=== PATIENT | female | born 1965 | race Caucasian/White ===

== ENCOUNTER 2019-05-16 17:45 | Emergency (ER) | payer SELFPAY ==
[2019-05-16] MEDS ORDERED: NA CHLORIDE 0.9% 1,000 ML ONE (18:25)
[2019-05-16] MEDS ORDERED: ONDANSETRON 4 MG/2 ML VIAL ONE ×2 (18:25→19:29)
[2019-05-16 18:31] LABS: Urine Blood NEGATIVE (NEG); Urine Glucose NEGATIVE (NEG); Urine Protein NEGATIVE (NEG); Urine pH 5.5 (5.0-7.0)
[2019-05-16 18:31] LABS: Absolute Lymphocytes (CBC) 2.5 K/uL (0.7-4.9); Basophils % 1.1 % (0-1.3); Hematocrit 40.3 % (36.0-45.0); Lymphocytes % 40.8 % (15.3-44.8); MPV 8.5 fL (7.6-11.3); RBC Red Blood Cell Count 4.54 M/uL (3.86-4.86)
[2019-05-16 18:33] LABS: Protime INR 0.93
--- NOTE | 2019-05-16 18:34 | RAD REPORT ---
EXAM DESCRIPTION: Arthur Single View05/16/2019 6:12 pm CLINICAL HISTORY: Chest pain COMPARISON: 2017 FINDINGS: The lungs appear clear of acute infiltrate. The heart is normal size IMPRESSION: No acute abnormalities displayed
[2019-05-16 18:50] LABS: ALT/SGPT 17 U/L (12-78); AST/SGOT 11 U/L (15-37); Albumin 3.7 g/dL (3.4-5.0); Alkaline Phosphatase 110 U/L (45-117); BUN Blood Urea Nitrogen 9 mg/dL (7-18); Bicarbonate 28 mmol/L (21-32); Bilirubin Direct 0.1 mg/dL (0-0.2); Bilirubin Total 0.3 mg/dL (0.2-1.0); Glucose Level 73 mg/dL (74-106); Magnesium 2.2 mg/dL (1.8-2.4); NT PRO-BNP 206 pg/mL (<125); Potassium 3.7 mmol/L (3.5-5.1); Protein, Total 7.5 g/dL (6.4-8.2); Sodium Level 143 mmol/L (136-145); Troponin (Emerg Dept Use Only) < 0.02 ng/mL (0.0-0.045)
--- NOTE | 2019-05-16 18:55 | RAD REPORT ---
EXAM DESCRIPTION: CT - Head Brain Wo Cont - 05/16/2019 6:32 pm CLINICAL HISTORY: Headache COMPARISON: 2014 TECHNIQUE: Computed axial tomography of the head was obtained. IV contrast was not requested. All CT scans are performed using dose optimization technique as appropriate and may include automated exposure control or mA/KV adjustment according to patient size. FINDINGS: An intracranial bleed is not seen . Mild cerebellar tonsillar ectopia The ventricles are normal in caliber. No extra-axial fluid collection is noted. Fluid within the sinuses/ mastoids is not seen. IMPRESSION: Mild cerebellar tonsillar ectopia No acute intracranial abnormality is seen. If patient's symptoms persist MRI of the brain would be r ecommended.
--- NOTE | 2019-05-16 19:16 | EDPHYS ---
Physician Documentation [facility] Name: Olga Lidia Delgadillo Age: 53 yrs Sex: Female : 1965 Arrival Date: 05/16/2019 Time: 17:48 Bed 5 Private MD: ED Physician Albert Barrett HPI: 05/16 18:03 This 53 yrs old Female presents to ER via Ambulatory with complaints of pm1 Headache, Chest Pain, Dizziness. 18:03 The patient complains of pain to the forehead. The patient describes the headache as pm1 aching. 18:03 Onset: The symptoms/episode began/occurred 2 day(s) ago. Associated signs and symptoms: pm1 Pertinent positives: dizziness, Chest pain, Pertinent negatives: fever, nausea, neck stiffness, paresthesias, vomiting, weakness. The symptoms are alleviated by nothing. the symptoms are aggravated by nothing. The patient has not recently seen a physician. Chest pain onset 2 days ago at the same time with her headache. 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 - Social history:: Smoking status: Patient/guardian denies using tobacco. - Ebola Screening: : No symptoms or risks identified at this time. ROS: 18:03 Constitutional: Negative for fever, chills, and weight loss, Eyes: Negative for injury, pm1 pain, redness, and discharge, ENT: Negative for injury, pain, and discharge, Neck: Negative for injury, pain, and swelling. 18:03 Respiratory: Negative for shortness of breath, cough, wheezing, and pleuritic chest pain, Abdomen/GI: Negative for abdominal pain, nausea, vomiting, diarrhea, and constipation, Back: Negative for injury and pain, : Negative for injury, bleeding, discharge, and swelling, MS/Extremity: Negative for injury and deformity, Skin: Negative for injury, rash, and discoloration. 18:03 Cardiovascular: Positive for chest pain, Negative for edema, palpitations. 18:03 Neuro: Positive for dizziness, headache, Negative for numbness, tingling, weakness. Exam: 18:03 Constitutional: This is a well developed, well nourished patient who is awake, alert, pm1 and in no acute distress. Head/Face: Normocephalic, atraumatic. Eyes: Pupils equal round and reactive to light, extra-ocular motions intact. Lids and lashes normal. Conjunctiva and sclera are non-icteric and not injected. Cornea within normal limits. Periorbital areas with no swelling, redness, or edema. ENT: Nares patent. No nasal discharge, no septal abnormalities noted. Tympanic membranes are normal and external auditory canals are clear. Oropharynx with no redness, swelling, or masses, exudates, or evidence of obstruction, uvula midline. Mucous membranes moist. Neck: Trachea midline, no thyromegaly or masses palpated, and no cervical lymphadenopathy. Supple, full range of motion without nuchal rigidity, or vertebral point tenderness. No Meningismus. Chest/axilla: Normal chest wall appearance and motion. Nontender with no deformity. No lesions are appreciated. Cardiovascular: Regular rate and rhythm with a normal S1 and S2. No gallops, murmurs, or rubs. Normal PMI, no JVD. No pulse deficits. Respiratory: Lungs have equal breath sounds bilaterally, clear to auscultation and percussion. No rales, rhonchi or wheezes noted. No increased work of breathing, no retractions or nasal flaring. Abdomen/GI: Soft, non-tender, with normal bowel sounds. No distension or tympany. No guarding or rebound. No evidence of tenderness throughout. Back: No spinal tenderness. No costovertebral tenderness. Full range of motion. Skin: Warm, dry with normal turgor. Normal color with no rashes, no lesions, and no evidence of cellulitis. MS/ Extremity: Pulses equal, no cyanosis. Neurovascular intact. Full, normal range of motion. 18:03 Neuro: Orientation: is normal, Motor: moves all fours. Vital Signs: 17:50 BP 94 / 63; Pulse 62; Resp 18; Temp 98.5(TE); Pulse Ox 98% on R/A; Weight 68.04 kg; hj Height 5 ft. 2 in. (157.48 cm); Pain 7/10; 18:12 BP 103 / 64 LA Supine (auto/reg); Pulse 61; sv 18:14 BP 105 / 76 LA Sitting (auto/reg); Pulse 65; sv 18:16 BP 113 / 71 LA Standing (auto/reg); Pulse 66; sv 19:00 BP 111 / 75; Pulse 57 MON; Resp 16; Pulse Ox 98% on R/A; sv 19:42 BP 114 / 75; Pulse 61; Resp 16 S; Pulse Ox 97% on R/A; jd3 17:50 Body Mass Index 27.44 (68.04 kg, 157.48 cm) hj 19:00 Sinus bradycardia sv MDM: 17:54 Patient medically screened. pm1 19:14 Data reviewed: vital signs. Data interpreted: Pulse oximetry: on room air is 98 %. pm1 Interpretation: normal. 19:15 Counseling: I had a detailed discussion with the patient and/or guardian regarding: the pm1 historical points, exam findings, and any diagnostic results supporting the discharge/admit diagnosis, lab results, radiology results, the need for outpatient follow up, to return to the emergency department if symptoms worsen or persist or if there are any questions or concerns that arise at home. 05/16 18:01 Order name: Basic Metabolic Panel; Complete Time: 19: pm05/16 18:01 Order name: CBC with Diff; Complete Time: 19: pm05/16 18:01 Order name: LFT's; Complete Time: 19: pm05/16 18:01 Order name: Magnesium; Complete Time: 19: pm05/16 18:01 Order name: NT PRO-BNP; Complete Time: 19: pm05/16 18:01 Order name: PT-INR; Complete Time: 19: pm05/16 18:01 Order name: CT Head Brain wo Cont; Complete Time: 19: pm05/16 18:01 Order name: Troponin (emerg Dept Use Only); Complete Time: 19: pm05/16 18:01 Order name: XRAY Chest (1 view); Complete Time: 19: pm05/16 18:01 Order name: EKG; Complete Time: 18:05 pm05/16 18:19 Order name: Urine Dipstick--Ancillary (enter results); Complete Time: 19:09 eb 05/16 18:01 Order name: Cardiac monitoring; Complete Time: 18:03 pm1 05/16 18:01 Order name: EKG - Nurse/Tech; Complete Time: 18:03 pm1 05/16 18:01 Order name: IV Saline Lock; Complete Time: 18:21 pm1 05/16 18:01 Order name: Labs collected and sent; Complete Time: 18:21 pm05/16 18:01 Order name: O2 Per Protocol; Complete Time: 18:03 pm05/16 18:01 Order name: O2 Sat Monitoring; Complete Time: 18:03 pm05/16 18:01 Order name: Orthostatic Blood Pressure; Complete Time: 18:21 pm1 EC:02 Rate is 59 beats/min. Rhythm is regular. No Q waves. T waves are Normal. No ST changes pm1 noted. Clinical impression: Sinus bradycardia. Administered Medications: 18:21 Drug: NS 0.9% 1000 ml Route: IV; Rate: 1000 ml; Site: right antecubital; sv 19:45 Follow up: Response: No adverse reaction; IV Status: Completed infusion; IV Intake: jd3 1000ml 19:17 Drug: morphine 4 mg Route: IVP; Site: right antecubital; jd3 19:46 Follow up: Response: No adverse reaction jd3 19:17 Drug: Zofran 4 mg Route: IVP; Site: right antecubital; jd3 19:46 Follow up: Response: No adverse reaction jd3 Disposition: 05/17 07:02 Co-signature as Attending Physician, Albert Barrett MD I agree with the assessment and kdr plan of care. Disposition: 05/16/19 19:15 Discharged to Home. Impression: Headache, Chest pain, unspecified. - Condition is Stable. - Discharge Instructions: Nonspecific Chest Pain, General Headache Without Cause. - Medication Reconciliation Form, Thank You Letter, Antibiotic Education, Prescription Opioid Use form. - Follow up: Emergency Department; When: As needed; Reason: Worsening of condition. Follow up: Private Physician; When: 2 - 3 days; Reason: Recheck today's complaints, Continuance of care, Re-evaluation by your physician. - Problem is new. - Symptoms have improved. Signatures: Dispatcher [facility] Janell Jordan, RN RN Albert Barrett MD MD [facility] Bran Ramos RN RN hj Michele Velasco NP REFERRAL AGENT pm1 Jacques Guallpa RN RN jd3 Corrections: (The following items were deleted from the chart) 05/16 19:48 19:15 05/16/2019 19:15 Discharged to Home. Impression: Headache; Chest pain, jd3 unspecified. Condition is Stable. Forms are Medication Reconciliation Form, Thank You Letter, Antibiotic Education, Prescription Opioid Use. Follow up: Emergency Department; When: As needed; Reason: Worsening of condition. Follow up: Private Physician; When: 2 - 3 days; Reason: Recheck today's complaints, Continuance of care, Re-evaluation by your physician. Problem is new. Symptoms have improved. pm1
--- NOTE | 2019-05-16 19:16 | ER ---
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 Transition of care: patient was not received from another setting of care. Onset of symptoms was May 16, 2019. Risk Assessment: Do you want to hurt yourself or someone else? Patient reports no desire to harm self or others. Initial Sepsis Screen: Does the patient meet any 2 criteria? No. Patient's initial sepsis screen is negative. Does the patient have a suspected source of infection? No. Patient's initial sepsis screen is negative. Care prior to arrival: None. 17:48 Method Of Arrival: Ambulatory 17:48 Acuity: ROXIE 3 hj Triage Assessment: 19:46 Pain: Pain began 2-3 days ago. Also complains of no other associated symptoms. jd3 19:46 Headache History: Denies prior headaches. 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 - Social history:: Smoking status: Patient/guardian denies using tobacco. - Ebola Screening: : No symptoms or risks identified at this time. Screenin:57 Abuse screen: Denies threats or abuse. Nutritional screening: No deficits noted. tw2 Tuberculosis screening: No symptoms or risk factors identified. Fall Risk None identified. Assessment: 18:10 General: Appears in no apparent distress. uncomfortable, well developed, Behavior is sv calm, cooperative, appropriate for age. Pain: Complains of pain in face and chest Pain currently is 7 out of 10 on a pain scale. Is intermittent, Aggravated by touch. Neuro: Level of Consciousness is awake, alert, obeys commands, Oriented to person, place, time, situation, Moves all extremities. Full function Gait is steady, Speech is normal, Reports dizziness, headache frontal area. Cardiovascular: Patient's skin is warm and dry. Rhythm is sinus rhythm. Respiratory: Airway is patent Respiratory effort is even, unlabored, Respiratory pattern is regular, symmetrical. Derm: Skin is pink, warm \T\ dry. 18:10 Musculoskeletal: Range of motion: intact in all extremities. sv 18:15 Reassessment: Hold morphine at this time d/t BP per Michele DIALYSIS TECHNICIAN. Will reevaluate once sv fluids have infused. Pt and family informed of POC. 19:01 Reassessment: Patient appears in no apparent distress at this time. No changes from sv previously documented assessment. Patient and/or family updated on plan of care and expected duration. Pain level reassessed. Patient is alert, oriented x 3, equal unlabored respirations, skin warm/dry/pink. 19:18 General: Appears in no apparent distress. uncomfortable, Behavior is calm, cooperative, jd3 appropriate for age. Pain: Complains of pain in head and chest Quality of pain is described as aching, pressure. Neuro: Level of Consciousness is awake, alert, obeys commands, Oriented to person, place, time, situation. Cardiovascular: Capillary refill < 3 seconds Patient's skin is warm and dry. Rhythm is sinus rhythm. Respiratory: Airway is patent Respiratory effort is even, unlabored, Respiratory pattern is regular, symmetrical. GI: No signs and/or symptoms were reported involving the gastrointestinal system. : No signs and/or symptoms were reported regarding the genitourinary system. EENT: No signs and/or symptoms were reported regarding the EENT system. Derm: Skin is intact, Skin is dry, Skin is normal, Skin temperature is warm. Musculoskeletal: Circulation, motion, and sensation intact. Range of motion: intact in all extremities. 19:43 Reassessment: Patient appears in no apparent distress at this time. Patient and/or jd3 family updated on plan of care and expected duration. Pain level reassessed. Patient is alert, oriented x 3, equal unlabored respirations, skin warm/dry/pink. reported understanding of discharge instructions, assisted pt to front of ER with wheelchair. Vital Signs: 17:50 BP 94 / 63; Pulse 62; Resp 18; Temp 98.5(TE); Pulse Ox 98% on R/A; Weight 68.04 kg; hj Height 5 ft. 2 in. (157.48 cm); Pain 7/10; 18:12 BP 103 / 64 LA Supine (auto/reg); Pulse 61; sv 18:14 BP 105 / 76 LA Sitting (auto/reg); Pulse 65; sv 18:16 BP 113 / 71 LA Standing (auto/reg); Pulse 66; sv 19:00 BP 111 / 75; Pulse 57 MON; Resp 16; Pulse Ox 98% on R/A; sv 19:42 BP 114 / 75; Pulse 61; Resp 16 S; Pulse Ox 97% on R/A; jd3 17:50 Body Mass Index 27.44 (68.04 kg, 157.48 cm) hj 19:00 Sinus bradycardia sv ED Course: 17:48 Patient arrived in ED. hj 17:49 Triage completed. hj 17:50 Arm band placed on right wrist. hj 17:54 Michele Velasco NP is PHCP. pm1 17:54 Albert Barrett MD is Attending Physician. pm1 17:54 Bed in low position. Call light in reach. engraver automatic on. Pulse ox on. NIBP on. tw2 18:01 EKG done, by ED staff, reviewed by Michele Velasco NP. sv 18:08 Janell Jordan, RN is Primary Nurse. sv 18:14 XRAY Chest (1 view) In Process Unspecified. EDMS 18:20 Initial lab(s) drawn, by mt, sent to lab. Inserted saline lock: 20 gauge in right sv antecubital area, using aseptic technique. Blood collected. Flushed right antecubital with 5 ml normal saline. 18:[address] via stretcher. sv 18:32 Awaiting lab results, Awaiting radiology results. sv 18:34 CT Head Brain wo Cont In Process Unspecified. EDMS 18:34 Patient moved back from CT. sv 19:00 Awaiting lab results. sv 19:06 Primary Nurse role handed off by Janell Jordan, ADDIE sv 19:06 Report given to Jacques REAL and Sonja REAL. sv 19:08 Guallpa, Jacques, RN is Primary Nurse. jd3 19:47 No provider procedures requiring assistance completed. IV discontinued, intact, jd3 bleeding controlled, No redness/swelling at site. Pressure dressing applied. Administered Medications: 18:21 Drug: NS 0.9% 1000 ml Route: IV; Rate: 1000 ml; Site: right antecubital; sv 19:45 Follow up: Response: No adverse reaction; IV Status: Completed infusion; IV Intake: jd3 1000ml 19:17 Drug: morphine 4 mg Route: IVP; Site: right antecubital; jd3 19:46 Follow up: Response: No adverse reaction jd3 19:17 Drug: Zofran 4 mg Route: IVP; Site: right antecubital; jd3 19:46 Follow up: Response: No adverse reaction jd3 Intake: 19:45 IV: 1000ml; Total: 1000ml. jd3 Outcome: 19:15 Discharge ordered by MD. pm1 19:47 Discharged to home via wheelchair, with family. jd3 19:47 Condition: stable 19:47 Discharge instructions given to patient, family, Instructed on discharge instructions, follow up and referral plans. Demonstrated understanding of instructions, follow-up care. 19:48 Patient left the ED. jd3 Signatures: Dispatcher [employer] EDMS Janell Jordan RN ADDIE Bran Ramos, RN ADDIE Michele Velasco, ELLEN DIALYSIS TECHNICIAN pm1 Carrol Quintana RN RN tw2 Jacques Guallpa, RN RN jd3 Corrections: (The following items were deleted from the chart) 17:52 17:50 Pulse 62bpm; Resp 18bpm; Pulse Ox 98% RA; Temp 98.5F Temporal; 68.04 kg; Height 5 hj ft. 2 in.; BMI: 27.4; Pain 7/10; hj 17:52 17:50 Pulse 62bpm; Resp 18bpm; Pulse Ox 98% RA; Temp 98.5F Temporal; 68.04 kg; Height 5 hj ft. 2 in.; BMI: 27.4; Pain 7/10; hj
[2019-05-16] MEDS ORDERED: MORPHINE 4 MG/ML SYR ONE (19:28)
[2019-05-16 20:08] VITALS: TEMP 98.5
[2019-05-16 20:12] VITALS: BP 114/75; O2SAT 97
--- NOTE | 2019-05-17 06:42 | EKG ---
Test Date: 2019-05-16 Test Time: 18:01:30 [employer] Instruments: RAVI MEASUREMENT RESULTS: Intervals: Rate: 59 LA: 140 QRSD: 76 QT: 424 QTc: 419 [place]: P: 28 LA: 140 QRS: 22 T: 42 INTERPRETIVE STATEMENTS: Sinus bradycardia Otherwise normal ECG Compared to ECG 10/28/2009 07:44:02 Sinus rhythm no longer present Electronically Signed On 05-17-19 06:41:34 CDT by Jose C Arboleda
== END 2019-05-16 19:48 | disposition home or self-care (01) ==
LOC: ER 17:45
DX: R51 Headache (principal); R07.9 Chest pain, unspecified; F31.9 Bipolar disorder, unspecified; F32.9 Major depressive disorder, single episode, unspecified; Z88.8 Allergy status to other drugs, medicaments and biological substances; Z88.6 Allergy status to analgesic agent; Z91.040 Latex allergy status
CPT/HCPCS: 36415; 70450; 71045; 80048; 80076; 81003; 83735; 83880; 84484; 85025; 85610; 93005; 96361; 96374; 96375; 99285; J2405; J7030

== ENCOUNTER 2020-03-31 21:57 | Emergency (ER) | payer SELFPAY ==
--- OUTSIDE RECORDS SUMMARY | 2020-03-31 21:59 | XMS REPORT | Continuity of Care Document ---
:1965 Author Organization [facility] t Address [address] [place] [address] Dr. Mathur [address] [place] [id number] Care Team Providers Name Role Phone Unavailable Unavailable Unavailable Problems This patient has no known problems. Allergies, Adverse Reactions, Alerts This patient has no known allergies or adverse reactions. Medications This patient has no known medications. Procedures This patient has no known procedures. Results This patient has no known results.
[2020-03-31] MEDS ORDERED: HYDROCODONE/APAP 5/325 MG TAB ONE (22:46)
--- NOTE | 2020-04-01 00:17 | ER ---
Nurse's Notes [facility] Name: Olga Lidia Delgadillo Age: 54 yrs Sex: Female : 1965 Arrival Date: 03/31/2020 Time: 21:59 Bed 19 Private MD: Diagnosis: Pain in left knee;Pain in left ankle and joints of left foot;Other slipping, tripping and stumbling and falls Presentation: 03/31 22:00 Chief complaint: Spouse and/or significant other states: states that the sg patient was walking down the stairs and onto a pathway when she lost her balance and fell from standing, hurting her left knee and left ankle, pt reports numbness at this time. Coronavirus screen: Proceed with normal triage. Ebola Screen: Patient negative for fever greater than or equal to 101.5 degrees Fahrenheit, and additional compatible Ebola Virus Disease symptoms Patient denies exposure to infectious person. Patient denies travel to an Ebola-affected area in the 21 days before illness onset. No symptoms or risks identified at this time. Initial Sepsis Screen: Does the patient meet any 2 criteria? No. Patient's initial sepsis screen is negative. Does the patient have a suspected source of infection? No. Patient's initial sepsis screen is negative. Onset of symptoms was March 31, 2020. Care prior to arrival: None. 22:00 Method Of Arrival: Wheelchair sg 22:00 Acuity: ROXIE 4 sg 22:24 Risk Assessment: Do you want to hurt yourself or someone else? Patient reports no ls4 desire to harm self or others. Triage Assessment: 22:22 General: Appears in no apparent distress. uncomfortable, Behavior is calm, cooperative. ls4 Injury Description: Abrasion sustained to left knee. 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 - Social history:: Smoking status: Patient denies any tobacco usage or history of. Screenin:20 Abuse screen: Denies threats or abuse. Denies injuries from another. Nutritional ls4 screening: No deficits noted. Tuberculosis screening: No symptoms or risk factors identified. Fall Risk None identified. Assessment: 22:21 Pain: Complains of pain in left knee and anterior aspect of left ankle Pain currently ls4 is 9 out of 10 on a pain scale. Derm: abrasion, quarter size on both knees. right knee does not hurt. Musculoskeletal: Circulation, motion, and sensation intact. Capillary refill < 3 seconds, Range of motion: intact in all extremities, Swelling absent. 04/01 00:38 Reassessment: Patient appears in no apparent distress at this time. Patient and/or ls4 family updated on plan of care and expected duration. Pain level reassessed. Patient is alert, oriented x 3, equal unlabored respirations, skin warm/dry/pink. crutches given. crutch training reviewed, pt has used in past. Patient states symptoms have improved. Vital Signs: 03/31 22:17 BP 111 / 74; Pulse 62; Resp 18; Temp 98.7(O); Pulse Ox 99% on R/A; Pain 9/10; ls4 23:27 BP 108 / 74; Pulse 64; Resp 16; Pulse Ox 99% on R/A; Pain 5/10; ls4 ED Course: 21:59 Patient arrived in ED. bp1 22:00 Arm band placed on. sg 22:04 Michele Velasco NP is PHCP. pm1 22:05 Kalpesh Meza MD is Attending Physician. pm1 22:10 Triage completed. sg 22:16 Kerrie Frankel, ADDIE is Primary Nurse. ls4 22:20 No apparent distress. ls4 22:20 Patient has correct armband on for positive identification. Bed in low position. Call ls4 light in reach. Side rails up X 1. Pulse ox on. NIBP on. Verbal reassurance given. 22:20 No provider procedures requiring assistance completed. ls4 22:24 Patient did not have IV access during this emergency room visit. ls4 22:48 Knee Left 3 View XRAY In Process Unspecified. EDMS 22:49 Ankle Left 3 View XRAY In Process Unspecified. EDMS 23:26 Knee Left Wo Con Sent. ls4 23:53 Knee Left Wo Con In Process Unspecified. EDMS 04/01 00:16 Froilan Wang MD is Referral Physician. pm1 00:48 Knee immobilizer applied on left knee. ls4 Administered Medications: 03/31 22:20 Drug: Iota 5 mg-325 mg 1 tabs Route: PO; ls4 22:40 Follow up: Response: No adverse reaction; Marked relief of symptoms ls4 Outcome: 04/01 00:16 Discharge ordered by . pm1 00:48 Discharged to home ambulatory, with crutches, with family. ls4 00:48 Condition: good 00:48 Discharge instructions given to patient, family, Instructed on discharge instructions, follow up and referral plans. medication usage, safety practices, Demonstrated understanding of instructions, follow-up care, medications, wound care, crutch walking, splint care, Prescriptions given X 1. 00:49 Patient left the ED. ls4 Signatures: Dispatcher [employer] EDCA Froilan Enamorado, RN Michele Bullock NP WILDLIFE REHABILITATOR pm1 Kerrie Frankel RN RN ls4 Gabbi Richards
--- NOTE | 2020-04-01 00:17 | EDPHYS ---
Physician Documentation [facility] Name: Olga Lidia Delgadillo Age: 54 yrs Sex: Female : 1965 Arrival Date: 03/31/2020 Time: 21:59 Bed 19 Private MD: ED Physician Kalpesh Meza HPI: 03/31 22:10 This 54 yrs old Female presents to ER via Wheelchair with complaints of Leg pm1 Injury. 22:10 The patient presents with pain, that is acute. The complaints affect the left knee and pm1 left ankle. Context: The problem was sustained at home, resulted from tripped on elevated porch board and landed on her knees. Onset: The symptoms/episode began/occurred today, at 18:00. Modifying factors: the symptoms are aggravated by weight bearing, bending knee. Associated signs and symptoms: Pertinent positives: swelling, of the left knee, Pertinent negatives calf tenderness, fever, numbness, tingling. Treatment prior to arrival includes: over the counter medications, Tylenol. Severity of symptoms: in the emergency department the symptoms are unchanged, despite home interventions. The patient has not experienced similar symptoms in the past. The patient has not recently seen a physician. [employer]: 22:17 LMP N/A - Hysterectomy ls4 Historical: - Allergies: 22:10 Aspirin (Hives); sg 22:10 Iodine; sg 22:10 Latex, Natural Rubber; sg 22:10 Prozac; sg 22:10 Seroquel (rash); sg - PMHx: 22:10 Bipolar disorder; Depression; sg - PSHx: 22:10 ; Hysterectomy; sg - Immunization history:: Adult Immunizations not up to date. - Social history:: Smoking status: Patient denies any tobacco usage or history of. ROS: 22:10 Constitutional: Negative for fever, chills, and weight loss, Neck: Negative for injury, pm1 pain, and swelling, Cardiovascular: Negative for chest pain, palpitations, and edema, Respiratory: Negative for shortness of breath, cough, wheezing, and pleuritic chest pain. 22:10 Abdomen/GI: Negative for abdominal pain, nausea, vomiting, diarrhea, and constipation, Back: Negative for injury and pain. 22:10 Neuro: Negative for headache, weakness, numbness, tingling, and seizure. 22:10 MS/extremity: Positive for Pain to left ankle and knee. Swelling to knee, Negative for deformity. 22:10 Skin: Positive for abrasion(s), of the right knee. Exam: 22:10 Constitutional: This is a well developed, well nourished patient who is awake, alert, pm1 and in no acute distress. Head/Face: Normocephalic, atraumatic. Chest/axilla: Normal chest wall appearance and motion. Nontender with no deformity. No lesions are appreciated. 22:10 Abdomen/GI: Soft, non-tender, with normal bowel sounds. No distension or tympany. No guarding or rebound. No evidence of tenderness throughout. Back: No spinal tenderness. No costovertebral tenderness. Full range of motion. 22:10 Cardiovascular: Exam negative for acute changes, Rate: normal, Rhythm: regular, Pulses: no pulse deficits are appreciated. 22:10 Respiratory: Exam negative for acute changes, respiratory distress, shortness of breath. 22:10 Musculoskeletal/extremity: Extremities: grossly normal except: noted in the left knee: swelling, tenderness, There is no evidence of deformity, noted in the left lateral ankle: tenderness, Circulation is intact in all extremities. 22:10 Skin: Appearance: normal except for affected area, injury, abrasion(s), very small abrasion noted, of the right knee. Vital Signs: 22:17 BP 111 / 74; Pulse 62; Resp 18; Temp 98.7(O); Pulse Ox 99% on R/A; Pain 9/10; ls4 23:27 BP 108 / 74; Pulse 64; Resp 16; Pulse Ox 99% on R/A; Pain 5/10; ls4 MDM: 22:05 Patient medically screened. pm1 23:11 ED course: Patient's left ankle pain resolved but left knee pain present and patient pm1 reports inability to bear weight on left knee. Will get CT to rule out tibial plateau fracture. 04/01 00:15 Data reviewed: vital signs. Data interpreted: Pulse oximetry: on room air is 99 %. pm1 Interpretation: normal. Counseling: I had a detailed discussion with the patient and/or guardian regarding: the historical points, exam findings, and any diagnostic results supporting the discharge/admit diagnosis, radiology results, the need for outpatient follow up, for definitive care, a orthopedic surgeon, to return to the emergency department if symptoms worsen or persist or if there are any questions or concerns that arise at home. 00:18 ED course: [place] reviewed. pm1 03/31 22:09 Order name: Knee Left 3 View XRAY pm1 03/31 22:09 Order name: Ankle Left 3 View XRAY pm1 03/31 23:04 Order name: Knee Immobilizer; Complete Time: 00:37 pm1 03/31 23:11 Order name: Knee Left Wo Con EDMN 03/31 23:04 Order name: Crutches; Complete Time: 00:37 pm1 Administered Medications: 03/31 22:20 Drug: Logan 5 mg-325 mg 1 tabs Route: PO; ls4 22:40 Follow up: Response: No adverse reaction; Marked relief of symptoms ls4 Disposition: 04/01 05:32 Co-signature as Attending Physician, Kalpesh Meza MD. 7 Disposition: 04/01/20 00:16 Discharged to Home. Impression: Pain in left knee, Pain in left ankle and joints of left foot, Other slipping, tripping and stumbling and falls. - Condition is Stable. - Discharge Instructions: Crutch Use, Knee Immobilizer, Knee Pain, Ankle Pain. - Prescriptions for Tylenol- Codeine #3 300-30 mg Oral Tablet - take 2 tablets by ORAL route every 6 hours As needed; 20 tablet. - Medication Reconciliation Form, Thank You Letter, Antibiotic Education, Prescription Opioid Use form. - Follow up: Emergency Department; When: As needed; Reason: Worsening of condition. Follow up: Froilan Wang MD; When: 2 - 3 days; Reason: Recheck today's complaints, Continuance of care, Re-evaluation by your physician. - Problem is new. - Symptoms have improved. Signatures: Dispatcher [employer] [facility] Froilan Enamorado RN RN sg Michele Velasco, ELLEN TECHNOLOGY DIRECTOR pm1 Kerrie Frankel RN RN ls4 Kalpesh Meza MD MD 7 Corrections: (The following items were deleted from the chart) 03/31 23:11 23:07 CT LEFT KNEE WO CONTRAST ordered. [facility] 04/01 00:49 00:16 04/01/2020 00:16 Discharged to Home. Impression: Pain in left knee; Pain in left ls4 ankle and joints of left foot; Other slipping, tripping and stumbling and falls. Condition is Stable. Forms are Medication Reconciliation Form, Thank You Letter, Antibiotic Education, Prescription Opioid Use. Follow up: Emergency Department; When: As needed; Reason: Worsening of condition. Follow up: Froilan Wang; When: 2 - 3 days; Reason: Recheck today's complaints, Continuance of care, Re-evaluation by your physician. Problem is new. Symptoms have improved. pm1
[2020-04-01 01:11] VITALS: TEMP 98.7; O2SAT 99
[2020-04-01 01:13] VITALS: BP 108/74
--- NOTE | 2020-04-01 08:11 | RAD REPORT ---
EXAM DESCRIPTION: RAD - Ankle Left 3 View - 03/31/2020 10:48 pm CLINICAL HISTORY: PAINslip and fall, ankle trauma COMPARISON: No comparisons FINDINGS: No fracture, dislocation or periosteal reaction. No joint effusion seen. No joint space na rrowing. Mild lateral soft tissue swelling present. IMPRESSION: Mild soft tissue swelling. No fracture or acute bone finding.
--- NOTE | 2020-04-01 10:21 | RAD REPORT ---
EXAM DESCRIPTION: RAD - Knee Left 3 View - 03/31/2020 10:47 pm CLINICAL HISTORY: Pain after trauma. COMPARISON: None. TECHNIQUE: Axial [address] imaging of the left knee performed. Reformatted coronal and sagittal images obtained. No contrast utilized. Automated exposure control, adjustment of the mA and/or kV according to patient size, or use of itera tive reconstruction was performed. FINDINGS: There is a small left knee joint effusion present. There is no fracture within the patella , distal left femur and proximal tibia, or fibula. There is no malalignment. There are mild hypertrop hic changes along the posterior superior patella, medial and lateral femoral condyle, tibial plateau with subchondral proximal tibia changes suggest arthritis. Sclerotic changes with minimal subchondral cystic change along the posterior patellar compatible with osteoarthritic change. There is a peripherally sclerotic and centrally lucent 1.0 x 1.0 x 0.7 cm lesion within the subchondr al subarticular lateral femoral condyle compatible with a small osteochondral defect. There is no loo se body. Bone mineralization is mildly decreased. There is prepatellar soft tissue edema. No foreign body or subcutaneous emphysema. IMPRESSION: 1. Small left knee joint effusion. Prepatellar soft tissue edema. No fracture. 2. Lateral left femoral condyle osteochondral defect without loose body. Electronically signed by: Litzy Thrasher DO 04/01/2020 12:08 AM CDT Due to temporary technical issues with the PACS/Fluency reporting system, reports are being signed by the in house radiologist without review as a courtesy to ensure prompt reporting. The interpreting r adiologist is fully responsible for the content of the report.
--- NOTE | 2020-04-01 10:36 | RAD REPORT ---
EXAM DESCRIPTION: CT - Knee Left Wo Con - 04/01/2020 7:03 am CLINICAL HISTORY: Pain after trauma. COMPARISON: None. TECHNIQUE: Axial [address] imaging of the left knee performed. Reformatted coronal and sagittal images obtained. No contrast utilized. Automated exposure control, adjustment of the mA and/or kV according to patient size, or use of itera tive reconstruction was performed. FINDINGS: There is a small left knee joint effusion present. There is no fracture within the patella , distal left femur and proximal tibia, or fibula. There is no malalignment. There are mild hypertrop hic changes along the posterior superior patella, medial and lateral femoral condyle, tibial plateau with subchondral proximal tibia changes suggest arthritis. Sclerotic changes with minimal subchondral cystic change along the posterior patellar compatible with osteoarthritic change. There is a peripherally sclerotic and centrally lucent 1.0 x 1.0 x 0.7 cm lesion within the subchondr al subarticular lateral femoral condyle compatible with a small osteochondral defect. There is no loo se body. Bone mineralization is mildly decreased. There is prepatellar soft tissue edema. No foreign body or subcutaneous emphysema. IMPRESSION: 1. Small left knee joint effusion. Prepatellar soft tissue edema. No fracture. 2. Lateral left femoral condyle osteochondral defect without loose body. Electronically signed by: Litzy Thrasher DO 04/01/2020 12:08 AM CDT Due to temporary technical issues with the PACS/Fluency reporting system, reports are being signed by the in house radiologist without review as a courtesy to ensure prompt reporting. The interpreting r adiologist is fully responsible for the content of the report.
== END 2020-04-01 00:49 | disposition home or self-care (01) ==
LOC: ER 21:57
DX: M25.562 Pain in left knee (principal); M25.572 Pain in left ankle and joints of left foot; W10.9XXA Fall (on) (from) unspecified stairs and steps, initial encounter; Y93.89 Activity, other specified; Y92.9 Unspecified place or not applicable; Z91.040 Latex allergy status; Z91.09 Other allergy status, other than to drugs and biological substances; Z88.8 Allergy status to other drugs, medicaments and biological substances
CPT/HCPCS: 73700; 99284

== ENCOUNTER 2020-04-17 21:32 | Emergency (ER) | payer SELFPAY ==
--- OUTSIDE RECORDS SUMMARY | 2020-04-17 21:35 | XMS REPORT | Continuity of Care Document ---
:1965 Author Organization [facility] t Address [address] [place] [address] Dr. Mathur [address] [place] [id number] Care Team Providers Name Role Phone Unavailable Unavailable Unavailable Problems This patient has no known problems. Allergies, Adverse Reactions, Alerts This patient has no known allergies or adverse reactions. Medications This patient has no known medications. Procedures This patient has no known procedures. Results This patient has no known results.
[2020-04-17 23:07] LABS: Absolute Lymphocytes (CBC) 2.6 K/uL (0.7-4.9); Basophils % 1.2 % (0-1.3); Hematocrit 38.4 % (36.0-45.0); Lymphocytes % 39.2 % (15.3-44.8); MPV 8.5 fL (7.6-11.3); RBC Red Blood Cell Count 4.38 M/uL (3.86-4.86)
[2020-04-17 23:08] LABS: Protime INR 0.92
[2020-04-17] MEDS ORDERED: ONDANSETRON 4 MG/2 ML VIAL ONE (23:17)
[2020-04-17] MEDS ORDERED: NA CHLORIDE 0.9% 1,000 ML ONE (23:17)
[2020-04-17 23:27] LABS: ALT/SGPT 15 U/L (12-78); AST/SGOT 11 U/L (15-37); Albumin 3.4 g/dL (3.4-5.0); Alkaline Phosphatase 108 U/L (45-117); BUN Blood Urea Nitrogen 16 mg/dL (7-18); Bicarbonate 24 mmol/L (21-32); Bilirubin Direct < 0.1 mg/dL (0-0.2); Bilirubin Total 0.2 mg/dL (0.2-1.0); Glucose Level 91 mg/dL (74-106); Magnesium 2.2 mg/dL (1.8-2.4); NT PRO-BNP 122 pg/mL (<125); Potassium 3.3 mmol/L (3.5-5.1); Sodium Level 143 mmol/L (136-145); Troponin (Emerg Dept Use Only) < 0.02 ng/mL (0.0-0.045)
[2020-04-17 23:47] LABS: Urine Blood NEGATIVE (NEG); Urine Glucose NEGATIVE (NEG); Urine Protein NEGATIVE (NEG); Urine Specific Gravity 1.025 (1.005-1.030); Urine pH 5.5 (5.0-7.0)
--- NOTE | 2020-04-18 03:06 | EDPHYS ---
Physician Documentation [facility] Name: Olga Lidia Delgadillo Age: 54 yrs Sex: Female : 1965 Arrival Date: 04/17/2020 Time: 21:36 Bed 20 Private MD: ED Physician Kalpesh Meza HPI: 04/17 23:00 This 54 yrs old Female presents to ER via Wheelchair with complaints of mh7 Nausea, Dizziness. 23:01 The patient presents with dizziness, lightheadedness. Onset: The symptoms/episode mh7 began/occurred today. Context: occurred at home, occurred while the patient was sitting, just prior to the episode the patient experienced nausea, coughing. Modifying factors: The symptoms are alleviated by the symptoms are aggravated by nothing. Associated signs and symptoms: Pertinent positives: headache, nausea, shortness of breath, cough, Pertinent negatives: abdominal pain, agitation, ataxia, blurred vision, chest pain, combativeness, confusion, diaphoresis, focal weakness, head injury, near-syncope, numbness, palpitations, , seizure, syncope, tingling, vomiting. Severity of symptoms: At their worst the symptoms were moderate today, in the emergency department the symptoms have improved moderately. [employer]: 21:50 LMP N/A - Hysterectomy ca1 Historical: - Allergies: 21:50 Aspirin (Hives); ca1 21:50 Iodine; ca1 21:50 Latex, Natural Rubber; ca1 21:50 Prozac; ca1 21:50 Seroquel (rash); ca1 21:50 PENICILLINS; ca1 - Home Meds: 21:50 Topamax Oral [Active]; Claritin Oral [Active]; ca1 - PMHx: 21:50 Bipolar disorder; Depression; ca1 - PSHx: 21:50 ; Hysterectomy; ca1 - Immunization history:: Adult Immunizations up to date. - Social history:: Smoking status: Patient reports the use of cigarette tobacco products, smokes one-half pack cigarettes per day. ROS: 23:01 Constitutional: Negative for fever, chills, and weight loss, Eyes: Negative for injury, mh7 pain, redness, and discharge, ENT: Negative for injury, pain, and discharge, Neck: Negative for injury, pain, and swelling, Cardiovascular: Negative for chest pain, palpitations, and edema, Back: Negative for injury and pain, : Negative for injury, bleeding, discharge, and swelling, MS/Extremity: Negative for injury and deformity, Skin: Negative for injury, rash, and discoloration, Psych: Negative for depression, anxiety, suicide ideation, homicidal ideation, and hallucinations, Allergy/Immunology: Negative for hives, rash, and allergies, Endocrine: Negative for neck swelling, polydipsia, polyuria, polyphagia, and marked weight changes, Hematologic/Lymphatic: Negative for swollen nodes, abnormal bleeding, and unusual bruising. Exam: 23:01 Constitutional: This is a well developed, well nourished patient who is awake, alert, mh7 and in no acute distress. Head/Face: Normocephalic, atraumatic. Eyes: Pupils equal round and reactive to light, extra-ocular motions intact. Lids and lashes normal. Conjunctiva and sclera are non-icteric and not injected. Cornea within normal limits. Periorbital areas with no swelling, redness, or edema. Neck: Trachea midline, no thyromegaly or masses palpated, and no cervical lymphadenopathy. Supple, full range of motion without nuchal rigidity, or vertebral point tenderness. No Meningismus. Chest/axilla: Normal chest wall appearance and motion. Nontender with no deformity. No lesions are appreciated. Cardiovascular: Regular rate and rhythm with a normal S1 and S2. No gallops, murmurs, or rubs. Normal PMI, no JVD. No pulse deficits. Respiratory: Lungs have equal breath sounds bilaterally, clear to auscultation and percussion. No rales, rhonchi or wheezes noted. No increased work of breathing, no retractions or nasal flaring. Abdomen/GI: Soft, non-tender, with normal bowel sounds. No distension or tympany. No guarding or rebound. No evidence of tenderness throughout. Back: No spinal tenderness. No costovertebral tenderness. Full range of motion. Skin: Warm, dry with normal turgor. Normal color with no rashes, no lesions, and no evidence of cellulitis. MS/ Extremity: Pulses equal, no cyanosis. Neurovascular intact. Full, normal range of motion. Neuro: Awake and alert, GCS 15, oriented to person, place, time, and situation. Cranial nerves II-XII grossly intact. Motor strength 5/5 in all extremities. Sensory grossly intact. Cerebellar exam normal. Normal gait. Psych: Awake, alert, with orientation to person, place and time. Behavior, mood, and affect are within normal limits. 04/18 00:34 ECG was reviewed by the Attending Physician. [facility] Vital Signs: 04/17 21:45 BP 90 / 71; Pulse 65; Resp 18 S; Temp 97.1(TE); Pulse Ox 97% on R/A; Weight 72.57 kg ca1 (R); Height 5 ft. 6 in. (167.64 cm) (R); 22:31 BP 101 / 66; Pulse 58; Resp 19; Temp 98.6(T); Pulse Ox 98% on R/A; fu 23:45 BP 99 / 75; Pulse 56; Resp 18; Temp 98.6; Pulse Ox 100% on R/A; fu 04/18 00:52 BP 84 / 59; Pulse 58; Resp 12; Pulse Ox 98% on R/A; fu 02:49 BP 113 / 73; Pulse 61; Resp 15; Temp 97.8; Pulse Ox 100% on R/A; Pain 0/10; fu 04/17 21:45 Body Mass Index 25.82 (72.57 kg, 167.64 cm) ca1 MDM: 04/17 22:40 Patient medically screened. [facility] 04/18 03:04 Differential diagnosis: cardiac arrhythmia, generalized weakness, hypovolemia, [facility] idiopathic dizziness, near-syncope, syncope, vertigo. Data reviewed: vital signs, nurses notes, old medical records, lab test result(s), cardiac enzymes, CBC, electrolytes, urinalysis, EKG, radiologic studies, CT scan, plain films. Data interpreted: Pulse oximetry: on room air is 100 %. Interpretation: normal. Counseling: I had a detailed discussion with the patient and/or guardian regarding: the historical points, exam findings, and any diagnostic results supporting the discharge/admit diagnosis, lab results, radiology results, the need for outpatient follow up, to return to the emergency department if symptoms worsen or persist or if there are any questions or concerns that arise at home. 04/17 22:41 Order name: Basic Metabolic Panel; Complete Time: 23:59 [facility] 04/17 22:41 Order name: CBC with Diff; Complete Time: 23:59 [facility] 04/17 22:41 Order name: LFT's; Complete Time: 23:59 7 04/17 22:41 Order name: Magnesium; Complete Time: 23:59 04/17 22:41 Order name: NT PRO-BNP; Complete Time: 23:59 [facility] 04/17 22:41 Order name: PT-INR; Complete Time: 23:59 [facility] 04/17 22:41 Order name: Troponin (emerg Dept Use Only); Complete Time: 23:59 7 04/17 22:41 Order name: XRAY Chest (1 view) [facility] 04/17 22:41 Order name: EKG; Complete Time: 22:43 04/17 22:41 Order name: CT Head Brain wo Cont [facility] 04/17 23:25 Order name: Urine Dipstick--Ancillary (enter results); Complete Time: 23:59 [facility] 04/17 22:41 Order name: Cardiac monitoring; Complete Time: 23:20 04/17 22:41 Order name: EKG - Nurse/Tech [facility] 04/17 22:41 Order name: IV Saline Lock; Complete Time: 22:54 04/17 22:41 Order name: Labs collected and sent; Complete Time: 22:54 04/17 22:41 Order name: O2 Per Protocol; Complete Time: 22:54 04/17 22:41 Order name: O2 Sat Monitoring; Complete Time: 22:54 04/17 22:41 Order name: Urine Dipstick-Ancillary (obtain specimen); Complete Time: 23:42 mh7 EC:34 Rate is 52 beats/min. Rhythm is regular, Sinus bradycardia. QRS [place] is Normal. [place] mh7 interval is normal. QRS interval is normal. QT interval is normal. No Q waves. T waves are Normal. No ST changes noted. Clinical impression: Sinus bradycardia. Administered Medications: 04/17 23:12 Drug: NS 0.9% 1000 ml Route: IV; Rate: 1000 ml; Site: right antecubital; fu 23:12 Drug: Zofran (Ondansetron) 4 mg Route: IVP; Site: right antecubital; fu 04/18 00:12 Follow up: Response: No adverse reaction fu 03:42 Drug: Cipro 500 mg Route: PO; fu Disposition: 04/18/20 03:06 Discharged to Home. Impression: Dizziness and giddiness, Urinary tract infection, site not specified. - Condition is Stable. - Discharge Instructions: Dizziness, Urinary Tract Infection, Adult. - Prescriptions for Cipro 500 mg Oral Tablet - take 1 tablet by ORAL route every 12 hours for 7 days; 14 tablet. - Medication Reconciliation Form, Thank You Letter, Antibiotic Education, Prescription Opioid Use form. - Follow up: Private Physician; When: 2 - 3 days; Reason: Worsening of condition, Recheck today's complaints, Re-evaluation by your physician. - Problem is new. - Symptoms have improved. Signatures: Dispatcher [employer] EDMS Denys Jurado RN RN fu Acob, Cheryl, RN RN ca1 Holmes, Maurice, MD MD mh7 Corrections: (The following items were deleted from the chart) 04:00 03:06 04/18/2020 03:06 Discharged to Home. Impression: Dizziness and giddiness; Urinary fu tract infection, site not specified. Condition is Stable. Forms are Medication Reconciliation Form, Thank You Letter, Antibiotic Education, Prescription Opioid Use. Follow up: Private Physician; When: 2 - 3 days; Reason: Worsening of condition, Recheck today's complaints, Re-evaluation by your physician. Problem is new. Symptoms have improved. mh7
--- NOTE | 2020-04-18 03:06 | ER ---
Nurse's Notes [facility] Name: Olga Lidia Delgadillo Age: 54 yrs Sex: Female : 1965 Arrival Date: 04/17/2020 Time: 21:36 Bed 20 Private MD: Diagnosis: Dizziness and giddiness;Urinary tract infection, site not specified Presentation: 04/17 21:45 Chief complaint: Niece states, "She's mentally retarded and I take care of her. We were ca1 playing monopoly, she started coughing real bad and said she couldn't breathe. I checked her BP, it was 90/71 and I called here and spoke to CN. Froilan and instructed to come here. When we were getting into the car, she said her legs felt like jelly, she feels dizzy, nauseous and she c/o of headache. She says she has SOB too". Coronavirus screen: Proceed with normal triage. Patient reports shortness of breath or difficulty breathing. Patient denies measured and/or subjective temperature greater than 100.4F prior to today's visit. Patient denies travel on a cruise ship or to a country [facility] currently lists as an affected area. Patient denies contact with known and/or suspected case of COVID-19. Ebola Screen: Patient negative for fever greater than or equal to 101.5 degrees Fahrenheit, and additional compatible Ebola Virus Disease symptoms Patient denies exposure to infectious person. Patient denies travel to an Ebola-affected area in the 21 days before illness onset. No symptoms or risks identified at this time. Initial Sepsis Screen: Does the patient meet any 2 criteria? No. Patient's initial sepsis screen is negative. Does the patient have a suspected source of infection? No. Patient's initial sepsis screen is negative. Risk Assessment: Do you want to hurt yourself or someone else? Patient reports no desire to harm self or others. Onset of symptoms was April 17, 2020. 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 - Social history:: Smoking status: Patient reports the use of cigarette tobacco products, smokes one-half pack cigarettes per day. Screenin:32 Abuse screen: Denies threats or abuse. Nutritional screening: No deficits noted. fu Tuberculosis screening: No symptoms or risk factors identified. Fall Risk None identified. Assessment: 22:25 General: Appears in no apparent distress. Behavior is calm, cooperative, Niece stated fu patient is mentally challenge.. Pain: Complains of pain in bilateral leg pain, headache Unable to use pain scale. Neuro: Level of Consciousness is awake, alert, obeys commands, Oriented to person, Street Sprinkler are equal bilaterally Moves all extremities. Weakness leg(s). Cardiovascular: Parent/caregiver reports patient has had no cardiovascular symptoms. Respiratory:. GI: Abdomen is round. Derm: swelling to both lower extremities noted. 04/18 00:00 Reassessment: Patient appears in no apparent distress at this time. No changes from fu previously documented assessment. Patient and/or family updated on plan of care and expected duration. Pain level reassessed. Patient is alert, oriented x 3, equal unlabored respirations, skin warm/dry/pink. patient resting quitely in bed, family at bedside. 01:51 Reassessment: Patient appears in no apparent distress at this time. No changes from fu previously documented assessment. Patient and/or family updated on plan of care and expected duration. Pain level reassessed. Patient is alert, oriented x 3, equal unlabored respirations, skin warm/dry/pink. 03:00 Reassessment: Patient appears in no apparent distress at this time. No changes from fu previously documented assessment. Patient and/or family updated on plan of care and expected duration. Pain level reassessed. Patient is alert, oriented x 3, equal unlabored respirations, skin warm/dry/pink. Patient denies pain at this time. Patient states feeling better. Patient states symptoms have improved. Vital Signs: 04/17 21:45 BP 90 / 71; Pulse 65; Resp 18 S; Temp 97.1(TE); Pulse Ox 97% on R/A; Weight 72.57 kg ca1 (R); Height 5 ft. 6 in. (167.64 cm) (R); 22:31 BP 101 / 66; Pulse 58; Resp 19; Temp 98.6(T); Pulse Ox 98% on R/A; fu 23:45 BP 99 / 75; Pulse 56; Resp 18; Temp 98.6; Pulse Ox 100% on R/A; fu 04/18 00:52 BP 84 / 59; Pulse 58; Resp 12; Pulse Ox 98% on R/A; fu 02:49 BP 113 / 73; Pulse 61; Resp 15; Temp 97.8; Pulse Ox 100% on R/A; Pain 0/10; fu 04/17 21:45 Body Mass Index 25.82 (72.57 kg, 167.64 cm) ca1 ED Course: 04/17 21:36 Patient arrived in ED. ds1 21:49 Triage completed. ca1 21:50 Arm band placed on right wrist. ca1 22:18 Kalpesh Meza MD is Attending Physician. [facility] 22:19 Denys Jurado, RN is Primary Nurse. fu 22:32 Patient has correct armband on for positive identification. Bed in low position. Side fu rails up X 1. Pulse ox on. NIBP on. 22:41 Inserted saline lock: 20 gauge in right antecubital area, using aseptic technique. fu Blood collected. 23:54 XRAY Chest (1 view) In Process Unspecified. EDMS 04/18 00:02 No provider procedures requiring assistance completed. fu 00:12 CT Head Brain wo Cont In Process Unspecified. EDMS 03:50 IV discontinued, bleeding controlled, Pressure dressing applied. fu Administered Medications: 04/17 23:12 Drug: NS 0.9% 1000 ml Route: IV; Rate: 1000 ml; Site: right antecubital; fu 23:12 Drug: Zofran (Ondansetron) 4 mg Route: IVP; Site: right antecubital; fu 04/18 00:12 Follow up: Response: No adverse reaction fu 03:42 Drug: Cipro 500 mg Route: PO; fu Outcome: 03:06 Discharge ordered by . [facility] 03:57 Discharged to home ambulatory, with family. fu 03:57 Condition: good 03:57 Discharge instructions given to family, Instructed on discharge instructions, Demonstrated understanding of instructions, Prescriptions given X 1. 04:00 Patient left the ED. fu Signatures: Dispatcher [employer] ASHTYN Lisa Quiñones ds1 Denys Jurado RN RN fu Acob, Cheryl, RN RN ca1 Holmes, Maurice, MD MD [id number]
[2020-04-18] MEDS ORDERED: CIPROFLOXACIN HCL 500 MG TAB ONE (03:46)
[2020-04-18 06:19] VITALS: BP 99/75; TEMP 98.6; O2SAT 100
--- NOTE | 2020-04-18 11:01 | RAD REPORT ---
EXAM DESCRIPTION: RAD - Chest Single View - 04/17/2020 11:54 pm CLINICAL HISTORY: COUGH Chest pain. COMPARISON: Chest Single View dated 05/16/2019; Chest Pa And Lat (2 Views) dated 06/27/2017 FINDINGS: Portable technique limits examination quality. The lungs are grossly clear. The heart is normal in size. No displaced fractures. IMPRESSION: No acute intrathoracic process suspected.
--- NOTE | 2020-04-18 11:24 | EKG ---
Test Date: 2020-04-17 Test Time: 23:34:07 Body Specialist: DEBRA MEASUREMENT RESULTS: Intervals: Rate: 52 TN: 164 QRSD: 84 QT: 458 QTc: 425 [place]: P: 37 TN: 164 QRS: 35 T: 54 INTERPRETIVE STATEMENTS: Sinus bradycardia Otherwise normal ECG Compared to ECG 05/16/2019 18:01:30 No significant changes Electronically Signed On 04-18-20 11:23:12 CDT by Jose C Arboleda
--- NOTE | 2020-04-18 20:35 | RAD REPORT ---
EXAM DESCRIPTION: Head Brain Wo Cont CLINICAL HISTORY: DIZZINESS COMPARISON: 04/16/2019. TECHNIQUE: CT HEAD WITHOUT IV CONTRAST on 04/17/2020 10:41 PM CDT This exam was performed according to our departmental dose-optimization program, which includes autom ated exposure control, adjustment of the mA and/or kV according to patient size and/or use of iterati ve reconstruction technique. FINDINGS: There is no acute hemorrhage, mass effect or midline shift. Rosas-white differentiation is preserved. There is no hydrocephalus. There is no significant volume loss for age. The calvarium is intact. Orbits and globes are unremarkable. The paranasal sinuses are clear. Mastoid air cells are clear. IMPRESSION: No acute intracranial findings. Electronically signed by: Vincent Fry MD 04/18/2020 2:32 AM CDT Due to temporary technical issues with the PACS/Fluency reporting system, reports are being signed by the in house radiologist without review as a courtesy to ensure prompt reporting. The interpreting r adiologist is fully responsible for the content of the report.
== END 2020-04-18 04:00 | disposition home or self-care (01) ==
LOC: ER 21:32
DX: N39.0 Urinary tract infection, site not specified (principal); F31.9 Bipolar disorder, unspecified; F17.210 Nicotine dependence, cigarettes, uncomplicated; Z88.0 Allergy status to penicillin; Z88.5 Allergy status to narcotic agent; Z88.6 Allergy status to analgesic agent; Z88.8 Allergy status to other drugs, medicaments and biological substances; Z91.040 Latex allergy status; Z91.048 Other nonmedicinal substance allergy status
CPT/HCPCS: 36415; 70450; 71045; 80048; 80076; 81003; 83735; 83880; 84484; 85025; 85610; 93005; 96374; 99284; J2405; J7030

== ENCOUNTER 2020-06-14 20:44 | Emergency (ER) | payer SELFPAY ==
--- OUTSIDE RECORDS SUMMARY | 2020-06-14 20:46 | XMS REPORT | Continuity of Care Document ---
:1965 Author Organization [facility] t Address [address] [place] [address] Dr. Mathur [address] [place] [id number] Care Team Providers Name Role Phone Unavailable Unavailable Unavailable Problems This patient has no known problems. Allergies, Adverse Reactions, Alerts This patient has no known allergies or adverse reactions. Medications This patient has no known medications. Procedures This patient has no known procedures. Results This patient has no known results.
[2020-06-14] MEDS ORDERED: dexAMETHasone 10 MG/ML VIAL ONE (21:30)
--- NOTE | 2020-06-14 22:33 | EDPHYS ---
Physician Documentation [facility] Name: Olga Lidia Delgadillo Age: 54 yrs Sex: Female : 1965 Arrival Date: 06/14/2020 Time: 20:47 Bed 6 Private MD: ED Physician Agustin Kidd HPI: 06/14 21:15 This 54 yrs old Female presents to ER via Ambulatory with complaints of jmm Headache, Shortness Of Breath. 21:15 The patient or guardian reports cough. Onset: The symptoms/episode began/occurred jmm gradually. 21:15 Modifying factors: The symptoms are alleviated by nothing, the symptoms are aggravated jmm by nothing. This is a 54 year old female with a history of bipolar that presents to the ED with complaints of cough, headache, fever, shortness of breath, chest pain beginning approx 2 days ago. . 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 - Social history:: Smoking status: Patient reports the use of cigarette tobacco products, smokes one-half pack cigarettes per day, Patient/guardian denies using alcohol, street drugs. ROS: 21:15 Constitutional: Positive for fever. jmm 21:15 ENT: Positive for loss of smell. 21:15 Cardiovascular: Positive for chest pain, with cough. 21:15 Respiratory: Positive for cough. 21:15 Neuro: Positive for headache. 21:15 All other systems are negative. Exam: 21:15 Constitutional: This is a well developed, well nourished patient who is awake, alert, jmm and in no acute distress. Head/Face: atraumatic. Eyes: EOMI, no conjunctival erythema appreciated ENT: Moist Mucus Membranes Neck: Trachea midline, Supple Chest/axilla: Normal chest wall appearance and motion. Cardiovascular: Regular rate and rhythm. No edema appreciated Respiratory: Normal respirations, no respiratory distress appreciated Abdomen/GI: Non distended, soft Back: Normal ROM Skin: General appearance color normal MS/ Extremity: Moves all extremities, no obvious deformities appreciated, no edema noted to the lower extremities Neuro: Awake and alert, normal gait Psych: Behavior is normal, Mood is normal, Patient is cooperative and pleasant Vital Signs: 21:07 BP 102 / 70; Pulse 64; Resp 16 S; Temp 99.1(O); Pulse Ox 99% on R/A; Weight 68.04 kg bb (R); Height 5 ft. 2 in. (157.48 cm) (R); Pain 9/10; 22:28 BP 100 / 68; Pulse 60; Resp 18; Pulse Ox 98% ; ea 21:07 Body Mass Index 27.44 (68.04 kg, 157.48 cm) bb MDM: 21:10 Patient medically screened[address] [facility] 22:30 Data reviewed: vital signs, nurses notes. Counseling: I had a detailed discussion with gopi the patient and/or guardian regarding: the historical points, exam findings, and any diagnostic results supporting the discharge/admit diagnosis, radiology results, the need for outpatient follow up, to return to the emergency department if symptoms worsen or persist or if there are any questions or concerns that arise at home. ED course: Patient is alert and non toxic in appearance. CXR appears to have a viral pattern. SaO2 100%. Family given strict return precautions. Patient understood and agrees with the plan of care. . 06/14 21:14 Order name: COVID-[address] [facility] 06/14 21:14 Order name: Chest Single View XRAY [facility] Administered Medications: 21:28 Drug: Decadron 10 mg Route: IM; Site: right deltoid; ea 22:30 Follow up: Response: No adverse reaction mariza Disposition: 06/15 00:39 Co-signature as Attending Physician, Agustin Kidd MD. rn Disposition: 06/14/20 22:33 Discharged to Home. Impression: Viral Respiratory Illness. - Condition is Stable. - Discharge Instructions: ANNAID-19. - Medication Reconciliation Form, Thank You Letter, Antibiotic Education, Prescription Opioid Use form. - Follow up: Private Physician; When: 2 - 3 days; Reason: Recheck today's complaints, Continuance of care, Re-evaluation by your physician. - Notes: Please take 4000 IU of vitamin d daily, 500 mg of quercetin twice a day, 50 mg of zinc daily, 600 mg of NAC twice a day Signatures: Dispatcher [employer] EDMS Tommy Snow PA PA jmm Ballard, Brenda, RN RN bb Nieto, Roman, MD MD rn Antunez, Elena, RN RN ea Corrections: (The following items were deleted from the chart) 06/14 22:45 22:33 06/14/2020 22:33 Discharged to Home. Impression: Viral Respiratory Illness. ea Condition is Stable. Forms are Medication Reconciliation Form, Thank You Letter, Antibiotic Education, Prescription Opioid Use. Follow up: Private Physician; When: 2 - 3 days; Reason: Recheck today's complaints, Continuance of care, Re-evaluation by your physician. gopi
--- NOTE | 2020-06-14 22:33 | ER ---
Nurse's Notes [facility] Name: Olga Lidia Delgadillo Age: 54 yrs Sex: Female : 1965 Arrival Date: 06/14/2020 Time: 20:47 Bed 6 Private MD: Diagnosis: Viral Respiratory Illness Presentation: 06/14 21:07 Chief complaint: Patient states: she has a headache, chest pain, SOB, loss of taste, bb headache, diarrhea, nausea, chills x 2 days her headache is currently 9/10. Coronavirus screen: chills, diarrhea, fever, headache, shortness of breath, loss of taste or smell. Ebola Screen: No symptoms or risks identified at this time. Initial Sepsis Screen: Does the patient meet any 2 criteria? No. Patient's initial sepsis screen is negative. Does the patient have a suspected source of infection? No. Patient's initial sepsis screen is negative. Risk Assessment: Do you want to hurt yourself or someone else? Patient reports no desire to harm self or others. Onset of symptoms was June 12, 2020. 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 - Social history:: Smoking status: Patient reports the use of cigarette tobacco products, smokes one-half pack cigarettes per day, Patient/guardian denies using alcohol, street drugs. Screenin:50 Abuse screen: Denies threats or abuse. Nutritional screening: No deficits noted. ea Tuberculosis screening: No symptoms or risk factors identified. Fall Risk None identified. Assessment: 21:10 General: Appears in no apparent distress. Behavior is calm, cooperative, appropriate ea for age. Pain: Denies pain. Neuro: Level of Consciousness is awake, alert, obeys commands, Oriented to person, place, time, situation. Cardiovascular: Patient's skin is warm and dry. Respiratory: Airway is patent Respiratory effort is even, unlabored, Respiratory pattern is regular, symmetrical. Derm: Skin is pink, warm \T\ dry. 22:44 Reassessment: Patient and/or family updated on plan of care and expected duration. Pain ea level reassessed. Patient is alert, oriented x 3, equal unlabored respirations, skin warm/dry/pink. Discharge instruction given to patient, verbalized the understanding of instruction. Pt left ED ambulatory tolerating well. Vital Signs: 21:07 BP 102 / 70; Pulse 64; Resp 16 S; Temp 99.1(O); Pulse Ox 99% on R/A; Weight 68.04 kg bb (R); Height 5 ft. 2 in. (157.48 cm) (R); Pain 9/10; 22:28 BP 100 / 68; Pulse 60; Resp 18; Pulse Ox 98% ; ea 21:07 Body Mass Index 27.44 (68.04 kg, 157.48 cm) bb ED Course: 20:47 Patient arrived in ED. am2 20:57 Tommy Snow PA is PHCP. [facility] 20:58 Agustin Kidd MD is Attending Physician. jmm 21:12 Triage completed. bb 21:13 Arm band placed on Patient placed in an exam room, on a stretcher, on pulse oximetry. bb Family accompanied patient. 21:15 Valentina Cristobal, ADDIE is Primary Nurse. ea 21:20 Patient has correct armband on for positive identification. Bed in low position. Call ea light in reach. Side rails up X2. 21:28 Chest Single View XRAY In Process Unspecified. EDMS 22:45 No provider procedures requiring assistance completed. Patient did not have IV access ea during this emergency room visit. Administered Medications: 21:28 Drug: Decadron 10 mg Route: IM; Site: right deltoid; ea 22:30 Follow up: Response: No adverse reaction ea Outcome: 22:33 Discharge ordered by . jmm 22:45 Discharged to home ambulatory, with family. ea 22:45 Condition: stable 22:45 Discharge instructions given to patient. 22:45 Patient left the ED. ea Addendum: 06/17/2020 14:52 Addendum: COVID-19 Result: Negative result given to RN to notify pt. Left voice mail. a a5 15:23 Addendum: COVID-19 Result: Negative result given to RN to notify pt. Notified pt of a a5 negative COVID 19 swab results. Pt advised that even with a negative test result they should remain in isolation until symptom free for 3 days without medication. Pt also advised to return to the ED for worsening symptoms. Signatures: Dispatcher [employer] EDMS Tommy Snow PA PA jmm Ballard, Brenda RN Liz Cruz RN RN aa5 Moreno, Amanda am2 Antunez, Elena RN ADDIE dawkins
--- NOTE | 2020-06-15 08:22 | RAD REPORT ---
EXAM DESCRIPTION: RAD - Chest Single View - 06/14/2020 9:28 pm CLINICAL HISTORY: cough, chest pain Chest pain. COMPARISON: Chest Single View dated 04/17/2020; Chest Single View dated 05/16/2019; Chest Pa And Lat ( 2 Views) dated 06/27/2017 FINDINGS: Portable technique limits examination quality. Mild to moderate bilateral pulmonary opacities are present likely representing interstitial pneumonia or viral bronchitis. The heart is upper limit of normal in size. No displaced fractures.
[2020-06-19 19:37] VITALS: TEMP 99.1
[2020-06-19 19:38] VITALS: BP 100/68; O2SAT 98
== END 2020-06-14 22:45 | disposition home or self-care (01) ==
LOC: ER 20:44
DX: J98.8 Other specified respiratory disorders (principal); Z20.828 Contact with and (suspected) exposure to other viral communicable diseases; F31.9 Bipolar disorder, unspecified; F17.210 Nicotine dependence, cigarettes, uncomplicated; Z88.0 Allergy status to penicillin; Z88.6 Allergy status to analgesic agent; Z88.8 Allergy status to other drugs, medicaments and biological substances; Z91.040 Latex allergy status
CPT/HCPCS: 71045; 96372; 99283; J1100; U0002

== ENCOUNTER 2020-06-26 22:09 | Emergency (ER) | payer SELFPAY ==
--- OUTSIDE RECORDS SUMMARY | 2020-06-26 22:11 | XMS REPORT | Continuity of Care Document ---
:1965 [address] [facility] t Address [address] [place] [address] Dr. Mathur [address] [place] [id number] Care Team Providers Name Role Phone Unavailable Unavailable Unavailable Problems This patient has no known problems. Allergies, Adverse Reactions, Alerts This patient has no known allergies or adverse reactions. Medications This patient has no known medications. Procedures This patient has no known procedures. Results This patient has no known results.
--- NOTE | 2020-06-26 22:37 | ER ---
Nurse's Notes [facility] Name: Olga Lidia Delgadillo Age: 54 yrs Sex: Female : 1965 Arrival Date: 06/26/2020 Time: 22:13 Bed 8 Private MD: Diagnosis: Allergic reaction;Dermatitis, unspecified Presentation: 06/26 22:23 Chief complaint: Patient states: she has had a rash for 2 days which is itchy and bb painful all over she has tried OTC remedies including Benadryl but it is not going away she last took Benadryl 50 mg at 1900 tonight. Pt has not changed any cleaning supplies, or eaten anything different than normal that she is aware of. Coronavirus screen: At this time, the client does not indicate any symptoms associated with coronavirus-19. Ebola Screen: No symptoms or risks identified at this time. Onset: The symptoms/episode began/occurred 2 day(s) ago. Anaphylaxis evaluation, no signs or symptoms of anaphylaxis were noted. Initial Sepsis Screen: Does the patient meet any 2 criteria? No. Patient's initial sepsis screen is negative. Does the patient have a suspected source of infection? No. Patient's initial sepsis screen is negative. Risk Assessment: Do you want to hurt yourself or someone else? Patient reports no desire to harm self or others. Onset of symptoms was June 24, 2020. 22:23 Method Of Arrival: Ambulatory bb 22:23 Acuity: ROXIE 4 bb Triage Assessment: 22:50 General: Appears in no apparent distress. comfortable, Behavior is calm, cooperative. 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 - Social history:: Smoking status: Patient reports the use of cigarette tobacco products, smokes one-half pack cigarettes per day, Patient/guardian denies using alcohol, street drugs. Screenin:52 Abuse screen: Denies threats or abuse. Denies injuries from another. Nutritional mg2 screening: No deficits noted. Tuberculosis screening: No symptoms or risk factors identified. Fall Risk None identified. Assessment: 22:50 Respiratory: Airway is patent Respiratory effort is even, unlabored, Respiratory mg2 pattern is regular, symmetrical, Breath sounds are clear. 22:50 Pain: Denies pain. mg2 22:51 Derm: Rash noted that is itchy, red, raised, urticaria, on right leg. mg2 Vital Signs: 22:23 BP 111 / 77; Pulse 78; Resp 16 S; Pulse Ox 98% on R/A; Weight 68.04 kg (R); Height 5 bb ft. 2 in. (157.48 cm) (R); Pain 8/10; 22:24 Temp 98.8(O); rv 22:23 Body Mass Index 27.44 (68.04 kg, 157.48 cm) bb ED Course: 22:13 Patient arrived in ED. am2 22:17 Jonny Scanlon MD is Attending Physician. tw4 22:24 Chad Bloom RN is Primary Nurse. rv 22:26 Triage completed. bb 22:26 Arm band placed on Patient placed in an exam room, on a stretcher, on pulse oximetry. bb Family accompanied patient. 22:51 No provider procedures requiring assistance completed. Patient did not have IV access mg2 during this emergency room visit. 22:55 Patient has correct armband on for positive identification. mg2 Administered Medications: 22:50 Drug: Benadryl 25 mg Route: IM; Site: left gluteus; mg2 22:51 Follow up: Response: No adverse reaction; Medication administered at discharge. mg2 22:50 Drug: Pepcid 20 mg Route: PO; mg2 22:51 Follow up: Response: No adverse reaction; Medication administered at discharge. mg2 22:51 Drug: SOLU-Medrol 125 mg Route: IM; Site: right gluteus; mg2 22:51 Follow up: Response: No adverse reaction; Medication administered at discharge. mg2 Outcome: 22:37 Discharge ordered by . tw4 22:55 Discharged to home ambulatory, with family. mg2 22:55 Condition: stable 22:55 Discharge instructions given to patient, family, Instructed on discharge instructions, follow up and referral plans. medication usage, Demonstrated understanding of instructions, follow-up care, medications, Prescriptions given X 1. 22:56 Patient left the ED. mg2 Signatures: Sonja Moya, RN RN bb Nidia Ramsey Terrence, MD MD tw4 Ezequiel Hobbs RN RN mg2 Chad Bloom, RN RN rv
[2020-06-26] MEDS ORDERED: METHYLPREDNISOLONE 125 MG INJ ONE (22:57)
[2020-06-26] MEDS ORDERED: DIPHENHYDRAMINE 50 MG/ML VIAL ONE (22:57)
[2020-06-26] MEDS ORDERED: FAMOTIDINE 20 MG TAB ONE (22:57)
--- NOTE | 2020-06-28 03:08 | EDPHYS ---
Physician Documentation [facility] Name: Olga Lidia Delgadillo Age: 54 yrs Sex: Female : 1965 Arrival Date: 06/26/2020 Time: 22:13 Bed 8 Private MD: ED Physician Jonny Scanlon HPI: 06/27 05:04 This 54 yrs old Female presents to ER via Ambulatory with complaints of Rash, tw4 Allergic Reaction. 05:04 The patient's rash thought to be caused by Dermatitis an unknown cause. The rash is tw4 located on the right leg and left leg. 05:05 The rash can be described as papular. Onset: The symptoms/episode began/occurred 2 tw4 day(s) ago. Associated signs and symptoms: Pertinent positives: None. The patient has not experienced similar symptoms in the past. 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 - Social history:: Smoking status: Patient reports the use of cigarette tobacco products, smokes one-half pack cigarettes per day, Patient/guardian denies using alcohol, street drugs. ROS: 06/27 05:05 Constitutional: Negative for fever, chills, and weight loss, Eyes: Negative for injury, tw4 pain, redness, and discharge, Cardiovascular: Negative for chest pain, palpitations, and edema, Respiratory: Negative for shortness of breath, cough, wheezing, and pleuritic chest pain, Abdomen/GI: Negative for abdominal pain, nausea, vomiting, diarrhea, and constipation. Skin: Positive for rash, Negative for Exam: 05:05 Constitutional: This is a well developed, well nourished patient who is awake, alert, tw4 and in no acute distress. Head/Face: Normocephalic, atraumatic. Cardiovascular: Regular rate and rhythm with a normal S1 and S2. No gallops, murmurs, or rubs. Normal PMI, no JVD. No pulse deficits. Respiratory: Lungs have equal breath sounds bilaterally, clear to auscultation and percussion. No rales, rhonchi or wheezes noted. No increased work of breathing, no retractions or nasal flaring. Abdomen/GI: Soft, non-tender, with normal bowel sounds. No distension or tympany. No guarding or rebound. No evidence of tenderness throughout. Back: No spinal tenderness. No costovertebral tenderness. Full range of motion. MS/ Extremity: Pulses equal, no cyanosis. Neurovascular intact. Full, normal range of motion. 05:05 Skin: rash can be described as papular. Vital Signs: 06/26 22:23 BP 111 / 77; Pulse 78; Resp 16 S; Pulse Ox 98% on R/A; Weight 68.04 kg (R); Height 5 bb ft. 2 in. (157.48 cm) (R); Pain 8/10; 22:24 Temp 98.8(O); rv 22:23 Body Mass Index 27.44 (68.04 kg, 157.48 cm) bb MDM: 22:17 Patient medically screened. tw4 06/27 05:06 Data reviewed: vital signs, nurses notes. Counseling: I had a detailed discussion with 4 the patient and/or guardian regarding: the historical points, exam findings, and any diagnostic results supporting the discharge/admit diagnosis. Response to treatment: and as a result, I will discharge patient. Special discussion: I discussed with the patient/guardian in detail that at this point there is no indication for admission to the hospital. It is understood, however, that if the symptoms persist or worsen the patient needs to return immediately for re-evaluation. Administered Medications: 06/26 22:50 Drug: Benadryl 25 mg Route: IM; Site: left gluteus; mg2 22:51 Follow up: Response: No adverse reaction; Medication administered at discharge. mg2 22:50 Drug: Pepcid 20 mg Route: PO; mg2 22:51 Follow up: Response: No adverse reaction; Medication administered at discharge. mg2 22:51 Drug: SOLU-Medrol 125 mg Route: IM; Site: right gluteus; mg2 22:51 Follow up: Response: No adverse reaction; Medication administered at discharge. mg2 Disposition: 06/26/20 22:37 Discharged to Home. Impression: Allergic reaction, Dermatitis, unspecified. - Condition is Stable. - Discharge Instructions: Rash, Allergies, Gvrx-ly-Byve. - Prescriptions for Medrol (Emre) 4 mg Oral Tablets, Dose Pack - take 1 tablet by ORAL route as directed - follow package instructions; 1 packet. - Medication Reconciliation Form, Thank You Letter, Antibiotic Education, Prescription Opioid Use form. - Follow up: Private Physician; When: Upon discharge from the Emergency Department; Reason: Recheck today's complaints, Continuance of care, Re-evaluation by your physician. - Problem is an ongoing problem. - Symptoms are unchanged. Signatures: Sonja Moya RN RN Jonny Scanlon MD MD tw4 Ezequiel Hobbs RN RN mg2 Corrections: (The following items were deleted from the chart) 22:56 22:37 06/26/2020 22:37 Discharged to Home. Impression: Allergic reaction; Dermatitis, mg2 unspecified. Condition is Stable. Forms are Medication Reconciliation Form, Thank You Letter, Antibiotic Education, Prescription Opioid Use. Follow up: Private Physician; When: Upon discharge from the Emergency Department; Reason: Recheck today's complaints, Continuance of care, Re-evaluation by your physician. Problem is an ongoing problem. Symptoms are unchanged. tw4
[2020-06-28 04:54] VITALS: BP 111/77; O2SAT 98
[2020-06-28 04:55] VITALS: TEMP 98.8
== END 2020-06-26 22:56 | disposition home or self-care (01) ==
LOC: ER 22:09
DX: L30.9 Dermatitis, unspecified (principal); F31.9 Bipolar disorder, unspecified; Z88.0 Allergy status to penicillin; Z88.5 Allergy status to narcotic agent; Z88.6 Allergy status to analgesic agent; Z88.8 Allergy status to other drugs, medicaments and biological substances; Z91.040 Latex allergy status; Z91.048 Other nonmedicinal substance allergy status
CPT/HCPCS: 96372; 99283; J1200; J2930

== ENCOUNTER 2020-07-16 07:23 | Emergency (ER) | payer OTHER, SELFPAY ==
--- OUTSIDE RECORDS SUMMARY | 2020-07-16 07:47 | XMS REPORT | Continuity of Care Document ---
:1965 Author Organization [facility] t Address [address] [place] [address] Dr. Mathur [address] [place] [id number] Care Team Providers Name Role Phone Unavailable Unavailable Unavailable Problems This patient has no known problems. Allergies, Adverse Reactions, Alerts This patient has no known allergies or adverse reactions. Medications This patient has no known medications. Procedures This patient has no known procedures. Results This patient has no known results.
[2020-07-16] MEDS ORDERED: METHYLPREDNISOLONE 125 MG INJ ONE (08:20)
[2020-07-16] MEDS ORDERED: ALBUTEROL 2.5 MG/3 ML NEB SOL ONE (08:21)
[2020-07-16] MEDS ORDERED: IPRATROPIUM BROM 0.5MG/2.5ML ONE (08:21)
[2020-07-16 08:40] LABS: Protime INR 0.96
[2020-07-16 08:41] LABS: Absolute Lymphocytes (CBC) 1.6 K/uL (0.7-4.9); Basophils % 1.3 % (0-1.3); Hematocrit 39.7 % (36.0-45.0); Lymphocytes % 32.7 % (15.3-44.8); MPV 8.7 fL (7.6-11.3); RBC Red Blood Cell Count 4.39 M/uL (3.86-4.86)
--- NOTE | 2020-07-16 08:51 | RAD REPORT ---
EXAM DESCRIPTION: RAD - Chest Single View - 07/16/2020 8:18 am CLINICAL HISTORY: SOB COMPARISON: June 14 TECHNIQUE: AP portable chest image was obtained 07/16/2020 8:18 am . FINDINGS: No new mass or consolidation. Interstitial markings are prominent but improved. Central [place] sculature has decreased. Heart and vasculature are normal. No measurable pleural effusion and no pneu mothorax. No acute bony abnormality seen. No acute aortic findings suspected. IMPRESSION: No new mass or consolidation. The interstitial opacification and vascular engorgement of June 14 have improved.
[2020-07-16 08:56] LABS: BUN Blood Urea Nitrogen 13 mg/dL (7-18); Bicarbonate 30 mmol/L (21-32); Glucose Level 79 mg/dL (74-106); NT PRO-BNP 101 pg/mL (<125); Potassium 3.8 mmol/L (3.5-5.1); Sodium Level 143 mmol/L (136-145); Troponin (Emerg Dept Use Only) < 0.02 ng/mL (0.0-0.045)
--- NOTE | 2020-07-16 09:18 | EDPHYS ---
Physician Documentation [facility] Name: Olga Lidia Delgadillo Age: 54 yrs Sex: Female : 1965 Arrival Date: 07/16/2020 Time: 07:25 Bed 8 Private MD: ED Physician Agustin Kidd HPI: 07/16 08:25 This 54 yrs old Female presents to ER via Ambulatory with complaints of Chest jr8 Pain, Shortness Of Breath, Cough, Nausea. 08:25 The pt presents for SOB, CP, cough, nausea, fever, fatigue, headache, congestion and jr8 body aches x 3 days. The pt states she was has + exposure to COVID x 4 days ago and had a temperature of 100.4 yesterday. She denies taking any OTC medication for symptoms, and states she smokes 1/2 pack of cigarettes daily. The pt has a hx of bipolar and schizophrenia, and denies hx of COPD, CHF, or any other cardiopulmonary diseases. 09:02 The patient has not experienced similar symptoms in the past. The patient has not jr8 recently seen a physician. 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 - tw2 Historical: - Allergies: 07:33 Aspirin (Hives); ss 07:33 Iodine; ss 07:33 Latex, Natural Rubber; ss 07:33 PENICILLINS; ss 07:33 Prozac; ss 07:33 Seroquel (rash); ss - Home Meds: 07:33 aripiprazole 10 mg oral tab 1 tab once daily [Active]; buspirone 5 mg Oral tab 1 tab 3 ss times per day [Active]; divalproex 500 mg oral Tb24 1 tab once daily [Active]; 08:00 Abilify 10 mg Oral tab 1 tab once daily [Active]; BuSpar Oral 5 mg three times a day tw2 [Active]; Topamax 50 mg Oral tab 1 tab 2 times per day [Active]; - PMHx: 07:33 Bipolar disorder; Depression; ss - PSHx: 07:33 ; Hysterectomy; ss - Immunization history:: Adult Immunizations up to date. - Social history:: Smoking status: Patient reports the use of cigarette tobacco products, smokes one-half pack cigarettes per day. ROS: 09:02 Eyes: Negative for injury, pain, redness, and discharge, ENT: Negative for injury, jr8 pain, and discharge, Neck: Negative for injury, pain, and swelling, Cardiovascular: Negative for chest pain, palpitations, and edema, Back: Negative for injury and pain, MS/Extremity: Negative for injury and deformity, Skin: Negative for injury, rash, and discoloration, Neuro: Negative for headache, weakness, numbness, tingling, and seizure. 09:02 Constitutional: Positive for body aches, chills, fever. 09:02 Respiratory: Positive for cough, shortness of breath, wheezing, Negative for dyspnea on exertion, sputum production. 09:02 Abdomen/GI: Positive for nausea, Negative for abdominal pain, vomiting, diarrhea, constipation, abdominal cramps, abdominal distension. Exam: 09:02 Eyes: Pupils equal round and reactive to light, extra-ocular motions intact. Lids and jr8 lashes normal. Conjunctiva and sclera are non-icteric and not injected. Cornea within normal limits. Periorbital areas with no swelling, redness, or edema. ENT: Nares patent. No nasal discharge, no septal abnormalities noted. Tympanic membranes are normal and external auditory canals are clear. Oropharynx with no redness, swelling, or masses, exudates, or evidence of obstruction, uvula midline. Mucous membranes moist. Neck: Trachea midline, no thyromegaly or masses palpated, and no cervical lymphadenopathy. Supple, full range of motion without nuchal rigidity, or vertebral point tenderness. No Meningismus. Cardiovascular: Regular rate and rhythm with a normal S1 and S2. No gallops, murmurs, or rubs. Normal PMI, no JVD. No pulse deficits. Respiratory: Lungs have equal breath sounds bilaterally. Wheezing noted bilaterally upon exhalation. No increased work of breathing, no retractions or nasal flaring. Abdomen/GI: Soft, non-tender, with normal bowel sounds. No distension or tympany. No guarding or rebound. No evidence of tenderness throughout. Back: No spinal tenderness. No costovertebral tenderness. Full range of motion. Skin: Warm, dry with normal turgor. Normal color with no rashes, no lesions, and no evidence of cellulitis. MS/ Extremity: Pulses equal, no cyanosis. Neurovascular intact. Full, normal range of motion. Neuro: Awake and alert, GCS 15, oriented to person, place, time, and situation. Cranial nerves II-XII grossly intact. Motor strength 5/5 in all extremities. Sensory grossly intact. Cerebellar exam normal. Normal gait. Vital Signs: 07:29 BP 128 / 75; Pulse 64; Resp 17; Pulse Ox 100% on R/A; Weight 68.04 kg; Height 5 ft. 2 ss in. (157.48 cm); Pain 8/10; 07:38 Temp 98.6(TE); tw2 08:37 BP 102 / 80; Pulse 63; Resp 20; Pulse Ox 100% on Nebulizer Mask; tw2 09:21 BP 113 / 83; Pulse 83; Resp 19; Pulse Ox 97% on R/A; tw2 07:29 Body Mass Index 27.44 (68.04 kg, 157.48 cm) ss MDM: 07:39 Patient medically screened. 09:15 Data reviewed: vital signs, nurses notes, lab test result(s), EKG, radiologic studies, jr8 plain films, and as a result, I will discharge patient. Data interpreted: Pulse oximetry: on room air is 100 %. Interpretation: normal. Counseling: I had a detailed discussion with the patient and/or guardian regarding: the historical points, exam findings, and any diagnostic results supporting the discharge/admit diagnosis, lab results, radiology results, the need for outpatient follow up, a family practitioner, to return to the emergency department if symptoms worsen or persist or if there are any questions or concerns that arise at home. 07/16 07:58 Order name: Basic Metabolic Panel; Complete Time: :07/16 07:58 Order name: CBC with Diff; Complete Time: :07/16 07:58 Order name: NT PRO-BNP; Complete Time: :07/16 07:58 Order name: PT-INR; Complete Time: :07/16 07:58 Order name: Troponin (emerg Dept Use Only); Complete Time: :07/16 07:58 Order name: COVID-19 07/16 07:58 Order name: XRAY Chest (1 view); Complete Time: :07/16 07:58 Order name: EKG; Complete Time: 07:58 07/16 07:58 Order name: Cardiac monitoring; Complete Time: 08:13 07/16 07:58 Order name: EKG - Nurse/Tech; Complete Time: 08:13 07/16 07:58 Order name: IV Saline Lock; Complete Time: 08:28 07/16 07:58 Order name: Flu; Complete Time: 09:15 07/16 07:58 Order name: Labs collected and sent; Complete Time: 08:07/16 07:58 Order name: O2 Per Protocol; Complete Time: 08:07/16 07:58 Order name: O2 Sat Monitoring; Complete Time: 08: Administered Medications: 08:25 Drug: SOLU-Medrol 125 mg Route: IVP; Site: right antecubital; 09:22 Follow up: Response: No adverse reaction 08:27 Drug: DuoNeb (3:1) (2.5 mg - 0.5 mg) 3 ml Route: Nebulizer; 09:22 Follow up: Response: No adverse reaction Disposition: 11:28 Co-signature as Attending Physician, Agustin Kidd MD. rn Disposition: 07/16/20 09:17 Discharged to Home. Impression: Encounter for screening for other viral diseases, Viral infection, unspecified. - Condition is Stable. - Discharge Instructions: Viral Respiratory Infection, COVID-19. - Prescriptions for Prednisone 20 mg Oral Tablet - take 2 tablet by ORAL route once daily for 7 days; 14 tablet. Zofran 4 mg Oral Tablet - take 1 tablet by ORAL route every 12 hours As needed; 20 tablet. Albuterol Sulfate 90 mcg/actuation - inhale 1-2 puff by INHALATION route every 4-6 hours; 1 Inhaler. - Medication Reconciliation Form, Thank You Letter, Antibiotic Education, Prescription Opioid Use form. - Follow up: Private Physician; When: 1 week; Reason: If symptoms return, Recheck today's complaints, Continuance of care, Re-evaluation by your physician. - Problem is new. - Symptoms have improved. Signatures: Dispatcher [employer] EDAgustin Noyola MD MD rn Smirch, Shelby, RN RN ss Roszak, Josh, PA PA jr8 Carrol Quintana RN RN tw2 Corrections: (The following items were deleted from the chart) 09:25 09:17 07/16/2020 09:17 Discharged to Home. Impression: Encounter for screening for tw2 other viral diseases; Viral infection, unspecified. Condition is Stable. Forms are Medication Reconciliation Form, Thank You Letter, Antibiotic Education, Prescription Opioid Use. Follow up: Private Physician; When: 1 week; Reason: If symptoms return, Recheck today's complaints, Continuance of care, Re-evaluation by your physician. Problem is new. Symptoms have improved. jr8
--- NOTE | 2020-07-16 09:18 | ER ---
Nurse's Notes [facility] Name: Olga Lidia Delgadillo Age: 54 yrs Sex: Female : 1965 Arrival Date: 07/16/2020 Time: 07:25 Bed 8 Private MD: Diagnosis: Encounter for screening for other viral diseases;Viral infection, unspecified Presentation: 07/16 07:29 Chief complaint: Patient states: cough, nausea, congestion and pain with deep breathing ss that began 3 days ago. Niece reports that temperature was 100.3 yesterday. Coronavirus screen: cough unrelated to allergies, fever, nausea, Client presents with at least one sign or symptom that may indicate coronavirus-19. Standard/surgical mask placed on the client. Provider contacted for isolation considerations. + exposure. Ebola Screen: Patient denies exposure to infectious person. Patient denies travel to an Ebola-affected area in the 21 days before illness onset. Initial Sepsis Screen: Does the patient meet any 2 criteria? No. Patient's initial sepsis screen is negative. Does the patient have a suspected source of infection? No. Patient's initial sepsis screen is negative. Risk Assessment: Do you want to hurt yourself or someone else? Patient reports no desire to harm self or others. Onset of symptoms was July 13, 2020. 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 - tw2 Historical: - Allergies: 07:33 Aspirin (Hives); ss 07:33 Iodine; ss 07:33 Latex, Natural Rubber; ss 07:33 PENICILLINS; ss 07:33 Prozac; ss 07:33 Seroquel (rash); ss - Home Meds: 07:33 aripiprazole 10 mg oral tab 1 tab once daily [Active]; buspirone 5 mg Oral tab 1 tab 3 ss times per day [Active]; divalproex 500 mg oral Tb24 1 tab once daily [Active]; 08:00 Abilify 10 mg Oral tab 1 tab once daily [Active]; BuSpar Oral 5 mg three times a day tw2 [Active]; Topamax 50 mg Oral tab 1 tab 2 times per day [Active]; - PMHx: 07:33 Bipolar disorder; Depression; ss - PSHx: 07:33 ; Hysterectomy; ss - Immunization history:: Adult Immunizations up to date. - Social history:: Smoking status: Patient reports the use of cigarette tobacco products, smokes one-half pack cigarettes per day. Screenin:58 Abuse screen: Denies threats or abuse. Nutritional screening: No deficits noted. tw2 Tuberculosis screening: No symptoms or risk factors identified. Fall Risk None identified. Assessment: 07:45 General: Appears in no apparent distress. well groomed, Behavior is calm, cooperative, tw2 appropriate for age. Neuro: Level of Consciousness is awake, alert, obeys commands, Oriented to person, place, time, situation. Cardiovascular: Heart tones S1 S2 Patient's skin is warm and dry. Respiratory: Reports shortness of breath cough that is Airway is patent Respiratory effort is even, unlabored, Respiratory pattern is regular, symmetrical, Breath sounds are clear bilaterally. GI: No signs and/or symptoms were reported involving the gastrointestinal system. Abdomen is flat, Bowel sounds present X 4 quads. : No signs and/or symptoms were reported regarding the genitourinary system. EENT: No signs and/or symptoms were reported regarding the EENT system. Derm: No signs and/or symptoms reported regarding the dermatologic system. Musculoskeletal: Range of motion: intact in all extremities. 07:58 Pain: Pain began 2-3 days ago. Cardiovascular: Reports shortness of breath. tw2 08:37 Reassessment: Patient appears in no apparent distress at this time. No changes from tw2 previously documented assessment. Patient and/or family updated on plan of care and expected duration. Pain level reassessed. Patient is alert, oriented x 3, equal unlabored respirations, skin warm/dry/pink. 09:21 Reassessment: Patient appears in no apparent distress at this time. No changes from tw2 previously documented assessment. Patient and/or family updated on plan of care and expected duration. Pain level reassessed. Patient is alert, oriented x 3, equal unlabored respirations, skin warm/dry/pink. Vital Signs: 07:29 BP 128 / 75; Pulse 64; Resp 17; Pulse Ox 100% on R/A; Weight 68.04 kg; Height 5 ft. 2 ss in. (157.48 cm); Pain 8/10; 07:38 Temp 98.6(TE); tw2 08:37 BP 102 / 80; Pulse 63; Resp 20; Pulse Ox 100% on Nebulizer Mask; tw2 09:21 BP 113 / 83; Pulse 83; Resp 19; Pulse Ox 97% on R/A; tw2 07:29 Body Mass Index 27.44 (68.04 kg, 157.48 cm) ED Course: 07:25 Patient arrived in ED. ag5 07:31 Triage completed. ss 07:33 Arm band placed on right wrist. ss 07:39 Anthony Foster PA is PHCP. jr8 07:39 Agustin Kidd MD is Attending Physician. jr8 07:40 Bed in low position. Call light in reach. classroom monitor on. Pulse ox on. NIBP on. tw2 07:57 Carrol Quintana RN is Primary Nurse. tw2 07:58 Patient maintains SpO2 saturation greater than 95% on room air. tw2 08:15 XRAY Chest (1 view) In Process Unspecified. EDMS 08:25 Inserted saline lock: 20 gauge in right antecubital area, using aseptic technique. tw2 Blood collected. 09:24 No provider procedures requiring assistance completed. tw2 09:25 IV discontinued, intact, bleeding controlled, No redness/swelling at site. Pressure tw2 dressing applied. Administered Medications: 08:25 Drug: SOLU-Medrol 125 mg Route: IVP; Site: right antecubital; tw2 09:22 Follow up: Response: No adverse reaction tw2 08:27 Drug: DuoNeb (3:1) (2.5 mg - 0.5 mg) 3 ml Route: Nebulizer; tw2 09:22 Follow up: Response: No adverse reaction tw2 Outcome: 09:17 Discharge ordered by . jr8 09:25 Discharged to home ambulatory, with family. tw2 09:25 Condition: stable 09:25 Discharge instructions given to patient, family, Instructed on discharge instructions, follow up and referral plans. medication usage, Demonstrated understanding of instructions, follow-up care, medications, Prescriptions given X 3. 09:25 Patient left the ED. tw2 Addendum: 07/17/2020 14:44 Addendum: COVID-19 Result: Negative result given to RN to notify pt. Contacted by: kit Yarbrough RN . Notified pt of negative COVID 19 swab results. Pt advised that even with a negative test result they should remain in isolation until symptom free for 3 days without medication. Pt also advised to return to the ED for worsening symptoms. Signatures: Dispatcher [employer] Janell Nunez RN RN Raquel Hunt RN RN ss Anthony Foster PA PA jr8 Carrol Quintana RN RN tw2 Ashley, Margo ag5 Corrections: (The following items were deleted from the chart) 07/16 07:34 07:29 Coronavirus screen: cough unrelated to allergies, fever, nausea, ss ss
[2020-07-16 10:01] VITALS: TEMP 98.6
[2020-07-16 10:03] VITALS: BP 113/83; O2SAT 97
== END 2020-07-16 09:25 | disposition home or self-care (01) ==
LOC: ER 07:23
DX: B34.9 Viral infection, unspecified (principal); Z20.828 Contact with and (suspected) exposure to other viral communicable diseases; F17.210 Nicotine dependence, cigarettes, uncomplicated; F31.9 Bipolar disorder, unspecified; Z88.0 Allergy status to penicillin; Z88.5 Allergy status to narcotic agent; Z88.6 Allergy status to analgesic agent; Z91.040 Latex allergy status; Z91.048 Other nonmedicinal substance allergy status
CPT/HCPCS: 93005; 85025; 80048; 36415; 85610; 84484; 83880; 87804 ×2; 71045; 96374; 99285; U0002; J2930

== ENCOUNTER 2021-04-26 18:34 | Emergency (ER) | payer MEDICAID, OTHER ==
--- OUTSIDE RECORDS SUMMARY | 2021-04-26 19:03 | XMS REPORT | Continuity of Care Document ---
:[address] [facility] t Address [address] [place] [address] Dr. Mathur [address] [place] [address] Care Team Providers Name Role Phone Doctor Unassigned, Name Attending Clinician Unavailable Domo Thakkar DO Attending Clinician Problems This patient has no known problems. Allergies, Adverse Reactions, Alerts This patient has no known allergies or adverse reactions. Medications This patient has no known medications. Procedures This patient has no known procedures. Encounters Start End Encounter Admission Attending Care Care Encounter Source Date/Time Date/Time Type Type Clinicians Facility Department ID 2021-04-22 2021-04-22 Orders Doctor MCCARTHY [id number] 00:00:00 00:00:00 Only Unassigned, LUCIE [id number] [place] [id number] 2021-04-09 2021-04-09 Orders Doctor MCCARTHY [id number] 00:00:00 00:00:00 Only Unassigned, LUCIE [id number] [place] [facility] [id number] 2021-04-01 2021-04-01 Asael [id number] 00:00:00 00:00:00 Only Unassigned, LUCIE [id number] [place] [facility] [id number] 2021-03-29 2021-03-29 Asael MCCARTHY [id number] 00:00:00 00:00:00 Only UnassignedLUCIE [id number] [place] [id number] 2021-03-22 2021-03-22 [facility] [id number] 12:21:00 15:40:00 Sarah Ames [id number] [place] [id number] [place] [id number] 2021-03-22 2021-03-22 Orders Doctor MCCARTHY [id number] 00:00:00 00:00:00 Only UnassignedLUCIE [id number] [place] [id number] [id number] Results This patient has no known results.
[2021-04-27 00:03] LABS: Absolute Lymphocytes (CBC) 3.1 K/uL (0.7-4.9); Basophils % 1.3 % (0-1.3); Hematocrit 40.5 % (36.0-45.0); Lymphocytes % 35.8 % (15.3-44.8); MPV 8.8 fL (7.6-11.3); RBC Red Blood Cell Count 4.62 M/uL (3.86-4.86)
[2021-04-27] MEDS ORDERED: MORPHINE 4 MG/ML SYR ONE (00:10)
[2021-04-27] MEDS ORDERED: ONDANSETRON 4 MG/2 ML VIAL ONE (00:10)
[2021-04-27] MEDS ORDERED: NA CHLORIDE 0.9% 1,000 ML ONE (00:11)
[2021-04-27 00:22] LABS: Albumin 3.5 g/dL (3.4-5.0); Bilirubin Direct 0.1 mg/dL (0-0.2); Bilirubin Total 0.4 mg/dL (0.2-1.0); Potassium 3.7 mmol/L (3.5-5.1); Protein, Total 7.6 g/dL (6.4-8.2)
[2021-04-27] MEDS ORDERED: FAMOTIDINE 20 MG/2 ML VIAL IV ONE (00:55)
--- NOTE | 2021-04-27 02:25 | EDPHYS ---
Physician Documentation [facility] Name: Olga Lidia Delgadillo Age: 55 yrs Sex: Female : 1965 Arrival Date: 04/26/2021 Time: 18:36 Bed 13 Private MD: ED Physician Kevin Lawrence HPI: 04/26 23:50 This 55 yrs old Female presents to ER via Ambulatory with complaints of pm1 Abdominal Pain, Nausea/Vomiting. 23:50 The patient presents with abdominal pain in the epigastric area. Onset: The pm1 symptoms/episode began/occurred 1 week(s) ago. The symptoms do not radiate. Associated signs and symptoms: Pertinent positives: nausea and vomiting, Pertinent negatives: chest pain, diarrhea, dysuria, fever, shortness of breath. The symptoms are described as burning. Modifying factors: The symptoms are alleviated by nothing, the symptoms are aggravated by food. Severity of pain: in the emergency department the pain is unchanged. The patient has not experienced similar symptoms in the past. The patient has not recently seen a physician, has an appointment scheduled, Dr Price on the . Historical: - Allergies: 19:59 Aspirin (Hives); iw 19:59 Iodine; iw 19:59 Latex, Natural Rubber; iw 19:59 PENICILLINS; iw 19:59 Prozac; iw - Home Meds: 20:02 aripiprazole 10 mg Oral tab 1 tab once daily [Active]; buspirone 15 mg oral tab 2 times iw per day [Active]; omeprazole 20 mg Oral cpDR 1 cap once daily [Active]; divalproex 500 mg Oral Tb24 1 tab once daily [Active]; - PMHx: 19:59 Bipolar disorder; Depression; iw - PSHx: 19:59 hysterectomy; iw - Immunization history:: Client reports receiving the 2nd dose of the Covid vaccine. - Social history:: Smoking status: Patient/guardian denies using tobacco, the patient reports quitting approximately 1 years ago. ROS: 23:50 Constitutional: Negative for fever, chills, and weight loss, Cardiovascular: Negative pm1 for chest pain, palpitations, and edema, Respiratory: Negative for shortness of breath, cough, wheezing, and pleuritic chest pain. 23:50 Back: Negative for injury and pain, : Negative for injury, bleeding, discharge, and swelling, Neuro: Negative for headache, weakness, numbness, tingling, and seizure. 23:50 Abdomen/GI: Positive for abdominal pain, nausea and vomiting, Negative for diarrhea, constipation. 23:50 All other systems are negative. Exam: 23:50 Constitutional: This is a well developed, well nourished patient who is awake, alert, pm1 and in no acute distress. Head/Face: Normocephalic, atraumatic. 23:50 Chest/axilla: Normal chest wall appearance and motion. Nontender with no deformity. No lesions are appreciated. 23:50 Back: No spinal tenderness. No costovertebral tenderness. Full range of motion. Skin: Warm, dry with normal turgor. Normal color with no rashes, no lesions, and no evidence of cellulitis. MS/ Extremity: Pulses equal, no cyanosis. Neurovascular intact. Full, normal range of motion. 23:50 Eyes: Exam is negative for acute changes, Extraocular movements: no acute changes, Conjunctiva: normal, no injection. 23:50 ENT: Exam is negative for acute changes, Mouth: Lips: normal, Oral mucosa: normal, pink and intact, moist. 23:50 Cardiovascular: Exam negative for acute changes, Rate: normal, Rhythm: regular, Pulses: no pulse deficits are appreciated, Edema: is not appreciated. 23:50 Respiratory: Exam negative for acute changes, respiratory distress, shortness of breath. 23:50 Abdomen/GI: Inspection: abdomen appears normal, Palpation: soft, in all quadrants, mild abdominal tenderness, in the epigastric area. 23:50 Neuro: Exam negative for acute changes, Orientation: is normal, Mentation: is normal, Motor: is normal, moves all fours. Vital Signs: 19:58 BP 114 / 82; Pulse 73; Resp 16; Temp 98.5; Pulse Ox 100% on R/A; Weight 79.83 kg; iw Height 5 ft. 2 in. (157.48 cm); 04/27 00:42 BP 97 / 59; Pulse 57; Resp 16; Pulse Ox 100% on R/A; tt3 01:45 BP 91 / 77; Pulse 76; Resp 18 S; Pulse Ox 100% on R/A; bb 02:15 BP 91 / 63; Pulse 70; Resp 16 S; Pulse Ox 97% on R/A; bb 03:17 BP 100 / 72; Pulse 65; Resp 16 S; Pulse Ox 98% on R/A; bb 04/26 19:58 Body Mass Index 32.19 (79.83 kg, 157.48 cm) iw MDM: 04/26 23:36 Patient medically screened. pm1 23:54 Data reviewed: vital signs. Data interpreted: Pulse oximetry: on room air is 100 %. pm1 Interpretation: normal. 04/27 02:24 Differential diagnosis: gastritis, cholecystitis, pancreatitis, appendicitis. ma2 Counseling: I had a detailed discussion with the patient and/or guardian regarding: the historical points, exam findings, and any diagnostic results supporting the discharge/admit diagnosis, the presence of at least one elevated blood pressure reading (>120/80) during this emergency department visit, the need for outpatient follow up. Response to treatment: the patient's symptoms have resolved after treatment. 04/26 23:33 Order name: Basic Metabolic Panel; Complete Time: 00:31 bb 04/26 23:33 Order name: CBC with Diff; Complete Time: 00:06 bb 04/26 23:33 Order name: Hepatic Function; Complete Time: 00:31 bb 04/26 23:33 Order name: Lipase; Complete Time: 00:31 bb 04/26 23:36 Order name: CT Abd/Pelvis - IV Contrast Only pm1 04/26 23:33 Order name: IV Saline Lock; Complete Time: 23:57 bb 04/26 23:33 Order name: Labs collected and sent; Complete Time: 23:57 bb Administered Medications: 00:00 Drug: NS 0.9% 1000 ml Route: IV; Rate: 1000 ml; Site: right antecubital; vg1 00:44 Follow up: IV Status: Completed infusion; IV Intake: 950ml bb 00:01 Drug: Zofran (Ondansetron) 4 mg Route: IVP; Site: right antecubital; vg1 01:55 Follow up: Response: No adverse reaction bb 00:05 Drug: morphine 4 mg Route: IVP; Site: right antecubital; vg1 00:30 Follow up: Response: No adverse reaction; RASS: Alert and Calm (0) bb 00:44 Drug: Pepcid (famotidine) 20 mg Route: IVP; Site: right antecubital; bb 01:55 Follow up: Response: No adverse reaction bb Disposition: 02:25 Co-signature as Attending Physician, Kevin Lawrence MD. ma2 Disposition Summary: 04/27/21 02:25 Discharge Ordered Location: Home ma2 Condition: Stable ma2 Diagnosis - Upper abdominal pain, unspecified ma2 Followup: ma2 - With: Private Physician - When: Tomorrow - Reason: Continuance of care Discharge Instructions: - Discharge Summary Sheet ma2 - Abdominal Pain, Adult, [id number] ma2 Forms: - Medication Reconciliation Form ma2 - Thank You Letter ma2 - Antibiotic Education ma2 - Prescription Opioid Use ma2 Signatures: Dispatcher [employer] Sonja Mcqueen RN RN bb Naima Thakkar RN RN iw Michele Velasco, SMALL MACHINE BINDERY OPERATOR SMALL MACHINE BINDERY OPERATOR pm1 Kevin Lawrence MD MD ma2 Ragini Huggins RN RN vg1 Corrections: (The following items were deleted from the chart) 04/26 20:00 19:59 Allergies: Seroquel (rash); iw
--- NOTE | 2021-04-27 02:25 | ER ---
Nurse's Notes [facility] Name: Olga Lidia Delgadillo Age: 55 yrs Sex: Female : 1965 Arrival Date: 04/26/2021 Time: 18:36 Bed 13 Private MD: Diagnosis: Upper abdominal pain, unspecified Presentation: 04/26 19:58 Chief complaint: Patient's son or daughter states: pt c/o abd pain , n/v/d X 3 days, iw PCP told her to come to ER because GI can't see her til 7-19, pain is worse after eating. Coronavirus screen: At this time, the client does not indicate any symptoms associated with coronavirus-19. Ebola Screen: Patient negative for fever greater than or equal to 101.5 degrees Fahrenheit, and additional compatible Ebola Virus Disease symptoms Patient denies exposure to infectious person. Patient denies travel to an Ebola-affected area in the 21 days before illness onset. No symptoms or risks identified at this time. Initial Sepsis Screen: Does the patient meet any 2 criteria? No. Patient's initial sepsis screen is negative. Does the patient have a suspected source of infection? No. Patient's initial sepsis screen is negative. Risk Assessment: Do you want to hurt yourself or someone else? Patient reports no desire to harm self or others. Onset of symptoms was April 22, 2021. 19:58 Method Of Arrival: Ambulatory iw 19:58 Acuity: ROXIE 3 iw Historical: - Allergies: 19:59 Aspirin (Hives); iw 19:59 Iodine; iw 19:59 Latex, Natural Rubber; iw 19:59 PENICILLINS; iw 19:59 Prozac; iw - Home Meds: 20:02 aripiprazole 10 mg Oral tab 1 tab once daily [Active]; buspirone 15 mg oral tab 2 times iw per day [Active]; omeprazole 20 mg Oral cpDR 1 cap once daily [Active]; divalproex 500 mg Oral Tb24 1 tab once daily [Active]; - PMHx: 19:59 Bipolar disorder; Depression; iw - PSHx: 19:59 hysterectomy; iw - Immunization history:: Client reports receiving the 2nd dose of the Covid vaccine. - Social history:: Smoking status: Patient/guardian denies using tobacco, the patient reports quitting approximately 1 years ago. Screenin/06 00:45 Abuse screen: Denies threats or abuse. Nutritional screening: No deficits noted. bb Tuberculosis screening: No symptoms or risk factors identified. Fall Risk None identified. Assessment: 00:45 General: Appears in no apparent distress. Behavior is calm, cooperative. Pain: bb Complains of pain in epigastric area. Neuro: Level of Consciousness is awake, alert, obeys commands, Oriented to person, place, time, situation. Cardiovascular: Capillary refill < 3 seconds Patient's skin is warm and dry. Respiratory: Respiratory effort is even, unlabored, Respiratory pattern is regular. GI: Bowel sounds present X 4 quads. Abd is soft X 4 quads. Derm: Skin is pink, warm \T\ dry. Musculoskeletal: Circulation, motion, and sensation intact. 03:16 Reassessment: Patient is alert, oriented x 3, equal unlabored respirations, skin bb warm/dry/pink. pt verbalized understanding of and agrees to plan of care discharge instructions given pt ambulated with steady gait to exit accompanied by family. Vital Signs: 04/26 19:58 BP 114 / 82; Pulse 73; Resp 16; Temp 98.5; Pulse Ox 100% on R/A; Weight 79.83 kg; iw Height 5 ft. 2 in. (157.48 cm); 04/27 00:42 BP 97 / 59; Pulse 57; Resp 16; Pulse Ox 100% on R/A; tt3 01:45 BP 91 / 77; Pulse 76; Resp 18 S; Pulse Ox 100% on R/A; bb 02:15 BP 91 / 63; Pulse 70; Resp 16 S; Pulse Ox 97% on R/A; bb 03:17 BP 100 / 72; Pulse 65; Resp 16 S; Pulse Ox 98% on R/A; bb 04/26 19:58 Body Mass Index 32.19 (79.83 kg, 157.48 cm) iw ED Course: 04/26 18:36 Patient arrived in ED. rg4 19:59 Triage completed. iw 20:00 Arm band placed on. iw 23:13 Michele Velasco NP is PHCP. pm1 23:13 Kevin Lawrence MD is Attending Physician. pm1 23:57 Initial lab(s) drawn, by me, sent to lab. Inserted saline lock: 20 gauge in right vg1 antecubital area, using aseptic technique. Blood collected. 07 00:45 Patient has correct armband on for positive identification. Placed in gown. Call light bb in reach. Side rails up X2. Adult w/ patient. Pulse ox on. NIBP on. 01:03 CT Abd/Pelvis - IV Contrast Only In Process Unspecified. EDMS 01:51 Sonja Moya, RN is Primary Nurse. bb 03:16 No provider procedures requiring assistance completed. IV discontinued, intact, bb bleeding controlled, No redness/swelling at site. Pressure dressing applied. Administered Medications: 00:00 Drug: NS 0.9% 1000 ml Route: IV; Rate: 1000 ml; Site: right antecubital; vg1 00:44 Follow up: IV Status: Completed infusion; IV Intake: 950ml bb 00:01 Drug: Zofran (Ondansetron) 4 mg Route: IVP; Site: right antecubital; vg1 01:55 Follow up: Response: No adverse reaction bb 00:05 Drug: morphine 4 mg Route: IVP; Site: right antecubital; vg1 00:30 Follow up: Response: No adverse reaction; RASS: Alert and Calm (0) bb 00:44 Drug: Pepcid (famotidine) 20 mg Route: IVP; Site: right antecubital; bb 01:55 Follow up: Response: No adverse reaction bb Intake: 00:44 IV: 950ml; Total: 950ml. bb Outcome: 02:25 Discharge ordered by . lee 03:17 Discharged to home ambulatory, with family. bb 03:17 Condition: stable 03:17 Discharge instructions given to patient, Instructed on discharge instructions, follow up and referral plans. Demonstrated understanding of instructions, follow-up care. 03:17 Patient left the ED. bb Signatures: Dispatcher [employer] EDUT Sonja Moya RN RN bb Naima Thakkar RN RN iw Michele Velasco, GINNER HELPER GINNER HELPER pm1 Oumou Huggins rg4 Kevin Lawrence MD MD ma2 Garcia, Victoria, RN RN vg1 Nitish Shell tt3 Corrections: (The following items were deleted from the chart) 04/26 20:00 19:58 Pulse 73bpm; Resp 16bpm; Pulse Ox 100% RA; Temp 98.5F; iw iw 20:00 19:59 Allergies: Seroquel (rash); iw iw
[2021-04-27 03:36] VITALS: TEMP 98.5
[2021-04-27 03:43] VITALS: BP 100/72; O2SAT 98
--- NOTE | 2021-04-27 10:53 | RAD REPORT ---
EXAM DESCRIPTION: CT - Abdomen Pelvis W Contrast - 04/27/2021 6:43 am CLINICAL HISTORY: Abdominal pain, vomiting and diarrhea. COMPARISON: None. TECHNIQUE: Biphasic, helical CT imaging of the abdomen and pelvis was performed following oral and 1 00 ml non-ionic IV contrast. All CT scans are performed using dose optimization technique as appropriate and may include automated exposure control or mA/KV adjustment according to patient size. FINDINGS: No suspicious findings in the lung bases. Small hiatal hernia. The liver, spleen, and pancreas show no suspicious findings. Gallbladder and biliary tree are also wi thout suspicious finding. Symmetric renal function is seen with no hydronephrosis or suspicious renal mass. No dilated bowel loops or bowel wall thickening. No free air, free fluid or inflammatory stranding. N o hernia, mass or bulky lymphadenopathy. The urinary bladder is without significant finding. Hysterec chyna. Normal appendix. No suspicious bony findings. IMPRESSION: No acute findings within the abdomen or pelvis.
== END 2021-04-27 03:17 | disposition home or self-care (01) ==
LOC: ER 18:34
DX: R10.13 Epigastric pain (principal); F31.9 Bipolar disorder, unspecified; Z88.0 Allergy status to penicillin; Z88.5 Allergy status to narcotic agent; Z88.6 Allergy status to analgesic agent; Z88.8 Allergy status to other drugs, medicaments and biological substances; Z91.040 Latex allergy status; Z91.048 Other nonmedicinal substance allergy status
CPT/HCPCS: 96361; 85025; 80048; 36415; 80076; 83690; 74177; 96375; 96374; 99284; Q9967

== ENCOUNTER 2021-06-20 20:54 | Emergency (ER) | payer OTHER ==
--- OUTSIDE RECORDS SUMMARY | 2021-06-20 20:57 | XMS REPORT | Continuity of Care Document ---
:1965 Author Organization [facility] t Address [address] [place] [address] [address]. [address]ur [address] [place] [address] Care Team Providers Name Role Phone Waylon OLSON, Justin Primary Care Physician Hernán OLSON, K.H. Attending Clinician Doctor Unassigned, Name Attending Clinician Unavailable Domo Thakkar DO Attending Clinician Payers Payer Name Policy Type Policy Effective Date Expiration Date Sour ce Number [facility] - [id number] 2021 Unive rsity of MANAGED 00:00:00 [place] [facility] [place]ICA[place] [facility] HEALTHCARE [id number]/ 10/2020-PresentP [address] [place] [address], CAM[place]icaid Problems Condition Condition Condition Status Onset Resolution Last Treating Co mments Source Name Details Category Date Date Treatment Clinician Date Elevated Elevated Disease Active Unive rs brain brain 7-12 ity of nat[place] peptide c peptide 00 Med[place] rach (BNP) (BNP) Branch level level Chest pain Chest pain Disease Active U nivers 7-11 ity of 00:00: [address] Obesity Obesity Disease Active Univers (BMI (BMI 7-11 ity of 30-39.9) 30-39.9) 00:00: [address] Branch Allergies, Adverse Reactions, Alerts Allergy Allergy Status Severity Reaction(s) Onset Inactive Treating Comm ents Source Name Type Date Date Clinician Iodine Propensi Active Hives Univers ty to 7 ity of adverse 00:00: [place] [facility] Morphine Propensi Active Unknown - Hives Uni vers ty to See comments 04-22 ity of adverse 00:00: [place] [facility] Fluoxeti Propensi Active Hives Univer s ne ty to 7 ity of adverse 00:00: [place] reaction [facility] s [facility] Quetiapi Propensi Active Hives Univer s ne ty to 03-22 ity of adverse 00:00: [place] [facility] Adhesive Propensi Active Rash Univer s ty to 05-26 ity of adverse 00:00: [place] [facility] Aspirin Propensi Active Rash 2017- Univers ty to 05-26 ity of adverse 00:00: [place] reaction [facility] s [facility] Latex Propensi Active Rash 2017- Univers ty to 05-26 ity of adverse 00:00: [place] reaction [facility] s [facility] Penicill Propensi Active Rash 0 Univer s in ty to 05-26 ity of adverse 00:00: [place] reaction [facility] s [facility] Social History Social Habit Start Date Stop Date Quantity Comments Source History of Smoker University of tobacco use [facility] Exposure to Not sure [place] of SARS-CoV-2 [facility] (event) [place] Tobacco use and 2021-06-10 2021-06-10 Never used Universit y of exposure 00:00:00 00:00:00 [facility] Alcohol intake 2021-06-10 2021-06-10 Ex-drinker University of 00:00:00 00:00:00 (finding) [facility] Tobacco Comment 2021-05-02 2021-05-02 Quit a year ago. Uni versity of 00:00:00 00:00:00 [facility] Sex Assigned At [birth year] Universit y of 00:00:00 00:00:00 [facility] Smoking Status Start Date Stop Date Source Former smoker 2021-06-10 00:00:00 2021-06-10 00:00:00 Universi ty of [facility] Medications Ordered Filled Start Stop Current Ordering Indication Dosage Frequency Signature Comments Components Source Medication Medication Date Date Medication? Clinician (SIG) Name Name fluticasone Yes 1{puff} Inhale 1 Univers propion-nida 8-21 Puff every it y of meteroL 00:00: [place] (WIXELA 00 (twelve) Medical INHUB) hours. Branch 250-50 mcg/dose inhalation disk fluticasone Yes [id number] 1{puff} Inhale 1 Univers propion-nida 8-19 Puff every it y of meteroL 00:00: 12 [place] (ADVAIR 00 (twelve) Medical DISKUS) hours. Branch 250-50 mcg/dose inhalation disk albuterol Yes [id number] 2{puff} Inhale 2 Univers 90 8-19 Puffs ity of mcg/actuati 00:00: every 6 [place] as on inhaler 00 (six) Medical hours as Branch needed for Wheezing or Shortness of Breath. BUSPIRONE Yes 15mg Take 15 mg Un conchita HCL (BUSPAR 7-12 by mouth 2 it y of ORAL) 22:52: (two) [place] [address] times Medical daily. Branch omeprazole Yes 20mg Take 20 mg U nivers 20 mg 7-12 by mouth ity of capsule 22:52: daily. [address] Branch divalproex Yes 500mg Take 500 Un conchita 500 mg EC 7-12 mg by ity of tablet 22:52: mouth at [place] [address] bedtime. Medical Branch ARIPiprazol Yes 10mg Take 10 mg Univers e 10 mg 7-12 by mouth ity of tablet 22:52: daily. [address] Immunizations Ordered Filled Immunization Date Status Comments Sour e Immunization Name Name SARS-COV-2 COVID-19 2021-03-08 Completed Unive rsity of MODERNA VACCINE 00:00:00 [facility] Branch SARS-COV-2 COVID-19 2021-02-08 Completed Unive rsity of MODERNA VACCINE 00:00:00 [facility] Procedures This patient has no known procedures. Encounters Start End Encounter Admission Attending Care Care Encounter Source Date/Time Date/Time Type Type Clinicians Facility Department ID 2021-06-17 2021-06-17 Telephone Hernán [facility] [id number] Univers 00:00:00 00:00:00 Magalie Ames [id number] ity of [place] [id number] [id number] [address] 2021-04-22 2021-04-22 Orders Doctor MCCARTHY [id number] 00:00:00 00:00:00 Only Unassigned, LUCIE [id number] [facility] [id number] [id number] 2021-04-09 2021-04-09 Orders Doctor MCCARTHY [id number] 00:00:00 00:00:00 Only Unassigned, LUCIE [id number] [place] [facility] [id number] 2021-04-01 2021-04-01 Orders Doctor MCCARTHY [id number] 00:00:00 00:00:00 Only Unassigned, LUCIE [id number] [place] [facility] [id number] [id number] 2021-03-29 2021-03-29 Orders Doctor MCCARTHY [id number] 00:00:00 00:00:00 Only Unassigned, LUCIE [id number] [place] [facility] [id number] 2021-03-22 2021-03-22 Emergency Bijan [facility] [id number] 12:21:00 15:40:00 Sarah Ames [id number] [place] [id number] [place] [id number] 2021-03-22 2021-03-22 Orders Doctor SHARI [id number] 00:00:00 00:00:00 Only Unassigned, LUCIE [id number] [place] [facility] [id number] [id number] Results This patient has no known results.
--- NOTE | 2021-06-21 01:31 | ER ---
Nurse's Notes [facility] Name: Olga Lidia Delgadillo Age: 55 yrs Sex: Female : 1965 Arrival Date: 06/20/2021 Time: 20:58 Bed Waiting Private MD: Diagnosis: Presentation: 06/20 21:54 Chief complaint: Patient states: Notice AURELIANO anklet swelling about two days ago. Stated vg1 pain is getting worse when walking. Denies any injuries or fall. Coronavirus screen: Vaccine status: Patient reports receiving the 2nd dose of the covid vaccine. Client denies travel out of the [place] in the last 14 days. Ebola Screen: Patient negative for fever greater than or equal to 101.5 degrees Fahrenheit, and additional compatible Ebola Virus Disease symptoms. Initial Sepsis Screen: Does the patient meet any 2 criteria? No. Patient's initial sepsis screen is negative. Does the patient have a suspected source of infection? No. Patient's initial sepsis screen is negative. Risk Assessment: Do you want to hurt yourself or someone else? Patient reports no desire to harm self or others. Onset of symptoms was June 18, 2021. 21:54 Method Of Arrival: Ambulatory vg1 21:54 Acuity: ROXIE 4 vg1 Triage Assessment: 21:56 General: Appears in no apparent distress. uncomfortable, Behavior is calm, cooperative. vg1 Pain: Complains of pain in AURELIANO ankle. 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 - Hysterectomy vg1 Historical: - Allergies: 21:56 Aspirin (Hives); vg1 21:56 Iodine; vg1 21:56 Latex, Natural Rubber; vg1 21:56 PENICILLINS; vg1 21:56 Prozac; vg1 - Home Meds: 21:56 Abilify 10 mg Oral tab 1 tab once daily [Active]; aripiprazole 10 mg Oral tab 1 tab vg1 once daily [Active]; BuSpar Oral 5 mg three times a day [Active]; buspirone 15 mg Oral tab 2 times per day [Active]; divalproex 500 mg Oral Tb24 1 tab once daily [Active]; omeprazole 20 mg Oral cpDR 1 cap once daily [Active]; Topamax 50 mg Oral tab 1 tab 2 times per day [Active]; - PMHx: 21:56 Bipolar disorder; Depression; vg1 - PSHx: 21:56 hysterectomy; vg1 - Immunization history:: Adult Immunizations up to date, Client reports receiving the 2nd dose of the Covid vaccine. - Social history:: Smoking status: Patient denies any tobacco usage or history of. Vital Signs: 21:54 BP 105 / 76; Pulse 66; Resp 16; Temp 98.4; Pulse Ox 98% ; Weight 78.47 kg; Height 5 ft. vg1 2 in. (157.48 cm); Pain 7/10; 21:54 Body Mass Index 31.64 (78.47 kg, 157.48 cm) vg1 ED Course: 20:58 Patient arrived in ED. cf2 21:56 Triage completed. vg1 21:56 Arm band placed on Patient placed in waiting room, Patient notified of wait time. vg1 06/21 01:30 Patient's name was called from ER lobby. No response. Unable to locate patient. Will bb disposition as left without being seen by a provider. Administered Medications: No medications were administered Outcome: 01:30 Patient left the ED. bb Signatures: Sonja Moya, RN RN bb Lea Dias cf2 Ragini Huggins RN RN vg1
[2021-06-21 01:39] VITALS: BP 105/76; TEMP 98.4; O2SAT 98
== END 2021-06-21 01:30 | disposition left against medical advice (07) ==
LOC: ER 20:54
DX: Z53.21 Procedure and treatment not carried out due to patient leaving prior to being seen by health care provider (principal)
CPT/HCPCS: 99281

== ENCOUNTER 2023-05-08 21:16 | Emergency (ER) | payer OTHER ==
--- OUTSIDE RECORDS SUMMARY | 2023-05-08 21:19 | XMS REPORT | Clinical Summary ---
:1965 Author Organization [facility] Address [address] [place] [address] Care Team Providers Name Role Phone Daisy Connors MD Unavailable Allergies Not on File Medications Not on file Active Problems Not on file Encounters Date Type Specialty Care Team Description 11/11/2022 Travel after 05/08/2022 Social History Tobacco Use Types Packs/Day Years Used Date Smoking Tobacco: Never Assessed Sex Assigned at Date Recorded Not on file Job Start Date Occupation Industry Not on file Not on file Not on file Last Filed Vital Signs Not on file Plan of Treatment Not on file Results Not on fileafter 05/08/2022 Insurance Payer Benefit Plan / Subscriber ID Effective Dates Phone Addre ss Type Group FARA CHAUDHARI [id number] 2021-[facility] [address] Medicaid MEDICAID MEDICAID [facility], [place] [id number] Care Teams Website Designer Relationship Specialty Start Date End Date Daisy Connors MD PCP - External Primary Care Nephrology 11/11/[address] [place] [address] CT Provider [address] [place] [address]
--- OUTSIDE RECORDS SUMMARY | 2023-05-08 21:28 | XMS REPORT | Continuity of Care Document ---
:1965 Author Organization [facility] t Address [address] [place] [id number] Care Team Providers Name Role Phone DAISY CONNORS JUSTIN Primary Care Physician Unavailable JOANN AGUILAR Attending Clinician Unavailable JASMEET STEWART Attending Clinician Unavailable JASMEET STEWART Attending Clinician Unavailable MAGALIE GTZHKevin Attending Clinician Unavailable LUCIA HARMON Attending Clinician Unavailable LUCIA HARMON Attending Clinician Unavailable SARAH OSORIO Attending Clinician Unavailable Sarah Osorio DO Attending Clinician Magalie Gtz MDHKevin Attending Clinician BEVERLEY CASEY Attending Clinician Unavailable Beverley Lopez Attending Clinician Doctor Unassigned, [place] Attending Clinician Unavailable RAJAN GOSS Attending Clinician Unavailable Rajan Goss MD Attending Clinician Lucia Harmon DO Attending Clinician RAUL URIBE Attending Clinician Unavailable Raul Uribe MD Attending Clinician Jenise Choi Attending Clinician Unavailable BURKE HOLLINS Attending Clinician Unavailable ESTELLE ORTIZ Attending Clinician Unavailable Estelle Matias Attending Clinician Marlena Villanueva Attending Clinician Unavailable Testing, [facility] Pulmonary Function Attending Clinician UnavailBarber Burnham MD Attending Clinician BARBER YAO Attending Clinician Unavailable BIBIANA HANEY Attending Clinician Unavailable KWAME ROCA Attending Clinician Unavailable Kwame Roca DO Attending Clinician Therapist, [facility] Respiratory Attending Clinician Unavailable Only, [facility] Test Attending Clinician Unavailable Corky Jackson MD Attending Clinician MAREN SHIRLEY Attending Clinician Unavailable MAREN SHIRLEY Attending Clinician Unavailable [facility], [facility] Sleep Lab Attending Clinician Unavailable Maren Shirley MD Attending Clinician Daisy Connors MD Attending Clinician DAISY CONNORS Attending Clinician Unavailable Andrew Kathleen DO Attending Clinician JOANN AGUILAR Admitting Clinician Unavailable SARAH OSORIO Admitting Clinician Unavailable JASMEET STEWART Admitting Clinician Unavailable BEVERLEY CASEY Admitting Clinician Unavailable RAUL URIBE Admitting Clinician Unavailable MAGALIE GTZ Admitting Clinician Unavailable Jenise Choi Admitting Clinician Unavailable LUCIA HARMON Admitting Clinician Unavailable Andrew Kathleen DO Admitting Clinician Payers Payer Name Policy Type Policy Number Effective Date Expiration Date [facility] [id number] 2022 STAR PLUS 00:00:00 Problems Condition Condition Condition Status Onset Resolution Last Treating Co mments Source Name Details Category Date Date Treatment Clinician Date Recurrent Recurrent Disease Active Overview: Univers syncope syncope 5-05 Formattin ity o f 00:00: g of this [place] 00 note Medical might be Branch different from the original. Added automatic ally from request for surgery [id number] OAB OAB Disease Active 2021-10 Overview: Univer s (overactiv (overactiv 2-12 Formattin ity of e bladder) e bladder) 00:00: g of this note Medical might be Branch different from the original. Added automatic ally from request for surgery [id number] Urge Urge Disease Active 2021-10 Overview: Univer s incontinen incontinen 2 Formattin ity of ce ce 00:00: g of this note Medical might be Branch different from the original. Added automatic ally from request for surgery [id number] Asthma Asthma Disease Active 2021-10 Univers 2 ity of 00:00: Medical Branch Elevated Elevated Disease Active Unive rs brain brain 05-03 ity of natriure[place] nat[place]ure[place] c peptide c peptide 00 Medi rach (BNP) (BNP) Branch level level Chest pain Chest pain Disease Active U nivers 05-02 ity of 00:00: Medical Branch Obesity Obesity Disease Active Univers (BMI (BMI 05-02 ity of 30-39.9) 30-39.9) 00:00: Medical Branch Allergies, Adverse Reactions, Alerts Allergy Allergy Status Severity Reaction(s) Onset Inactive Treating Comm ents Source Name Type Date Date Clinician OXCARBAZ DRUG Active Other-Cmnt Univ ers EPINE INGREDI 07-19 ity of 00:00: Medical Branch Oxcarbaz Propensi Active Other - See Tachycar d Univers epine ty to comments 07-19 ia, ity of adverse 00:00: sleepines [place] reaction 00 s, and Medical s patient Branch is unable to use the restroom. Iodine Propensi Active Hives Univers ty to 7 ity of adverse 00:00: [place] reaction 00 Medical s Branch IODINE DRUG Active Hives Univers INGREDI 05-02 ity of 00:00: Medical Branch Morphine Propensi Active Rash Hives Univer s ty to 04-22 ity of adverse 00:00: [place] reaction 00 Medical s Branch Fluoxeti Propensi Active Hives Univer s ne ty to 04-22 ity of adverse 00:00: [place] reaction 00 Medical s Branch MORPHINE DRUG Active Rash Univers INGREDI 04-22 ity of 00:00: [place] 00 Medical Branch FLUOXETI DRUG Active Hives 2020-0 Univers NE INGREDI 7-01 ity of 00:00: [place] 00 Medical Branch Quetiapi Propensi Active Hives 2020-0 Univer s ne ty to 5-31 ity of adverse 00:00: [place] reaction 00 Medical s Branch QUETIAPI DRUG Active Hives 2020-0 Univers NE INGREDI 5-31 ity of 00:00: [place] 00 Medical Branch Aspirin Propensi Active Rash 2018-0 Univers ty to 8-04 ity of adverse 00:00: [place] reaction 00 Medical s Branch Latex Propensi Active Rash 2018-0 Univers ty to 8-04 ity of adverse 00:00: [place] reaction 00 Medical s Branch Penicill Propensi Active Rash 2018-0 Univer s in ty to 8-04 ity of adverse 00:00: [place] reaction 00 Medical s Branch ADHESIVE Drug Active Rash 2018-0 Univers Class 8-04 ity of 00:00: [place] 00 Medical Branch ASPIRIN DRUG Active Rash 2018-0 Univers INGREDI 8-04 ity of 00:00: [place] 00 Medical Branch LATEX DRUG Active Rash 2018-0 Univers INGREDI 8-04 ity of 00:00: [place] 00 Medical Branch PENICILL DRUG Active Rash 2018-0 Univers IN INGREDI 8-04 ity of 00:00: [place] 00 Medical Branch Adhesive Propensi Active Rash 2018-0 Univer s ty to 8-04 ity of adverse 00:00: [place] reaction 00 Medical s Branch Adhesive Propensi Active Rash 2018-0 Univer s ty to 8-04 ity of adverse 00:00: [place] reaction 00 [facility] Social History Social Habit Start Date Stop Date Quantity Comments Source History of Cigarette Smoker Universi ty of tobacco use [facility] Alcohol intake 2023-04-21 2023-04-21 Ex-drinker University of 00:00:00 00:00:00 (finding) [facility] Exposure to 2023-02-13 2023-02-23 Not sure University of SARS-CoV-2 00:00:00 09:43:00 [facility] (event) [place] Tobacco use and 2022-09-09 2022-09-09 Smokeless tobacco Un iversity of exposure 00:00:00 00:00:00 non-user [facility] Tobacco Comment 2022-09-09 2022-09-09 Quit a year ago. Uni versity of 00:00:00 00:00:00 [facility] Sex [birth year] At [birth year] Universit y of 00:00:00 00:00:00 [facility] Smoking Status Start Date Stop Date Source Ex-smoker 2022-09-09 00:00:00 2022-09-09 00:00:00 Universi of [facility] Medications Ordered Filled Start Stop Current Ordering Indication Dosage Frequency Signature Comments Components Source Medication Medication Date Date Medication? Clinician (SIG) Name Name maalox:diph 2022- No 15mL 15 mL, Uni vers enhydrAMINE 04-21 Oral, ity of :lidocaine 21:00: 21:07 ONCE, 1 [place] 2 % viscous 00 :00 dose, On Medi rach 1:1:1 Fri Branch ([facility]OUT 04/21/23 at [facility]) 1600, oral Routine suspension 15 mL ketorolac No 30mg 30 mg, Unive rs (TORADOL) 04-21 Slow IV ity of injection 20:15: 19:35 Push, [place] 30 mg 00 :00 ONCE, 1 Medical dose, On Branch 04/21/23 at 1515, Routine famotidine No 20mg 20 mg, Univ ers (PEPCID 04-21 Slow IV ity of (PF)) 19:30: 19:35 Push, [place] injection 00 :00 ONCE, 1 Medical 20 mg dose, On Branch 04/21/23 at 1430, RUBY vancomycin 2022- No CONTINUOUS Univers 1000 mg in 03-28 PRN, ity of NS 200 mL 12:49: 12:49 Starting [place] RTU IV 05 :05 on [facility] Medical Piggyback 03/28/23 at [facility] h 0749, Until Discontinu ed, Administer over 60 Minutes, CV Intraproce dure lidocaine 2022- No ONCE INTRA U nivers 2% 03-28 PROCEDURE, ity of (XYLOCAINE) 12:46: 13:01 [place] 20 mg/mL (2 00 :06 on Tue Medica l %) 6/6/23 at Branch injection 0746, Until 6/6/23 at 0801, Routine, CV Intraproce dure cariprazine 2022-0 Yes [id number] 4.5mg Take 4.5 Univers (VRAYLAR) 6-06 mg by ity of 4.5 mg Cap 09:15: mouth [place] 50 every Medical evening. [place] cetirizine 2022-0 Yes [id number] 10mg Take 1 Univers 10 mg 6-06 tablet by ity of tablet 09:15: mouth [place] 50 every Medical morning. [place] cariprazine 2022-0 Yes [id number] 4.5mg Take 4.5 Univers (VRAYLAR) 6-06 mg by ity of 4.5 mg Cap 09:15: mouth [place] 50 every Medical evening. [place] cetirizine 2022-0 Yes [id number] 10mg Take 1 Univers 10 mg 6-06 tablet by ity of tablet 09:15: mouth [place] 50 every Medical morning. [place] cariprazine 2022-0 Yes [id number] 4.5mg Take 4.5 Univers (VRAYLAR) 6-06 mg by ity of 4.5 mg Cap 09:15: mouth [place] 50 every Medical evening. [place] cetirizine 2022-0 Yes [id number] 10mg Take 1 Univers 10 mg 6-06 tablet by ity of tablet 09:15: mouth [place] 50 every Medical morning. [place] cariprazine 2022-0 Yes [id number] 4.5mg Take 4.5 Univers (VRAYLAR) 6-06 mg by ity of 4.5 mg Cap 09:15: mouth [place] 50 every Medical evening. [place] cetirizine 2022-0 Yes [id number] 10mg Take 1 Univers 10 mg 6-06 tablet by ity of tablet 09:15: mouth [place] 50 every Medical morning. [place] cariprazine 2022-0 Yes [id number] 4.5mg Take 4.5 Univers (VRAYLAR) 6-06 mg by ity of 4.5 mg Cap 09:15: mouth [place] 50 every Medical evening. [place] cetirizine 2022-0 Yes [id number] 10mg Take 1 Univers 10 mg 6-06 tablet by ity of tablet 09:15: mouth [place] 50 every Medical morning. [place] cariprazine 2022-0 Yes [id number] 4.5mg Take 4.5 Univers (VRAYLAR) 6-06 mg by ity of 4.5 mg Cap 09:15: mouth [place] 50 every Medical evening. Branch cetirizine 2022-0 Yes [id number] 10mg Take 1 Univers 10 mg 6-06 tablet by ity of tablet 09:15: mouth [place] 50 every Medical morning. Branch cariprazine 2022-0 Yes [id number] 4.5mg Take 4.5 Univers (VRAYLAR) 6-06 mg by ity of 4.5 mg Cap 09:15: mouth [place] 50 every Medical evening. Branch cetirizine 2022-0 Yes [id number] 10mg Take 1 Univers 10 mg 6-06 tablet by ity of tablet 09:15: mouth [place] 50 every Medical morning. Branch cariprazine 0 Yes [id number] 4.5mg Take 4.5 Univers (VRAYLAR) 6-06 mg by ity of 4.5 mg Cap 09:15: mouth [place] 50 every Medical evening. Branch cetirizine 0 Yes [id number] 10mg Take 1 Univers 10 mg 6-06 tablet by ity of tablet 09:15: mouth [place] 50 every Medical morning. Branch cariprazine 0 Yes [id number] 4.5mg Take 4.5 Univers (VRAYLAR) 6-06 mg by ity of 4.5 mg Cap 09:15: mouth [place] 50 every Medical evening. Branch cetirizine Yes [id number] 10mg Take 1 Univers 10 mg 6-06 tablet by ity of tablet 09:15: mouth [place] 50 every Medical morning. [place] OPTICHAMBER Yes [id number] USE Univers THONY LG 4-10 DIRECTED ity o f MASK Spcr 00:00: NEEDED [place] 00 WITH Medical INHALER Branch OPTICHAMBER Yes [id number] USE Univers THONY LG 4-10 DIRECTED ity o f MASK Spcr 00:00: NEEDED [place] 00 WITH Medical INHALER Branch OPTICHAMBER Yes [id number] USE Univers THONY LG 4-10 DIRECTED ity o f MASK Spcr 00:00: NEEDED [place] 00 WITH Medical INHALER Branch OPTICHAMBER Yes [id number] USE Univers THONY LG 4-10 DIRECTED ity o f MASK Spcr 00:00: NEEDED [place] 00 WITH Medical INHALER Branch OPTICHAMBER Yes [id number] USE Univers THONY LG 4-10 DIRECTED ity o f MASK Spcr 00:00: NEEDED [place] 00 WITH Medical INHALER Branch OPTICHAMBER Yes [id number] USE Univers THONY LG 4-10 DIRECTED ity o f MASK Spcr 00:00: NEEDED [place] 00 WITH Medical INHALER Branch OPTICHAMBER Yes [id number] USE Univers THONY LG 4-10 DIRECTED ity o f MASK Spcr 00:00: NEEDED [place] 00 WITH Medical INHALER Branch OPTICHAMBER Yes [id number] USE Univers THONY LG 4-10 DIRECTED ity o f MASK Spcr 00:00: NEEDED [place] 00 WITH Medical INHALER Branch OPTICHAMBER Yes [id number] USE Univers THONY LG 4-10 DIRECTED ity o f MASK Spcr 00:00: NEEDED [place] 00 WITH Medical INHALER Branch OPTICHAMBER Yes [id number] USE Univers THONY LG 4-10 DIRECTED ity o f MASK Spcr 00:00: NEEDED [place] 00 WITH Medical INHALER Branch OPTICHAMBER Yes [id number] USE Univers THONY LG 4-10 DIRECTED ity o f MASK Spcr 00:00: NEEDED [place] 00 WITH Medical INHALER Branch ondansetron 2022- No 4mg 4 mg, Slow Univers (ZOFRAN 01-24 IV [place], ity of (PF)) 02:15: 02:06 ONCE, 1 [place] injection 4 00 :00 dose, On Medi rach mg Mon01/23/23 Branch at 2115, RUBY morpHINE (4 2022- No 4mg 4 mg, Slow Univers mg/mL) 01-24 IV [place], ity of injection 4 02:15: 02:05 ONCE, 1 [place] mg 00 :00 dose, On Medical Mon01/23/23 Branch at 2115, STAT dicyclomine 2022-0 Yes [id number] 20mg Take 1 Univers 20 mg 4-03 tablet by ity of tablet 00:00: mouth 4 00 (four) Medical times Branch daily. ondansetron 2023-0 Yes [id number] 4mg Take 1 Univers 4 mg 4-03 tablet by ity of disintegrat 00:00: mouth [place] ing tablet 00 every 4 Medica l (four) Branch hours as needed for Nausea and Vomiting (N/V). Nitrofurant 2023-0 Yes [id number] 100mg Take 1 Univers oin&Nit. 4-03 capsule by ity o f Macrocryst 00:00: mouth in [place] (MACROBID) 00 the Medical 100 mg morning Branch capsule and 1 capsule in the evening. dicyclomine 2023-0 Yes [id number] 20mg Take 1 Univers 20 mg 4-03 tablet by ity of tablet 00:00: mouth 4 [place] 00 (four) Medical times Branch daily. ondansetron 2023-0 Yes [id number] 4mg Take 1 Univers 4 mg 4-03 tablet by ity of disintegrat 00:00: mouth [place] ing tablet 00 every 4 Medica l (four) Branch hours as needed for Nausea and Vomiting (N/V). Nitrofurant 2023-0 Yes [id number] 100mg Take 1 Univers oin&Nit. 4-03 capsule by ity o f Macrocryst 00:00: mouth in [place] (MACROBID) 00 the Medical 100 mg morning Branch capsule and 1 capsule in the evening. dicyclomine 2023-0 Yes [id number] 20mg Take 1 Univers 20 mg 4-03 tablet by ity of tablet 00:00: mouth 4 [place] 00 (four) Medical times Branch daily. ondansetron 2023-0 Yes [id number] 4mg Take 1 Univers 4 mg 4-03 tablet by ity of disintegrat 00:00: mouth [place] ing tablet 00 every 4 Medica l (four) Branch hours as needed for Nausea and Vomiting (N/V). Nitrofurant 2023-0 Yes [id number] 100mg Take 1 Univers oin&Nit. 4-03 capsule by ity o f Macrocryst 00:00: mouth in [place] (MACROBID) 00 the Medical 100 mg morning Branch capsule and 1 capsule in the evening. dicyclomine 2023-0 Yes [id number] 20mg Take 1 Univers 20 mg 4-03 tablet by ity of tablet 00:00: mouth 4 [place] 00 (four) Medical times Branch daily. ondansetron 2023-0 Yes [id number] 4mg Take 1 Univers 4 mg 4-03 tablet by ity of disintegrat 00:00: mouth [place] ing tablet 00 every 4 Medica l (four) Branch hours as needed for Nausea and Vomiting (N/V). Nitrofurant 2023-0 Yes [id number] 100mg Take 1 Univers oin&Nit. 4-03 capsule by ity o f Macrocryst 00:00: mouth in [place] (MACROBID) 00 the Medical 100 mg morning Branch capsule and 1 capsule in the evening. dicyclomine 2023-0 Yes [id number] 20mg Take 1 Univers 20 mg 4-03 tablet by ity of tablet 00:00: mouth 4 [place] 00 (four) Medical times Branch daily. ondansetron 2023-0 Yes [id number] 4mg Take 1 Univers 4 mg 4-03 tablet by ity of disintegrat 00:00: mouth [place] ing tablet 00 every 4 Medica l (four) Branch hours as needed for Nausea and Vomiting (N/V). Nitrofurant 2023-0 Yes [id number] 100mg Take 1 Univers oin&Nit. 4-03 capsule by ity o f Macrocryst 00:00: mouth in [place] (MACROBID) 00 the Medical 100 mg morning Branch capsule and 1 capsule in the evening. dicyclomine 2023-0 Yes [id number] 20mg Take 1 Univers 20 mg 4-03 tablet by ity of tablet 00:00: mouth 4 [place] 00 (four) Medical times Branch daily. ondansetron 2023-0 Yes [id number] 4mg Take 1 Univers 4 mg 4-03 tablet by ity of disintegrat 00:00: mouth [place] ing tablet 00 every 4 Medica l (four) Branch hours as needed for Nausea and Vomiting (N/V). Nitrofurant 2023-0 Yes [id number] 100mg Take 1 Univers oin&Nit. 4-03 capsule by ity o f Macrocryst 00:00: mouth in [place] (MACROBID) 00 the Medical 100 mg morning Branch capsule and 1 capsule in the evening. dicyclomine 2023-0 Yes [id number] 20mg Take 1 Univers 20 mg 4-03 tablet by ity of tablet 00:00: mouth 4 [place] 00 (four) Medical times Branch daily. ondansetron 2023-0 Yes [id number] 4mg Take 1 Univers 4 mg 4-03 tablet by ity of disintegrat 00:00: mouth [place] ing tablet 00 every 4 Medica l (four) Branch hours as needed for Nausea and Vomiting (N/V). Nitrofurant 2023-0 Yes [id number] 100mg Take 1 Univers oin&Nit. 4-03 capsule by ity o f Macrocryst 00:00: mouth in [place] (MACROBID) 00 the Medical 100 mg morning Branch capsule and 1 capsule in the evening. dicyclomine 2023-0 Yes [id number] 20mg Take 1 Univers 20 mg 4-03 tablet by ity of tablet 00:00: mouth 4 [place] 00 (four) Medical times Branch daily. ondansetron 2023-0 Yes [id number] 4mg Take 1 Univers 4 mg 4-03 tablet by ity of disintegrat 00:00: mouth [place] ing tablet 00 every 4 Medica l (four) Branch hours as needed for Nausea and Vomiting (N/V). Nitrofurant 2023-0 Yes [id number] 100mg Take 1 Univers oin&Nit. 4-03 capsule by ity o f Macrocryst 00:00: mouth in [place] (MACROBID) 00 the Medical 100 mg morning Branch capsule and 1 capsule in the evening. dicyclomine 2023-0 Yes [id number] 20mg Take 1 Univers 20 mg 4-03 tablet by ity of tablet 00:00: mouth 4 [place] 00 (four) Medical times Branch daily. ondansetron 2023-0 Yes [id number] 4mg Take 1 Univers 4 mg 4-03 tablet by ity of disintegrat 00:00: mouth [place] ing tablet 00 every 4 Medica l (four) Branch hours as needed for Nausea and Vomiting (N/V). Nitrofurant 2023-0 Yes [id number] 100mg Take 1 Univers oin&Nit. 4-03 capsule by ity o f Macrocryst 00:00: mouth in [place] (MACROBID) 00 the Medical 100 mg morning Branch capsule and 1 capsule in the evening. dicyclomine 2023-0 Yes [id number] 20mg Take 1 Univers 20 mg 4-03 tablet by ity of tablet 00:00: mouth 4 [place] 00 (four) Medical times Branch daily. ondansetron 2023-0 Yes [id number] 4mg Take 1 Univers 4 mg 4-03 tablet by ity of disintegrat 00:00: mouth [place] ing tablet 00 every 4 Medica l (four) Branch hours as needed for Nausea and Vomiting (N/V). Nitrofurant 2023-0 Yes [id number] 100mg Take 1 Univers oin&Nit. 4-03 capsule by ity o f Macrocryst 00:00: mouth in [place] (MACROBID) 00 the Medical 100 mg morning Branch capsule and 1 capsule in the evening. dicyclomine 2023-0 Yes [id number] 20mg Take 1 Univers 20 mg 4-03 tablet by ity of tablet 00:00: mouth 4 [place] 00 (four) Medical times Branch daily. ondansetron 2023-0 Yes [id number] 4mg Take 1 Univers 4 mg 4-03 tablet by ity of disintegrat 00:00: mouth [place] ing tablet 00 every 4 Medica l (four) Branch hours as needed for Nausea and Vomiting (N/V). Nitrofurant 2023-0 Yes [id number] 100mg Take 1 Univers oin&Nit. 4-03 capsule by ity o f Macrocryst 00:00: mouth in [place] (MACROBID) 00 the Medical 100 mg morning Branch capsule and 1 capsule in the evening. dicyclomine 2023-0 Yes [id number] 20mg Take 1 Univers 20 mg 4-03 tablet by ity of tablet 00:00: mouth 4 [place] 00 (four) Medical times Branch daily. ondansetron 2023-0 Yes [id number] 4mg Take 1 Univers 4 mg 4-03 tablet by ity of disintegrat 00:00: mouth [place] ing tablet 00 every 4 Medica l (four) Branch hours as needed for Nausea and Vomiting (N/V). Nitrofurant 2023-0 Yes [id number] 100mg Take 1 Univers oin&Nit. 4-03 capsule by ity o f Macrocryst 00:00: mouth in [place] (MACROBID) 00 the Medical 100 mg morning Branch capsule and 1 capsule in the evening. dicyclomine 2023-0 Yes [id number] 20mg Take 1 Univers 20 mg 4-03 tablet by ity of tablet 00:00: mouth 4 [place] 00 (four) Medical times Branch daily. ondansetron 2023-0 Yes [id number] 4mg Take 1 Univers 4 mg 4-03 tablet by ity of disintegrat 00:00: mouth [place] ing tablet 00 every 4 Medica l (four) Branch hours as needed for Nausea and Vomiting (N/V). Nitrofurant 2022-0 Yes [id number] 100mg Take 1 Univers oin&Nit. 4-03 capsule by ity o f Macrocryst 00:00: mouth in [place] (MACROBID) 00 the Medical 100 mg morning Branch capsule and 1 capsule in the evening. cariprazine 2022-0 Yes [id number] 4.5mg Take 4.5 Univers (VRAYLAR) 3-20 mg by ity of 4.5 mg Cap 09:37: mouth [place] 23 every Medical evening. Branch cetirizine 2022-0 Yes [id number] 10mg Take 1 Univers 10 mg 3-20 tablet by ity of tablet 09:37: mouth [place] 23 every Medical morning. Branch cariprazine 2022-0 Yes [id number] 4.5mg Take 4.5 Univers (VRAYLAR) 3-20 mg by ity of 4.5 mg Cap 09:37: mouth [place] 23 every Medical evening. Branch cetirizine 2022-0 Yes [id number] 10mg Take 1 Univers 10 mg 3-20 tablet by ity of tablet 09:37: mouth [place] 23 every Medical morning. Branch cariprazine 2022-0 Yes [id number] 4.5mg Take 4.5 Univers (VRAYLAR) 3-20 mg by ity of 4.5 mg Cap 09:37: mouth [place] 23 every Medical evening. Branch cetirizine 2022-0 Yes [id number] 10mg Take 1 Univers 10 mg 3-20 tablet by ity of tablet 09:37: mouth [place] 23 every Medical morning. Branch cariprazine 2022-0 Yes [id number] 4.5mg Take 4.5 Univers (VRAYLAR) 3-20 mg by ity of 4.5 mg Cap 09:37: mouth [place] 23 every Medical evening. Branch cetirizine 2022-0 Yes [id number] 10mg Take 1 Univers 10 mg 3-20 tablet by ity of tablet 09:37: mouth [place] 23 every Medical morning. Branch cariprazine 2022-0 Yes [id number] 4.5mg Take 4.5 Univers (VRAYLAR) 3-20 mg by ity of 4.5 mg Cap 09:37: mouth [place] 23 every Medical evening. [place] cetirizine 2022-0 Yes [id number] 10mg Take 1 Univers 10 mg 3-20 tablet by ity of tablet 09:37: mouth [place] 23 every Medical morning. Branch cariprazine 2022-0 Yes [id number] 4.5mg Take 4.5 Univers (VRAYLAR) 3-20 mg by ity of 4.5 mg Cap 09:37: mouth [place] 23 every Medical evening. Branch cetirizine 2022-0 Yes [id number] 10mg Take 1 Univers 10 mg 3-20 tablet by ity of tablet 09:37: mouth [place] 23 every Medical morning. Branch cariprazine 2022-0 Yes [id number] 4.5mg Take 4.5 Univers (VRAYLAR) 3-20 mg by ity of 4.5 mg Cap 09:37: mouth [place] 23 every Medical evening. [place] cetirizine 0 Yes [id number] 10mg Take 1 Univers 10 mg 3-20 tablet by ity of tablet 09:37: mouth [place] 23 every Medical morning. [place] cariprazine 0 Yes [id number] 4.5mg Take 4.5 Univers (VRAYLAR) 3-20 mg by ity of 4.5 mg Cap 09:37: mouth [place] 23 every Medical evening. [place] cetirizine 0 Yes [id number] 10mg Take 1 Univers 10 mg 3-20 tablet by ity of tablet 09:37: mouth [place] 23 every Medical morning. Branch cariprazine 2022-0 Yes [id number] 4.5mg Take 4.5 Univers (VRAYLAR) 3-20 mg by ity of 4.5 mg Cap 09:37: mouth [place] 23 every Medical evening. Branch cetirizine 2022-0 Yes [id number] 10mg Take 1 Univers 10 mg 3-20 tablet by ity of tablet 09:37: mouth [place] 23 every Medical morning. Branch cariprazine 2022-0 Yes [id number] 4.5mg Take 4.5 Univers (VRAYLAR) 3-20 mg by ity of 4.5 mg Cap 09:37: mouth [place] 23 every Medical evening. Branch cetirizine 2022-0 Yes [id number] 10mg Take 1 Univers 10 mg 3-20 tablet by ity of tablet 09:37: mouth [place] 23 every Medical morning. Branch cariprazine Yes [id number] 4.5mg Take 4.5 Univers (VRAYLAR) 3-20 mg by ity of 4.5 mg Cap 09:37: mouth [place] 23 every Medical evening. Branch cetirizine Yes [id number] 10mg Take 1 Univers 10 mg 3-20 tablet by ity of tablet 09:37: mouth [place] 23 every Medical morning. Branch tiotropium Yes [id number] 2{puff} Inhale 2 Univers bromide 3-20 Puffs in ity of (SPIRIVA 00:00: the [place] RESPIMAT) 00 morning. Medica l 2.5 Branch mcg/actuati on Mist tiotropium Yes [id number] 2{puff} Inhale 2 Univers bromide 3-20 Puffs in ity of (SPIRIVA 00:00: the [place] RESPIMAT) 00 morning. Medica l 2.5 Branch mcg/actuati on Mist tiotropium Yes [id number] 2{puff} Inhale 2 Univers bromide 3-20 Puffs in ity of (SPIRIVA 00:00: the [place] RESPIMAT) 00 morning. Medica l 2.5 Branch mcg/actuati on Mist tiotropium Yes [id number] 2{puff} Inhale 2 Univers bromide 3-20 Puffs in ity of (SPIRIVA 00:00: the [place] RESPIMAT) 00 morning. Medica l 2.5 Branch mcg/actuati on Mist tiotropium Yes [id number] 2{puff} Inhale 2 Univers bromide 3-20 Puffs in ity of (SPIRIVA 00:00: the [place] RESPIMAT) 00 morning. Medica l 2.5 Branch mcg/actuati on Mist tiotropium Yes [id number] 2{puff} Inhale 2 Univers bromide 3-20 Puffs in ity of (SPIRIVA 00:00: the [place] RESPIMAT) 00 morning. Medica l 2.5 Branch mcg/actuati on Mist tiotropium Yes [id number] 2{puff} Inhale 2 [facility] bromide 3-20 Puffs in ity of (SPIRIVA 00:00: the [place] RESPIMAT) 00 morning. Medica l 2.5 Branch mcg/actuati on Mist tiotropium 2023-0 Yes [id number] 2{puff} Inhale 2 [facility] bromide 3-20 Puffs in ity of (SPIRIVA 00:00: the [place] RESPIMAT) 00 morning. Medica l 2.5 Branch mcg/actuati on Mist tiotropium 2023-0 Yes [id number] 2{puff} Inhale 2 [facility] bromide 3-20 Puffs in ity of (SPIRIVA 00:00: the [place] RESPIMAT) 00 morning. Medica l 2.5 Branch mcg/actuati on Mist tiotropium 2023-0 Yes [id number] 2{puff} Inhale 2 [facility] bromide 3-20 Puffs in ity of (SPIRIVA 00:00: the [place] RESPIMAT) 00 morning. Medica l 2.5 Branch mcg/actuati on Mist tiotropium 2023-0 Yes [id number] 2{puff} Inhale 2 [facility] bromide 3-20 Puffs in ity of (SPIRIVA 00:00: the [place] RESPIMAT) 00 morning. Medica l 2.5 Branch mcg/actuati on Mist tiotropium 2023-0 Yes [id number] 2{puff} Inhale 2 [facility] bromide 3-20 Puffs in ity of (SPIRIVA 00:00: the [place] RESPIMAT) 00 morning. Medica l 2.5 Branch mcg/actuati on Mist tiotropium 2023-0 Yes [id number] 2{puff} Inhale 2 [facility] bromide 3-20 Puffs in ity of (SPIRIVA 00:00: the [place] RESPIMAT) 00 morning. Medica l 2.5 Branch mcg/actuati on Mist tiotropium 2023-0 Yes [id number] 2{puff} Inhale 2 [facility] bromide 3-20 Puffs in ity of (SPIRIVA 00:00: the [place] RESPIMAT) 00 morning. Medica l 2.5 Branch mcg/actuati on Mist tiotropium 2023-0 Yes [id number] 2{puff} Inhale 2 [facility] bromide 3-20 Puffs in ity of (SPIRIVA 00:00: the [place] RESPIMAT) 00 morning. Medica l 2.5 Branch mcg/actuati on Mist tiotropium Yes [id number] 2{puff} Inhale 2 [facility] bromide 3-20 Puffs in ity of (SPIRIVA 00:00: the [place] RESPIMAT) 00 morning. Medica l 2.5 Branch mcg/actuati on Mist iopamidol 2022- No [id number] 75mL 75 mL, U nivers (ISOVUE 01-04 Intravenou ity o f 370-500 mL) 16:00: 15:53 s, ONCE, 1 [place] injection 00 :00 dose, On Medica l 75 mL Wed Branch 01/04/23 at 1100, Routine nitroglycer 2022- No [id number] .8mg 0.8 mg, [facility] in 01-0415 Sublingual ity of (NITROSTAT) 15:30: 15:39 , ONCE, 1 [place] sublingual 00 :00 dose, On Medic al tablet 0.8 Wed Branch mg 01/04/23 at 1030, Routine diphenhydrA Yes [id number] Take 1 [facility] MINE 3-07 oral tab ity of (BENADRYL) 00:00: every 12 [place] 25 mg 00 hrs. Start Medical capsule one day Branch before procedure and last dose on morning of procedure famotidine Yes [id number] Take 1 [facility] (PEPCID) 20 3-07 oral tab ity of mg tablet 00:00: every 12 [place] 00 hrs. Start Medical one day Branch before procedure and last dose on morning of procedure predniSONE Yes [id number] Take two [facility] 20 mg 3-07 20mg tabs ity of tablet 00:00: every 6 [place] 00 hrs. Start Medical one day Branch before procedure and last dose on morning of procedure diphenhydrA 0 Yes [id number] Take 1 [facility] MINE 3-07 oral tab ity of (BENADRYL) 00:00: every 12 [place] 25 mg 00 hrs. Start Medical capsule one day Branch before procedure and last dose on morning of procedure famotidine 0 Yes [id number] Take 1 [facility] (PEPCID) 20 3-07 oral tab ity of mg tablet 00:00: every 12 [place] 00 hrs. Start Medical one day Branch before procedure and last dose on morning of procedure predniSONE 2023-0 Yes [id number] Take two [facility] 20 mg 3-07 20mg tabs ity of tablet 00:00: every 6 [place] 00 hrs. Start Medical one day Branch before procedure and last dose on morning of procedure diphenhydrA 2023-0 Yes [id number] Take 1 [facility] MINE 3-07 oral tab ity of (BENADRYL) 00:00: every 12 [place] 25 mg 00 hrs. Start Medical capsule one day Branch before procedure and last dose on morning of procedure famotidine 2023-0 Yes [id number] Take 1 [facility] (PEPCID) 20 3-07 oral tab ity of mg tablet 00:00: every 12 [place] 00 hrs. Start Medical one day Branch before procedure and last dose on morning of procedure predniSONE 2023-0 Yes [id number] Take two [facility] 20 mg 3-07 20mg tabs ity of tablet 00:00: every 6 [place] 00 hrs. Start Medical one day Branch before procedure and last dose on morning of procedure diphenhydrA 2023-0 Yes [id number] Take 1 [facility] MINE 3-07 oral tab ity of (BENADRYL) 00:00: every 12 [place] 25 mg 00 hrs. Start Medical capsule one day Branch before procedure and last dose on morning of procedure famotidine 2023-0 Yes [id number] Take 1 [facility] (PEPCID) 20 3-07 oral tab ity of mg tablet 00:00: every 12 [place] 00 hrs. Start Medical one day Branch before procedure and last dose on morning of procedure predniSONE 2023-0 Yes [id number] Take two [facility] 20 mg 3-07 20mg tabs ity of tablet 00:00: every 6 [place] 00 hrs. Start Medical one day Branch before procedure and last dose on morning of procedure diphenhydrA 2023-0 Yes [id number] Take 1 [facility] MINE 3-07 oral tab ity of (BENADRYL) 00:00: every 12 [place] 25 mg 00 hrs. Start Medical capsule one day Branch before procedure and last dose on morning of procedure famotidine 2023-0 Yes [id number] Take 1 [facility] (PEPCID) 20 3-07 oral tab ity of mg tablet 00:00: every 12 [place] 00 hrs. Start Medical one day Branch before procedure and last dose on morning of procedure predniSONE 2023-0 Yes [id number] Take two [facility] 20 mg 3-07 20mg tabs ity of tablet 00:00: every 6 [place] 00 hrs. Start Medical one day Branch before procedure and last dose on morning of procedure diphenhydrA 2023-0 Yes [id number] Take 1 [facility] MINE 3-07 oral tab ity of (BENADRYL) 00:00: every 12 [place] 25 mg 00 hrs. Start Medical capsule one day Branch before procedure and last dose on morning of procedure famotidine 2023-0 Yes [id number] Take 1 [facility] (PEPCID) 20 3-07 oral tab ity of mg tablet 00:00: every 12 [place] 00 hrs. Start Medical one day Branch before procedure and last dose on morning of procedure predniSONE 2023-0 Yes [id number] Take two [facility] 20 mg 3-07 20mg tabs ity of tablet 00:00: every 6 [place] 00 hrs. Start Medical one day Branch before procedure and last dose on morning of procedure diphenhydrA 2023-0 Yes [id number] Take 1 [facility] MINE 3-07 oral tab ity of (BENADRYL) 00:00: every 12 [place] 25 mg 00 hrs. Start Medical capsule one day Branch before procedure and last dose on morning of procedure famotidine 3-0 Yes [id number] Take 1 [facility] (PEPCID) 20 3-07 oral tab ity of mg tablet 00:00: every 12 [place] 00 hrs. Start Medical one day Branch before procedure and last dose on morning of procedure predniSONE 2023-0 Yes [id number] Take two [facility] 20 mg 3-07 20mg tabs ity of tablet 00:00: every 6 [place] 00 hrs. Start Medical one day Branch before procedure and last dose on morning of procedure diphenhydrA 2023-0 Yes [id number] Take 1 [facility] MINE 3-07 oral tab ity of (BENADRYL) 00:00: every 12 [place] 25 mg 00 hrs. Start Medical capsule one day Branch before procedure and last dose on morning of procedure famotidine 2023-0 Yes [id number] Take 1 [facility] (PEPCID) 20 3-07 oral tab ity of mg tablet 00:00: every 12 [place] 00 hrs. Start Medical one day Branch before procedure and last dose on morning of procedure predniSONE 2023-0 Yes [id number] Take two [facility] 20 mg 3-07 20mg tabs ity of tablet 00:00: every 6 [place] 00 hrs. Start Medical one day Branch before procedure and last dose on morning of procedure diphenhydrA 2023-0 Yes [id number] Take 1 [facility] MINE 3-07 oral tab ity of (BENADRYL) 00:00: every 12 [place] 25 mg 00 hrs. Start Medical capsule one day Branch before procedure and last dose on morning of procedure famotidine 2023-0 Yes [id number] Take 1 [facility] (PEPCID) 20 3-07 oral tab ity of mg tablet 00:00: every 12 [place] 00 hrs. Start Medical one day Branch before procedure and last dose on morning of procedure predniSONE 2023-0 Yes [id number] Take two [facility] 20 mg 3-07 20mg tabs ity of tablet 00:00: every 6 [place] 00 hrs. Start Medical one day Branch before procedure and last dose on morning of procedure diphenhydrA 2023-0 Yes [id number] Take 1 [facility] MINE 3-07 oral tab ity of (BENADRYL) 00:00: every 12 [place] 25 mg 00 hrs. Start Medical capsule one day Branch before procedure and last dose on morning of procedure famotidine 2023-0 Yes [id number] Take 1 [facility] (PEPCID) 20 3-07 oral tab ity of mg tablet 00:00: every 12 [place] 00 hrs. Start Medical one day Branch before procedure and last dose on morning of procedure predniSONE 2023-0 Yes [id number] Take two [facility] 20 mg 3-07 20mg tabs ity of tablet 00:00: every 6 [place] 00 hrs. Start Medical one day Branch before procedure and last dose on morning of procedure diphenhydrA 2023-0 Yes [id number] Take 1 [facility] MINE 3-07 oral tab ity of (BENADRYL) 00:00: every 12 [place] 25 mg 00 hrs. Start Medical capsule one day Branch before procedure and last dose on morning of procedure famotidine 2023-0 Yes [id number] Take 1 [facility] (PEPCID) 20 3-07 oral tab ity of mg tablet 00:00: every 12 [place] 00 hrs. Start Medical one day Branch before procedure and last dose on morning of procedure predniSONE 2023-0 Yes [id number] Take two [facility] 20 mg 3-07 20mg tabs ity of tablet 00:00: every 6 [place] 00 hrs. Start Medical one day Branch before procedure and last dose on morning of procedure diphenhydrA 2023-0 Yes [id number] Take 1 [facility] MINE 3-07 oral tab ity of (BENADRYL) 00:00: every 12 [place] 25 mg 00 hrs. Start Medical capsule one day Branch before procedure and last dose on morning of procedure famotidine 2023-0 Yes [id number] Take 1 [facility] (PEPCID) 20 3-07 oral tab ity of mg tablet 00:00: every 12 [place] 00 hrs. Start Medical one day Branch before procedure and last dose on morning of procedure predniSONE 2023-0 Yes [id number] Take two [facility] 20 mg 3-07 20mg tabs ity of tablet 00:00: every 6 [place] 00 hrs. Start Medical one day Branch before procedure and last dose on morning of procedure diphenhydrA 2023-0 Yes [id number] Take 1 [facility] MINE 3-07 oral tab ity of (BENADRYL) 00:00: every 12 [place] 25 mg 00 hrs. Start Medical capsule one day Branch before procedure and last dose on morning of procedure famotidine 2023-0 Yes [id number] Take 1 [facility] (PEPCID) 20 3-07 oral tab ity of mg tablet 00:00: every 12 [place] 00 hrs. Start Medical one day Branch before procedure and last dose on morning of procedure predniSONE 2023-0 Yes [id number] Take two [facility] 20 mg 3-07 20mg tabs ity of tablet 00:00: every 6 [place] 00 hrs. Start Medical one day Branch before procedure and last dose on morning of procedure diphenhydrA 2023-0 Yes [id number] Take 1 [facility] MINE 3-07 oral tab ity of (BENADRYL) 00:00: every 12 [place] 25 mg 00 hrs. Start Medical capsule one day Branch before procedure and last dose on morning of procedure famotidine 2023-0 Yes [id number] Take 1 [facility] (PEPCID) 20 3-07 oral tab ity of mg tablet 00:00: every 12 [place] 00 hrs. Start Medical one day Branch before procedure and last dose on morning of procedure predniSONE 2023-0 Yes [id number] Take two [facility] 20 mg 3-07 20mg tabs ity of tablet 00:00: every 6 [place] 00 hrs. Start Medical one day Branch before procedure and last dose on morning of procedure diphenhydrA 2023-0 Yes [id number] Take 1 [facility] MINE 3-07 oral tab ity of (BENADRYL) 00:00: every 12 [place] 25 mg 00 hrs. Start Medical capsule one day Branch before procedure and last dose on morning of procedure famotidine 2023-0 Yes [id number] Take 1 [facility] (PEPCID) 20 3-07 oral tab ity of mg tablet 00:00: every 12 [place] 00 hrs. Start Medical one day Branch before procedure and last dose on morning of procedure predniSONE 2023-0 Yes [id number] Take two [facility] 20 mg 3-07 20mg tabs ity of tablet 00:00: every 6 [place] 00 hrs. Start Medical one day Branch before procedure and last dose on morning of procedure diphenhydrA 2023-0 Yes [id number] Take 1 [facility] MINE 3-07 oral tab ity of (BENADRYL) 00:00: every 12 [place] 25 mg 00 hrs. Start Medical capsule one day Branch before procedure and last dose on morning of procedure famotidine 2023-0 Yes [id number] Take 1 [facility] (PEPCID) 20 3-07 oral tab ity of mg tablet 00:00: every 12 [place] 00 hrs. Start Medical one day Branch before procedure and last dose on morning of procedure predniSONE 2023-0 Yes [id number] Take two [facility] 20 mg 3-07 20mg tabs ity of tablet 00:00: every 6 [place] 00 hrs. Start Medical one day Branch before procedure and last dose on morning of procedure diphenhydrA 2023-0 Yes [id number] Take 1 [facility] MINE 3-07 oral tab ity of (BENADRYL) 00:00: every 12 [place] 25 mg 00 hrs. Start Medical capsule one day Branch before procedure and last dose on morning of procedure famotidine 2023-0 Yes [id number] Take 1 [facility] (PEPCID) 20 3-07 oral tab ity of mg tablet 00:00: every 12 [place] 00 hrs. Start Medical one day Branch before procedure and last dose on morning of procedure predniSONE 2023-0 Yes [id number] Take two [facility] 20 mg 3-07 20mg tabs ity of tablet 00:00: every 6 [place] 00 hrs. Start Medical one day Branch before procedure and last dose on morning of procedure diphenhydrA 2023-0 Yes [id number] Take 1 [facility] MINE 3-07 oral tab ity of (BENADRYL) 00:00: every 12 [place] 25 mg 00 hrs. Start Medical capsule one day Branch before procedure and last dose on morning of procedure famotidine 2023-0 Yes [id number] Take 1 [facility] (PEPCID) 20 3-07 oral tab ity of mg tablet 00:00: every 12 [place] 00 hrs. Start Medical one day Branch before procedure and last dose on morning of procedure predniSONE 2023-0 Yes [id number] Take two [facility] 20 mg 3-07 20mg tabs ity of tablet 00:00: every 6 [place] 00 hrs. Start Medical one day Branch before procedure and last dose on morning of procedure diphenhydrA 2023-0 Yes [id number] Take 1 [facility] MINE 3-07 oral tab ity of (BENADRYL) 00:00: every 12 [place] 25 mg 00 hrs. Start Medical capsule one day Branch before procedure and last dose on morning of procedure famotidine 2023-0 Yes [id number] Take 1 [facility] (PEPCID) 20 3-07 oral tab ity of mg tablet 00:00: every 12 [place] 00 hrs. Start Medical one day Branch before procedure and last dose on morning of procedure predniSONE 2023-0 Yes [id number] Take two [facility] 20 mg 3-07 20mg tabs ity of tablet 00:00: every 6 [place] 00 hrs. Start Medical one day Branch before procedure and last dose on morning of procedure diphenhydrA 2023-0 Yes [id number] Take 1 [facility] MINE 3-07 oral tab ity of (BENADRYL) 00:00: every 12 [place] 25 mg 00 hrs. Start Medical capsule one day Branch before procedure and last dose on morning of procedure famotidine 2023-0 Yes [id number] Take 1 [facility] (PEPCID) 20 3-07 oral tab ity of mg tablet 00:00: every 12 [place] 00 hrs. Start Medical one day Branch before procedure and last dose on morning of procedure predniSONE 3-0 Yes [id number] Take two [facility] 20 mg 3-07 20mg tabs ity of tablet 00:00: every 6 [place] 00 hrs. Start Medical one day Branch before procedure and last dose on morning of procedure diphenhydrA 3-0 Yes [id number] Take 1 [facility] MINE 3-07 oral tab ity of (BENADRYL) 00:00: every 12 [place] 25 mg 00 hrs. Start Medical capsule one day Branch before procedure and last dose on morning of procedure famotidine 3-0 Yes [id number] Take 1 [facility] (PEPCID) 20 3-07 oral tab ity of mg tablet 00:00: every 12 [place] 00 hrs. Start Medical one day Branch before procedure and last dose on morning of procedure predniSONE 3-0 Yes [id number] Take two [facility] 20 mg 3-07 20mg tabs ity of tablet 00:00: every 6 [place] 00 hrs. Start Medical one day Branch before procedure and last dose on morning of procedure diphenhydrA 3-0 Yes [id number] Take 1 [facility] MINE 3-07 oral tab ity of (BENADRYL) 00:00: every 12 [place] 25 mg 00 hrs. Start Medical capsule one day Branch before procedure and last dose on morning of procedure famotidine 2022-0 Yes [id number] Take 1 [facility] (PEPCID) 20 3-07 oral tab ity of mg tablet 00:00: every 12 [place] 00 hrs. Start Medical one day Branch before procedure and last dose on morning of procedure predniSONE 3-0 Yes [id number] Take two [facility] 20 mg 3-07 20mg tabs ity of tablet 00:00: every 6 [place] 00 hrs. Start Medical one day Branch before procedure and last dose on morning of procedure rosuvastati 3-0 Yes 10mg 1 tablet Un conchita n 10 mg 3-06 at ity of tablet 00:00: bedtime. [place] [facility] rosuvastati 2023-0 Yes 10mg 1 tablet Un conchita n 10 mg 3-06 at ity of tablet 00:00: bedtime. [place] [facility] rosuvastati 2023-0 Yes 10mg 1 tablet Un con[place] n 10 mg 3-06 at ity of tablet 00:00: bedtime. [place] [facility] rosuvastati 2023-0 Yes 10mg 1 tablet Un [place] n 10 mg 3-06 at ity of tablet 00:00: bedtime. [place] [facility] rosuvastati 2023-0 Yes 10mg 1 tablet Un con[place] n 10 mg 3-06 at ity of tablet 00:00: bedtime. [place] [facility] rosuvastati 2023-0 Yes 10mg 1 tablet Un conchita n 10 mg 3-06 at ity of tablet 00:00: bedtime. [place] [facility] rosuvastati 2023-0 Yes 10mg 1 tablet Un con[place]ita n 10 mg 3-06 at ity of tablet 00:00: bedtime. [place] [facility] rosuvastati 2023-0 Yes 10mg 1 tablet Un [place] n 10 mg 3-06 at ity of tablet 00:00: bedtime. [place] [facility] rosuvastati 2023-0 Yes 10mg 1 tablet Un [place] n 10 mg 3-06 at ity of tablet 00:00: bedtime. [place] [facility] rosuvastati 2023-0 Yes 10mg 1 tablet Un [place] n 10 mg 3-06 at ity of tablet 00:00: bedtime. [place] [facility] rosuvastati 2023-0 Yes 10mg 1 tablet Un con[place] n 10 mg 3-06 at ity of tablet 00:00: bedtime. [place] [facility] rosuvastati 2023-0 Yes 10mg 1 tablet Un [place] n 10 mg 3-06 at ity of tablet 00:00: bedtime. [place] [facility] rosuvastati 2023-0 Yes 10mg 1 tablet Un [place] n 10 mg 3-06 at ity of tablet 00:00: bedtime. [place] [facility] rosuvastati 2023-0 Yes 10mg 1 tablet Un [place] n 10 mg 3-06 at ity of tablet 00:00: bedtime. [place] [facility] rosuvastati 2023-0 Yes 10mg 1 tablet Un [place] n 10 mg 3-06 at ity of tablet 00:00: bedtime. [place] [facility] rosuvastati 2023-0 Yes 10mg 1 tablet Un [place] n 10 mg 3-06 at ity of tablet 00:00: bedtime. [place] [facility] rosuvastati 2023-0 Yes 10mg 1 tablet Un con[place] n 10 mg 3-06 at ity of tablet 00:00: bedtime. [place] [facility] rosuvastati 2022-0 Yes 10mg 1 tablet Un con[place] n 10 mg 3-06 at ity of tablet 00:00: bedtime. [place] [facility] rosuvastati 2022-0 Yes 10mg 1 tablet Un con[place]ita n 10 mg 3-06 at ity of tablet 00:00: bedtime. [place] [facility] rosuvastati 2022-0 Yes 10mg 1 tablet Un conchita n 10 mg 3-06 at ity of tablet 00:00: bedtime. [place] [facility] INGREZZA 60 2022-0 Yes Univer s mg Cap 2-27 ity of 00:00: [place] [facility] INGREZZA 60 3-0 Yes Univer s mg Cap 2-27 ity of 00:00: [place] [id number] Medical Branch INGREZZA 60 3-0 Yes Univer s mg Cap 2-27 ity of 00:00: [place] 00 Medical Branch INGREZZA 60 3-0 Yes Univer s mg Cap 2-27 ity of 00:00: [place] [address] Medical Branch INGREZZA 60 3-0 Yes Univer s mg Cap 2-27 ity of 00:00: [place] 00 Medical Branch INGREZZA 60 3-0 Yes Univer s mg Cap 2-27 ity of 00:00: [place] 00 Medical Branch INGREZZA 60 3-0 Yes Univer s mg Cap 2-27 ity of 00:00: [place] 00 Medical Branch INGREZZA 60 3-0 Yes Univer s mg Cap 2-27 ity of 00:00: [place] 00 Medical Branch INGREZZA 60 3-0 Yes Univer s mg Cap 2-27 ity of 00:00: [place] 00 Medical Branch INGREZZA 60 3-0 Yes Univer s mg Cap 2-27 ity of 00:00: [place] 00 Medical Branch INGREZZA 60 3-0 Yes Univer s mg Cap 2-27 ity of 00:00: [place] 00 Medical Branch INGREZZA 60 3-0 Yes Univer s mg Cap 2-27 ity of 00:00: [place] 00 Medical Branch INGREZZA 60 3-0 Yes Univer s mg Cap 2-27 ity of 00:00: [place] 00 Medical Branch INGREZZA 60 2022-0 Yes Univer s mg Cap 2-27 ity of 00:00: [place] [facility] INGREZZA 60 2022-0 Yes Univer s mg Cap 2-27 ity of 00:00: [place] [facility] INGREZZA 60 2022-0 Yes Univer s mg Cap 2-27 ity of 00:00: [place] [address] Medical Branch omeprazole 2022-0 3- No 20mg Take 20 mg [facility] 20 mg 11-22 by mouth ity of capsule 13:51: 00:00 daily. [place] 11 :00 Medical Branch omeprazole 2022-0 2022- No 20mg Take 20 mg [facility] 20 mg 11-22 by mouth ity of capsule 13:51: 00:00 daily. [place] 11 : Medical Branch omeprazole 2022-0 2022- No 20mg Take 20 mg [facility] 20 mg 11-22 by mouth ity of capsule 13:51: 00:00 daily. [place] 11 :00 Medical Branch ARIPiprazol 2022-0 2022- No 10mg Take 10 mg [facility] e 10 mg 11-22 by mouth ity of tablet 13:36: 00:00 daily. [place] 03 :00 Medical Branch ARIPiprazol 2022-0 2022- No 10mg Take 10 mg [facility] e 10 mg 11-22 by mouth ity of tablet 13:36: 00:00 daily. [place] 03 :00 Medical Branch ARIPiprazol 2022-0 2022- No 10mg Take 10 mg [facility] e 10 mg 11-22 by mouth ity of tablet 13:36: 00:00 daily. [place] 03 :00 Medical Branch BUSPIRONE 2022-0 2022- No 15mg Take 15 mg U nivers HCL (BUSPAR 11-22 by mouth 2 i ty of ORAL) 13:35: 00:00 (two) [place] 53 :00 times Medical daily. Branch BUSPIRONE 2022-0 2022- No 15mg Take 15 mg U nivers HCL (BUSPAR 11-22 by mouth 2 i ty of ORAL) 13:35: 00:00 (two) [place] 53 :00 times Medical daily. Branch BUSPIRONE 2022- No 15mg Take 15 mg U nivers HCL (BUSPAR -11-22 by mouth 2 i ty of ORAL) 13:35: 00:00 (two) [place] 53 :00 times Medical daily. Branch cariprazine 0 Yes [id number] 4.5mg Take 4.5 [facility] (VRAYLAR) 1-31 mg by ity of 4.5 mg Cap 13:35: mouth [place] 51 every Medical evening. Branch cetirizine 0 Yes [id number] 10mg Take 10 mg [facility] 10 mg 1-31 by mouth ity of tablet 13:35: every [place] 51 morning. Medical Branch cariprazine 2022-0 Yes [id number] 4.5mg Take 4.5 [facility] (VRAYLAR) 1-31 mg by ity of 4.5 mg Cap 13:35: mouth [place] 51 every Medical evening. Branch cetirizine 0 Yes [id number] 10mg Take 10 mg [facility] 10 mg 1-31 by mouth ity of tablet 13:35: every [place] 51 morning. Medical Branch cariprazine 0 Yes [id number] 4.5mg Take 4.5 [facility] (VRAYLAR) 1-31 mg by ity of 4.5 mg Cap 13:35: mouth [place] 51 every Medical evening. Branch cetirizine 0 Yes [id number] 10mg Take 10 mg [facility] 10 mg 1-31 by mouth ity of tablet 13:35: every [place] 51 morning. Medical Branch cariprazine 0 Yes [id number] 4.5mg Take 4.5 [facility] (VRAYLAR) 1-31 mg by ity of 4.5 mg Cap 13:35: mouth [place] 51 every Medical evening. Branch cetirizine 0 Yes [id number] 10mg Take 10 mg [facility] 10 mg 1-31 by mouth ity of tablet 13:35: every [place] 51 morning. Medical Branch cariprazine 2022-0 Yes [id number] 4.5mg Take 4.5 [facility] (VRAYLAR) 1-31 mg by ity of 4.5 mg Cap 13:35: mouth [place] 51 every Medical evening. Branch cetirizine 2022-0 Yes [id number] 10mg Take 10 mg [facility] 10 mg 1-31 by mouth ity of tablet 13:35: every [place] morning. Medical Branch cariprazine 2022-0 Yes [id number] 4.5mg Take 4.5 [facility] (VRAYLAR) 1-31 mg by ity of 4.5 mg Cap 13:35: mouth [place] 51 every Medical evening. Branch cetirizine 2022-0 Yes [id number] 10mg Take 10 mg [facility] 10 mg 1-31 by mouth ity of tablet 13:35: every [place] morning. Medical Branch cariprazine 2022-0 Yes [id number] 4.5mg Take 4.5 [facility] (VRAYLAR) 1-31 mg by ity of 4.5 mg Cap 13:35: mouth [place] 51 every Medical evening. Branch cetirizine 2022-0 Yes [id number] 10mg Take 10 mg [facility] 10 mg 1-31 by mouth ity of tablet 13:35: every [place] morning. Medical Branch cariprazine 2022-0 Yes [id number] 4.5mg Take 4.5 [facility] (VRAYLAR) 1-31 mg by ity of 4.5 mg Cap 13:35: mouth [place] every Medical evening. Branch cetirizine 2022-0 Yes [id number] 10mg Take 10 mg [facility] 10 mg 1-31 by mouth ity of tablet 13:35: every [place] [id number] morning. Medical Branch busPIRone 2022-0 Yes [id number] 30mg Take 30 mg [facility] 30 mg 1-30 by mouth ity of tablet 00:00: in the [place] 00 morning Medical and 30 mg Branch in the evening. busPIRone 2022-0 Yes [id number] 30mg Take 30 mg [facility] 30 mg 1-30 by mouth ity of tablet 00:00: in the [place] 00 morning Medical and 30 mg Branch in the evening. busPIRone 2022-0 Yes [id number] 30mg Take 30 mg [facility] 30 mg 1-30 by mouth ity of tablet 00:00: in the [place] 00 morning Medical and 30 mg Branch in the evening. busPIRone 2022-0 Yes [id number] 30mg Take 30 mg [facility] 30 mg 1-30 by mouth ity of tablet 00:00: in the [place] 00 morning Medical and 30 mg Branch in the evening. busPIRone 2022-0 Yes [id number] 30mg Take 30 mg [facility] 30 mg 1-30 by mouth ity of tablet 00:00: in the [place] 00 morning Medical and 30 mg Branch in the evening. busPIRone 2023-0 Yes [id number] 30mg Take 30 mg [facility] 30 mg 1-30 by mouth ity of tablet 00:00: in the [place] 00 morning Medical and 30 mg Branch in the evening. busPIRone 2023-0 Yes [id number] 30mg Take 30 mg [facility] 30 mg 1-30 by mouth ity of tablet 00:00: in the [place] 00 morning Medical and 30 mg Branch in the evening. busPIRone 2023-0 Yes [id number] 30mg Take 30 mg [facility] 30 mg 1-30 by mouth ity of tablet 00:00: in the [place] 00 morning Medical and 30 mg Branch in the evening. busPIRone 2023-0 Yes [id number] 30mg Take 1 U nivers 30 mg 1-30 tablet by ity of tablet 00:00: mouth in [place] 00 the Medical morning Branch and 1 tablet in the evening. busPIRone 2023-0 Yes [id number] 30mg Take 1 U nivers 30 mg 1-30 tablet by ity of tablet 00:00: mouth in [place] [address] the Medical morning Branch and 1 tablet in the evening. busPIRone 2023-0 Yes [id number] 30mg Take 1 U nivers 30 mg 1-30 tablet by ity of tablet 00:00: mouth in [place] [address] the Medical morning Branch and 1 tablet in the evening. busPIRone 2023-0 Yes [id number] 30mg Take 1 U nivers 30 mg 1-30 tablet by ity of tablet 00:00: mouth in [place] [address] the Medical morning Branch and 1 tablet in the evening. busPIRone 2023-0 Yes [id number] 30mg Take 1 U nivers 30 mg 1-30 tablet by ity of tablet 00:00: mouth in [place] [address] the Medical morning Branch and 1 tablet in the evening. busPIRone 2023-0 Yes [id number] 30mg Take 1 U nivers 30 mg 1-30 tablet by ity of tablet 00:00: mouth in [place] [address] the Medical morning Branch and 1 tablet in the evening. busPIRone 2023-0 Yes [id number] 30mg Take 1 U nivers 30 mg 1-30 tablet by ity of tablet 00:00: mouth in [place] 00 the Medical morning Branch and 1 tablet in the evening. busPIRone 2023-0 Yes [id number] 30mg Take 1 U nivers 30 mg 1-30 tablet by ity of tablet 00:00: mouth in [place] 00 the Medical morning Branch and 1 tablet in the evening. busPIRone 2023-0 Yes [id number] 30mg Take 1 U nivers 30 mg 1-30 tablet by ity of tablet 00:00: mouth in [place] 00 the Medical morning Branch and 1 tablet in the evening. busPIRone 2023-0 Yes [id number] 30mg Take 1 U nivers 30 mg 1-30 tablet by ity of tablet 00:00: mouth in [place] 00 the Medical morning Branch and 1 tablet in the evening. busPIRone 2023-0 Yes [id number] 30mg Take 1 U nivers 30 mg 1-30 tablet by ity of tablet 00:00: mouth in [place] [address] the Medical morning Branch and 1 tablet in the evening. busPIRone 2023-0 Yes [id number] 30mg Take 1 U nivers 30 mg 1-30 tablet by ity of tablet 00:00: mouth in [place] 00 the Medical morning Branch and 1 tablet in the evening. busPIRone 2023-0 Yes [id number] 30mg Take 1 U nivers 30 mg 1-30 tablet by ity of tablet 00:00: mouth in [place] 00 the Medical morning Branch and 1 tablet in the evening. busPIRone 2023-0 Yes [id number] 30mg Take 1 U nivers 30 mg 1-30 tablet by ity of tablet 00:00: mouth in [place] 00 the Medical morning Branch and 1 tablet in the evening. busPIRone 2023-0 Yes [id number] 30mg Take 1 U nivers 30 mg 1-30 tablet by ity of tablet 00:00: mouth in [place] 00 the Medical morning Branch and 1 tablet in the evening. busPIRone 2023-0 Yes [id number] 30mg Take 1 U nivers 30 mg 1-30 tablet by ity of tablet 00:00: mouth in [place] [address] the Medical morning Branch and 1 tablet in the evening. busPIRone 2023-0 Yes [id number] 30mg Take 1 U nivers 30 mg 1-30 tablet by ity of tablet 00:00: mouth in [place] 00 the Medical morning Branch and 1 tablet in the evening. busPIRone 3-0 Yes [id number] 30mg Take 1 U nivers 30 mg 1-30 tablet by ity of tablet 00:00: mouth in [place] 00 the Medical morning Branch and 1 tablet in the evening. busPIRone 3-0 Yes [id number] 30mg Take 1 U nivers 30 mg 1-30 tablet by ity of tablet 00:00: mouth in [place] 00 the Medical morning Branch and 1 tablet in the evening. busPIRone 3-0 Yes [id number] 30mg Take 1 U nivers 30 mg 1-30 tablet by ity of tablet 00:00: mouth in [place] 00 the Medical morning Branch and 1 tablet in the evening. sulfamethox 2021-10- No [id number] 1{tbl} Take 1 [facility] azole-trime 2-13 12-17 tablet by it y of thoprim 00:00: 05:59 mouth in [place] 800-160 mg 00 :00 the Medical per tablet morning Branch and 1 tablet in the evening. Do all this for 3 days. sulfamethox 2021-10- No [id number] 1{tbl} Take 1 [facility] azole-trime 2-13 12-17 tablet by it y of thoprim 00:00: 05:59 mouth in [place] 800-160 mg 00 :00 the Medical per tablet morning Branch and 1 tablet in the evening. Do all this for 3 days. tiotropium 2021-10 Yes [id number] 18ug Inhale 1 [facility] 18 mcg 1-28 capsule in ity of inhalation 00:00: the [place] morning. Medical Branch tiotropium 2021-10 Yes [id number] 18ug Inhale 1 [facility] 18 mcg 1-28 capsule in ity of inhalation 00:00: the [place] morning. Medical Branch tiotropium 2021-10 Yes [id number] 18ug Inhale 1 [facility] 18 mcg 1-28 capsule in ity of inhalation 00:00: the [place] morning. Medical Branch tiotropium 2021-10 Yes [id number] 18ug Inhale 1 [facility] 18 mcg 1-28 capsule in ity of inhalation 00:00: the [place] morning. Medical Branch tiotropium 2021-10 Yes [id number] 18ug Inhale 1 [facility] 18 mcg 1-28 capsule in ity of inhalation 00:00: the [place] 00 morning. Medical Branch tiotropium 2021-10 Yes [id number] 18ug Inhale 1 [facility] 18 mcg 1-28 capsule in ity of inhalation 00:00: the [place] 00 morning. Medical Branch tiotropium 2021-10 Yes [id number] 18ug Inhale 1 [facility] 18 mcg 1-28 capsule in ity of inhalation 00:00: the [place] 00 morning. Medical Branch tiotropium 2021-10 Yes [id number] 18ug Inhale 1 [facility] 18 mcg 1-28 capsule in ity of inhalation 00:00: the [place] 00 morning. Medical Branch tiotropium 2021-10 Yes [id number] 18ug Inhale 1 [facility] 18 mcg 1-28 capsule in ity of inhalation 00:00: the [place] 00 morning. Medical Branch tiotropium 2021-10 Yes [id number] 18ug Inhale 1 [facility] 18 mcg 1-28 capsule in ity of inhalation 00:00: the [place] 00 morning. Medical Branch tiotropium 2021-10 Yes [id number] 18ug Inhale 1 [facility] 18 mcg 1-28 capsule in ity of inhalation 00:00: the [place] 00 morning. Medical Branch tiotropium 2021-10 Yes [id number] 18ug Inhale 1 [facility] 18 mcg 1-28 capsule in ity of inhalation 00:00: the [place] 00 morning. Medical Branch tiotropium 2021-10 Yes [id number] 18ug Inhale 1 [facility] 18 mcg 1-28 capsule in ity of inhalation 00:00: the [place] 00 morning. Medical Branch tiotropium 2021-10 Yes [id number] 18ug Inhale 1 [facility] 18 mcg 1-28 capsule in ity of inhalation 00:00: the [place] 00 morning. Medical Branch tiotropium 2021-10 Yes [id number] 18ug Inhale 1 [facility] 18 mcg 1-28 capsule in ity of inhalation 00:00: the [place] 00 morning. Medical Branch tiotropium 2021-10 Yes [id number] 18ug Inhale 1 [facility] 18 mcg 1-28 capsule in ity of inhalation 00:00: the [place] 00 morning. Medical Branch tiotropium 2021-10 Yes [id number] 18ug Inhale 1 [facility] 18 mcg 1-28 capsule in ity of inhalation 00:00: the [place] 00 morning. Medical Branch tiotropium 2021-10 Yes [id number] 18ug Inhale 1 [facility] 18 mcg 1-28 capsule in ity of inhalation 00:00: the [place] 00 morning. Medical Branch tiotropium 2021-10 Yes [id number] 18ug Inhale 1 [facility] 18 mcg 1-28 capsule in ity of inhalation 00:00: the [place] 00 morning. Medical Branch tiotropium 2021-10 Yes [id number] 18ug Inhale 1 [facility] 18 mcg 1-28 capsule in ity of inhalation 00:00: the [place] 00 morning. Medical Branch tiotropium 2021-10- No [id number] 18ug Inhale 1 [facility] 18 mcg 1-28 03-20 capsule in ity of inhalation 00:00: 00:00 the [place] 00 :00 morning. Medical Branch tiotropium 2021-2022- No [id number] 18ug Inhale 1 [facility] 18 mcg 1-28 03-20 capsule in ity of inhalation 00:00: 00:00 the [place] 00 :00 morning. Medical Branch tiotropium 2021-10- No [id number] 18ug Inhale 1 [facility] 18 mcg 1-28 03-20 capsule in ity of inhalation 00:00: 00:00 the [place] 00 :00 morning. Medical Branch tiotropium 2021-10- No [id number] 18ug Inhale 1 [facility] 18 mcg 1-28 03-20 capsule in ity of inhalation 00:00: 00:00 the [place] 00 :00 morning. Medical Branch umeclidiniu 2021-10 Yes [id number] 1{puff} Inhale 1 Univers m (INCRUSE 1-18 Puff ity of ELLIPTA) 00:00: daily. [place] [address].5 [address] Medical mcg/actuati Branch on DsDv umeclidiniu 2021-10 Yes [id number] 1{puff} Inhale 1 Univers m (INCRUSE 1-18 Puff ity of ELLIPTA) 00:00: daily. [place] [address] Medical mcg/actuati Branch on DsDv umeclidiniu 2021-10 Yes [id number] 1{puff} Inhale 1 Univers m (INCRUSE 1-18 Puff ity of ELLIPTA) 00:00: daily. [place] [id number] 00 Medical mcg/actuati Branch on DsDv umalmazu 2021-2021- No [id number] 1{puff} Inhale 1 Univers m (INCRUSE 1-18 11-28 Puff ity of ELLIPTA) 00:00: 00:00 daily. [place] [id number] 00 :00 Medical mcg/actuati Branch on DsDv predniSONE 2021- No [id number] Take 2 Univers 10 mg 8-20 09- tablets by ity of tablet 00:00: 04:59 mouth 2 [place] 00 :00 (two) [facility] daily for 3 days, THEN 2 tablets daily for 3 days, THEN 1 tablet daily for 5 days. BUSPIRONE 0 Yes 15mg Take 15 mg Un [facility] HCL (BUSPAR 5-13 by mouth 2 it y of ORAL) 10:29: (two) [address] Medical daily. Branch omeprazole 0 Yes 20mg Take 20 mg U nivers 20 mg 5-13 by mouth ity of capsule 10:29: daily. [address] ARIPiprazol 0 Yes 10mg Take 10 mg Univers e 10 mg 5-13 by mouth ity of tablet 10:29: daily. [address] BUSPIRONE 0 Yes 15mg Take 15 mg [facility] HCL (BUSPAR 5-13 by mouth 2 it y of ORAL) 10:29: (two) [address] daily. Branch omeprazole 0 Yes 20mg Take 20 mg U nivers 20 mg 5-13 by mouth ity of capsule 10:29: daily. [address] ARIPiprazol 0 Yes 10mg Take 10 mg Univers e 10 mg 5-13 by mouth ity of tablet 10:29: daily. [address] BUSPIRONE 2021-0 Yes 15mg Take 15 mg [facility] HCL (BUSPAR 5-13 by mouth 2 it y of ORAL) 10:29: (two) [address] Medical daily. Branch omeprazole 2021-0 Yes 20mg Take 20 mg U nivers 20 mg 5-13 by mouth ity of capsule 10:29: daily. [address] ARIPiprazol 2021-0 Yes 10mg Take 10 mg Univers e 10 mg 5-13 by mouth ity of tablet 10:29: daily. [address] Branch BUSPIRONE 2021-0 Yes 15mg Take 15 mg Un [facility] HCL (BUSPAR 5-13 by mouth 2 it y of ORAL) 10:29: (two) [address] Medical daily. Branch omeprazole 2021-0 Yes 20mg Take 20 mg U nivers 20 mg 5-13 by mouth ity of capsule 10:29: daily. [address] Branch ARIPiprazol 2021-0 Yes 10mg Take 10 mg Univers e 10 mg 5-13 by mouth ity of tablet 10:29: daily. [address] Branch BUSPIRONE 2021-0 Yes 15mg Take 15 mg [facility] [place] HCL (BUSPAR 5-13 by mouth 2 it y of ORAL) 10:29: (two) [address] daily. Branch omeprazole 2021-0 Yes 20mg Take 20 mg U nivers 20 mg 5-13 by mouth ity of capsule 10:29: daily. [address] ARIPiprazol 2021-0 Yes 10mg Take 10 mg Univers e 10 mg 5-13 by mouth ity of tablet 10:29: daily. [address] Branch BUSPIRONE 2021-0 Yes 15mg Take 15 mg [facility] HCL (BUSPAR 5-13 by mouth 2 it y of ORAL) 10:29: (two) [address] daily. Branch omeprazole 2021-0 Yes 20mg Take 20 mg U nivers 20 mg 5-13 by mouth ity of capsule 10:29: daily. [address] ARIPiprazol 2021-0 Yes 10mg Take 10 mg Univers e 10 mg 5-13 by mouth ity of tablet 10:29: daily. [address] BUSPIRONE 2021-0 Yes 15mg Take 15 mg [facility] HCL (BUSPAR 5-13 by mouth 2 it y of ORAL) 10:29: (two) [address] daily. Branch omeprazole 2021-0 Yes 20mg Take 20 mg U nivers 20 mg 5-13 by mouth ity of capsule 10:29: daily. [address] ARIPiprazol 2021-0 Yes 10mg Take 10 mg Univers e 10 mg 5-13 by mouth ity of tablet 10:29: daily. [address] BUSPIRONE 2022-0 Yes 15mg Take 15 mg [facility] HCL (BUSPAR 5-13 by mouth 2 it y of ORAL) 10:29: (two) [address] Medical daily. Branch omeprazole 2-0 Yes 20mg Take 20 mg U nivers 20 mg 5-13 by mouth ity of capsule 10:29: daily. [address] Branch ARIPiprazol 2021-0 Yes 10mg Take 10 mg Univers e 10 mg 5-13 by mouth ity of tablet 10:29: daily. [address] Branch BUSPIRONE 2021-0 Yes 15mg Take 15 mg [facility] HCL (BUSPAR 5-13 by mouth 2 it y of ORAL) 10:29: (two) [address] Medical daily. Branch omeprazole 2-0 Yes 20mg Take 20 mg U nivers 20 mg 5-13 by mouth ity of capsule 10:29: daily. [address] ARIPiprazol 2021-0 Yes 10mg Take 10 mg Univers e 10 mg 5-13 by mouth ity of tablet 10:29: daily. [address] Branch BUSPIRONE 2021-0 Yes 15mg Take 15 mg [facility] HCL (BUSPAR 5-13 by mouth 2 it y of ORAL) 10:29: (two) [address] daily. Branch omeprazole 2-0 Yes 20mg Take 20 mg U nivers 20 mg 5-13 by mouth ity of capsule 10:29: daily. [address] ARIPiprazol 2021-0 Yes 10mg Take 10 mg Univers e 10 mg 5-13 by mouth ity of tablet 10:29: daily. [address] Branch BUSPIRONE 2-0 Yes 15mg Take 15 mg [facility] HCL (BUSPAR 5-13 by mouth 2 it y of ORAL) 10:29: (two) [address] Medical daily. Branch omeprazole 2-0 Yes 20mg Take 20 mg U nivers 20 mg 5-13 by mouth ity of capsule 10:29: daily. [address] ARIPiprazol 2-0 Yes 10mg Take 10 mg Univers e 10 mg 5-13 by mouth ity of tablet 10:29: daily. [address] BUSPIRONE 2-0 Yes 15mg Take 15 mg Un [facility] HCL (BUSPAR 5-13 by mouth 2 it y of ORAL) 10:29: (two) [place] [address] times Medical daily. Branch omeprazole 2021-0 Yes 20mg Take 20 mg U nivers 20 mg 5-13 by mouth ity of capsule 10:29: daily. [address] Branch ARIPiprazol 2021-0 Yes 10mg Take 10 mg Univers e 10 mg 5-13 by mouth ity of tablet 10:29: daily. [address] Branch BUSPIRONE 2021-0 Yes 15mg Take 15 mg [facility] HCL (BUSPAR 5-13 by mouth 2 it y of ORAL) 10:29: (two) [place] [address] times Medical daily. Branch omeprazole 2021-0 Yes 20mg Take 20 mg U nivers 20 mg 5-13 by mouth ity of capsule 10:29: daily. [address] Branch ARIPiprazol 2021-0 Yes 10mg Take 10 mg Univers e 10 mg 5-13 by mouth ity of tablet 10:29: daily. [address] Branch BUSPIRONE 2021-0 Yes 15mg Take 15 mg [facility] HCL (BUSPAR 5-13 by mouth 2 it y of ORAL) 10:29: (two) [place] [address] times Medical daily. Branch omeprazole 2021-0 Yes 20mg Take 20 mg U nivers 20 mg 5-13 by mouth ity of capsule 10:29: daily. [address] Branch ARIPiprazol 2021-0 Yes 10mg Take 10 mg Univers e 10 mg 5-13 by mouth ity of tablet 10:29: daily. [address] BUSPIRONE 2021-0 Yes 15mg Take 15 mg [facility] HCL (BUSPAR 5-13 by mouth 2 it y of ORAL) 10:29: (two) [place] [address] times Medical daily. Branch omeprazole 2021-0 Yes 20mg Take 20 mg U nivers 20 mg 5-13 by mouth ity of capsule 10:29: daily. [address] Branch ARIPiprazol 2021-0 Yes 10mg Take 10 mg Univers e 10 mg 5-13 by mouth ity of tablet 10:29: daily. [address] inhalat.spa 2021-0 Yes [id number] 1U 1 Units as Univers cing 5-13 needed ity of dev,large 00:00: (use with [place] as mask 00 inhaler). Medical (BREATHERIT Branch E SPACER-MASK ,ADULT) Spcr albuterol Yes [id number] 2{puff} Inhale 2 Univers 90 5-13 Puffs ity of mcg/actuati 00:00: every 6 [place] as on inhaler 00 (six) Medical hours as Branch needed for Wheezing or Shortness of Breath. fluticasone Yes [id number] 1{puff} Inhale 1 Univers propion-nida 5-13 Puff every it y of meteroL 00:00: 12 [place] (ADVAIR 00 (twelve) Medical DISKUS) hours. Branch 250-50 mcg/dose inhalation disk inhalat.spa Yes [id number] 1U 1 Units as Univers cing 5-13 needed ity of dev,large 00:00: (use with [place] as mask 00 inhaler). Medical (BREATHERIT Branch E SPACER-MASK ,ADULT) Spcr albuterol Yes [id number] 2{puff} Inhale 2 Univers 90 5-13 Puffs ity of mcg/actuati 00:00: every 6 [place] on inhaler 00 (six) Medical hours as Branch needed for Wheezing or Shortness of Breath. fluticasone Yes [id number] 1{puff} Inhale 1 Univers propion-nida 5-13 Puff every it y of meteroL 00:00: 12 [place] (ADVAIR 00 (twelve) Medical DISKUS) hours. Branch 250-50 mcg/dose inhalation disk inhalat.spa Yes [id number] 1U 1 Units as Univers cing 5-13 needed ity of dev,large 00:00: (use with [place] as mask 00 inhaler). Medical (BREATHERIT Branch E SPACER-MASK ,ADULT) Spcr albuterol Yes [id number] 2{puff} Inhale 2 Univers 90 5-13 Puffs ity of mcg/actuati 00:00: every 6 [place] as on inhaler 00 (six) Medical hours as Branch needed for Wheezing or Shortness of Breath. fluticasone Yes [id number] 1{puff} Inhale 1 Univers propion-nida 5-13 Puff every it y of meteroL 00:00: 12 [place] (ADVAIR 00 (twelve) Medical DISKUS) hours. Branch 250-50 mcg/dose inhalation disk inhalat.spa Yes [id number] 1U 1 Units as Univers cing 5-13 needed ity of dev,large 00:00: (use with [place] as mask 00 inhaler). Medical (BREATHERIT Branch E SPACER-MASK ,ADULT) Spcr albuterol Yes [id number] 2{puff} Inhale 2 Univers 90 5-13 Puffs ity of mcg/actuati 00:00: every 6 [place] on inhaler 00 (six) Medical hours as Branch needed for Wheezing or Shortness of Breath. fluticasone Yes [id number] 1{puff} Inhale 1 Univers propion-nida 5-13 Puff every it y of meteroL 00:00: 12 [place] (ADVAIR (twelve) Medical DISKUS) hours. Branch 250-50 mcg/dose inhalation disk inhalat.spa Yes [id number] 1U 1 Units as Univers cing 5-13 needed ity of dev,large 00:00: (use with [place] as mask 00 inhaler). Medical (BREATHERIT Branch E SPACER-MASK ,ADULT) Spcr albuterol Yes [id number] 2{puff} Inhale 2 Univers 90 5-13 Puffs ity of mcg/actuati 00:00: every 6 [place] as on inhaler 00 (six) Medical hours as Branch needed for Wheezing or Shortness of Breath. fluticasone Yes [id number] 1{puff} Inhale 1 Univers propion-nida 5-13 Puff every it y of meteroL 00:00: 12 [place] (ADVAIR 00 (twelve) Medical DISKUS) hours. Branch 250-50 mcg/dose inhalation disk inhalat.spa Yes [id number] 1U 1 Units as Univers cing 5-13 needed ity of dev,large 00:00: (use with [place] as mask 00 inhaler). Medical (BREATHERIT Branch E SPACER-MASK ,ADULT) Spcr albuterol Yes [id number] 2{puff} Inhale 2 Univers 90 5-13 Puffs ity of mcg/actuati 00:00: every 6 [place] as on inhaler 00 (six) Medical hours as Branch needed for Wheezing or Shortness of Breath. fluticasone Yes [id number] 1{puff} Inhale 1 Univers propion-nida 5-13 Puff every it y of meteroL 00:00: 12 [place] (ADVAIR 00 (twelve) Medical DISKUS) hours. Branch 250-50 mcg/dose inhalation disk inhalat.spa Yes [id number] 1U 1 Units as Univers cing 5-13 needed ity of dev,large 00:00: (use with [place] as mask 00 inhaler). Medical (BREATHERIT Branch E SPACER-MASK ,ADULT) Spcr albuterol Yes [id number] 2{puff} Inhale 2 Univers 90 5-13 Puffs ity of mcg/actuati 00:00: every 6 [place] as on inhaler 00 (six) Medical hours as Branch needed for Wheezing or Shortness of Breath. fluticasone Yes [id number] 1{puff} Inhale 1 Univers propion-nida 5-13 Puff every it y of meteroL 00:00: 12 [place] (ADVAIR 00 (twelve) Medical DISKUS) hours. Branch 250-50 mcg/dose inhalation disk inhalat.spa Yes [id number] 1U 1 Units as Univers cing 5-13 needed ity of dev,large 00:00: (use with [place] as mask 00 inhaler). Medical (BREATHERIT Branch E SPACER-MASK ,ADULT) Spcr albuterol Yes [id number] 2{puff} Inhale 2 Univers 90 5-13 Puffs ity of mcg/actuati 00:00: every 6 [place] as on inhaler 00 (six) Medical hours as Branch needed for Wheezing or Shortness of Breath. fluticasone Yes [id number] 1{puff} Inhale 1 Univers propion-nida 5-13 Puff every it y of meteroL 00:00: 12 [place] (ADVAIR 00 (twelve) Medical DISKUS) hours. Branch 250-50 mcg/dose inhalation disk inhalat.spa Yes [id number] 1U 1 Units as Univers cing 5-13 needed ity of dev,large 00:00: (use with [place] as mask 00 inhaler). Medical (BREATHERIT Branch E SPACER-MASK ,ADULT) Spcr albuterol Yes [id number] 2{puff} Inhale 2 Univers 90 5-13 Puffs ity of mcg/actuati 00:00: every 6 [place] as on inhaler 00 (six) Medical hours as Branch needed for Wheezing or Shortness of Breath. fluticasone Yes [id number] 1{puff} Inhale 1 Univers propion-nida 5-13 Puff every it y of meteroL 00:00: 12 [place] (ADVAIR (twelve) Medical DISKUS) hours. Branch 250-50 mcg/dose inhalation disk inhalat.spa Yes [id number] 1U 1 Units as Univers cing 5-13 needed ity of dev,large 00:00: (use with [place] as mask 00 inhaler). Medical (BREATHERIT Branch E SPACER-MASK ,ADULT) Spcr albuterol Yes [id number] 2{puff} Inhale 2 Univers 90 5-13 Puffs ity of mcg/actuati 00:00: every 6 [place] as on inhaler 00 (six) Medical hours as Branch needed for Wheezing or Shortness of Breath. fluticasone Yes [id number] 1{puff} Inhale 1 Univers propion-nida 5-13 Puff every it y of meteroL 00:00: 12 [place] (ADVAIR (twelve) Medical DISKUS) hours. Branch 250-50 mcg/dose inhalation disk inhalat.spa Yes [id number] 1U 1 Units as Univers cing 5-13 needed ity of dev,large 00:00: (use with [place] as mask 00 inhaler). Medical (BREATHERIT Branch E SPACER-MASK ,ADULT) Spcr albuterol Yes [id number] 2{puff} Inhale 2 Univers 90 5-13 Puffs ity of mcg/actuati 00:00: every 6 [place] as on inhaler 00 (six) Medical hours as Branch needed for Wheezing or Shortness of Breath. fluticasone Yes [id number] 1{puff} Inhale 1 Univers propion-nida 5-13 Puff every it y of meteroL 00:00: 12 [place] (ADVAIR (twelve) Medical DISKUS) hours. Branch 250-50 mcg/dose inhalation disk inhalat.spa Yes [id number] 1U 1 Units as Univers cing 5-13 needed ity of dev,large 00:00: (use with [place] as mask 00 inhaler). Medical (BREATHERIT Branch E SPACER-MASK ,ADULT) Spcr albuterol Yes [id number] 2{puff} Inhale 2 Univers 90 5-13 Puffs ity of mcg/actuati 00:00: every 6 [place] as on inhaler 00 (six) Medical hours as Branch needed for Wheezing or Shortness of Breath. fluticasone Yes [id number] 1{puff} Inhale 1 Univers propion-nida 5-13 Puff every it y of meteroL 00:00: 12 [place] (ADVAIR (twelve) Medical DISKUS) hours. Branch 250-50 mcg/dose inhalation disk inhalat.spa Yes [id number] 1U 1 Units as Univers cing 5-13 needed ity of dev,large 00:00: (use with [place] as mask 00 inhaler). Medical (BREATHERIT Branch E SPACER-MASK ,ADULT) Spcr albuterol Yes [id number] 2{puff} Inhale 2 Univers 90 5-13 Puffs ity of mcg/actuati 00:00: every 6 [place] as on inhaler 00 (six) Medical hours as Branch needed for Wheezing or Shortness of Breath. fluticasone Yes [id number] 1{puff} Inhale 1 Univers propion-nida 5-13 Puff every it y of meteroL 00:00: 12 [place] (ADVAIR 00 (twelve) Medical DISKUS) hours. Branch 250-50 mcg/dose inhalation disk inhalat.spa Yes [id number] 1U 1 Units as Univers cing 5-13 needed ity of dev,large 00:00: (use with [place] as mask 00 inhaler). Medical (BREATHERIT Branch E SPACER-MASK ,ADULT) Spcr albuterol Yes [id number] 2{puff} Inhale 2 Univers 90 5-13 Puffs ity of mcg/actuati 00:00: every 6 [place] as on inhaler 00 (six) Medical hours as Branch needed for Wheezing or Shortness of Breath. fluticasone Yes [id number] 1{puff} Inhale 1 Univers propion-nida 5-13 Puff every it y of meteroL 00:00: 12 [place] (ADVAIR (twelve) Medical DISKUS) hours. Branch 250-50 mcg/dose inhalation disk inhalat.spa Yes [id number] 1U 1 Units as Univers cing 5-13 needed ity of dev,large 00:00: (use with [place] as mask 00 inhaler). Medical (BREATHERIT Branch E SPACER-MASK ,ADULT) Spcr albuterol Yes [id number] 2{puff} Inhale 2 Univers 90 5-13 Puffs ity of mcg/actuati 00:00: every 6 [place] as on inhaler 00 (six) Medical hours as Branch needed for Wheezing or Shortness of Breath. fluticasone Yes [id number] 1{puff} Inhale 1 Univers propion-nida 5-13 Puff every it y of meteroL 00:00: 12 [place] (ADVAIR () Medical DISKUS) hours. Branch 250-50 mcg/dose inhalation disk inhalat.spa Yes [id number] 1U 1 Units as Univers cing 5-13 needed ity of dev,large 00:00: (use with [place] as mask 00 inhaler). Medical (BREATHERIT Branch E SPACER-MASK ,ADULT) Spcr albuterol Yes [id number] 2{puff} Inhale 2 Univers 90 5-13 Puffs ity of mcg/actuati 00:00: every 6 [place] as on inhaler 00 (six) Medical hours as Branch needed for Wheezing or Shortness of Breath. fluticasone Yes [id number] 1{puff} Inhale 1 [facility] propion-nida 5-13 Puff every it y of meteroL 00:00: 12 [place] (ADVAIR (twelve) Medical DISKUS) hours. Branch 250-50 mcg/dose inhalation disk inhalat.spa Yes [id number] 1U 1 Units as Univers cing 5-13 needed ity of dev,large 00:00: (use with [place] as mask 00 inhaler). Medical (BREATHERIT Branch E SPACER-MASK ,ADULT) Spcr albuterol Yes [id number] 2{puff} Inhale 2 Univers 90 5-13 Puffs ity of mcg/actuati 00:00: every 6 [place] as on inhaler 00 (six) Medical hours as Branch needed for Wheezing or Shortness of Breath. fluticasone Yes [id number] 1{puff} Inhale 1 Univers propion-nida 5-13 Puff every it y of meteroL 00:00: 12 [place] (ADVAIR (twelve) Medical DISKUS) hours. Branch 250-50 mcg/dose inhalation disk inhalat.spa Yes [id number] 1U 1 Units as Univers cing 5-13 needed ity of dev,large 00:00: (use with [place] as mask 00 inhaler). Medical (BREATHERIT Branch E SPACER-MASK ,ADULT) Spcr albuterol Yes [id number] 2{puff} Inhale 2 Univers 90 5-13 Puffs ity of mcg/actuati 00:00: every 6 [place] as on inhaler 00 (six) Medical hours as Branch needed for Wheezing or Shortness of Breath. fluticasone Yes [id number] 1{puff} Inhale 1 [facility] propion-nida 5-13 Puff every it y of meteroL 00:00: 12 [place] (ADVAIR () Medical DISKUS) hours. Branch 250-50 mcg/dose inhalation disk inhalat.spa Yes [id number] 1U 1 Units as [facility] cing 5-13 needed ity of dev,large 00:00: (use with [place] mask 00 inhaler). Medical (BREATHERIT Branch E SPACER-MASK ,ADULT) Spcr albuterol Yes [id number] 2{puff} Inhale 2 [facility] 90 5-13 Puffs ity of mcg/actuati 00:00: every 6 [place] as on inhaler 00 (six) Medical hours as Branch needed for Wheezing or Shortness of Breath. fluticasone Yes [id number] 1{puff} Inhale 1 [facility] propion-nida 5-13 Puff every it y of meteroL 00:00: 12 [place] (ADVAIR (twelve) Medical DISKUS) hours. Branch 250-50 mcg/dose inhalation disk inhalat.spa Yes [id number] 1U 1 Units as [facility] cing 5-13 needed ity of dev,large 00:00: (use with [place] mask 00 inhaler). Medical (BREATHERIT Branch E SPACER-MASK ,ADULT) Spcr albuterol Yes [id number] 2{puff} Inhale 2 [facility] 90 5-13 Puffs ity of mcg/actuati 00:00: every 6 [place] on inhaler 00 (six) Medical hours as Branch needed for Wheezing or Shortness of Breath. fluticasone Yes [id number] 1{puff} Inhale 1 [facility] propion-nida 5-13 Puff every it y of meteroL 00:00: 12 [place] (ADVAIR 00 (twelve) Medical DISKUS) hours. Branch 250-50 mcg/dose inhalation disk inhalat.spa Yes [id number] 1U 1 Units as [facility] cing 5-13 needed ity of dev,large 00:00: (use with [place] mask 00 inhaler). Medical (BREATHERIT Branch E SPACER-MASK ,ADULT) Spcr albuterol Yes [id number] 2{puff} Inhale 2 [facility] 90 5-13 Puffs ity of mcg/actuati 00:00: every 6 [place] on inhaler 00 (six) Medical hours as Branch needed for Wheezing or Shortness of Breath. fluticasone Yes [id number] 1{puff} Inhale 1 [facility] propion-nida 5-13 Puff every it y of meteroL 00:00: 12 [place] (ADVAIR 00 (twelve) Medical DISKUS) hours. Branch 250-50 mcg/dose inhalation disk inhalat.spa Yes [id number] 1U 1 Units as [facility] cing 5-13 needed ity of dev,large 00:00: (use with [place] mask 00 inhaler). Medical (BREATHERIT Branch E SPACER-MASK ,ADULT) Spcr albuterol Yes [id number] 2{puff} Inhale 2 [facility] 90 5-13 Puffs ity of mcg/actuati 00:00: every 6 [place] on inhaler 00 (six) Medical hours as Branch needed for Wheezing or Shortness of Breath. fluticasone Yes [id number] 1{puff} Inhale 1 [facility] propion-nida 5-13 Puff every it y of meteroL 00:00: 12 [place] (ADVAIR 00 (twelve) Medical DISKUS) hours. Branch 250-50 mcg/dose inhalation disk inhalat.spa Yes [id number] 1U 1 Units as [facility] cing 5-13 needed ity of dev,large 00:00: (use with [place] mask 00 inhaler). Medical (BREATHERIT Branch E SPACER-MASK ,ADULT) Spcr albuterol Yes [id number] 2{puff} Inhale 2 [facility] 90 5-13 Puffs ity of mcg/actuati 00:00: every 6 [place] on inhaler 00 (six) Medical hours as Branch needed for Wheezing or Shortness of Breath. fluticasone Yes [id number] 1{puff} Inhale 1 [facility] propion-nida 5-13 Puff every it y of meteroL 00:00: 12 [place] (ADVAIR (twelve) Medical DISKUS) hours. Branch 250-50 mcg/dose inhalation disk inhalat.spa Yes [id number] 1U 1 Units as [facility] cing 5-13 needed ity of dev,large 00:00: (use with [place] mask 00 inhaler). Medical (BREATHERIT Branch E SPACER-MASK ,ADULT) Spcr albuterol Yes [id number] 2{puff} Inhale 2 [facility] 90 5-13 Puffs ity of mcg/actuati 00:00: every 6 [place] on inhaler 00 (six) Medical hours as Branch needed for Wheezing or Shortness of Breath. fluticasone Yes [id number] 1{puff} Inhale 1 [facility] propion-nida 5-13 Puff every it y of meteroL 00:00: 12 [place] (ADVAIR 00 (twelve) Medical DISKUS) hours. Branch 250-50 mcg/dose inhalation disk inhalat.spa Yes [id number] 1U 1 Units as [facility] cing 5-13 needed ity of dev,large 00:00: (use with [place] mask 00 inhaler). Medical (BREATHERIT Branch E SPACER-MASK ,ADULT) Spcr albuterol Yes [id number] 2{puff} Inhale 2 [facility] 90 5-13 Puffs ity of mcg/actuati 00:00: every 6 [place] on inhaler 00 (six) Medical hours as Branch needed for Wheezing or Shortness of Breath. fluticasone Yes [id number] 1{puff} Inhale 1 [facility] propion-nida 5-13 Puff every it y of meteroL 00:00: 12 [place] (ADVAIR 00 (twelve) Medical DISKUS) hours. Branch 250-50 mcg/dose inhalation disk inhalat.spa Yes [id number] 1U 1 Units as [facility] cing 5-13 needed ity of dev,large 00:00: (use with [place] mask 00 inhaler). Medical (BREATHERIT Branch E SPACER-MASK ,ADULT) Spcr albuterol Yes [id number] 2{puff} Inhale 2 [facility] 90 5-13 Puffs ity of mcg/actuati 00:00: every 6 [place] on inhaler 00 (six) Medical hours as Branch needed for Wheezing or Shortness of Breath. fluticasone Yes [id number] 1{puff} Inhale 1 [facility] propion-nida 5-13 Puff every it y of meteroL 00:00: 12 [place] (ADVAIR (twelve) Medical DISKUS) hours. Branch 250-50 mcg/dose inhalation disk inhalat.spa Yes [id number] 1U 1 Units as [facility] cing 5-13 needed ity of dev,large 00:00: (use with [place] mask 00 inhaler). Medical (BREATHERIT Branch E SPACER-MASK ,ADULT) Spcr albuterol Yes [id number] 2{puff} Inhale 2 [facility] 90 5-13 Puffs ity of mcg/actuati 00:00: every 6 [place] on inhaler 00 (six) Medical hours as Branch needed for Wheezing or Shortness of Breath. fluticasone Yes [id number] 1{puff} Inhale 1 [facility] propion-nida 5-13 Puff every it y of meteroL 00:00: 12 [place] (ADVAIR 00 (twelve) Medical DISKUS) hours. Branch 250-50 mcg/dose inhalation disk inhalat.spa Yes [id number] 1U 1 Units as [facility] cing 5-13 needed ity of dev,large 00:00: (use with [place] mask 00 inhaler). Medical (BREATHERIT Branch E SPACER-MASK ,ADULT) Spcr albuterol Yes [id number] 2{puff} Inhale 2 [facility] 90 5-13 Puffs ity of mcg/actuati 00:00: every 6 [place] on inhaler 00 (six) Medical hours as Branch needed for Wheezing or Shortness of Breath. fluticasone Yes [id number] 1{puff} Inhale 1 [facility] propion-nida 5-13 Puff every it y of meteroL 00:00: 12 [place] (ADVAIR 00 (twelve) Medical DISKUS) hours. Branch 250-50 mcg/dose inhalation disk inhalat.spa Yes [id number] 1U 1 Units as [facility] cing 5-13 needed ity of dev,large 00:00: (use with [place] mask 00 inhaler). Medical (BREATHERIT Branch E SPACER-MASK ,ADULT) Spcr albuterol Yes [id number] 2{puff} Inhale 2 [facility] 90 5-13 Puffs ity of mcg/actuati 00:00: every 6 [place] on inhaler 00 (six) Medical hours as Branch needed for Wheezing or Shortness of Breath. fluticasone Yes [id number] 1{puff} Inhale 1 [facility] propion-nida 5-13 Puff every it y of meteroL 00:00: 12 [place] (ADVAIR 00 (twelve) Medical DISKUS) hours. Branch 250-50 mcg/dose inhalation disk inhalat.spa Yes [id number] 1U 1 Units as [facility] cing 5-13 needed ity of dev,large 00:00: (use with [place] mask 00 inhaler). Medical (BREATHERIT Branch E SPACER-MASK ,ADULT) Spcr albuterol Yes [id number] 2{puff} Inhale 2 [facility] 90 5-13 Puffs ity of mcg/actuati 00:00: every 6 [place] on inhaler 00 (six) Medical hours as Branch needed for Wheezing or Shortness of Breath. fluticasone Yes [id number] 1{puff} Inhale 1 [facility] propion-nida 5-13 Puff every it y of meteroL 00:00: 12 [place] (ADVAIR 00 (twelve) Medical DISKUS) hours. Branch 250-50 mcg/dose inhalation disk inhalat.spa Yes [id number] 1U 1 Units as [facility] cing 5-13 needed ity of dev,large 00:00: (use with [place] mask 00 inhaler). Medical (BREATHERIT Branch E SPACER-MASK ,ADULT) Spcr albuterol Yes [id number] 2{puff} Inhale 2 [facility] 90 5-13 Puffs ity of mcg/actuati 00:00: every 6 [place] on inhaler 00 (six) Medical hours as Branch needed for Wheezing or Shortness of Breath. fluticasone Yes [id number] 1{puff} Inhale 1 [facility] propion-nida 5-13 Puff every it y of meteroL 00:00: 12 [place] (ADVAIR (twelve) Medical DISKUS) hours. Branch 250-50 mcg/dose inhalation disk albuterol Yes [id number] 2{puff} Inhale 2 [facility] 90 5-13 Puffs ity of mcg/actuati 00:00: every 6 [place] on inhaler 00 (six) Medical hours as Branch needed for Wheezing or Shortness of Breath. fluticasone Yes [id number] 1{puff} Inhale 1 [facility] propion-nida 5-13 Puff every it y of meteroL 00:00: 12 [place] (ADVAIR 00 (twelve) Medical DISKUS) hours. Branch 250-50 mcg/dose inhalation disk albuterol Yes [id number] 2{puff} Inhale 2 [facility] 90 5-13 Puffs ity of mcg/actuati 00:00: every 6 [place] on inhaler 00 (six) Medical hours as Branch needed for Wheezing or Shortness of Breath. fluticasone 0 Yes [id number] 1{puff} Inhale 1 [facility] propion-nida 5-13 Puff every it y of meteroL 00:00: 12 [place] (ADVAIR 00 (twelve) Medical DISKUS) hours. Branch 250-50 mcg/dose inhalation disk albuterol 0 Yes [id number] 2{puff} Inhale 2 [facility] 90 5-13 Puffs ity of mcg/actuati 00:00: every 6 [place] on inhaler 00 (six) Medical hours as Branch needed for Wheezing or Shortness of Breath. fluticasone 2021-0 Yes [id number] 1{puff} Inhale 1 [facility] propion-nida 5-13 Puff every it y of meteroL 00:00: 12 [place] (ADVAIR (twelve) Medical DISKUS) hours. Branch 250-50 mcg/dose inhalation disk albuterol 2021-0 Yes [id number] 2{puff} Inhale 2 [facility] 90 5-13 Puffs ity of mcg/actuati 00:00: every 6 [place] on inhaler 00 (six) Medical hours as Branch needed for Wheezing or Shortness of Breath. fluticasone 2021-0 Yes [id number] 1{puff} Inhale 1 [facility] propion-nida 5-13 Puff every it y of meteroL 00:00: 12 [place] (AD[facility]IR ([facility]) Medical DISKUS) hours. Branch 250-50 mcg/dose inhalation disk albuterol 2021-0 Yes [id number] 2{puff} Inhale 2 [facility] 90 5-13 Puffs ity of mcg/actuati 00:00: every 6 [place] on inhaler 00 (six) Medical hours as Branch needed for Wheezing or Shortness of Breath. fluticasone 2021-0 Yes [id number] 1{puff} Inhale 1 [facility] propion-nida 5-13 Puff every it y of meteroL 00:00: 12 [place] (ADVAIR (twelve) Medical DISKUS) hours. Branch 250-50 mcg/dose inhalation disk albuterol 2021-0 Yes [id number] 2{puff} Inhale 2 [facility] 90 5-13 Puffs ity of mcg/actuati 00:00: every 6 [place] on inhaler 00 (six) Medical hours as Branch needed for Wheezing or Shortness of Breath. fluticasone 2021-0 Yes [id number] 1{puff} Inhale 1 [facility] propion-nida 5-13 Puff every it y of meteroL 00:00: 12 [place] (ADVAIR (twelve) Medical DISKUS) hours. Branch 250-50 mcg/dose inhalation disk albuterol 2021-0 Yes [id number] 2{puff} Inhale 2 [facility] 90 5-13 Puffs ity of mcg/actuati 00:00: every 6 [place] on inhaler 00 (six) Medical hours as Branch needed for Wheezing or Shortness of Breath. fluticasone Yes [id number] 1{puff} Inhale 1 [facility] propion-nida 5-13 Puff every it y of meteroL 00:00: 12 [place] (ADVAIR () Medical DISKUS) hours. Branch 250-50 mcg/dose inhalation disk albuterol Yes [id number] 2{puff} Inhale 2 [facility] 90 5-13 Puffs ity of mcg/actuati 00:00: every 6 [place] on inhaler 00 (six) Medical hours as Branch needed for Wheezing or Shortness of Breath. fluticasone 0 Yes [id number] 1{puff} Inhale 1 [facility] propion-nida 5-13 Puff every it y of meteroL 00:00: 12 [place] (ADVAIR ([facility]) Medical DISKUS) hours. Branch 250-50 mcg/dose inhalation disk albuterol 0 Yes [id number] 2{puff} Inhale 2 [facility] 90 5-13 Puffs ity of mcg/actuati 00:00: every 6 [place] on inhaler 00 (six) Medical hours as Branch needed for Wheezing or Shortness of Breath. fluticasone 0 Yes [id number] 1{puff} Inhale 1 [facility] propion-nida 5-13 Puff every it y of meteroL 00:00: 12 [place] (ADVAIR ([facility]) Medical DISKUS) hours. Branch 250-50 mcg/dose inhalation disk albuterol 0 Yes [id number] 2{puff} Inhale 2 [facility] 90 5-13 Puffs ity of mcg/actuati 00:00: every 6 [place] on inhaler 00 (six) Medical hours as Branch needed for Wheezing or Shortness of Breath. fluticasone 0 Yes [id number] 1{puff} Inhale 1 [facility] propion-nida 5-13 Puff every it y of meteroL 00:00: 12 [place] (ADVAIR () Medical DISKUS) hours. Branch 250-50 mcg/dose inhalation disk albuterol Yes [id number] 2{puff} Inhale 2 [facility] 90 5-13 Puffs ity of mcg/actuati 00:00: every 6 [place] on inhaler 00 (six) Medical hours as Branch needed for Wheezing or Shortness of Breath. fluticasone Yes [id number] 1{puff} Inhale 1 [facility] propion-nida 5-13 Puff every it y of meteroL 00:00: 12 [place] (ADVAIR (twelve) Medical DISKUS) hours. Branch 250-50 mcg/dose inhalation disk albuterol Yes [id number] 2{puff} Inhale 2 [facility] 90 5-13 Puffs ity of mcg/actuati 00:00: every 6 [place] on inhaler 00 (six) Medical hours as Branch needed for Wheezing or Shortness of Breath. fluticasone Yes [id number] 1{puff} Inhale 1 [facility] propion-nida 5-13 Puff every it y of meteroL 00:00: 12 [place] (ADVAIR (twelve) Medical DISKUS) hours. Branch 250-50 mcg/dose inhalation disk albuterol Yes [id number] 2{puff} Inhale 2 [facility] 90 5-13 Puffs ity of mcg/actuati 00:00: every 6 [place] on inhaler 00 (six) Medical hours as Branch needed for Wheezing or Shortness of Breath. fluticasone Yes [id number] 1{puff} Inhale 1 [facility] propion-nida 5-13 Puff every it y of meteroL 00:00: 12 [place] (ADVAIR (twelve) Medical DISKUS) hours. Branch 250-50 mcg/dose inhalation disk inhalat.spa 2022- No [id number] 1U 1 Units as [facility] cing 5-13 04-10 needed ity of dev,large 00:00: 00:00 (use with [place] mask 00 :00 inhaler). Medical (BREATHERIT Branch E SPACER-MASK ,ADULT) Spcr inhalat.spa 2022- No [id number] 1U 1 Units as [facility] cing 5-13 04-10 needed ity of dev,large 00:00: 00:00 (use with [place] mask 00 :00 inhaler). Medical (BREATHERIT Branch E SPACER-MASK ,ADULT) Spcr inhalat.spa 2022- No [id number] 1U 1 Units as [facility] cing 5-13 04-10 needed ity of dev,large 00:00: 00:00 (use with [place] mask 00 :00 inhaler). Medical (BREATHERIT Branch E SPACER-MASK ,ADULT) Spcr solifenacin Yes [id number] 10mg Take 1 [facility] (VESICARE) 5-09 tablet by ity of 10 mg 00:00: mouth [place] tablet 00 daily. Medical Branch estradioL Yes [id number] Apply 1g [facility] (ESTRACE) 5-09 vaginally ity o f 0.01 % (0.1 00:00: at bedtime [place] mg/gram) 00 every Medical vaginal night for Branch cream 2 weeks and then apply 1g vaginally at bedtime 2 times per week solifenacin Yes [id number] 10mg Take 1 [facility] (VESICARE) 5-09 tablet by ity of 10 mg 00:00: mouth [place] tablet 00 daily. Medical Branch estradioL Yes [id number] Apply 1g [facility] (ESTRACE) 5-09 vaginally ity o f 0.01 % (0.1 00:00: at bedtime [place] mg/gram) 00 every Medical vaginal night for Branch cream 2 weeks and then apply 1g vaginally at bedtime 2 times per week solifenacin Yes [id number] 10mg Take 1 Univers (VESICARE) 5-09 tablet by ity of 10 mg 00:00: mouth [place] tablet 00 daily. [facility] Branch estradioL Yes [id number] Apply 1g Univers (ESTRACE) 5-09 vaginally ity o f 0.01 % (0.1 00:00: at bedtime [place] mg/gram) 00 every Medical vaginal night for Branch cream 2 weeks and then apply 1g vaginally at bedtime 2 times per week solifenacin Yes [id number] 10mg Take 1 Univers (VESICARE) 5-09 tablet by ity of 10 mg 00:00: mouth [place] tablet 00 daily. [facility] Branch estradioL Yes [id number] Apply 1g Univers (ESTRACE) 5-09 vaginally ity o f 0.01 % (0.1 00:00: at bedtime [place] mg/gram) 00 every Medical vaginal night for Branch cream 2 weeks and then apply 1g vaginally at bedtime 2 times per week solifenacin 2021-0 Yes [id number] 10mg Take 1 Univers (VESICARE) 5-09 tablet by ity of 10 mg 00:00: mouth [place] tablet 00 daily. Medical Branch estradioL 2021-0 Yes [id number] Apply 1g [facility] (ESTRACE) 5-09 vaginally ity o f 0.01 % (0.1 00:00: at bedtime [place] mg/gram) 00 every Medical vaginal night for Branch cream 2 weeks and then apply 1g vaginally at bedtime 2 times per week solifenacin 2021-0 Yes [id number] 10mg Take 1 Univers (VESICARE) 5-09 tablet by ity of 10 mg 00:00: mouth [place] tablet 00 daily. Medical Branch estradioL 2021-0 Yes [id number] Apply 1g [facility] (ESTRACE) 5-09 vaginally ity o f 0.01 % (0.1 00:00: at bedtime [place] mg/gram) 00 every Medical vaginal night for Branch cream 2 weeks and then apply 1g vaginally at bedtime 2 times per week solifenacin 0 Yes [id number] 10mg Take 1 [facility] (VESICARE) 5-09 tablet by ity of 10 mg 00:00: mouth [place] tablet 00 daily. Medical Branch estradioL 0 Yes [id number] Apply 1g [facility] (ESTRACE) 5-09 vaginally ity o f 0.01 % (0.1 00:00: at bedtime [place] mg/gram) 00 every Medical vaginal night for Branch cream 2 weeks and then apply 1g vaginally at bedtime 2 times per week estradioL 2021-0 Yes [id number] Apply 1g [facility] (ESTRACE) 5-09 vaginally ity o f 0.01 % (0.1 00:00: at bedtime [place] mg/gram) 00 every Medical vaginal night for Branch cream 2 weeks and then apply 1g vaginally at bedtime 2 times per week estradioL 2021-0 Yes [id number] Apply 1g [facility] (ESTRACE) 5-09 vaginally ity o f 0.01 % (0.1 00:00: at bedtime [place] mg/gram) 00 every Medical vaginal night for Branch cream 2 weeks and then apply 1g vaginally at bedtime 2 times per week estradioL 2021-0 Yes [id number] Apply 1g [facility] (ESTRACE) - vaginally ity o f 0.01 % (0.1 00:00: at bedtime [place] mg/gram) 00 every Medical vaginal night for Branch cream 2 weeks and then apply 1g vaginally at bedtime 2 times per week estradioL 2021-0 Yes [id number] Apply 1g [facility] (ESTRACE) - vaginally ity o f 0.01 % (0.1 00:00: at bedtime [place] mg/gram) 00 every Medical vaginal night for Branch cream 2 weeks and then apply 1g vaginally at bedtime 2 times per week estradioL 2021-0 Yes [id number] Apply 1g [facility] (ESTRACE) - vaginally ity o f 0.01 % (0.1 00:00: at bedtime [place] mg/gram) 00 every Medical vaginal night for Branch cream 2 weeks and then apply 1g vaginally at bedtime 2 times per week estradioL 2021-0 Yes [id number] Apply 1g [facility] (ESTRACE) 02-28 vaginally ity o f 0.01 % (0.1 00:00: at bedtime [place] mg/gram) 00 every Medical vaginal night for Branch cream 2 weeks and then apply 1g vaginally at bedtime 2 times per week estradioL 2021-0 Yes [id number] Apply 1g [facility] (ESTRACE) - vaginally ity o f 0.01 % (0.1 00:00: at bedtime [place] mg/gram) 00 every Medical vaginal night for Branch cream 2 weeks and then apply 1g vaginally at bedtime 2 times per week estradioL 2021-0 Yes [id number] Apply 1g [facility] (ESTRACE) 02-28 vaginally ity o f 0.01 % (0.1 00:00: at bedtime [place] mg/gram) 00 every Medical vaginal night for Branch cream 2 weeks and then apply 1g vaginally at bedtime 2 times per week estradioL 2021-0 2022- No [id number] Apply 1g [facility] (ESTRACE) 02-28 vaginally ity of 0.01 % (0.1 00:00: 00:00 at bedtime [place] mg/gram) 00 :00 every Medical vaginal night for Branch cream 2 weeks and then apply 1g vaginally at bedtime 2 times per week estradioL 2022- No [id number] Apply 1g [facility] (ESTRACE) 02-28 vaginally ity of 0.01 % (0.1 00:00: 00:00 at bedtime [place] mg/gram) 00 :00 every Medical vaginal night for Branch cream 2 weeks and then apply 1g vaginally at bedtime 2 times per week estradioL 2022- No [id number] Apply 1g [facility] (ESTRACE) 02-28 vaginally ity of 0.01 % (0.1 00:00: 00:00 at bedtime [place] mg/gram) 00 :00 every Medical vaginal night for Branch cream 2 weeks and then apply 1g vaginally at bedtime 2 times per week solifenacin 2021- No [id number] 10mg Take 1 Univers (VESICARE) 02-28 tablet by ity of 10 mg 00:00: 00:00 mouth [place] tablet 00 :00 daily. Medical Branch solifenacin 2021- No [id number] 10mg Take 1 Univers (VESICARE) 02-28 tablet by ity of 10 mg 00:00: 00:00 mouth [place] tablet 00 :00 daily. Medical Branch calcium/mag Yes [id number] 1{each} Take 1 [facility] nesium/zinc 1-05 Each by ity o f (CALCIUM-MA 00:00: mouth [place] GNESUIUM-ZI 00 daily. Medica l [place]) Branch 333-133-5 mg Tab benzonatate Yes [id number] 100mg Take 1 [facility] 100 mg 1-05 capsule by ity of capsule 00:00: mouth 3 [place] 00 (three) Medical times Branch daily as needed for Cough. ondansetron Yes [id number] 4mg Take 1 [facility] 4 mg 1-05 tablet by ity of disintegrat 00:00: mouth [place] ing tablet 00 every 8 Medica l (eight) Branch hours as needed for Nausea and Vomiting (N/V). chlorphenir Yes [id number] 4mg Take 1 [facility] amine 4 mg 1-05 tablet by ity of tablet 00:00: mouth [place] 00 every 6 Medical (six) Branch hours as needed for Allergies or Runny nose. calcium/mag 2022-0 Yes [id number] 1{each} Take 1 [facility] nesium/zinc 1-05 Each by ity o f (CALCIUM-MA 00:00: mouth [place] GNESUIUM-ZI 00 daily. Medica l [place]) Branch 333-133-5 mg Tab benzonatate 2022-0 Yes [id number] 100mg Take 1 [facility] 100 mg 1-05 capsule by ity of capsule 00:00: mouth 3 [place] 00 (three) Medical times Branch daily as needed for Cough. ondansetron 2-0 Yes [id number] 4mg Take 1 [facility] 4 mg 1-05 tablet by ity of disintegrat 00:00: mouth [place] ing tablet 00 every 8 Medica l (eight) Branch hours as needed for Nausea and Vomiting (N/V). chlorphenir 2022-0 Yes [id number] 4mg Take 1 [facility] amine 4 mg 1-05 tablet by ity of tablet 00:00: mouth [place] 00 every 6 Medical (six) Branch hours as needed for Allergies or Runny nose. calcium/mag 2-0 Yes [id number] 1{each} Take 1 [facility] nesium/zinc 1-05 Each by ity o f (CALCIUM-MA 00:00: mouth [place] GNESUIUM-ZI 00 daily. Medica l ND) Branch 333-133-5 mg Tab benzonatate 2-0 Yes [id number] 100mg Take 1 [facility] 100 mg 1-05 capsule by ity of capsule 00:00: mouth 3 [place] 00 (three) Medical times Branch daily as needed for Cough. ondansetron 2-0 Yes [id number] 4mg Take 1 [facility] 4 mg 1-05 tablet by ity of disintegrat 00:00: mouth [place] ing tablet 00 every 8 Medica l (eight) Branch hours as needed for Nausea and Vomiting (N/V). chlorphenir 2022-0 Yes [id number] 4mg Take 1 [facility] amine 4 mg 1-05 tablet by ity of tablet 00:00: mouth [place] 00 every 6 Medical (six) Branch hours as needed for Allergies or Runny nose. calcium/mag 2022-0 Yes [id number] 1{each} Take 1 [facility] nesium/zinc 1-05 Each by ity o f (CALCIUM-MA 00:00: mouth [place] GNESUIUM-ZI 00 daily. Medica l [place]) Branch 333-133-5 mg Tab benzonatate 2022-0 Yes [id number] 100mg Take 1 [facility] 100 mg 1-05 capsule by ity of capsule 00:00: mouth 3 [place] 00 (three) Medical times Branch daily as needed for Cough. ondansetron 2022-0 Yes [id number] 4mg Take 1 [facility] 4 mg 1-05 tablet by ity of disintegrat 00:00: mouth [place] ing tablet 00 every 8 Medica l (eight) Branch hours as needed for Nausea and Vomiting (N/V). chlorphenir 2022-0 Yes [id number] 4mg Take 1 [facility] amine 4 mg 1-05 tablet by ity of tablet 00:00: mouth [place] 00 every 6 Medical (six) Branch hours as needed for Allergies or Runny nose. calcium/mag 2022-0 Yes [id number] 1{each} Take 1 [facility] nesium/zinc 1-05 Each by ity o f (CALCIUM-MA 00:00: mouth [place] GNESUIUM-ZI 00 daily. Medica l ND) Branch 333-133-5 mg Tab benzonatate 2022-0 Yes [id number] 100mg Take 1 [facility] 100 mg 1-05 capsule by ity of capsule 00:00: mouth 3 [place] 00 (three) Medical times Branch daily as needed for Cough. ondansetron 2022-0 Yes [id number] 4mg Take 1 [facility] 4 mg 1-05 tablet by ity of disintegrat 00:00: mouth [place] ing tablet 00 every 8 Medica l (eight) Branch hours as needed for Nausea and Vomiting (N/V). chlorphenir 2022-0 Yes [id number] 4mg Take 1 [facility] amine 4 mg 1-05 tablet by ity of tablet 00:00: mouth [place] 00 every 6 Medical (six) Branch hours as needed for Allergies or Runny nose. calcium/mag 2022-0 Yes [id number] 1{each} Take 1 [facility] nesium/zinc 1-05 Each by ity o f (CALCIUM-MA 00:00: mouth [place] GNESUIUM-ZI 00 daily. Medica l [place]) Branch 333-133-5 mg Tab benzonatate 2022-0 Yes [id number] 100mg Take 1 [facility] 100 mg 1-05 capsule by ity of capsule 00:00: mouth 3 [place] 00 (three) Medical times Branch daily as needed for Cough. ondansetron 2022-0 Yes [id number] 4mg Take 1 [facility] 4 mg 1-05 tablet by ity of disintegrat 00:00: mouth [place] ing tablet 00 every 8 Medica l (eight) Branch hours as needed for Nausea and Vomiting (N/V). chlorphenir 2022-0 Yes [id number] 4mg Take 1 [facility] amine 4 mg 1-05 tablet by ity of tablet 00:00: mouth [place] 00 every 6 Medical (six) Branch hours as needed for Allergies or Runny nose. calcium/mag 2022-0 Yes [id number] 1{each} Take 1 [facility] nesium/zinc 1-05 Each by ity o f (CALCIUM-MA 00:00: mouth [place] GNESUIUM-ZI 00 daily. Medica l [place]) Branch 333-133-5 mg Tab benzonatate 2022-0 Yes [id number] 100mg Take 1 [facility] 100 mg 1-05 capsule by ity of capsule 00:00: mouth 3 [place] 00 (three) Medical times Branch daily as needed for Cough. ondansetron 2-0 Yes [id number] 4mg Take 1 [facility] 4 mg 1-05 tablet by ity of disintegrat 00:00: mouth [place] ing tablet 00 every 8 Medica l (eight) Branch hours as needed for Nausea and Vomiting (N/V). chlorphenir 2022-0 Yes [id number] 4mg Take 1 [facility] amine 4 mg 1-05 tablet by ity of tablet 00:00: mouth [place] 00 every 6 Medical (six) Branch hours as needed for Allergies or Runny nose. calcium/mag 2022-0 Yes [id number] 1{each} Take 1 [facility] nesium/zinc 1-05 Each by ity o f (CALCIUM-MA 00:00: mouth [place] GNESUIUM-ZI 00 daily. Medica l [place]) Branch 333-133-5 mg Tab benzonatate 2022-0 Yes [id number] 100mg Take 1 [facility] 100 mg 1-05 capsule by ity of capsule 00:00: mouth 3 [place] 00 (three) Medical times Branch daily as needed for Cough. ondansetron 2022-0 Yes [id number] 4mg Take 1 [facility] 4 mg 1-05 tablet by ity of disintegrat 00:00: mouth [place] ing tablet 00 every 8 Medica l (eight) Branch hours as needed for Nausea and Vomiting (N/V). chlorphenir 2022-0 Yes [id number] 4mg Take 1 [facility] amine 4 mg 1-05 tablet by ity of tablet 00:00: mouth [place] 00 every 6 Medical (six) Branch hours as needed for Allergies or Runny nose. calcium/mag 2022-0 Yes [id number] 1{each} Take 1 [facility] nesium/zinc 1-05 Each by ity o f (CALCIUM-MA 00:00: mouth [place] GNESUIUM-ZI 00 daily. Medica l [place]) Branch 333-133-5 mg Tab benzonatate 2022-0 Yes [id number] 100mg Take 1 [facility] 100 mg 1-05 capsule by ity of capsule 00:00: mouth 3 [place] 00 (three) Medical times Branch daily as needed for Cough. ondansetron 2022-0 Yes [id number] 4mg Take 1 [facility] 4 mg 1-05 tablet by ity of disintegrat 00:00: mouth [place] ing tablet 00 every 8 Medica l (eight) Branch hours as needed for Nausea and Vomiting (N/V). chlorphenir 2022-0 Yes [id number] 4mg Take 1 [facility] amine 4 mg 1-05 tablet by ity of tablet 00:00: mouth [place] 00 every 6 Medical (six) Branch hours as needed for Allergies or Runny nose. calcium/mag 2022-0 Yes [id number] 1{each} Take 1 [facility] nesium/zinc 1-05 Each by ity o f (CALCIUM-MA 00:00: mouth [place] GNESUIUM-ZI 00 daily. Medica l ND) Branch 333-133-5 mg Tab benzonatate 2022-0 Yes [id number] 100mg Take 1 [facility] 100 mg 1-05 capsule by ity of capsule 00:00: mouth 3 [place] 00 (three) Medical times Branch daily as needed for Cough. ondansetron 2022-0 Yes [id number] 4mg Take 1 [facility] 4 mg 1-05 tablet by ity of disintegrat 00:00: mouth [place] ing tablet 00 every 8 Medica l (eight) Branch hours as needed for Nausea and Vomiting (N/V). chlorphenir 2022-0 Yes [id number] 4mg Take 1 [facility] amine 4 mg 1-05 tablet by ity of tablet 00:00: mouth [place] 00 every 6 Medical (six) Branch hours as needed for Allergies or Runny nose. calcium/mag 2022-0 Yes [id number] 1{each} Take 1 [facility] nesium/zinc 1-05 Each by ity o f (CALCIUM-MA 00:00: mouth [place] GNESUIUM-ZI 00 daily. Medica l ND) Branch 333-133-5 mg Tab benzonatate 2022-0 Yes [id number] 100mg Take 1 [facility] 100 mg 1-05 capsule by ity of capsule 00:00: mouth 3 [place] 00 (three) Medical times Branch daily as needed for Cough. ondansetron 2022-0 Yes [id number] 4mg Take 1 [facility] 4 mg 1-05 tablet by ity of disintegrat 00:00: mouth [place] ing tablet 00 every 8 Medica l (eight) Branch hours as needed for Nausea and Vomiting (N/V). chlorphenir 2022-0 Yes [id number] 4mg Take 1 [facility] amine 4 mg 1-05 tablet by ity of tablet 00:00: mouth [place] 00 every 6 Medical (six) Branch hours as needed for Allergies or Runny nose. calcium/mag 2022-0 Yes [id number] 1{each} Take 1 [facility] nesium/zinc 1-05 Each by ity o f (CALCIUM-MA 00:00: mouth [place] GNESUIUM-ZI 00 daily. Medica l ND) Branch 333-133-5 mg Tab benzonatate 2-0 Yes [id number] 100mg Take 1 [facility] 100 mg 1-05 capsule by ity of capsule 00:00: mouth 3 [place] 00 (three) Medical times Branch daily as needed for Cough. ondansetron 2022-0 Yes [id number] 4mg Take 1 [facility] 4 mg 1-05 tablet by ity of disintegrat 00:00: mouth [place] ing tablet 00 every 8 Medica l (eight) Branch hours as needed for Nausea and Vomiting (N/V). chlorphenir 2022-0 Yes [id number] 4mg Take 1 [facility] amine 4 mg 1-05 tablet by ity of tablet 00:00: mouth [place] 00 every 6 Medical (six) Branch hours as needed for Allergies or Runny nose. calcium/mag 2022-0 Yes [id number] 1{each} Take 1 [facility] nesium/zinc 1-05 Each by ity o f (CALCIUM-MA 00:00: mouth [place] GNESUIUM-ZI 00 daily. Medica l [place]) Branch 333-133-5 mg Tab benzonatate 2022-0 Yes [id number] 100mg Take 1 [facility] 100 mg 1-05 capsule by ity of capsule 00:00: mouth 3 [place] 00 (three) Medical times Branch daily as needed for Cough. ondansetron 2022-0 Yes [id number] 4mg Take 1 [facility] 4 mg 1-05 tablet by ity of disintegrat 00:00: mouth [place] ing tablet 00 every 8 Medica l (eight) Branch hours as needed for Nausea and Vomiting (N/V). chlorphenir 2022-0 Yes [id number] 4mg Take 1 [facility] amine 4 mg 1-05 tablet by ity of tablet 00:00: mouth [place] 00 every 6 Medical (six) Branch hours as needed for Allergies or Runny nose. calcium/mag 2022-0 Yes [id number] 1{each} Take 1 [facility] nesium/zinc 1-05 Each by ity o f (CALCIUM-MA 00:00: mouth [place] GNESUIUM-ZI 00 daily. Medica l ND) Branch 333-133-5 mg Tab benzonatate 2022-0 Yes [id number] 100mg Take 1 [facility] 100 mg 1-05 capsule by ity of capsule 00:00: mouth 3 [place] 00 (three) Medical times Branch daily as needed for Cough. ondansetron 2022-0 Yes [id number] 4mg Take 1 [facility] 4 mg 1-05 tablet by ity of disintegrat 00:00: mouth [place] ing tablet 00 every 8 Medica l (eight) Branch hours as needed for Nausea and Vomiting (N/V). chlorphenir 2022-0 Yes [id number] 4mg Take 1 [facility] amine 4 mg 1-05 tablet by ity of tablet 00:00: mouth [place] 00 every 6 Medical (six) Branch hours as needed for Allergies or Runny nose. calcium/mag 2022-0 Yes [id number] 1{each} Take 1 [facility] nesium/zinc 1-05 Each by ity o f (CALCIUM-MA 00:00: mouth [place] GNESUIUM-ZI 00 daily. Medica l [place]) Branch 333-133-5 mg Tab benzonatate 2022-0 Yes [id number] 100mg Take 1 [facility] 100 mg 1-05 capsule by ity of capsule 00:00: mouth 3 [place] 00 (three) Medical times Branch daily as needed for Cough. ondansetron 2022-0 Yes [id number] 4mg Take 1 [facility] 4 mg 1-05 tablet by ity of disintegrat 00:00: mouth [place] ing tablet 00 every 8 Medica l (eight) Branch hours as needed for Nausea and Vomiting (N/V). chlorphenir 2021-0 Yes [id number] 4mg Take 1 [facility] amine 4 mg 1-05 tablet by ity of tablet 00:00: mouth [place] 00 every 6 Medical (six) Branch hours as needed for Allergies or Runny nose. chlorphenir 2022- No [id number] 4mg Take 1 [facility] amine 4 mg 1-05 -31 tablet by ity of tablet 00:00: 00:00 mouth [place] 00 :00 every 6 Medical (six) Branch hours as needed for Allergies or Runny nose. calcium/mag 2022- No [id number] 1{each} Take 1 [facility] nesium/zinc -02 20-31 Each by ity of (CALCIUM-MA 00:00: 00:00 [place] GNESUIUM-ZI 00 :00 daily. Medica l [place]) Branch 333-133-5 mg Tab benzonatate 2022- No [id number] 100mg Take 1 [facility] 100 mg 10-27 capsule by ity of capsule 00:00: 00:00 mouth 3 [place] 00 :00 (three) Medical times Branch daily as needed for Cough. ondansetron 2022- No [id number] 4mg Take 1 [facility] 4 mg -02 20-31 tablet by ity of disintegrat 00:00: 00:00 [place] tablet 00 :00 every 8 Medica l (eight) Branch hours as needed for Nausea and Vomiting (N/V). chlorphenir 2022- No [id number] 4mg Take 1 [facility] amine 4 mg 1-05 -31 tablet by ity of tablet 00:00: 00:00 mouth [place] 00 :00 every 6 Medical (six) Branch hours as needed for Allergies or Runny nose. calcium/mag 2022- No [id number] 1{each} Take 1 [facility] nesium/zinc 1-05 -31 Each by ity of (CALCIUM-MA 00:00: 00:00 mouth [place] GNESUIUM-ZI 00 :00 daily. Medica l [place]) Branch 333-133-5 mg Tab benzonatate 2022- No [id number] 100mg Take 1 [facility] 100 mg 10-27 capsule by ity of capsule 00:00: 00:00 mouth 3 [place] 00 :00 (three) Medical times Branch daily as needed for Cough. ondansetron 2022- No [id number] 4mg Take 1 [facility] 4 mg 10-27 tablet by ity of disintegrat 00:00: 00:00 [place] tablet 00 :00 every 8 Medica l (eight) Branch hours as needed for Nausea and Vomiting (N/V). chlorphenir 2022- No [id number] 4mg Take 1 [facility] amine 4 mg 10-27 tablet by ity of tablet 00:00: 00:00 mouth [place] 00 :00 every 6 Medical (six) Branch hours as needed for Allergies or Runny nose. calcium/mag 2022- No [id number] 1{each} Take 1 [facility] nesium/zinc 10-27 Each by ity of (CALCIUM-MA 00:00: 00:00 mouth [place] GNESUIUM-ZI 00 :00 daily. Medica l [place]) Branch 333-133-5 mg Tab benzonatate 2022- No [id number] 100mg Take 1 [facility] 100 mg 10-27 capsule by ity of capsule 00:00: 00:00 mouth 3 [place] 00 :00 (three) Medical times Branch daily as needed for Cough. ondansetron 2022- No [id number] 4mg Take 1 [facility] 4 mg 10-27 tablet by ity of disintegrat 00:00: 00:00 [place] tablet 00 :00 every 8 Medica l (eight) Branch hours as needed for Nausea and Vomiting (N/V). Immunizations Ordered Filled Immunization Date Status Comments [facility] e Immunization Name Name Influenza Virus 2022-09-19 Completed [facility] of Vaccine [facility], 00:00:00 [place] [facility] Preserv and ABX Branch Free 6 MO-64 YRS Influenza Virus 2022-09-19 Completed [facility]it y of Vaccine [facility], 00:00:00 [place] [facility] Preserv and ABX Branch Free 6 MO-64 YRS Influenza Virus 2022-09-19 Completed Universit y of Vaccine [facility], 00:00:00 [place] [facility] Preserv and ABX Branch Free 6 MO-64 YRS Influenza Virus 2022-09-19 Completed [facility]it y of Vaccine [facility] IM, 00:00:00 [place] [facility] Preserv and ABX Branch Free 6 MO-64 YRS Influenza Virus 2022-09-19 Completed [facility]it [facility] of Vaccine [facility] IM, 00:00:00 [place] [facility] Preserv and ABX Branch Free 6 MO-64 YRS Influenza Virus 2022-09-19 Completed [facility]it [facility] of Vaccine [facility] IM, 00:00:00 [place] [facility] Preserv and ABX Branch Free 6 MO-64 YRS Influenza Virus 2022-09-19 Completed [facility]it [facility] of Vaccine [facility] IM, 00:00:00 [place] [facility] Preserv and ABX Branch Free 6 MO-64 YRS Influenza Virus 2022-09-19 Completed [facility]it [facility] of Vaccine [facility] IM, 00:00:00 [place] [facility] Preserv and ABX Branch Free 6 MO-64 YRS Influenza Virus 2022-09-19 Completed [facility]it [facility] of Vaccine [facility] IM, 00:00:00 [place] [facility] Preserv and ABX Branch Free 6 MO-64 YRS Influenza Virus 2022-09-19 Completed [facility]it y of Vaccine [facility] IM, 00:00:00 [place] [facility] Preserv and ABX Branch Free 6 MO-64 YRS Influenza Virus 2022-09-19 Completed [facility]it [facility] of Vaccine [facility] IM, 00:00:00 [place] [facility] Preserv and ABX Branch Free 6 MO-64 YRS Influenza Virus 2022-09-19 Completed [facility]it y of Vaccine [facility] IM, 00:00:00 [place] [facility] Preserv and ABX Branch Free 6 MO-64 YRS Influenza Virus 2022-09-19 Completed [facility]it y of Vaccine [facility] IM, 00:00:00 [place] [facility] Preserv and ABX Branch Free 6 MO-64 YRS Influenza Virus 2022-09-19 Completed [facility]it y of Vaccine [facility] IM, 00:00:00 [place] [facility] Preserv and ABX Branch Free 6 MO-64 YRS Influenza Virus 2022-09-19 Completed [facility]it y of Vaccine [facility] IM, 00:00:00 [place] [facility] Preserv and ABX Branch Free 6 MO-64 YRS Influenza Virus 2022-09-19 Completed Universit y of Vaccine [facility] IM, 00:00:00 [place] [facility] Preserv and ABX Branch Free 6 MO-64 YRS Influenza Virus 2022-09-19 Completed [facility]it y of Vaccine [facility] IM, 00:00:00 [place] [facility] Preserv and ABX Branch Free 6 MO-64 YRS Influenza Virus 2022-09-19 Completed [facility]it y of Vaccine [facility] IM, 00:00:00 [place] [facility] Preserv and ABX Branch Free 6 MO-64 YRS Influenza Virus 2022-09-19 Completed [facility]it y of Vaccine [facility] IM, 00:00:00 [place] [facility] Preserv and ABX Branch Free 6 MO-64 YRS Influenza Virus 2022-09-19 Completed Universit y of Vaccine Quad IM, 00:00:00 [place] [facility] Preserv and ABX Branch Free 6 MO-64 YRS Influenza Virus 2022-09-19 Completed [facility]it y of Vaccine [facility] IM, 00:00:00 [place] [facility] Preserv and ABX Branch Free 6 MO-64 YRS Influenza Virus 2022-09-19 Completed Universit y of Vaccine [facility] IM, 00:00:00 [place] [facility] Preserv and ABX Branch Free 6 MO-64 YRS Influenza Virus 2022-09-19 Completed [facility]it y of Vaccine [facility] IM, 00:00:00 [place] [facility] Preserv and ABX Branch Free 6 MO-64 YRS Influenza Virus 2022-09-19 Completed [facility]it y of Vaccine Quad IM, 00:00:00 [place] [facility] Preserv and ABX Branch Free 6 MO-64 YRS Influenza Virus 2022-09-19 Completed [facility]it y of Vaccine Quad IM, 00:00:00 [place] [facility] Preserv and ABX Branch Free 6 MO-64 YRS Influenza Virus 2022-09-19 Completed Universit y of Vaccine Quad IM, 00:00:00 [place] [facility] Preserv and ABX Branch Free 6 MO-64 YRS Influenza Virus 2022-09-19 Completed Universit y of Vaccine Quad IM, 00:00:00 [place] [facility] Preserv and ABX Branch Free 6 MO-64 YRS Influenza Virus 2022-09-19 Completed Universit y of Vaccine Quad IM, 00:00:00 [place] [facility] Preserv and ABX Branch Free 6 MO-64 YRS Influenza Virus 2022-09-19 Completed Universit y of Vaccine Quad IM, 00:00:00 [place] [facility] Preserv and ABX Branch Free 6 MO-64 YRS Influenza Virus 2022-09-19 Completed Universit y of Vaccine Quad IM, 00:00:00 [place] [facility] Preserv and ABX Branch Free 6 MO-64 YRS Influenza Virus 2022-09-19 Completed Universit y of Vaccine Quad IM, 00:00:00 [place] [facility] Preserv and ABX Branch Free 6 MO-64 YRS Influenza Virus 2022-09-19 Completed Universit y of Vaccine Quad IM, 00:00:00 [place] [facility] Preserv and ABX Branch Free 6 MO-64 YRS Influenza Virus 2022-09-19 Completed Universit y of Vaccine Quad IM, 00:00:00 [place] [facility] Preserv and ABX Branch Free 6 MO-64 YRS Influenza Virus 2022-09-19 Completed Universit y of Vaccine Quad IM, 00:00:00 [place] [facility] Preserv and ABX Branch Free 6 MO-64 YRS Influenza Virus 2022-09-19 Completed Universit y of Vaccine Quad IM, 00:00:00 [place] [facility] Preserv and ABX Branch Free 6 MO-64 YRS Influenza Virus 2022-09-19 Completed Universit y of Vaccine Quad IM, 00:00:00 [place] [facility] Preserv and ABX Branch Free 6 MO-64 YRS Influenza Virus 2022-09-19 Completed Universit y of Vaccine Quad IM, 00:00:00 [place] [facility] Preserv and ABX Branch Free 6 MO-64 YRS Influenza Virus 2022-09-19 Completed Universit y of Vaccine Quad IM, 00:00:00 [place] [facility] Preserv and ABX Branch Free 6 MO-64 YRS Influenza Virus 2022-09-19 Completed Universit y of Vaccine Quad IM, 00:00:00 [place] [facility] Preserv and ABX Branch Free 6 MO-64 YRS Influenza Virus 2021-09-29 Completed Universit y of Vaccine 00:00:00 [facility] Influenza Virus 2021-09-29 Completed Universit y of Vaccine 00:00:00 [facility] Influenza Virus 2021-09-29 Completed Universit y of Vaccine 00:00:00 [facility] Influenza Virus 2021-09-29 Completed Universit y of Vaccine 00:00:00 [facility] Influenza Virus 2021-09-29 Completed Universit y of Vaccine 00:00:00 [facility] Influenza Virus 2021-09-29 Completed Universit y of Vaccine 00:00:00 [place] [facility] Influenza Virus 2021-09-29 Completed Universit y of Vaccine 00:00:00 [place] [facility] Influenza Virus 2021-09-29 Completed Universit y of Vaccine 00:00:00 [place] [facility] Influenza Virus 2021-09-29 Completed [facility]it y of Vaccine 00:00:00 [place] [facility] Influenza Virus 2021-09-29 Completed [facility]it y of Vaccine 00:00:00 [place] [facility] Influenza Virus 2021-09-29 Completed Universit y of Vaccine 00:00:00 [place] [facility] Influenza Virus 2021-09-29 Completed Universit y of Vaccine 00:00:00 [place] [facility] Branch Influenza Virus 2021-09-29 Completed Universit y of Vaccine 00:00:00 [place] [facility] Influenza Virus 2021-09-29 Completed Universit y of Vaccine 00:00:00 [place] [facility] Influenza Virus 2021-09-29 Completed Universit y of Vaccine 00:00:00 [place] [facility] Influenza Virus 2021-09-29 Completed Universit y of Vaccine 00:00:00 [place] [facility] Influenza Virus 2021-09-29 Completed Universit y of Vaccine 00:00:00 [place] [facility] Influenza Virus 2021-09-29 Completed Universit y of Vaccine 00:00:00 [place] [facility] Influenza Virus 2021-09-29 Completed Universit y of Vaccine 00:00:00 [place] [facility] Influenza Virus 2021-09-29 Completed Universit y of Vaccine 00:00:00 [place] [facility] Influenza Virus 2021-09-29 Completed Universit y of Vaccine 00:00:00 [place] [facility] Influenza Virus 2021-09-29 Completed Universit y of Vaccine 00:00:00 [place] [facility] Influenza Virus 2021-09-29 Completed Universit y of Vaccine 00:00:00 [place] [facility] Influenza Virus 2021-09-29 Completed Universit y of Vaccine 00:00:00 [place] [facility] Influenza Virus 2021-09-29 Completed Universit y of Vaccine 00:00:00 [place] [facility] Influenza Virus 2021-09-29 Completed Universit y of Vaccine 00:00:00 [place] [facility] Influenza Virus 2021-09-29 Completed Universit y of Vaccine 00:00:00 [place] [facility] Influenza Virus 2021-09-29 Completed Universit y of Vaccine 00:00:00 [facility] Influenza Virus 2021-09-29 Completed Universit y of Vaccine 00:00:00 [facility] Influenza Virus 2021-09-29 Completed Universit y of Vaccine 00:00:00 [facility] Influenza Virus 2021-09-29 Completed Universit y of Vaccine 00:00:00 [facility] Influenza Virus 2021-09-29 Completed Universit y of Vaccine 00:00:00 [facility] Influenza Virus 2021-09-29 Completed Universit y of Vaccine 00:00:00 [facility] Influenza Virus 2021-09-29 Completed Universit y of Vaccine 00:00:00 [facility] Influenza Virus 2021-09-29 Completed Universit y of Vaccine 00:00:00 [facility] Influenza Virus 2021-09-29 Completed Universit y of Vaccine 00:00:00 [facility] Influenza Virus 2021-09-29 Completed Universit y of Vaccine 00:00:00 [facility] Influenza Virus 2021-09-29 Completed Universit y of Vaccine 00:00:00 [facility] Influenza Virus 2021-09-29 Completed Universit y of Vaccine 00:00:00 [facility] Influenza Virus 2021-09-29 Completed Universit y of Vaccine 00:00:00 [facility] Influenza Virus 2021-09-29 Completed Universit y of Vaccine 00:00:00 [facility] Influenza Virus 2021-09-29 Completed Universit y of Vaccine 00:00:00 [facility] Influenza Virus 2021-09-29 Completed Universit y of Vaccine 00:00:00 [facility] Influenza Virus 2021-09-29 Completed Universit y of Vaccine 00:00:00 [facility] SARS-COV-2 COVID-19 2021-03-08 Completed Unive rsity of MODERNA VACCINE 00:00:00 [facility] Branch SARS-COV-2 COVID-19 2021-03-08 Completed Unive rsity of MODERNA VACCINE 00:00:00 [facility] Branch SARS-COV-2 COVID-19 2021-03-08 Completed Unive rsity of MODERNA 12+ YRS 00:00:00 [facility] Branch SARS-COV-2 COVID-19 2021-03-08 Completed Unive rsity of MODERNA 12+ YRS 00:00:00 [place] [facility] ical VACCINE Branch SARS-COV-2 COVID-19 2021-03-08 Completed Unive rsity of MODERNA 12+ YRS 00:00:00 [place] [facility] ical VACCINE Branch SARS-COV-2 COVID-19 2021-03-08 Completed Unive rsity of MODERNA 12+ YRS 00:00:00 [place] [facility] ical VACCINE Branch SARS-COV-2 COVID-19 2021-03-08 Completed Unive rsity of MODERNA 12+ YRS 00:00:00 [place] [facility] ical VACCINE Branch SARS-COV-2 COVID-19 2021-03-08 Completed Unive rsity of MODERNA 12+ YRS 00:00:00 [place] [facility] ical VACCINE Branch SARS-COV-2 COVID-19 2021-03-08 Completed Unive rsity of MODERNA 12+ YRS 00:00:00 [place] [facility] ical VACCINE Branch SARS-COV-2 COVID-19 2021-03-08 Completed Unive rsity of MODERNA 12+ YRS 00:00:00 [place] [facility] ical VACCINE Branch SARS-COV-2 COVID-19 2021-03-08 Completed Unive rsity of MODERNA 12+ YRS 00:00:00 [place] [facility] ical VACCINE Branch SARS-COV-2 COVID-19 2021-03-08 Completed Unive rsity of MODERNA 12+ YRS 00:00:00 [place] [facility] ical VACCINE Branch SARS-COV-2 COVID-19 2021-03-08 Completed Unive rsity of MODERNA 12+ YRS 00:00:00 [place] [facility] ical VACCINE Branch SARS-COV-2 COVID-19 2021-03-08 Completed Unive rsity of MODERNA 12+ YRS 00:00:00 [place] [facility] ical VACCINE Branch SARS-COV-2 COVID-19 2021-03-08 Completed Unive rsity of MODERNA 12+ YRS 00:00:00 [place] [facility] ical VACCINE Branch SARS-COV-2 COVID-19 2021-03-08 Completed Unive rsity of MODERNA 12+ YRS 00:00:00 [place] [facility] ical VACCINE Branch SARS-COV-2 COVID-19 2021-03-08 Completed Unive rsity of MODERNA 12+ YRS 00:00:00 [place] [facility] ical VACCINE Branch SARS-COV-2 COVID-19 2021-03-08 Completed Unive rsity of MODERNA 12+ YRS 00:00:00 [place] [facility] ical VACCINE Branch SARS-COV-2 COVID-19 2021-03-08 Completed Unive rsity of MODERNA 12+ YRS 00:00:00 [place] [facility] ical VACCINE Branch SARS-COV-2 COVID-19 2021-03-08 Completed Unive rsity of MODERNA 12+ YRS 00:00:00 [place] [facility] ical VACCINE Branch SARS-COV-2 COVID-19 2021-03-08 Completed Unive rsity of MODERNA 12+ YRS 00:00:00 [place] [facility] ical VACCINE Branch SARS-COV-2 COVID-19 2021-03-08 Completed Unive rsity of MODERNA 12+ YRS 00:00:00 [place] [facility] ical VACCINE Branch SARS-COV-2 COVID-19 2021-03-08 Completed Unive rsity of MODERNA 12+ YRS 00:00:00 [place] [facility] ical VACCINE Branch SARS-COV-2 COVID-19 2021-03-08 Completed Unive rsity of MODERNA 12+ YRS 00:00:00 [place] [facility] ical VACCINE Branch SARS-COV-2 COVID-19 2021-03-08 Completed Unive rsity of MODERNA 12+ YRS 00:00:00 [place] [facility] ical VACCINE Branch SARS-COV-2 COVID-19 2021-03-08 Completed Unive rsity of MODERNA 12+ YRS 00:00:00 [place] [facility] ical VACCINE Branch SARS-COV-2 COVID-19 2021-03-08 Completed Unive rsity of MODERNA 12+ YRS 00:00:00 [place] [facility] ical VACCINE Branch SARS-COV-2 COVID-19 2021-03-08 Completed Unive rsity of MODERNA 12+ YRS 00:00:00 [place] [facility] ical VACCINE Branch SARS-COV-2 COVID-19 2021-03-08 Completed Unive rsity of MODERNA 12+ YRS 00:00:00 [place] [facility] ical VACCINE Branch SARS-COV-2 COVID-19 2021-03-08 Completed Unive rsity of MODERNA 12+ YRS 00:00:00 [place] [facility] ical VACCINE Branch SARS-COV-2 COVID-19 2021-03-08 Completed Unive rsity of MODERNA 12+ YRS 00:00:00 [place] [facility] ical VACCINE Branch SARS-COV-2 COVID-19 2021-03-08 Completed Unive rsity of MODERNA 12+ YRS 00:00:00 [place] [facility] ical VACCINE Branch SARS-COV-2 COVID-19 2021-03-08 Completed Unive rsity of MODERNA 12+ YRS 00:00:00 [place] [facility] ical VACCINE Branch SARS-COV-2 COVID-19 2021-03-08 Completed Unive rsity of MODERNA 12+ YRS 00:00:00 [place] [facility] ical VACCINE Branch SARS-COV-2 COVID-19 2021-03-08 Completed Unive rsity of MODERNA 12+ YRS 00:00:00 [place] [facility] ical VACCINE Branch SARS-COV-2 COVID-19 2021-03-08 Completed Unive rsity of MODERNA 12+ YRS 00:00:00 [place] [facility] ical VACCINE Branch SARS-COV-2 COVID-19 2021-03-08 Completed Unive rsity of MODERNA 12+ YRS 00:00:00 [place] [facility] ical VACCINE Branch SARS-COV-2 COVID-19 2021-03-08 Completed Unive rsity of MODERNA 12+ YRS 00:00:00 [place] [facility] ical VACCINE Branch SARS-COV-2 COVID-19 2021-03-08 Completed Unive rsity of MODERNA 12+ YRS 00:00:00 [place] [facility] ical VACCINE Branch SARS-COV-2 COVID-19 2021-03-08 Completed Unive rsity of MODERNA 12+ YRS 00:00:00 [place] [facility] ical VACCINE Branch SARS-COV-2 COVID-19 2021-03-08 Completed Unive rsity of MODERNA 12+ YRS 00:00:00 [place] [facility] ical VACCINE Branch SARS-COV-2 COVID-19 2021-03-08 Completed Unive rsity of MODERNA 12+ YRS 00:00:00 [place] [facility] ical VACCINE Branch SARS-COV-2 COVID-19 2021-03-08 Completed Unive rsity of MODERNA 12+ YRS 00:00:00 [place] [facility] ical VACCINE Branch SARS-COV-2 COVID-19 2021-03-08 Completed Unive rsity of MODERNA 12+ YRS 00:00:00 [place] [facility] VACCINE Branch SARS-COV-2 COVID-19 2021-02-08 Completed Unive rsity of MODERNA VACCINE 00:00:00 [place] [facility] Branch SARS-COV-2 COVID-19 2021-02-08 Completed Unive rsity of MODERNA VACCINE 00:00:00 [place] [facility] Branch SARS-COV-2 COVID-19 2021-02-08 Completed Unive rsity of MODERNA 12+ YRS 00:00:00 [place] [facility] ical VACCINE Branch SARS-COV-2 COVID-19 2021-02-08 Completed Unive rsity of MODERNA 12+ YRS 00:00:00 [place] [facility] ical VACCINE Branch SARS-COV-2 COVID-19 2021-02-08 Completed Unive rsity of MODERNA 12+ YRS 00:00:00 [place] [facility] ical VACCINE Branch SARS-COV-2 COVID-19 2021-02-08 Completed Unive rsity of MODERNA 12+ YRS 00:00:00 [place] [facility] ical VACCINE Branch SARS-COV-2 COVID-19 2021-02-08 Completed Unive rsity of MODERNA 12+ YRS 00:00:00 [place] [facility] ical VACCINE Branch SARS-COV-2 COVID-19 2021-02-08 Completed Unive rsity of MODERNA 12+ YRS 00:00:00 [place] [facility] V[facility] SARS-COV-2 COVID-19 2021-02-08 Completed Unive rsity of MODERNA 12+ YRS 00:00:00 [place] [facility] SARS-COV-2 COVID-19 2021-02-08 Completed Unive rsity of MODER[place] 12+ YRS 00:00:00 [place] [facility] SARS-COV-2 COVID-19 2021-02-08 Completed Unive rsity of MOD[place] 12+ YRS 00:00:00 [place] [facility] VACCINE [facility] SARS-COV-2 COVID-19 2021-02-08 Completed Unive rsity of [place] 12+ YRS 00:00:00 [place] [facility] VACCINE [facility] SARS-COV-2 COVID-19 2021-02-08 Completed Unive rsity of MODER[place] 12+ YRS 00:00:00 [place] [facility] VACCINE [facility] SARS-COV-2 COVID-19 2021-02-08 Completed Unive rsity of [place] 12+ YRS 00:00:00 [place] [facility] VACCINE [facility] SARS-COV-2 COVID-19 2021-02-08 Completed Unive rsity of [place] 12+ YRS 00:00:00 [place] [facility] VACCINE [facility] SARS-COV-2 COVID-19 2021-02-08 Completed Unive rsity of MODER[place] 12+ YRS 00:00:00 [place] [facility] VACCINE [facility] SARS-COV-2 COVID-19 2021-02-08 Completed Unive rsity of MOD[place] 12+ YRS 00:00:00 [place] [facility] VACCINE [facility] SARS-COV-2 COVID-19 2021-02-08 Completed Unive rsity of [place] 12+ YRS 00:00:00 [place] [facility] VACCINE [facility] SARS-COV-2 COVID-19 2021-02-08 Completed Unive rsity of [place] 12+ YRS 00:00:00 [place] [facility] VACCINE [facility] SARS-COV-2 COVID-19 2021-02-08 Completed Unive rsity of [place] 12+ YRS 00:00:00 [place] [facility] VACCINE [facility] SARS-COV-2 COVID-19 2021-02-08 Completed Unive rsity of [place] 12+ YRS 00:00:00 [place] [facility] VACCINE [facility] SARS-COV-2 COVID-19 2021-02-08 Completed Unive rsity of MODER[place] 12+ YRS 00:00:00 [place] [facility] VACCINE [facility] SARS-COV-2 COVID-19 2021-02-08 Completed Unive rsity of [place] 12+ YRS 00:00:00 [place] [facility] VACCINE [facility] SARS-COV-2 COVID-19 2021-02-08 Completed Unive rsity of [place] 12+ YRS 00:00:00 [place] [facility] VACCINE [facility] SARS-COV-2 COVID-19 2021-02-08 Completed Unive rsity of [place] 12+ YRS 00:00:00 [place] [facility] VACCINE [facility] SARS-COV-2 COVID-19 2021-02-08 Completed Unive rsity of [place] 12+ YRS 00:00:00 [place] [facility] VACCINE [facility] SARS-COV-2 COVID-19 2021-02-08 Completed Unive rsity of [place] 12+ YRS 00:00:00 [place] [facility] VACCINE [facility] SARS-COV-2 COVID-19 2021-02-08 Completed Unive rsity of [place] 12+ YRS 00:00:00 [place] [facility] VACCINE [facility] SARS-COV-2 COVID-19 2021-02-08 Completed Unive rsity of MODER[place] 12+ YRS 00:00:00 [place] [facility] VACCINE [facility] SARS-COV-2 COVID-19 2021-02-08 Completed Unive rsity of [place] 12+ YRS 00:00:00 [place] [facility] VACCINE [facility] SARS-COV-2 COVID-19 2021-02-08 Completed Unive rsity of [place] 12+ YRS 00:00:00 [place] [facility] VACCINE [facility] SARS-COV-2 COVID-19 2021-02-08 Completed Unive rsity of [place] 12+ YRS 00:00:00 [place] [facility] VACCINE [facility] SARS-COV-2 COVID-19 2021-02-08 Completed Unive rsity of [place] 12+ YRS 00:00:00 [place] [facility] SARS-COV-2 COVID-19 2021-02-08 Completed Unive rsity of [place] 12+ YRS 00:00:00 [place] [facility] V[facility]INE [facility] SARS-COV-2 COVID-19 2021-02-08 Completed Unive rsity of MODER[place] 12+ YRS 00:00:00 [place] [facility] VACCINE [facility] SARS-COV-2 COVID-19 2021-02-08 Completed Unive rsity of [place]ER[place] 12+ YRS 00:00:00 [place] [facility] VACCINE [facility] SARS-COV-2 COVID-19 2021-02-08 Completed Unive rsity of [place] 12+ YRS 00:00:00 [place] [facility] VACCINE [facility] SARS-COV-2 COVID-19 2021-02-08 Completed Unive rsity of [place] 12+ YRS 00:00:00 [place] [facility] VACCINE [facility] SARS-COV-2 COVID-19 2021-02-08 Completed Unive rsity of [place] 12+ YRS 00:00:00 [place] [facility] VACCINE [facility] SARS-COV-2 COVID-19 2021-02-08 Completed Unive rsity of [place] 12+ YRS 00:00:00 [place] [facility] VACCINE [facility] SARS-COV-2 COVID-19 2021-02-08 Completed Unive rsity of [place] 12+ YRS 00:00:00 [place] [facility] VACCINE [facility] SARS-COV-2 COVID-19 2021-02-08 Completed Unive rsity of [place]ER[place] 12+ YRS 00:00:00 [place] [facility] VACCINE [facility] SARS-COV-2 COVID-19 2021-02-08 Completed Unive rsity of MODER[place] 12+ YRS 00:00:00 [place] [facility] VACCINE [facility] SARS-COV-2 COVID-19 2021-02-08 Completed Unive rsity of MODERNA 12+ YRS 00:00:00 [facility] ical VACCINE Branch Vital Signs Vital Name Observation Time Observation Value Comments Source Heart rate 2023-04-21 21:10:00 52 /min Univers[facility] ty [facility] Respiratory rate 2023-04-21 21:10:00 18 /min Univ ersity of [facility] Oxygen saturation in 2023-04-21 21:10:00 98 /min University of Arterial blood by [facility] Pulse oximetry Branch Systolic blood 2023-04-21 21:00:00 117 mm[Hg] Univer sity of pressure [facility] Diastolic blood 2023-04-21 21:00:00 84 mm[Hg] Unive rsity of pressure [facility] Body temperature 2023-04-21 19:11:00 36.72 Alva Univ ersity of [facility] Body height 2023-04-21 19:11:00 157.5 cm [facility] Body weight 2023-04-21 19:11:00 79.379 kg [facility] BMI 2023-04-21 19:11:00 32.01 kg/m2 [facility] Systolic blood 2023-04-02 02:00:00 123 mm[Hg] Univer sity of pressure [facility] Diastolic blood 2023-04-02 02:00:00 78 mm[Hg] Unive rsity of pressure [facility] Heart rate 2023-04-02 02:00:00 58 /min [facility] Respiratory rate 2023-04-02 02:00:00 25 /min Univ ersity of [facility] Oxygen saturation in 2023-04-02 02:00:00 99 /min University of Arterial blood by [place] [employer] [facility] Pulse oximetry Branch Body temperature 2023-04-01 23:46:00 36.89 Alva Univ ers[facility] [place] [facility] Body height 2023-04-01 23:46:00 157.5 cm [facility] [place] [facility] Body weight 2023-04-01 23:46:00 72.576 kg [facility] [place] [facility] BMI 2023-04-01 23:46:00 29.26 kg/m2 [facility] [place] [facility] Systolic blood 2023-03-28 13:01:00 106 mm[Hg] Univer sity of pressure [place] [facility] Diastolic blood 2023-03-28 13:01:00 74 mm[Hg] Unive rsity of pressure [place] [facility] Respiratory rate 2023-03-28 13:01:00 20 /min Univ ersity [facility] [place] [facility] Oxygen saturation in 2023-03-28 13:01:00 95 /min University of Arterial blood by [facility] Pulse oximetry Branch Body weight 2023-03-28 12:00:00 77.565 kg [facility] [place] [facility] BMI 2023-03-28 12:00:00 31.28 kg/m2 [facility] [place] [facility] Systolic blood 2023-03-28 13:00:00 106 mm[Hg] Univer sity of pressure [place] [facility] Diastolic blood 2023-03-28 13:00:00 74 mm[Hg] Unive rsity of pressure [place] [facility] Respiratory rate 2023-03-28 13:00:00 18 /min Univ ersity [facility] [place] [facility] Oxygen saturation in 2023-03-28 13:00:00 98 /min University of Arterial blood by [facility] Pulse oximetry Branch Body weight 2023-03-28 12:00:00 77.565 kg [facility] [place] [facility] BMI 2023-03-28 12:00:00 31.28 kg/m2 [facility] [place] [facility] Systolic blood 2023-02-23 15:05:00 123 mm[Hg] Univer sity of pressure [place] [facility] Diastolic blood 2023-02-23 15:05:00 72 mm[Hg] Unive rsity of pressure [place] [facility] Heart rate 2023-02-23 15:05:00 63 /min [facility] [place] [facility] Body temperature 2023-02-23 15:05:00 36.56 Alva Univ ersity [facility] [place] [facility] Body height 2023-02-23 15:05:00 157.5 cm [facility] [place] [facility] Body weight 2023-02-23 15:05:00 77.656 kg [facility] [place] [facility] BMI 2023-02-23 15:05:00 31.31 kg/m2 [facility] [place] [facility] Oxygen saturation in 2023-02-23 15:05:00 99 /min University of Arterial blood by [facility] Pulse oximetry Branch Systolic blood 2023-01-24 03:30:00 132 mm[Hg] Univer sity of pressure [place] [facility] Diastolic blood 2023-01-24 03:30:00 95 mm[Hg] Unive rsity of pressure [place] [facility] Heart rate 2023-01-24 03:30:00 64 /min [facility] [place] [facility] Respiratory rate 2023-01-24 03:30:00 16 /min Univ ersity [facility] [place] [facility] Oxygen saturation in 2023-01-24 03:30:00 97 /min University of Arterial blood by [facility] Pulse oximetry Branch Body temperature 2023-01-24 01:06:00 37 Alva Univ ers[facility] [place] [facility] Body height 2023-01-24 01:06:00 157.5 cm [facility] [place] [facility] Body weight 2023-01-24 01:06:00 74.844 kg [facility] [place] [facility] BMI 2023-01-24 01:06:00 30.18 kg/m2 [facility] [place] [facility] Systolic blood 2023-01-09 14:35:00 124 mm[Hg] Univer sity of pressure [place] [facility] Diastolic blood 2023-01-09 14:35:00 76 mm[Hg] Unive rsity of pressure [place] [facility] Heart rate 2023-01-09 14:35:00 88 /min [facility] [place] [facility] Respiratory rate 2023-01-09 14:35:00 20 /min Univ ersity [facility] [place] [facility] Body height 2023-01-09 14:35:00 157.5 cm [facility] [place] [facility] Body weight 2023-01-09 14:35:00 75.751 kg [facility] [place] [facility] BMI 2023-01-09 14:35:00 30.54 kg/m2 [facility] [place] [facility] Oxygen saturation in 2023-01-09 14:35:00 95 /min [facility] Arterial blood by [place] [facility] Pulse oximetry Branch Systolic blood 2023-01-09 13:44:00 124 mm[Hg] Univer sity of pressure [place] [facility] Diastolic blood 2023-01-09 13:44:00 76 mm[Hg] Unive rsity of pressure [place] [facility] Heart rate 2023-01-09 13:44:00 88 /min [facility] [place] [facility] Respiratory rate 2023-01-09 13:44:00 20 /min Univ ers[facility] [place] [facility] Body height 2023-01-09 13:44:00 157.5 cm [facility] [place] [facility] Body weight 2023-01-09 13:44:00 75.932 kg [facility] [place] [facility] BMI 2023-01-09 13:44:00 30.62 kg/m2 [facility] [place] [facility] Oxygen saturation in 2023-01-09 13:44:00 95 /min [facility] Arterial blood by [place] [facility] Pulse oximetry Branch Systolic blood 2022-11-22 18:58:00 123 mm[Hg] Univer sity of pressure [place] [facility] Diastolic blood 2022-11-22 18:58:00 78 mm[Hg] Unive rsity of pressure [place] [facility] Heart rate 2022-11-22 18:58:00 70 /min [facility] [place] [facility] Body height 2022-11-22 18:58:00 157.5 cm [facility] [place] [facility] Body weight 2022-11-22 18:58:00 75.297 kg [facility] [place] [facility] BMI 2022-11-22 18:58:00 30.36 kg/m2 [facility] [place] [facility] Oxygen saturation in 2022-11-22 18:58:00 98 /min [facility] Arterial blood by [place] [facility] Pulse oximetry Branch Systolic blood 2022-09-30 20:53:00 119 mm[Hg] Univer sity of pressure [place] [facility] Diastolic blood 2022-09-30 20:53:00 77 mm[Hg] Unive rsity of pressure [place] [facility] Heart rate 2022-09-30 20:53:00 93 /min [facility] [place] [facility] Body temperature 2022-09-30 20:53:00 36.72 Alva Univ ers[facility] [place] [facility] Respiratory rate 2022-09-30 20:53:00 18 /min Univ ers[facility] [place] [facility] Body height 2022-09-30 20:53:00 157.5 cm [facility] [place] [facility] Body weight 2022-09-30 20:53:00 70.761 kg [facility] [place] [facility] BMI 2022-09-30 20:53:00 28.53 kg/m2 [facility] [place] [facility] Systolic blood 2022-09-09 15:18:00 110 mm[Hg] Univer sity of pressure [place] [facility] Diastolic blood 2022-09-09 15:18:00 74 mm[Hg] Unive rsity of pressure [facility] Heart rate 2022-09-09 15:18:00 83 /min [facility] [place] [facility] Respiratory rate 2022-09-09 15:18:00 18 /min Univ [facility] [place] [facility] Body height 2022-09-09 15:18:00 157.5 cm [facility] [place] [facility] Body weight 2022-09-09 15:18:00 71.668 kg [facility] [place] [facility] BMI 2022-09-09 15:18:00 28.90 kg/m2 [facility] [place] [facility] Oxygen saturation in 2022-09-09 15:18:00 98 /min [facility] Arterial blood by [facility] Pulse oximetry Branch Systolic blood 2022-06-11 16:27:00 136 mm[Hg] Univer sity of pressure [place] [facility] Diastolic blood 2022-06-11 16:27:00 85 mm[Hg] Unive rsity of pressure [place] [facility] Heart rate 2022-06-11 16:27:00 71 /min [facility] [place] [facility] Body temperature 2022-06-11 16:27:00 36.67 Alva Univ ersity of [facility] Respiratory rate 2022-06-11 16:27:00 14 /min Univ ersity of [facility] Body height 2022-06-11 16:27:00 157.5 cm [facility] [place] [facility] Body weight 2022-06-11 16:27:00 73.483 kg [facility] [place] [facility] BMI 2022-06-11 16:27:00 29.63 kg/m2 [facility] [place] [facility] Oxygen saturation in 2022-06-11 16:27:00 99 /min University of Arterial blood by [facility] Pulse oximetry Branch Procedures Procedure Date / Time Performing Clinician Source Performed EKG-12 LEAD 2023-04-21 Sarah Osorio [facility] 21:17:16 Medical Branch TROPONIN I 2023-04-21 Sarah Osorio [facility] 19:22:00 Medical Branch COMP. METABOLIC PANEL 2023-04-21 Sarah Osorio [facility] ([id number]) 19:22:00 Medical Branch CBC WITH DIFF 2023-04-21 Sarah Osorio [facility] 19:22:00 Medical Branch N-TERMINAL PRO-BNP 2023-04-21 Sarah Osorio [facility] 19:22:00 Medical Branch CONSENT/REFUSAL FOR 2023-04-21 Doctor Unassigned, No [facility] DIAGNOSIS AND TREATMENT 19:06:41 Name [facility] XR CHEST 1 VW 2023-04-02 Beverley Casey [facility] 00:31:38 Medical Branch TROPONIN I 2023-04-02 Lux [facility] 00:02:00 Medical Branch COMP. METABOLIC PANEL 2023-04-02 Beverley Casey [facility] ([id number]) 00:02:00 Medical Branch CBC WITH DIFF 2023-04-02 Beverley Casey [facility] 00:02:00 Medical Branch PROTHROMBIN TIME / INR 2023-04-02 Beverley Casey [facility] 00:02:00 Medical Branch ACTIVATED PARTIAL THRMPLAS 2023-04-02 [facility]:02[facility]00 Medical Branch N-TERMINAL PRO-BNP 2023-04-02 Beverley Casey [facility] 00:02:00 Medical Branch ELECTROPHYSIOLOGY PROCEDURE 2023-03-28 [facility] 12[facility]10 [facility] Branch ELECTROPHYSIOLOGY PROCEDURE 2023-03-28 [facility] 12:53:10 [facility] EXTERNAL PROVIDER - ADC 2023-03-13 Doctor Unassigned, No [facility] 05:01:00 Name Medical Branch LIPASE 2023-01-24 Rony [facility] 01:54:00 Medical Branch COMP. METABOLIC PANEL 2023-01-24 [id number] 01:54:00 Medical Branch CBC WITH DIFF 2023-01-24 Rony [facility] 01:54:00 Medical Branch URINALYSIS 2023-01-24 Rony [facility] 01:54:00 Medical Branch CONSENT/REFUSAL FOR 2023-01-24 Doctor Unassigned, No [facility] DIAGNOSIS AND TREATMENT 01:00:[address] ANGIOGRAPHY CORONARIES 2023-01-04 Mag[facility] WITH CARDIAC CALCIUM SCORE 16:22:00 Medic nd Branch HB CREATININE SERUM/BLOOD 2023-01-04 [facility] 14:28:00 Medical Branch HB ECG ROUTINE & RHYTHM 2022-11-22 Magalie Gtz [facility] STRIP 19:10:40 Medical Branch REFERRAL- REQUEST/RESPONSE 2022-11-22 Doctor Unassigned, No [facility] 06:01:00 Name Medical Branch DME/SUPPLY JUSTIFICATION 2022-11-04 Doctor [facility], No [facility] 06:01:00 Name Medical Branch NOTICE OF PRIVACY PRACTICES 2022-10-13 Doctor Unassigned, N o [facility] 15:12:26 Name Medical Branch CONSENT/REFUSAL FOR 2022-10-13 Doctor Unassigned, No [facility] DIAGNOSIS AND TREATMENT 15:12:07 Name Medical Branch ASSIGNMENT OF BENEFITS 2022-10-13 Doctor Unassigned, No [facility] 15:11:46 [facility] Medical Branch MEDICAL RELEASE/CLEARANCE 2022-10-04 Doctor Unassigned, No [facility] FORMS 06:01:00 Name Medical Branch POCT URINALYSIS W/O 2022-09-30 Donaldo [facility] [place] SPECIFIC GRAVITY 20:50:00 Medical Branch FLU VACC (), 6 2022-09-09 [facility], .5ML, IM, QUAD 15:23:21 Medica l Branch (FLUCELVAX) ASSIGNMENT OF BENEFITS 2022-09-09 Doctor Unassigned, No [facility] [place] 14:48:49 Name Medical Branch CONSENT/REFUSAL FOR 2022-06-11 Doctor Unassigned, No Univer [facility] DIAGNOSIS AND TREATMENT 16:25:37 Name [facility] Encounters Start End Encounter Admission Attending Care Care Encounter Source Date/Time Date/Time Type Type Clinicians Facility Department ID 2022-10-03 [facility] [id number] Univers 08:16:47 JOANN ity [facility] 2021-08-23 Emergency [facility] [id number] Univers 07:20:16 ity [facility] 2021-08-23 Emergency [facility] [id number] Univers 06:43:15 ity [facility] 2023-08-24 2023-08-24 Outpatient R JASMEET STEWART [facility] [id number] Univers 09:00:00 09:00:00 JASMEET STEWART ity [facility] 2023-04-21 2023-04-21 Emergency X [facility] ERT [id number] Univers 14:17:00 16:23:00 SARAH [facility] [place] [facility] 2023-04-21 2023-04-21 [facility] [id number] Univers 14:17:00 16:23:00 Sarah ARREDONDO [id number] ity [facility] [id number] [facility] [id number] [facility] 084 Branch 2023-04-13 2023-04-13 [place] [facility] [id number] Univers 00:00:00 00:00:00 Magalie ARREDONDO [id number] ity [facility] [id number] [facility] [id number] Sd dical NAL 059 Branch [facility] 2023-04-11 2023-04-11 Outpatient R JASMEET STEWART [facility] [id number] Univers 08:32:10 23:59:00 JASMEET STEWART ity of [facility] 2023-04-11 2023-04-11 Hospital Avtar GAYATRI [id number] Univers 08:32:10 23:59:00 Encounter Cee FAULKNER [id number] ity of [facility] [id number] Ramon as [id number] [place] [address] [place] 2023-04-05 2023-04-05 Telephone [facility] [id number] [facility] 00:00:00 00:00:00 Sendil Artur ARREDONDO [id number] [id number] [facility] [id number] [place] [id number] [facility] 2023-04-01 2023-04-01 Emergency X [facility] ERT [id number] Univers 18:49:00 21:51:00 FOLUSHO ity [facility] 2023-04-01 2023-04-01 Emergency [facility] [id number] Univers 18:49:00 21:51:00 Beverley ARREDONDO [id number] ity [facility] [id number] [place] [id number] [place] [address] [place] 2023-03-28 2023-03-28 Outpatient R JASMEET STEWART [facility] [id number] Univers 06:21:00 09:15:00 JASMEET STEWART ity of [facility] 2023-03-28 2023-03-28 [facility] Avtar GAYATRI [id number] Univers 06:21:00 09:15:00 Encounter Cee FAULKNER [id number] ity of [facility] [id number] [place] [id number] [address] 2023-03-28 2023-03-28 Surgery GAYATRI Stewart [id number] Univers 07:15:00 08:00:00 Chockcharlene JACOBSY [id number] ity of [facility] [id number] [place] as [id number] [facility] [address] [place] 2023-03-13 2023-03-13 Orders Doctor SHARI [id number] [id number] Univers 00:00:00 00:00:00 Only Unassigned, LUCIE [id number] ity of [facility] 4.2.7.2.686 Ramon as [id number] [facility] [address] [place] 2023-02-23 2023-02-23 Outpatient R ANA PAULA [facility] [id number] Univers 10:00:00 10:58:43 RAJAN [facility] 2023-02-23 2023-02-23 Office Jasmeet Stewart [facility] 1. 2.840.114 [id number] Univers 10:00:00 10:58:43 Visit Rajan Goss [id number] [place] [id number] Sd dicnd NAL 059 [facility] 2023-01-28 2023-01-28 Refill [facility] [id number] Univers 00:00:00 00:00:00 Shiwan [place] [id number] i ty [place] [id number] Sd dicnd NAL 085 [facility] 2023-01-25 2023-01-25 Telephone [facility] [id number] Univers 00:00:00 00:00:00 Shiwan [place] [id number] i ty [place] [id number] Sd dicnd NAL [address] [place] [address] 2023-01-23 2023-01-23 Emergency X [facility] ERT [id number] Univers 20:09:00 22:44:00 RAUL ity [facility] 2023-01-23 2023-01-23 Emergency [facility] [id number] Univers 20:09:00 22:44:00 Raul ARREDONDO [id number] i ty of [place]2.[place] [id number] [facility] [address] [place] 2023-01-19 2023-01-19 Telephone [facility] [id number] Univers 00:00:00 00:00:00 Lucia [place] [id number] i ty of [place] [id number] Sd dical NAL 085 [facility] 2023-01-09 2023-01-09 Office [facility] 1.2.840.114 [id number] Univers 10:00:00 10:11:13 Visit Lucia ARREDONDO [id number] i ty [facility] [id number] [id number] Sd dical NAL 085 [facility] 2023-01-09 2023-01-09 [facility] [id number] Univers 09:00:00 09:30:44 SENDIL ity [facility] 2023-01-09 2023-01-09 Office [facility] 1.2.840.114 [id number] Univers 09:00:00 09:30:44 Visit Sendtre ARREDONDO [id number] ity of [facility] 4.2.[place].2.[place] [id number] Sd dical NAL 059 [facility] 2023-01-04 2023-01-04 Outpatient [facility] [id number] Univers 09:21:10 23:59:00 SENDIL ity [facility] 2023-01-04 2023-01-04 [facility] [id number] Univers 09:21:10 23:59:00 Encounter Sendtre ARREDONDO [id number] ity of [facility] [id number] [id number] [facility] 801 Branch 2022-12-28 2022-12-28 Outpatient [facility] [id number] Univers 00:00:00 00:00:00 SENDIL ity [facility] 2022-12-26 2022-12-26 Outpatient LISA Owens [id number] [facility] 12:00:00 12:00:00 Jenise 11 [facility] 2022-12-26 2022-12-26 Telephone [facility] [id number] Univers 00:00:00 00:00:00 Sendil Artur ARREDONDO [id number] ity [facility] 4.2.[place].2.[place] [id number] Sd dicnd NAL [address] [place] [address] 2022-12-23 2022-12-23 Telephone [facility] [id number] Univers 00:00:00 00:00:00 Sendil Artur ARREDONDO [id number] ity of [facility] [id number] [id number] [address] 2022-12-21 2022-12-21 Outpatient [facility] [id number] Univers 12:12:50 12:12:50 SENDIL ity [facility] 2022-11-22 2022-11-22 Outpatient [facility] [id number] Univers 13:30:00 13:44:44 SENDIL ity [facility] 2022-11-22 2022-11-22 Office [facility] 1.2.840.114 [id number] Univers 13:30:00 13:44:44 Visit Sendil Artur ARREDONDO [id number] ity [facility] [id number] [id number] [address] 2022-11-22 2022-11-22 Orders Doctor MCCARTHY 1.2.840.114 [id number] Univers 00:00:00 00:00:00 Only Unassigned, LUCIE 350.1.13.10 ity of [facility] 4.2.7.2.686 Ramon as [phone] [facility] [address] 2022-11-11 2022-11-11 Travel 1.2.840.1 1.2.627.099 [id number] Univers 00:00:00 00:00:00 05155.1.1 350.1.13.41 ity of 3.412.2.7 [place].698 [place]3.8[place]24 084.8 .8 [facility] 2022-11-04 2022-11-04 Orders Doctor SHARI 1.2.840.114 [id number] Univers 00:00:00 00:00:00 Only Unassigned, LUCIE 350.1.13.10 ity of [facility] 4.2.7.2.686 [place] [phone] [facility] [address] 2022-10-21 2022-10-21 Outpatient [facility] [id number] Univers 11:00:00 11:00:00 JOANN ity of [facility] 2022-10-13 2022-10-13 Outpatient R LUCIA HARMON [facility] 10 [id number] Univers 09:11:01 23:59:00 LUCIA HARMON i ty [facility] 2022-10-13 2022-10-13 [facility] 1.2.840.114 [id number] Univers 09:11:01 23:59:00 Glenys ARREDONDO 350.1.13.10 ity of [facility] 4.2.7.2.686 [place] [facility] [id number] [facility] [address] 2022-10-07 2022-10-07 Outpatient R LUCIA HARMON [facility] 10 [id number] Univers 00:00:00 00:00:00 LUCIA HARMON i ty of [facility] 2022-10-07 2022-10-07 Telephone [facility] 1.2.840.114 [id number] Univers 00:00:00 00:00:00 [facility] 350.1.13.10 it y of [place].7.2.686 [place] [phone] [place] [address] [place] OFF[facility] 2022-10-04 2022-10-04 Refill [facility] 1.2.840.114 [id number] Univers 00:00:00 00:00:00 Joann ARREDONDO 350.1.13.10 i ty of [place].7.2.[place] [phone] [address] 2022-10-04 2022-10-04 Telephone Alfonso [facility] 1.2.085.894 [id number] Univers 00:00:00 00:00:00 Lucia ARREDONDO 350.1.13.10 i ty of [place].7.2.[place] [phone] [address] 2022-10-04 2022-10-04 Orders Doctor SHARI 1.2.840.114 [id number] Univers 00:00:00 00:00:00 Only Unassigned, LUCIE 350.1.13.10 ity of [facility] 4.2.7.2.686 [place] [phone] [address] 2022-10-03 2022-10-03 Outpatient R LUCIA HARMON [facility] 10 [id number] Univers 00:00:00 00:00:00 LUCIA HARMON i ty of [facility] 2022-09-30 2022-09-30 Outpatient [facility] [id number] Univers 15:00:00 15:29:59 JOANN itnaveen of [facility] 2022-09-30 2022-09-30 Office [facility] 1.2.840.114 [id number] Univers 15:00:00 15:29:59 Visit Joann ARREDONDO 350.1.13.10 i ty of [facility] 4.2.7.2.[place] [phone] [address] 2022-09-30 2022-09-30 Prep For [facility] 1.2.738.414 [id number] Univers 00:00:00 00:00:00 Surgery Joann ARREDONDO 350.1.13.10 i ty of [facility] 4.2.7.2.[place] [phone] [facility] 098 [facility] 2022-09-16 2022-09-16 [facility] 1.2.841.721 [id number] Univers 00:00:00 00:00:00 Lucia ARREDONDO 350.1.13.10 i ty of [place].7.2.[place] [phone] [address] 2022-09-12 2022-09-12 [facility] 1.2.175.714 [id number] Univers 00:00:00 00:00:00 Lucia ARREDONDO 350.1.13.10 i ty of [place] 4.2.7.2.686 [place] [phone] [address] 2022-09-09 2022-09-09 Outpatient R LUCIA HARMON [facility] 10 [id number] Univers 09:30:00 09:57:06 LUCIA HARMON i ty of [facility] 2022-09-09 2022-09-09 Office [facility] 1.2.840.114 [id number] Univers 09:30:00 09:57:06 Visit Lucia ARREDONDO 350.1.13.10 i ty of [place] 4.2.7.2.686 [place] [phone] [address] 2022-09-09 2022-09-09 Outpatient R LUCIA HARMON [facility] 10 [id number] Univers 09:30:00 09:30:00 LUCIA HARMON i ty of [facility] 2022-09-09 2022-09-09 Orders Doctor MCCARTHY 1.2.840.114 [id number] Univers 00:00:00 00:00:00 Only Unassigned, LUCIE 350.1.13.10 ity of [facility] 4.2.7.2.686 [place] [phone] [address] 2022-09-02 2022-09-02 Outpatient R DONALDO [facility] [id number] Univers 10:30:00 10:30:00 JOANN leung [facility] 2022-08-24 2022-08-24 Emergency ER GUNJAN, [facility] [id number] [place] 12:35:00 14:00:00 BURKE -[id number] [facility] 2022-06-11 2022-06-11 Emergency X [facility] ERT [id number] Univers 11:28:00 12:09:00 ESTELLE ity [facility] 2022-06-11 2022-06-11 Emergency [facility] 1.2.289.128 [id number] Univers 11:28:00 12:09:00 Estelle ARREDONDO 350.1.13.10 i ty of [place].2.7.2.686 [place] [phone] [address] 2022-05-10 2022-05-10 Telephone [facility] 1.2.262.677 [id number] Univers 00:00:00 00:00:00 Sendtre ARREDONDO 350.1.13.10 ity of [place] 4.2.7.2.[place] [phone] [address] 2022-05-10 2022-05-10 Telephone [facility] 1.2.922.566 [id number] Univers 00:00:00 00:00:00 Sendtre ARREDONDO 350.1.13.10 ity of [place] 4.2.7.2.686 [place] [id number] Sd dicnd NAL [address] [place] [address] 2022-04-20 2022-04-20 Patient Harmon, [facility] 1.2.591.718 [id number] Univers 00:00:00 00:00:00 Secure [facility] 350.1.13.10 ity of [facility] 4.2.7.2.686 [place] [phone] [address] 2022-04-19 2022-04-19 Telephone [facility] 1.2.480.212 [id number] Univers 00:00:00 00:00:00 Marlena ARREDONDO 350.1.13.10 i ty of [place] 4.2.7.2.686 [place] [phone] Sd dical NAL 296 [facility] 2022-04-07 2022-04-07 Electrical Integrator Testing, [facility] Pulmonary Func tion UNIVERSIT 1.2.840.114 [id number] Univers 09:30:00 09:45:06 Visit Barber Yao [facility] 350.1.13. 10 ity of [facility] 4.2.7.2.686 [place] [id number] [facility] [address] [place] 2022-04-07 2022-04-07 Outpatient R MAXIMILIAN [facility] [id number] [facility] 09:30:00 09:30:00 BARBER ity of [facility] 2022-04-07 2022-04-07 Orders Doctor SHARI 1.2.840.114 [id number] Univers 00:00:00 00:00:00 Only Unassigned, LUCIE 350.1.13.10 ity of [facility] 4.2.7.2.686 Raomn as [phone] [facility] [address] [place] 2022-03-31 2022-03-31 Telephone [facility] 1.2.914.973 [id number] [facility] 00:00:00 00:00:00 Marlena ARREDONDO 350.1.13.10 i ty of [place] 4.2.7.2.686 [place] [phone] Sd dical NAL 296 [facility] 2022-03-10 2022-03-10 Telephone [facility] 1.2.840.114 [id number] Univers 00:00:00 00:00:00 Joann ARREDONDO 350.1.13.10 i ty of [place] 4.2.7.2.686 [place] [phone] Sd dical NAL 098 [facility] 2022-03-04 2022-03-04 Office [facility] 1.2.840.114 [id number] Univers 10:30:00 11:00:00 Visit Lucia ARREDONDO 350.1.13.10 i ty of [place] 4.2.7.2.686 [place] [phone] Sd dical NAL 085 [facility] 2022-03-04 2022-03-04 Outpatient R LUCIA HARMON [facility] 10 [id number] Univers 10:30:00 10:30:00 LUCIA HARMON i ty of [facility] 2022-03-04 2022-03-04 Outpatient R LUCIA HARMON [facility] 10 [id number] Univers 10:30:00 10:30:00 LUCIA HARMON i ty of [facility] 2022-02-28 2022-02-28 Outpatient R [facility] [id number] Univers 15:00:00 15:00:00 JOANN leung [facility] 2022-02-28 2022-02-28 Office [facility] 1.2.840.114 [id number] Univers 15:00:00 15:00:00 Visit Joann ARREDONDO 350.1.13.10 i ty of [facility] 4.2.7.2.686 [place] [phone] Sd dicquan NAL [address] [place] [address] 2022-02-28 2022-02-28 Outpatient R [facility] [id number] Univers 15:00:00 11:26:55 JOANN leung [facility] 2022-02-02 2022-02-02 Telephone [facility] 1.2.840.114 [id number] Univers 00:00:00 00:00:00 Joann ARREDONDO 350.1.13.10 i ty of [facility] 4.2.7.2.686 [place] [phone] Sd dical NAL [address] [place] [address] 2022-01-31 2022-01-31 Office [facility] 1.2.840.114 [id number] Univers 15:00:00 15:11:55 Visit Joann ARREDONDO 350.1.13.10 i ty of [place] 4.2.7.2.686 [place] [phone] Sd dical NAL [address] [place] [address] 2022-01-31 2022-01-31 Outpatient R [facility] [id number] Univers 15:00:00 15:11:55 JOANN leung [facility] 2022-01-31 2022-01-31 [facility] [id number] Univers 15:00:00 15:00:00 JOANN ity [facility] 2022-01-31 2022-01-31 Orders Doctor SHARI 1.2.840.114 [id number] Univers 00:00:00 00:00:00 Only Unassigned, LUCIE 350.1.13.10 ity of [facility] 4.2.7.2.686 Ramon as [phone] [facility] [address] 2021-12-16 2021-12-16 Outpatient R LYNDON [facility] [id number] Univers 09:30:00 09:30:00 BIBIANA [facility] 2021-10-29 2021-10-29 Outpatient R LUCIA HARMON [facility] 10 [id number] Univers 13:30:00 13:30:00 LUCIA HARMON i ty [facility] 2021-10-27 2021-10-27 Emergency X [facility] ERT [id number] Univers 10:06:00 10:56:00 KWAME [facility] 2021-10-27 2021-10-27 Emergency [facility] 1.2.489.871 [id number] Univers 10:06:00 10:56:00 Kwame ARREDONDO 350.1.13.10 i ty [facility] 4.2.7.2.686 [place] [facility] [id number] [facility] [address] 2021-09-29 2021-09-29 Orders Doctor SHARI 1.2.840.114 [id number] Univers 00:00:00 00:00:00 Only Unassigned, LUCIE 350.1.13.10 ity of [facility] 4.2.7.2.686 Ramon as [phone] [facility] [address] 2021-09-20 2021-09-20 Outpatient R TRESA [facility] [id number] Univers 11:30:00 11:30:00 SENDIL [facility] 2021-08-06 2021-08-06 Telephone Alfonso [facility] 1.2.064.226 [id number] Univers 00:00:00 00:00:00 Lucia Arredondo 350.1.13.10 i ty of [place] 4.2.7.2.686 [place] [phone] Sd dicnd nal 085 [facility] 2021-07-23 2021-07-23 [facility] 1.2.094.685 [id number] Univers 00:00:00 00:00:00 Sendil KristyKevin Arredondo 350.1.13.10 ity of [place] 4.2.7.2.686 [place] Profess[place] [phone] [facility] nal 059 [facility] 2021 2021 [facility] 1.2.840.114 [id number] Univers 11:58:59 23:59:00 Encounter Magalie Arredondo 350.1.13.10 ity of [place] 4.2.7.2.[place] Profess[place] [phone] [facility] 846 [facility] 2021 2021 [facility] [id number] Univers 11:00:00 11:21:58 SENDIL ity [facility] 2021 2021 Office [facility] 1.2.840.114 [id number] Univers 11:00:00 11:21:58 Visit Sendtre ARREDONDO 350.1.13.10 ity of [facility] 4.2.7.2.686 [place] [phone] [facility] 059 [facility] 2021 2021 Office [facility] 1.2.840.114 [id number] Univers 10:31:38 11:21:58 Visit Sendtre Arredondo 350.1.13.10 ity of [place] 4.2.7.2.686 [place] [phone] [facility] nal 059 [facility] 2021 2021 Outpatient [facility] [id number] Univers 11:00:00 11:00:00 SENDIL ity [facility] 2021-07-12 2021-07-12 Hospital Tresa, [facility] 1.2.840.114 [id number] Univers 09:37:03 23:59:00 Encounter Magalie Arredondo 350.1.13.10 ity of [place] 4.2.7.2.[place] [phone] Sd dical [facility] 843 [facility] 2021-07-12 2021-07-12 Outpatient [facility] [id number] Univers 10:00:00 10:00:00 SENDIL ity [facility] 2021-07-09 2021-07-09 Electrical Integrator Therapist, [facility] Respiratory [facility] 1.2.840.114 [id number] Univers 11:32:19 13:02:19 Visit Barber Yao 350.1.13. 10 ity of [place] 4.2.7.2.686 [facility] [place] [phone] [facility] [address] 2021-07-09 2021-07-09 Outpatient R MAXIMILIAN [facility] [id number] Univers 12:30:00 12:30:00 BARBER itnaveen [facility] 2021-07-09 2021-07-09 Laboratory Only, [facility] Test [facility] 1.2.840. 114 [id number] Univers 07:51:32 08:06:32 Only Corky Jackson 350.1.13.10 ity of [place] 4.2.7.2.686 [facility] [place] [phone] [facility] [address] 2021-07-07 2021-07-07 Outpatient R MAREN SHIRLEY [facility] [id number] Univers 11:30:00 11:30:00 MAREN SHIRLEY ity [facility] 2021-07-07 2021-07-07 Electrical Integrator Tech, [facility] Sleep Lab [facility] 1.2 .840.114 [id number] Univers 10:52:07 11:07:07 Visit Maren Shirley 350.1.13. 10 ity of [place] 4.2.7.2.686 [place] [phone] [facility] [address] 2021-07-05 2021-07-05 Outpatient R [facility] [id number] Univers 09:15:00 09:15:00 ity of [facility] 2021-07-05 2021-07-05 Laboratory Only, Adc Test [facility] 1.2.840. 114 [id number] Univers 07:42:38 07:57:38 Only Lucia Harmon 350.1.13.10 ity [facility] 4.2.7.2.686 [facility] [phone] [address] 2021-06-29 2021-06-29 Outpatient [facility] [id number] Univers 10:00:00 10:00:00 SENDIL ity [facility] 2021-06-17 2021-06-17 Outpatient R MAREN SHIRLEY [facility] [id number] Univers 09:00:00 09:00:00 [facility] 2021-06-17 2021-06-17 [facility] [id number] Univers 08:30:00 08:30:00 SENDIL [facility] 2021-06-17 2021-06-17 [facility] 1.2.601.802 [id number] Univers 00:00:00 00:00:00 Sendil Artur Arredondo 350.1.13.10 ity [facility] 4.2.7.2.686 [facility] [phone] Sd dical critical access hospital 059 [facility] 2021-06-14 2021-06-14 Outpatient R [facility] [id number] Univers 13:00:00 13:00:00 ity of [facility] 2021-06-14 2021-06-14 Laboratory Only, Adc Test [facility] 1.2.840. 114 [id number] Univers 12:28:22 12:43:22 Only Maren Shirley 350.1.13. 10 ity of [place] 4.2.7.2.686 [facility] [phone] [facility] [address] 2021-06-14 2021-06-14 Orders Doctor MCCARTHY 1.2.840.114 [id number] Univers 00:00:00 00:00:00 Only Unassigned, LUCIE 350.1.13.10 ity of [facility] 4.2.7.2.686 Ramon as [phone] [address] 2021-06-11 2021-06-11 [facility]phone [facility] 1.2.484.869 [id number] Univers 00:00:00 00:00:00 Lucia Arredondo 350.1.13.10 i ty of [place] 4.2.7.2.[place] [phone] Sd dical nal 085 [facility] 2021-06-11 2021-06-11 [facility]phone [facility] 1.2.327.660 [id number] Univers 00:00:00 00:00:00 Magalie Arredondo 350.1.13.10 ity of [place] 4.2.7.2.[place] [phone] Sd dical nal 059 [facility] 2021-06-10 2021-06-10 Office [facility] 1.2.840.114 [id number] Univers 09:37:02 10:07:02 Visit Lucia Arredondo 350.1.13.10 i ty of [place] 4.2.7.2.686 [place] [phone] Sd dicnd nal 085 [facility] 2021-06-10 2021-06-10 Outpatient R LUCIA HARMON [facility] 10 [id number] Univers 10:00:00 10:00:00 LUCIA HARMON i ty of [facility] 2021-06-01 2021-06-01 Orders Doctor MCCARTHY 1.2.840.114 [id number] Univers 00:00:00 00:00:00 Only Unassigned, LUCIE 350.1.13.10 ity of [facility] 4.2.7.2.686 Ramon as [phone] [address] 2021-05-17 2021-05-17 Hospital [facility] 1.2.840.114 [id number] Univers 08:17:59 23:59:00 Encounter Daisy Arredondo 350.1.13.10 ity of [place] 4.2.7.2.686 [place] [id number] [facility] [address] 2021-05-17 2021-05-17 Outpatient R ENIO [facility] [id number] Univers 00:00:00 00:00:00 BHARATIGRIFFIN xochitl o f [facility] 2021-05-14 2021-05-14 [facility]phone [facility] 1.2.630.207 [id number] Univers 00:00:00 00:00:00 Sendil Artur Arredondo 350.1.13.10 ity of [place] 4.2.7.2.[place] [phone] Sd dicnd nal [address] [place] [address] 2021-05-06 2021-05-06 Outpatient [facility] [id number] Univers 10:00:00 10:00:00 SENDIL ity of [facility] 2021-05-02 2021-05-03 Emergency Raul Uribe [facility] 1.2.840. 114 [id number] Univers 14:23:00 17:30:00 Andrew Kathleen 350.1.13.10 ity of [place] 4.2.7.2.686 [place] [id number] [facility] [address] 2021-04-28 2021-04-29 Emergency [facility] 1.2.495.077 [id number] Univers 22:05:00 01:08:00 Kwame Arredondo 350.1.13.10 i ty of [place] 4.2.7.2.686 [place] [phone] [facility] [address] 2021-04-22 2021-04-22 Office [facility] 1.2.840.114 [id number] Univers 08:40:15 09:46:18 Visit Sendtre Arredondo 350.1.13.10 ity of [place] 4.2.7.2.[place] [phone] Sd dical nal 9 [facility] 2021-04-22 2021-04-22 Outpatient [facility] [id number] Univers 09:00:00 09:00:00 SENDIL ity of [facility] 2021-04-22 2021-04-22 Orders Doctor MCCARTHY 1.2.840.114 [id number] Univers 00:00:00 00:00:00 Only Unassigned, LUCIE 350.1.13.10 ity of [facility] 4.2.7.2.686 Ramon as [phone] [address] 2021-04-22 2021-04-22 Orders Doctor SHARI Ernst.2.840.114 [id number] 00:00:00 00:00:00 Only Unassigned, LUCIE 350.1.13.10 [facility] 4.2.7.2.686 [id number] 2021-04-09 2021-04-09 Orders Doctor SHARI Mitchell2.840.114 [id number] Univers 00:00:00 00:00:00 Only Unassigned, LUCIE 350.1.13.10 ity of [facility] 4.2.7.2.686 Ramon as [phone] [address] 2021-04-09 2021-04-09 Orders Doctor SHARI Mitchell2.840.114 [id number] 00:00:00 00:00:00 Only Unassigned, LUCIE 350.1.13.10 [facility] 4.2.7.2.686 [id number] 2021-04-01 2021-04-01 Orders Doctor SHARI Ernst.2.840.114 [id number] Univers 00:00:00 00:00:00 Only Unassigned, LUCIE 350.1.13.10 ity of [facility] 4.2.7.2.686 Ramon as [id number] [address] 2021-04-01 2021-04-01 Orders Doctor SHARI Ernst.2.840.114 [id number] 00:00:00 00:00:00 Only Unassigned, LUCIE 350.1.13.10 [facility] 4.2.7.2.686 [id number] 009 2021-03-29 2021-03-29 Orders Doctor SHARI Mitchell2.840.114 [id number] Univers 00:00:00 00:00:00 Only Unassigned, LUCIE 350.1.13.10 ity of [facility] 4.2.7.2.686 Ramon as [phone] [facility] [address] 2021-03-29 2021-03-29 Orders Doctor SHARI 1.2.840.114 [id number] 00:00:00 00:00:00 Only Unassigned, LUCIE 350.1.13.10 [facility] 4.2.7.2.686 [id number] 009 2021-03-22 2021-03-22 Emergency Jo, [facility] 1.2.840.114 [id number] [facility] 12:21:00 15:40:00 Sarah Arredondo 350.1.13.10 ity of [place] 4.2.7.2.686 [facility] [phone] [address] 2021-03-22 2021-03-22 Emergency [facility] 1.2.840.114 [id number] 12:21:00 15:40:00 Sarah Arredondo 350.1.13.10 [place] 4.2.7.2.686 [place] [phone] [facility] 2021-03-22 2021-03-22 Emergency X [facility] ERT [id number] Univers 12:21:00 12:21:00 ity of [facility] 2021-03-22 2021-03-22 Orders Doctor MCCARTHY 1.2.840.114 [id number] 00:00:00 00:00:00 Only UnassignedLUCIE 350.1.13.10 [facility] 4.2.7.2.686 [id number] [facility] 2021-03-22 2021-03-22 Orders Doctor SHARI 1.2.840.114 [id number] Univers 00:00:00 00:00:00 Only Unassigned, LUCIE 350.1.13.10 ity of [facility] 4.2.7.2.686 Ramon as [phone] [address] Results Test Description Test Time Test Comments Results Result Comments Source TROPONIN I 2023-04-21 20:09:55 Test Item Value Reference Range Interpretation Comme nts TROPONIN I (test code = 8509497730) 0.003 ng/mL <=0.034 PAT (test code = PAT) Reference (Normal) Range (defined by the 99th percentile reference limit): <= 0.034 ng/mL Note: Cardiac troponin begins to rise 3-4 hours after the onset of ischemia. Repeat in 4-6 hours if the sample was drawn within 3-4 hours of the onset of the symptom and found normal. Diagnosis of myocardial injury is made with acute changes in cTn concentrations with at least one serial sample above the 99th percentile upper reference limit (URL), taken together with the patient's clinical presentation. Biotin has been reported to cause a negative bias, interpret results relative to patient's use of biotin. Lab Interpretation (test code = Normal 99474-2) [id number] 20:06:51 Test Item Value Reference Range Interpretation Comments NT-proBNP (test code = 147 pg/mL <=125 H [id number]) PAT (test code = PAT) Biotin has been reported to cause a negative bias, interpret results relative to patient's use of biotin. Lab Interpretation (test Abnormal code = 71618-4) [facility] (18008)2023-04-21 19:59:32 Test Item Value Reference Range Interpretation Comments NA (test code = 141 mmol/L 135-145 3779584366) K (test code = 3.4 mmol/L 3.5-5.0 L [id number]) CL (test code = 105 mmol/L 98-108 1736656478) CO2 TOTAL (test code = 27 mmol/L 23-31 8839974337) AGAP (test code = 9 2-16 3979589762) BUN (test code = 8 mg/dL 7-23 4171264340) GLUCOSE (test code = 84 mg/dL 70-110 8960994418) CREATININE (test code = 0.70 mg/dL 0.50-1.04 9528653082) TOTAL BILI (test code = 0.5 mg/dL 0.1-1.3 2075346572) CALCIUM (test code = 9.1 mg/dL 8.6-10.6 3035108497) T PROTEIN (test code = 6.6 g/dL 6.3-8.2 9674353096) ALBUMIN (test code = 3.9 g/dL 3.5-5.0 4156972403) ALK PHOS (test code = 91 U/L 34-122 4120352885) ALTv (test code = 14 U/L 5-35 1742-6) AST(SGOT) (test code = 20 U/L 13-40 5410679382) eGFR (test code = 86.2 mL/min/1.73m2 4099823864) PAT (test code = PAT) Association of Glomerular Filtration Rate (GFR) and Staging of Kidney Disease* + --+ --+ ------+| GFR (mL/min/1.73 m2) ?| With Kidney Damage ?| ?Without Kidney Damage+ --------+ --------+ +| ?>90 ?| ?Stage one ?| ? Normal ?+ ---+ ---+ -------+| ?60-89 ?| ?Stage two ?| ? Decreased GFR ? + --+ --+ ------+| ?30-59 ?| ?Stage three ?| ? Stage three ? + --+ --+ ------+| ?15-29 ?| ?Stage four ? | ? Stage four ?+ ---+ ---+ -------+| ?<15 (or dialysis) ? ?| ?Stage five ? | ? Stage five ?+ ---+ ---+ -------+ *Each stage assumes the associated GFR level has been in effect for at least three months. ?Stages 1 to 5, with or without kidney disease, indicate chronic kidney disease. Notes: Determination of stages one and two (with eGFR >59mL/min/1.73 m2) requires estimation of kidney damage for at least three months as defined by structural or functional abnormalities of the kidney, manifested by either:Pathological abnormalities or Markers of kidney damage (including abnormalities in the composition of the blood or urine or abnormalities in imaging tests). Lab Interpretation Abnormal (test code = 40753-8) [facility] WITH [id number] 19:43:27 Test Item Value Reference Range Interpretation Comments WBC (test code = 7.17 See_Comment [Automated 6390-2) message] The sy stem which generated this result transmitted reference range : 4.30 - 11.10 10*3/?L. The reference range was not used to interpret this result as normal/abnormal . RBC (test code = 4.38 See_Comment [Automated 789-8) message] The sy stem which generated this result transmitted reference range : 3.93 - 5.25 10*6/?L. The reference range was not used to interpret this result as normal/abnormal . HGB (test code = 13.1 g/dL 11.6-15.0 718-7) HCT (test code = 38.0 % 35.7-45.2 4544-3) MCV (test code = 86.8 fL 80.6-95.5 787-2) MCH (test code = 29.9 pg 25.9-32.8 785-6) MCHC (test code = 34.5 g/dL 31.6-35.1 786-4) RDW-SD (test code = 40.5 fL 39.0-49.9 37087-4) RDW-CV (test code = 12.9 % 12.0-15.5 788-0) PLT (test code = 183 See_Comment [Automated 777-3) message] The sy stem which generated this result transmitted reference range : 166 - 358 10*3/ ?L. The reference r vinh was not used to interpret this result as normal/abnormal . MPV (test code = 10.5 fL 9.5-12.9 79125-0) NRBC/100 WBC (test 0.0 See_Comment [Automat ed code = 5695906280) message] The system which generated this result transmitted reference range : 0.0 - 10.0 /100 WBCs. The refer ence range was not u sed to interpret th is result as normal/abnormal . NRBC x10^3 (test code See_Comment [Auto mated = 0585990470) message] The s ystem which generated this result transmitted reference range : 10*3/?L. The reference range was not used to interpret this result as normal/abnormal . GRAN MAT (NEUT) % 55.8 % (test code = 770-8) IMM GRAN % (test code 0.10 % = 2453315707) LYMPH % (test code = 32.1 % 736-9) MONO % (test code = 5.0 % 5905-5) EOS % (test code = 6.0 % 713-8) BASO % (test code = 1.0 % 706-2) GRAN MAT x10^3(ANC) 4.00 10*3/uL 1.88-7.09 (test code = 7361546621) IMM GRAN x10^3 (test 0.00-0.06 code = 1335060435) LYMPH x10^3 (test code 2.30 10*3/uL 1.32-3.29 = 731-0) MONO x10^3 (test code 0.36 10*3/uL 0.33-0.92 = 742-7) EOS x10^3 (test code = 0.43 10*3/uL 0.03-0.39 H 711-2) BASO x10^3 (test code 0.07 10*3/uL 0.01-0.07 = 704-7) Lab Interpretation Abnormal (test code = 03425-5) [id number] Test Item Value Reference Range Interpretation Comments TROPONIN I (test code = 0.001 ng/mL <=0.034 3686738296) PAT (test code = PAT) Reference (Normal) Range (defined by the 99th percentile reference limit): <= 0.034 ng/mL Note: Cardiac troponin begins to rise 3-4 hours after the onset of ischemia. Repeat in 4-6 hours if the sample was drawn within 3-4 hours of the onset of the symptom and found normal. Diagnosis of myocardial injury is made with acute changes in cTn concentrations with at least one serial sample above the 99th percentile upper reference limit (URL), taken together with the patient's clinical presentation. Biotin has been reported to cause a negative bias, interpret results relative to patient's use of biotin. Lab Interpretation Normal (test code = 56643-8) [id number] 01:06:35 Test Item Value Reference Range Interpretation Comments NT-proBNP (test code = 59 pg/mL <=125 0582161785) PAT (test code = PAT) Biotin has been reported to cause a negative bias, interpret results relative to patient's use of biotin. Lab Interpretation (test Normal code = 56067-8) [facility]OLIC PAN[facility] ([id number])2023-04-02 00:57:37 Test Item Value Reference Range Interpretation Comments NA (test code = 140 mmol/L 135-145 8659109066) K (test code = 3.8 mmol/L 3.5-5.0 8744705828) CL (test code = 104 mmol/L 98-108 2646585505) CO2 TOTAL (test code 29 mmol/L 23-31 = 8424733391) AGAP (test code = 7 2-16 3789740345) BUN (test code = 13 mg/dL 7-23 5758225253) GLUCOSE (test code = 86 mg/dL 70-110 2370683576) CREATININE (test code 0.81 mg/dL 0.50-1.04 = 8048526796) TOTAL BILI (test code 0.5 mg/dL 0.1-1.1 = 3604888191) CALCIUM (test code = 9.2 mg/dL 8.6-10.6 1173934631) T PROTEIN (test code 6.6 g/dL 6.3-8.2 = 5344387407) ALBUMIN (test code = 3.8 g/dL 3.5-5.0 7751338586) ALK PHOS (test code = 95 U/L 34-122 9837072241) ALTv (test code = 34 U/L 5-35 2-6) AST(SGOT) (test code 29 U/L 13-40 = 4635601917) eGFR (test code = 72.9 mL/min/1.73m2 1217061841) PAT (test code = PAT) Association of Glomerular Filtration Rate (GFR) and Staging of Kidney Disease* + + +- +| GFR (mL/min/1.73 m2) ?| With Kidney Damage ?| ?Without Kidney Damage+ ------+ ----+ ------+| ?>90 ?| ?Stage one ?| ? Normal ?+ -+ + -+| ?60-89 ?| ?Stage two ?| ? Decreased GFR ? + + +- +| ?30-59 ?| ?Stage three ?| ? Stage three ? + + +- +| ?15-29 ?| ?Stage four ? | ? Stage four ?+ -+ + -+| ?<15 (or dialysis) ? ?| ?Stage five ? | ? Stage five ?+ -+ + -+ *Each stage assumes the associated GFR level has been in effect for at least three months. ?Stages 1 to 5, with or without kidney disease, indicate chronic kidney disease. Notes: Determination of stages one and two (with eGFR >59mL/min/1.73 m2) requires estimation of kidney damage for at least three months as defined by structural or functional abnormalities of the kidney, manifested by either:Pathological abnormalities or Markers of kidney damage (including abnormalities in the composition of the blood or urine or abnormalities in imaging tests). [facility] [id number] 00:26:54 Test Item Value Reference Range Interpretation Comments APTT Patient (test 26 See_Comment [Automat ed code = 3173-2) message] The system which generated this result transmitted reference range : 23 - 38 Seconds . The reference range was not used to interpr et this result as normal/abnormal . PAT (test code = PAT) The [facility] patient population mean normal value for aPTT is 30 seconds. Lab Interpretation Normal (test code = 47685-9) [facility] / [id number] 00:24:53 Test Item Value Reference Range Interpretation Comments PROTIME PATIENT (test 12.5 See_Comment [Auto mated message] code = 5964-2) The system wh ich generated this result transmitted ref erence range: 12.0 - 1 4.7 Seconds. The re ference range was not u sed to interpret this result as normal/abnor mal. INR (test code = 6301-6) 1.0 Nor mal INR <1.1; Warfarin Therap eutic range 2.0 to 3. 0 or 2.5 to 3.5, dep ending upon the indica tions. Lab Interpretation (test Normal code = 55291-5) [facility] [id number] 00:16:32 Test Item Value Reference Range Interpretation Comments WBC (test code = 7.95 See_Comment [Automated 6690-2) message] The sy stem which generated this result transmitted reference range : 4.30 - 11.10 10*3/?L. The reference range was not used to interpret this result as normal/abnormal . RBC (test code = 4.44 See_Comment [Automated 789-8) message] The sy stem which generated this result transmitted reference range : 3.93 - 5.25 10*6/?L. The reference range was not used to interpret this result as normal/abnormal . HGB (test code = 13.2 g/dL 11.6-15.0 718-7) HCT (test code = 39.8 % 35.7-45.2 4544-3) MCV (test code = 89.6 fL 80.6-95.5 787-2) MCH (test code = 29.7 pg 25.9-32.8 785-6) MCHC (test code = 33.2 g/dL 31.6-35.1 786-4) RDW-SD (test code = 40.7 fL 39.0-49.9 77277-4) RDW-CV (test code = 12.5 % 12.0-15.5 788-0) PLT (test code = 190 See_Comment [Automated 777-3) message] The sy stem which generated this result transmitted reference range : 166 - 358 10*3/ ?L. The reference r vinh was not used to interpret this result as normal/abnormal . MPV (test code = 9.9 fL 9.5-12.9 12052-0) NRBC/100 WBC (test 0.0 See_Comment [Automat ed code = 2679087213) message] The system which generated this result transmitted reference range : 0.0 - 10.0 /100 WBCs. The refer ence range was not u sed to interpret th is result as normal/abnormal . NRBC x10^3 (test code See_Comment [Auto mated = 2403366847) message] The s ystem which generated this result transmitted reference range : 10*3/?L. The reference range was not used to interpret this result as normal/abnormal . GRAN MAT (NEUT) % 53.4 % (test code = 770-8) IMM GRAN % (test code 0.30 % = 5036915326) LYMPH % (test code = 31.9 % 736-9) MONO % (test code = 5.5 % 5905-5) EOS % (test code = 8.1 % 713-8) BASO % (test code = 0.8 % 706-2) GRAN MAT x10^3(ANC) 4.25 10*3/uL 1.88-7.09 (test code = 2744967353) IMM GRAN x10^3 (test 0.00-0.06 code = 2602723567) LYMPH x10^3 (test code 2.54 10*3/uL 1.32-3.29 = 731-0) MONO x10^3 (test code 0.44 10*3/uL 0.33-0.92 = 742-7) EOS x10^3 (test code = 0.64 10*3/uL 0.03-0.39 H 711-2) BASO x10^3 (test code 0.06 10*3/uL 0.01-0.07 = 704-7) Lab Interpretation Abnormal (test code = 15872-0) [facility]. METABOLIC PANEL ([id number] 02:47:44 Test Item Value Reference Range Interpretation Comments NA (test code = 138 mmol/L 135-145 2767987805) K (test code = 3.5 mmol/L 3.5-5.0 0010390867) CL (test code = 103 mmol/L 98-108 5442258604) CO2 TOTAL (test code 25 mmol/L 23-31 = 8200878142) AGAP (test code = 10 2-16 8336780451) BUN (test code = 11 mg/dL 7-23 0350757430) GLUCOSE (test code = 83 mg/dL 70-110 5315896258) CREATININE (test code 0.75 mg/dL 0.50-1.04 = 9807632848) TOTAL BILI (test code 0.6 mg/dL 0.1-1.1 = 0146038710) CALCIUM (test code = 9.0 mg/dL 8.6-10.6 8212115701) T PROTEIN (test code 6.9 g/dL 6.3-8.2 = 6037716746) ALBUMIN (test code = 4.2 g/dL 3.5-5.0 6559755606) ALK PHOS (test code = 82 U/L 34-122 3762367673) ALTv (test code = 17 U/L 5-35 1742-6) AST(SGOT) (test code 21 U/L 13-40 = 1713226325) eGFR (test code = 79.6 mL/min/1.73m2 4642510136) PAT (test code = PAT) Association of Glomerular Filtration Rate (GFR) and Staging of Kidney Disease* + + +- +| GFR (mL/min/1.73 m2) ?| With Kidney Damage ?| ?Without Kidney Damage+ ------+ ----+ ------+| ?>90 ?| ?Stage one ?| ? Normal ?+ -+ + -+| ?60-89 ?| ?Stage two ?| ? Decreased GFR ? + + +- +| ?30-59 ?| ?Stage three ?| ? Stage three ? + + +- +| ?15-29 ?| ?Stage four ? | ? Stage four ?+ -+ + -+| ?<15 (or dialysis) ? ?| ?Stage five ? | ? Stage five ?+ -+ + -+ *Each stage assumes the associated GFR level has been in effect for at least three months. ?Stages 1 to 5, with or without kidney disease, indicate chronic kidney disease. Notes: Determination of stages one and two (with eGFR >59mL/min/1.73 m2) requires estimation of kidney damage for at least three months as defined by structural or functional abnormalities of the kidney, manifested by either:Pathological abnormalities or Markers of kidney damage (including abnormalities in the composition of the blood or urine or abnormalities in imaging tests). [facility] 02:47:03 Test Item Value Reference Range Interpretation Comments LIPASE (test code = 4233412816) 164 U/L 0-220 Lab Interpretation (test code = Normal 86264-0) [facility] WITH [id number] 02:33:02 Test Item Value Reference Range Interpretation Comments WBC (test code = 8.43 See_Comment [Egxoyiagj 5803-2) message] The sy stem which generated this result transmitted reference range : 4.30 - 11.10 10*3/?L. The reference range was not used to interpret this result as normal/abnormal . RBC (test code = 4.65 See_Comment [Automated 789-8) message] The sy stem which generated this result transmitted reference range : 3.93 - 5.25 10*6/?L. The reference range was not used to interpret this result as normal/abnormal . HGB (test code = 13.6 g/dL 11.6-15.0 718-7) HCT (test code = 41.7 % 35.7-45.2 4544-3) MCV (test code = 89.7 fL 80.6-95.5 787-2) MCH (test code = 29.2 pg 25.9-32.8 785-6) MCHC (test code = 32.6 g/dL 31.6-35.1 786-4) RDW-SD (test code = 39.7 fL 39.0-49.9 57236-3) RDW-CV (test code = 12.3 % 12.0-15.5 788-0) PLT (test code = 199 See_Comment [Automated 777-3) message] The sy stem which generated this result transmitted reference range : 166 - 358 10*3/ ?L. The reference r vinh was not used to interpret this result as normal/abnormal . MPV (test code = 10.8 fL 9.5-12.9 18702-3) NRBC/100 WBC (test 0.0 See_Comment [Automat ed code = 2754814951) message] The system which generated this result transmitted reference range : 0.0 - 10.0 /100 WBCs. The refer ence range was not u sed to interpret th is result as normal/abnormal . NRBC x10^3 (test code See_Comment [Auto mated = 3404400704) message] The s ystem which generated this result transmitted reference range : 10*3/?L. The reference range was not used to interpret this result as normal/abnormal . GRAN MAT (NEUT) % 51.8 % (test code = 770-8) IMM GRAN % (test code 0.50 % = 9268383914) LYMPH % (test code = 34.9 % 736-9) MONO % (test code = 5.6 % 5905-5) EOS % (test code = 6.3 % 713-8) BASO % (test code = 0.9 % 706-2) GRAN MAT x10^3(ANC) 4.37 10*3/uL 1.88-7.09 (test code = 2428289655) IMM GRAN x10^3 (test 0.04 10*3/uL 0.00-0.06 code = 2056798448) LYMPH x10^3 (test code 2.94 10*3/uL 1.32-3.29 = 731-0) MONO x10^3 (test code 0.47 10*3/uL 0.33-0.92 = 742-7) EOS x10^3 (test code = 0.53 10*3/uL 0.03-0.39 H 711-2) BASO x10^3 (test code 0.08 10*3/uL 0.01-0.07 H = 704-7) Lab Interpretation Abnormal (test code = 64453-8) [facility] [id number] 15:58:42 Test Item Value Reference Range Interpretation Comments POCT Creatinine (test code = 0.8 mg/dL 0.5-1.8 2975079861) Lab Interpretation (test code = Normal 08428-0) [facility] URINALYSIS W/O SPECIFIC [id number] 20:51:00 Test Item Value Reference Range Interpretation Comments POCT PH U (test code 7 mg/dl 5-8 = 3254) POCT U LEUK EST trace Negative - Negative (test code = 3263) POCT U NIT (test negative Negative - Negative code = 3262) POCT U PROT (test negative Negative - Negative code = 3259) POCT U GLU (test negaitve Negative - Negative code = 3256) POCT U KETONE (test negative Negative - Negative code = 3258) POCT U BLD (test negative Negative - Negative code = 3257) PAT (test code = Per order PVR by PAT) bladder scan = ?37 ml. Results reported to provider. [facility] URINALYSIS W/O SPECIFIC [id number] 20:51:00 Test Item Value Reference Range Interpretation Comments POCT PH U (test code 7 mg/dl 5-8 = 3254) POCT U LEUK EST trace Negative - Negative (test code = 3263) POCT U NIT (test negative Negative - Negative code = 3262) POCT U PROT (test negative Negative - Negative code = 3259) POCT U GLU (test negaitve Negative - Negative code = 3256) POCT U KETONE (test negative Negative - Negative code = 3258) POCT U BLD (test negative Negative - Negative code = 3257) PAT (test code = Per order PVR by PTA) bladder scan = ?37 ml. Results reported to provider. [facility]"
[2023-05-08] MEDS ORDERED: ACETAMINOPHEN 500 MG TAB ONE (23:04)
--- NOTE | 2023-05-08 23:57 | EDPHYS ---
Physician Documentation [facility] Name: Olga Lidia Delgadillo Age: 57 yrs Sex: Female : 1965 Arrival Date: 05/08/2023 Time: 21:16 Bed 17 Private MD: ED Physician Jimmy Cornelius HPI: 05/08 22:00 This 57 yrs old Female presents to ER via Ambulatory with complaints of Leg Swelling. cp 22:00 The patient presents with pain, that is acute. cp 22:00 The complaints affect the right lower leg and left lower leg and right foot and left cp foot. Context: resulted from an unknown cause, the patient can fully bear weight, the patient is able to ambulate, with moderate difficulty. Onset: The symptoms/episode began/occurred for past several days. Associated signs and symptoms: Pertinent positives: calf tenderness, swelling, Pertinent negatives fever, numbness, rash, warmth, weakness. Historical: - Allergies: 21:43 Aspirin (Hives); rv 21:43 Iodine; rv 21:43 Latex, Natural Rubber; rv 21:43 PENICILLINS; rv 21:43 Prozac; rv - PMHx: 21:43 Bipolar disorder; Depression; rv - PSHx: 21:43 hysterectomy; rv - Immunization history:: Adult Immunizations up to date. - Social history:: Smoking status: Patient/guardian denies using tobacco, the patient reports quitting approximately 15 years ago. ROS: 22:05 Constitutional: Negative for body aches, chills, fever, poor PO intake. cp 22:05 Eyes: Negative for injury, pain, redness, and discharge. cp 22:05 Cardiovascular: Negative for chest pain, palpitations. 22:05 Respiratory: Negative for cough, shortness of breath, wheezing. 22:05 Abdomen/GI: Negative for abdominal pain, vomiting, diarrhea, constipation. 22:05 Back: Negative for pain at rest, pain with movement. 22:05 MS/extremity: Positive for pain, swelling, tenderness, of the right lower leg and left lower leg and right foot and left foot, Negative for injury or acute deformity, decreased range of motion, paresthesias. 22:05 Neuro: Negative for altered mental status, dizziness, headache, weakness. 22:05 All other systems are negative. Exam: 22:10 Constitutional: The patient appears in no acute distress, alert, awake, cp non-diaphoretic, non-toxic, well developed, well nourished, uncomfortable. 22:10 Head/Face: Normocephalic, atraumatic. cp 22:10 Eyes: Periorbital structures: appear normal, Conjunctiva: normal, no exudate, no injection, Sclera: no appreciated abnormality, Lids and lashes: appear normal, bilaterally. 22:10 ENT: External ear(s): are unremarkable, Nose: is normal, Mouth: Lips: moist, Oral mucosa: pink and intact, moist, Posterior pharynx: is normal, airway is patent, no erythema, no exudate. 22:10 Neck: ROM/movement: is normal, is supple, without pain, no range of motions limitations. 22:10 Chest/axilla: Inspection: normal. 22:10 Cardiovascular: Rate: normal, Edema: ankle edema, that is very mild, JVD: is not appreciated. 22:10 Respiratory: the patient does not display signs of respiratory distress, Respirations: normal, no use of accessory muscles, no retractions, labored breathing, is not present, Breath sounds: are clear throughout, no decreased breath sounds, no stridor, no wheezing. 22:10 Abdomen/GI: Exam negative for discomfort, distension, guarding, Inspection: abdomen appears normal. 22:10 Musculoskeletal/extremity: Extremities: grossly normal except: noted in the right lower leg and left lower leg and right foot and left foot: pain, tenderness, There is no evidence of decreased ROM, erythema, gross swelling, ROM: intact in all extremities. 22:10 Skin: cellulitis, is not appreciated, no rash present. Vital Signs: 21:41 BP 132 / 88; Pulse 61; Resp 16; Temp 98.8; Pulse Ox 100% ; Weight 74.84 kg; Height 5 rv ft. 2 in. ; 22:56 BP 119 / 79; Pulse 69; Resp 16; Pulse Ox 99% ; rv 05/09 00:09 BP 104 / 60; Pulse 65; Resp 16; Temp 98; Pulse Ox 99% on R/A; rv 05/08 21:41 Body Mass Index 30.18 (74.84 kg, 157.48 cm) rv MDM: 05/08 21:39 Patient medically screened. cp 23:25 ED course: US tech reports negative DVT. cp 23:57 Data reviewed: vital signs, nurses notes, radiologic studies, ultrasound, and as a cp result, I will discharge patient. 23:57 I considered the following discharge prescriptions or medication management in the cp emergency department Medications were administered in the Emergency Department. See MAR. Counseling: I had a detailed discussion with the patient and/or guardian regarding: the historical points, exam findings, and any diagnostic results supporting the discharge/admit diagnosis, radiology results, to return to the emergency department if symptoms worsen or persist or if there are any questions or concerns that arise at home. Response to treatment: the patient's symptoms have markedly improved after treatment, and as a result, I will discharge patient. 05/08 21:49 Order name: US Extremity Venous W Compression Julien cp Administered Medications: 22:56 Drug: Acetaminophen PO 1000 mg Route: PO; rv 05/09 00:09 Follow up: Response: No adverse reaction rv Disposition Summary: 05/08/23 23:57 Discharge Ordered Location: Home cp Problem: new cp Symptoms: have improved cp Condition: Stable cp Diagnosis - Pain in left leg cp - Pain in right leg cp Followup: cp - With: Private Physician - When: 2 - 3 days - Reason: Recheck today's complaints Discharge Instructions: - Discharge Summary Sheet cp - Musculoskeletal Pain cp - How to Use Cold Therapy cp - Heat Therapy cp Forms: - Medication Reconciliation Form cp - Thank You Letter cp - Antibiotic Education cp - Prescription Opioid Use cp - Patient Portal Instructions cp Prescriptions: - Cyclobenzaprine 10 mg Oral Tablet - take 1 tablet by ORAL route every 8 hours As needed; 20 tablet; Refills: 0, cp Product Selection Permitted - Medrol (Emre) 4 mg Oral Tablets, Dose Pack - take 1 tablet by ORAL route as directed - follow package instructions; 1 cp packet; Refills: 0, Product Selection Permitted Signatures: Dispatcher [employer] Nigel Schneider PA PA cp Chad Bloom RN RN rv
--- NOTE | 2023-05-08 23:57 | ER ---
Nurse's Notes [facility] Name: Olag Lidia Delgadillo Age: 57 yrs Sex: Female : 1965 Arrival Date: 05/08/2023 Time: 21:16 Bed 17 Private MD: Diagnosis: Pain in left leg;Pain in right leg Presentation: 05/08 21:41 Chief complaint: Patient states: boy lower leg and feet pain x days. sharp stabbing rv intermittent pain. denies injury. denies fever. unable to ambulate normally. Coronavirus screen: Vaccine status: Patient reports receiving the 2nd dose of the covid vaccine. Ebola Screen: Patient negative for fever greater than or equal to 101.5 degrees Fahrenheit, and additional compatible Ebola Virus Disease symptoms Patient denies exposure to infectious person. Patient denies travel to an Ebola-affected area in the 21 days before illness onset. Initial Sepsis Screen: Does the patient meet any 2 criteria? No. Patient's initial sepsis screen is negative. Does the patient have a suspected source of infection? No. Patient's initial sepsis screen is negative. Risk Assessment: Do you want to hurt yourself or someone else? Patient reports no desire to harm self or others. Onset of symptoms is unknown. 21:41 Method Of Arrival: Ambulatory rv 21:41 Acuity: ROXIE 4 rv Triage Assessment: 21:44 General: Appears comfortable, Behavior is calm, cooperative. Pain: Complains of pain in rv boy lower leg and feet. Neuro: Level of Consciousness is awake, alert, obeys commands, Oriented to person, place, time, situation. Cardiovascular: Capillary refill < 3 seconds. Respiratory: Airway is patent Respiratory effort is even, unlabored. GI: No signs and/or symptoms were reported involving the gastrointestinal system. : No signs and/or symptoms were reported regarding the genitourinary system. Derm: Skin is intact. Musculoskeletal: Range of motion: intact in all extremities, Swelling absent. Historical: - Allergies: 21:43 Aspirin (Hives); rv 21:43 Iodine; rv 21:43 Latex, Natural Rubber; rv 21:43 PENICILLINS; rv 21:43 Prozac; rv - PMHx: 21:43 Bipolar disorder; Depression; rv - PSHx: 21:43 hysterectomy; rv - Immunization history:: Adult Immunizations up to date. - Social history:: Smoking status: Patient/guardian denies using tobacco, the patient reports quitting approximately 15 years ago. Screenin:45 [facility] ED Fall Risk Assessment (Adult) History of falling in the last 3 months, rv including since admission No falls in past 3 months (0 pts) Confusion or Disorientation No (0 pts) Intoxicated or Sedated No (0 pts) Impaired Gait No (0 pts) Mobility Assist Device Used No (0 pt) Altered Elimination No (0 pt) Score/Fall Risk Level 0 - 2 = Low Risk Oriented to surroundings, Maintained a safe environment, Educated pt \T\ family on fall prevention, incl call for assistance when getting out of bed, Assessed \T\ reinforced patient's understanding of fall precautions, Provided non-skid footwear, Hourly rounding (assess needs \T\ fall precautionary measures) done, Used ambulatory aids as needed (educated on \T\ assisted with), Used gait belt as appropriate. Abuse screen: Denies threats or abuse. Denies injuries from another. Nutritional screening: No deficits noted. Tuberculosis screening: No symptoms or risk factors identified. Assessment: 22:56 Reassessment: No changes from previously documented assessment. Patient is alert, rv oriented x 3, equal unlabored respirations, skin warm/dry/pink. Vital Signs: 21:41 BP 132 / 88; Pulse 61; Resp 16; Temp 98.8; Pulse Ox 100% ; Weight 74.84 kg; Height 5 rv ft. 2 in. ; 22:56 BP 119 / 79; Pulse 69; Resp 16; Pulse Ox 99% ; rv 05/09 00:09 BP 104 / 60; Pulse 65; Resp 16; Temp 98; Pulse Ox 99% on R/A; rv 05/08 21:41 Body Mass Index 30.18 (74.84 kg, 157.48 cm) rv ED Course: 05/08 21:21 Patient arrived in ED. ag3 21:26 Nigel Winkler PA is PHCP. cp 21:26 Jimmy Cornelius MD is Attending Physician. cp 21:33 Chad Bloom, ADDIE is Primary Nurse. rv 21:43 Triage completed. rv 21:44 Arm band placed on right wrist. rv 21:45 Patient has correct armband on for positive identification. Placed in gown. Bed in low rv position. Call light in reach. Side rails up X 1. Adult w/ patient. Provided Education on: dvt. 21:45 No provider procedures requiring assistance completed. rv 23:29 US Extremity Venous W Compression Boy In Process Unspecified. EDMS 05/09 00:09 Patient did not have IV access during this emergency room visit. rv Administered Medications: 05/08 22:56 Drug: Acetaminophen PO 1000 mg Route: PO; rv 05/09 00:09 Follow up: Response: No adverse reaction rv Medication: 05/08 21:45 VIS not applicable for this client. rv Outcome: 23:57 Discharge ordered by . anupama 05/09 00:09 Discharged to home ambulatory, with family. rv Condition: good Discharge instructions given to patient, Instructed on discharge instructions, follow up and referral plans. medication usage, Demonstrated understanding of instructions, follow-up care, medications, Prescriptions given X 2. 00:10 Patient left the ED. rv Signatures: Dispatcher [employer] EDAZ Nigel Winkler PA PA cp Vicente, Ronaldo, RN RN rv Yessy Najera ag3
[2023-05-09 02:34] VITALS: O2SAT 99
[2023-05-09 02:40] VITALS: BP 104/60; TEMP 98
--- NOTE | 2023-05-09 16:17 | RAD REPORT ---
EXAM DESCRIPTION: US - Extrem Venous W Compress Julien - 05/08/2023 11:27 pm CLINICAL HISTORY: PAIN COMPARISON: None. TECHNIQUE: Grayscale, color Doppler, and spectral Doppler imaging of the right and left lower extrem ity venous system. FINDINGS: Normal compressibility, phasicity, and flow identified in the bilateral common femoral, fe moral, popliteal, and visualized calf veins. Normal flow in the visualized greater saphenous vein. No echogenic thrombus identified. IMPRESSION: No evidence of deep venous thrombosis in the lower extremities bilaterally. Electronically signed by: Mable Celaya MD 05/08/2023 11:40 PM CDT Due to temporary technical issues with the PACS/Fluency reporting system, reports are being signed by the in house radiologists without review as a courtesy to insure prompt reporting. The interpreting radiologist is fully responsible for the content of the report.
== END 2023-05-09 00:10 | disposition home or self-care (01) ==
LOC: ER 21:16
DX: M79.605 Pain in left leg (principal); M79.604 Pain in right leg; Z88.0 Allergy status to penicillin; Z88.5 Allergy status to narcotic agent; Z88.6 Allergy status to analgesic agent; Z88.8 Allergy status to other drugs, medicaments and biological substances; Z91.040 Latex allergy status; Z91.048 Other nonmedicinal substance allergy status
CPT/HCPCS: 93970; 99284

== ENCOUNTER 2023-09-12 12:26 | Emergency (ER) | payer OTHER ==
--- OUTSIDE RECORDS SUMMARY | 2023-09-12 12:29 | XMS REPORT | Clinical Summary ---
:1965 Author Organization [facility] Address [address] [place] [address] Care Team Providers Name Role Phone Daisy Connors MD Unavailable Allergies Not on File Medications Not on file Active Problems Not on file Encounters Date Type Department Care Team Description 11/11/2022 Travel after 09/12/2022 Social History Tobacco Use Types Packs/Day Years Used Date Smoking Tobacco: Never Assessed Sex and Gender Information Value Date Recorded Sex Assigned at Not on file Gender Identity Not on file Sexual Orientation Not on file Job Start Date Occupation Industry Not on file Not on file Not on file Last Filed Vital Signs Not on file Plan of Treatment Not on file Results Not on fileafter 09/12/2022 Insurance Payer Benefit Plan / Subscriber ID Effective Dates Phone Addre ss Type Group FARA CHAUDHARI [id number] 2021-Presen [address] Medicaid MEDICAID MEDICAID [facility] [place] [phone] Care Teams Pheresis Nurse Relationship Specialty Start Date End Date Daisy Connors MD PCP - External Primary Care Nephrology 11/11/[address] [place] [address]
--- OUTSIDE RECORDS SUMMARY | 2023-09-12 12:39 | XMS REPORT | Continuity of Care Document ---
:1965 Author Organization [facility] t Address [address] [place] [address] [place] [id number] Care Team Providers Name Role Phone Natalie Curry MD Primary Care Physician JOANN AGUILAR Attending Clinician Unavailable MAGALIE GTZ Attending Clinician Unavailable JASMEET STEWART Attending Clinician Unavailable JASMEET STEWART Attending Clinician Unavailable LUCIA HARMON Attending Clinician Unavailable LUCIA HARMON Attending Clinician Unavailable NATALIE CURRY Attending Clinician Unavailable NATALIE CURRY Attending Clinician Unavailable Lab, Ang - Db Attending Clinician Unavailable Doctor Unassigned, [facility] Attending Clinician Unavailable Lucia Harmon DO Attending Clinician Kip Harris DO Attending Clinician Juan Grover MD Attending Clinician JUAN GROVER Attending Clinician Unavailable Magalie Gtz MD Attending Clinician DORA DOMINGUEZ Attending Clinician Unavailable Dora Dominguez MD Attending Clinician SARAH OSORIO Attending Clinician Unavailable Sarah Osorio DO Attending Clinician BEVERLEY CASEY Attending Clinician Unavailable Beverley Lopez Attending Clinician RAJAN GOSS Attending Clinician Unavailable Rajan Goss MD Attending Clinician RAUL URIBE Attending Clinician Unavailable Raul Uribe MD Attending Clinician Jenise Choi Attending Clinician Unavailable BURKE HOLLINS Attending Clinician Unavailable ESTELLE ORTIZ Attending Clinician Unavailable Estelle Matias Attending Clinician Lauro RT, Marlena C Attending Clinician Unavailable Testing, [facility] Pulmonary Function Attending Clinician UnavailBarber Burnham MD Attending Clinician BARBER YAO Attending Clinician Unavailable BIBIANA HANEY Attending Clinician Unavailable KWAME ROCA Attending Clinician Unavailable Kwame Roca DO Attending Clinician [facility], [facility] Respiratory Attending Clinician Unavailable Only, [facility] Test Attending Clinician Unavailable Corky Jackson MD Attending Clinician MAREN SHIRLEY Attending Clinician Unavailable MAREN SHIRLEY Attending Clinician Unavailable [facility], [facility] Sleep Lab Attending Clinician Unavailable Maren Shirley MD Attending Clinician Daisy Connors MD Attending Clinician DAISY CONNORS Attending Clinician Unavailable Andrew Kathleen DO Attending Clinician JOANN AGUILAR Admitting Clinician Unavailable JASMEET STEWART Admitting Clinician Unavailable DORA DOMINGUEZ Admitting Clinician Unavailable SARAH OSORIO Admitting Clinician Unavailable BEVERLEY CASEY Admitting Clinician Unavailable RAUL URIBE Admitting Clinician Unavailable MAGALIE GTZ Admitting Clinician Unavailable Jenise Choi Admitting Clinician Unavailable LUCIA HARMON Admitting Clinician Unavailable Andrew Kathleen DO Admitting Clinician Payers Payer Name Policy Type Policy Number Effective Date Expiration Date Shay keller [facility] [id number] 2022 STAR PLUS 00:00:00 Problems Condition Condition Condition Status Onset Resolution Last Treating Co mments Source Name Details Category Date Date Treatment Clinician Date Recurrent Recurrent Disease Active Overview: Univers syncope syncope 5-05 Formattin ity o f 00:00: g of this [place] note Medical might be Branch different from the original. Added automatic ally from request for surgery [id number] OAB OAB Disease Active 2021-10 Overview: Univer s (overactiv (overactiv 2-12 Formattin ity of e bladder) e bladder) 00:00: g of this [place] note Medical might be Branch different from the original. Added automatic ally from request for surgery [id number] Urge Urge Disease Active 2021-10 Overview: Univer s incontinen incontinen 2-12 Formattin ity of ce ce 00:00: g of this [place] note Medical might be Branch different from the original. Added automatic ally from request for surgery [id number] Asthma Asthma Disease Active 2021-10 Univers 2-09 ity of 00:00: Medical Branch Elevated Elevated Disease Active Unive rs brain brain 7-12 ity of natriure[place] nat[place] c peptide c peptide 00 Medi rach (BNP) (BNP) Branch level level Chest pain Chest pain Disease Active U nivers 7-11 ity of 00:00: Medical Branch Obesity Obesity Disease Active Univers (BMI (BMI 7-11 ity of 30-39.9) 30-39.9) 00:00: Medical Branch Allergies, Adverse Reactions, Alerts Allergy Allergy Status Severity Reaction(s) Onset Inactive Treating Comm ents Source Name Type Date Date Clinician TRAZODON DRUG Active Hallucinates 2022-10 Un conchita E INGREDI 0-30 ity of 00:00: Medical Branch Trazodon Propensi Active Hallucinatio 2022-10 Univers e ty to ns 0-30 ity of adverse 00:00: [place] reaction 00 Medical s Branch OXCARBAZ DRUG Active Other-Cmnt Univ ers EPINE INGREDI 07-19 ity of 00:00: [place] 00 Medical Branch Oxcarbaz Propensi Active Other - See Tachycar d Univers epine ty to comments 07-19 ia, ity of adverse 00:00: sleepines [place] reaction 00 s, and Medical s patient Branch is unable to use the restroom. Iodine Propensi Active Hives 2020-0 Univers ty to 7- ity of adverse 00:00: [place] reaction 00 Medical s Branch IODINE DRUG Active Hives 2020-0 Univers INGREDI 7- ity of 00:00: [place] 00 Medical Branch Morphine Propensi Active Rash 2020-0 Hives Univer s ty to 04-22 ity of adverse 00:00: [place] reaction 00 Medical s Branch Fluoxeti Propensi Active Hives 2020-0 Univer s ne ty to 04-22 ity of adverse 00:00: [place] reaction 00 Medical s Branch MORPHINE DRUG Active Rash 2020-0 Univers INGREDI 7- ity of 00:00: [place] 00 Medical Branch FLUOXETI DRUG Active Hives 2020-0 Univers NE INGREDI 7- ity of 00:00: [place] 00 Medical Branch Quetiapi Propensi Active Hives 2020-0 Univer s ne ty to 5-31 ity of adverse 00:00: [place] reaction 00 Medical s Branch QUETIAPI DRUG Active Hives 2020-0 Univers NE INGREDI 5-31 ity of 00:00: [place] 00 Medical Branch Aspirin Propensi Active Rash 2017-0 Univers ty to 8- ity of adverse 00:00: [place] reaction 00 Medical s Branch Latex Propensi Active Rash 2018-0 Univers ty to 8-04 ity of adverse 00:00: [place] reaction 00 Medical s Branch Penicill Propensi Active Rash 2017-0 Univer s in ty to 05-26 ity of adverse 00:00: [place] reaction 00 Medical s Branch ADHESIVE Drug Active Rash 2017-0 Univers Class 8- ity of 00:00: [place] 00 Medical Branch ASPIRIN DRUG Active Rash 2018-0 Univers INGREDI 8- ity of 00:00: [place] 00 Medical Branch LATEX DRUG Active Rash 2018-0 Univers INGREDI 8- ity of 00:00: [place] 00 Medical Branch PENICILL DRUG Active Rash 2017-0 Univers IN INGREDI 05-26 ity of 00:00: [place] 00 Medical Branch Adhesive Propensi Active Rash 2017-0 Univer s ty to 05-26 ity of adverse 00:00: [place] reaction 00 Medical s Branch Adhesive Propensi Active Rash 2017-0 Univer s ty to 05-26 ity of adverse 00:00: [place] reaction [facility] Social History Social Habit Start Date Stop Date Quantity Comments Source Gender identity Universit y of [facility] Sexual orientation Univer sity [facility] Alcohol intake 2023-07-25 2023-07-25 Ex-drinker University of 00:00:00 00:00:00 (finding) [facility] Exposure to 2023-02-13 2023-02-23 Not sure [facility] SARS-CoV-2 (event) 00:00:00 09:43:00 [facility] History of Social 2023-01-09 2023-01-09 Univers ity of function 00:00:00 00:00:00 [facility] Tobacco use and 2022-09-09 2022-09-09 Smokeless Universit y of exposure 00:00:00 00:00:00 tobacco non-user [facility] Tobacco Comment 2022-09-09 2022-09-09 Quit a year ago. Uni versity of 00:00:00 00:00:00 [facility] History of tobacco 2019-10-23 Cigarette Smoker University of use 00:00:00 [facility] Sex Ass[birth year] Universit y of 00:00:00 00:00:00 [place] MD [facility] Smoking Status Start Date Stop Date Source Ex-smoker 2022-09-09 00:00:00 2022-09-09 00:00:00 Universi ty of [facility] Medications Ordered Filled Start Stop Current Ordering Indication Dosage Frequency Signature Comments Components Source Medication Medication Date Date Medication? Clinician (SIG) Name Name traZODone 2022-10- No 50mg Take 1 Unive rs 50 mg 0-30 10-30 tablet by ity of tablet 13:34: 00:00 mouth at [place] 57 :00 bedtime. [facility] traZODone 2023-1 2023- No 50mg Take 1 Unive rs 50 mg 0-30 10-30 tablet by ity of tablet 13:34: 00:00 mouth at [place] 57 :00 bedtime. Medical Branch fluconazole 2022-10 Yes [id number] TAKE 1 Univers 150 mg 0-30 TABLET BY ity of tablet 00:00: MOUTH [place] [address] EVERY WEEK Medical FOR 4 Branch WEEKS nystatin 2022-10 Yes [id number] APPLY Univ ers 100,000 0-30 TOPICALLY ity of unit/gram 00:00: TO THE [place] cream 00 AFFECTED Medical AREA TWICE Branch DAILY famotidine 2022-10 Yes [id number] Take 1 Univers (PEPCID) 20 0-30 oral tab ity of mg tablet 00:00: [place] 12 [place] 00 hrs. Start Medical one day Branch before procedure and last dose on morning of procedure omeprazole 2022-10 Yes [id number] 40mg Take 1 Univers 40 mg 0-30 capsule by ity of capsule 00:00: mouth in [place] 00 the Medical morning. Branch lactulose 2022-10 Yes [id number] 15mL Take 15 mL Univers 10 gram/15 0-30 by mouth 2 ity of mL solution 00:00: (two) [place] 00 times Medical daily as Branch needed for Constipati on. fluconazole 2022-10 Yes [id number] TAKE 1 Univers 150 mg 0-30 TABLET BY ity of tablet 00:00: MOUTH [place] [address] EVERY WEEK Medical FOR 4 Branch WEEKS nystatin 2022-10 Yes [id number] APPLY Univ ers 100,000 0-30 TOPICALLY ity of unit/gram 00:00: TO THE [place] [facility] 00 AFFECTED Medical AREA TWICE Branch DAILY famotidine 2022-10 Yes [id number] Take 1 Univers (PEPCID) 20 0-30 oral tab ity of mg tablet 00:00: every 12 [place] 00 hrs. Start Medical one day Branch before procedure and last dose on morning of procedure omeprazole 2022-10 Yes [id number] 40mg Take 1 Univers 40 mg 0-30 capsule by ity of capsule 00:00: mouth in [place] 00 the Medical morning. Branch lactulose 2022-10 Yes [id number] 15mL Take 15 mL Univers 10 gram/15 0-30 by mouth 2 ity of mL solution 00:00: (two) [place] 00 times Medical daily as Branch needed for Constipati on. fluconazole 2022-10 Yes [id number] TAKE 1 Univers 150 mg 0-30 TABLET BY ity of tablet 00:00: MOUTH [place] 00 EVERY WEEK Medical FOR 4 Branch WEEKS nystatin 2022-10 Yes [id number] APPLY Univ ers 100,000 0-30 TOPICALLY ity of unit/gram 00:00: TO THE [place] cream 00 AFFECTED Medical AREA TWICE Branch DAILY famotidine 2022-10 Yes [id number] Take 1 Univers (PEPCID) 20 0-30 oral tab ity of mg tablet 00:00: every 12 [place] 00 hrs. Start Medical one day Branch before procedure and last dose on morning of procedure omeprazole 2022-10 Yes [id number] 40mg Take 1 Univers 40 mg 0-30 capsule by ity of capsule 00:00: mouth in [place] 00 the Medical morning. Branch lactulose 2022-10 Yes [id number] 15mL Take 15 mL Univers 10 gram/15 0-30 by mouth 2 ity of mL solution 00:00: (two) [place] 00 times Medical daily as Branch needed for Constipati on. fluconazole 2022-10 Yes [id number] TAKE 1 Univers 150 mg 0-30 TABLET BY ity of tablet 00:00: MOUTH [place] 00 EVERY WEEK Medical FOR 4 Branch WEEKS nystatin 2022-10 Yes [id number] APPLY Univ ers 100,000 0-30 TOPICALLY ity of unit/gram 00:00: TO THE [place] [facility] 00 AFFECTED Medical AREA TWICE Branch DAILY famotidine 2022-10 Yes [id number] Take 1 Univers (PEPCID) 20 0-30 oral tab ity of mg tablet 00:00: every 12 [place] 00 hrs. Start Medical one day Branch before procedure and last dose on morning of procedure omeprazole 2022-10 Yes [id number] 40mg Take 1 Univers 40 mg 0-30 capsule by ity of capsule 00:00: mouth in [place] 00 the Medical morning. Branch lactulose 2022-10 Yes [id number] 15mL Take 15 mL Univers 10 gram/15 0-30 by mouth 2 ity of mL solution 00:00: (two) [place] 00 times Medical daily as Branch needed for Constipati on. peg-electro 2022-10 Yes [id number] Take as Univers lyte soln 0-03 directed ity of 236-22.74-6 00:00: [place] .74 -5.86 00 colonoscop Medi rach gram y Branch solution peg-electro 2022-10 Yes [id number] Take as Univers lyte soln 0-03 directed ity of 236-22.74-6 00:00: [place] .74 -5.86 00 colonoscop Medi rach gram y Branch solution peg-electro 2022-10 Yes [id number] Take as Univers lyte soln 0-03 directed ity of 236-22.74-6 00:00: [place] .74 -5.86 00 colonoscop Medi rach gram y Branch solution peg-electro 2022-10 Yes [id number] Take as Univers lyte soln 0-03 directed ity of 236-22.74-6 00:00: [place] .74 -5.86 00 colonoscop Medi rach gram y Branch solution peg-electro 2022-10 Yes [id number] Take as Univers lyte soln 0-03 directed ity of 236-22.74-6 00:00: [place] .74 -5.86 00 colonoscop Medi rach gram y Branch solution peg-electro 2022-10 Yes [id number] Take as Univers lyte soln 0-03 directed ity of 236-22.74-6 00:00: [place] .[place] -5.86 00 colonoscop Medi rach gram y Branch solution peg-electro 2022-10 Yes [id number] Take as Univers lyte soln 0-03 directed ity of 236-22.74-6 00:00: [place] .74 -5.86 00 colonoscop Medi rach gram y Branch solution peg-electro 2022-10 Yes [id number] Take as Univers lyte soln 0-03 directed ity of 236-22.74-6 00:00: [place] .74 -5.86 00 colonoscop Medi rach gram y Branch solution peg-electro 2022-10 Yes [id number] Take as Univers lyte soln 0-03 directed ity of 236-22.74-6 00:00: [place] .74 -5.86 00 colonoscop Medi rach gram y Branch solution peg-electro 2022-10 Yes [id number] Take as Univers lyte soln 0-03 directed ity of 236-22.74-6 00:00: [place] .74 -5.86 00 colonoscop Medi rach gram y Branch solution peg-electro 2022-10 Yes [id number] Take as Univers lyte soln 0-03 directed ity of 236-22.74-6 00:00: [place] .74 -5.86 00 colonoscop Medi rach gram y Branch solution peg-electro 2022-10 Yes [id number] Take as Univers lyte soln 0-03 directed ity of 236-22.74-6 00:00: [place] .74 -5.86 00 colonoscop Medi rach gram y Branch solution peg-electro 2022-10 Yes [id number] Take as Univers lyte soln 0-03 directed ity of 236-22.74-6 00:00: [place] .74 -5.86 00 colonoscop Medi rach gram y Branch solution peg-electro 2022-10 Yes [id number] Take as Univers lyte soln 0-03 directed ity of 236-22.74-6 00:00: [place] .74 -5.86 00 colonoscop Medi rach gram y Branch solution peg-electro 2022-10 Yes [id number] Take as Univers lyte soln 0-03 directed ity of 236-22.74-6 00:00: [place] .74 -5.86 00 colonoscop Medi rach gram y Branch solution polyethylen 2022-10- Yes [id number] 17g Take 17 g Univers e glycol 0-03 11-03 by mouth ity of 3350 00:00: 04:59 in the [place] ([facility]) 00 :00 morning Medical 17 for 30 Branch gram/dose days. powder polyethylen 2022-10- Yes [id number] 17g Take 17 g Univers e glycol 0-03 11-03 by mouth ity of 3350 00:00: 04:59 in the [place] ([facility]) 00 :00 morning Medical 17 for 30 Branch gram/dose days. powder polyethylen 2022-10- Yes [id number] 17g Take 17 g Univers e glycol 0-03 11-03 by mouth ity of 3350 00:00: 04:59 in the [place] ([facility]) 00 :00 morning Medical 17 for 30 Branch gram/dose days. powder polyethylen 2022-10- Yes [id number] 17g Take 17 g Univers e glycol 0-03 11-03 by mouth ity of 3350 00:00: 04:59 [facility] the [place] [facility] morning Medical 17 for 30 Branch gram/dose days. powder polyethylen 2022-10- Yes [id number] 17g Take 17 g Univers e glycol 0-03 11-03 by mouth ity of 3350 00:00: 04:59 [facility] the [place] [facility] Medical 17 for 30 Branch gram/dose days. powder polyethylen 2022-10- Yes [id number] 17g Take 17 g Univers e glycol 0-03 11-03 by mouth ity of 3350 00:00: [facility] Medical 17 for 30 Branch gram/dose days. powder polyethylen 2022-10- Yes [id number] 17g Take 17 g Univers e glycol 0-03 11-03 by mouth ity of 3350 00:00: 04:59 [facility] morning Medical 17 for 30 Branch gram/dose days. powder polyethylen 2022-10- Yes [id number] 17g Take 17 g Univers e glycol 0-03 11-03 by mouth ity of 3350 00:00: 04:59 [facility] morning Medical 17 for 30 Branch gram/dose days. powder polyethylen 2022-10- Yes [id number] 17g Take 17 g Univers e glycol 0-03 11-03 by mouth ity of 3350 00:00: 04:59 in the [place] [facility] morning Medical 17 for 30 Branch gram/dose days. powder polyethylen 2022-10- No [id number] 17g Take 17 g Univers e glycol 0-03 10-30 by mouth ity of 3350 00:00: 00:00 in the [place] [facility] morning Medical 17 for 30 Branch gram/dose days. powder polyethylen 2022-10- No [id number] 17g Take 17 g Univers e glycol 0-03 10-30 by mouth ity of 3350 00:00: 00:00 in the [place] ([facility]) 00 :00 morning Medical 17 for 30 Branch gram/dose days. powder cariprazine 2022- No [id number] 4.5mg Take 4.5 Univers (VRAYLAR) 9-29 09-29 mg by ity of 4.5 mg Cap 15:35: 00:00 mouth [place] 13 :00 every Medical evening. Branch traZODone Yes 50mg Take 1 Univer s 50 mg 9-29 tablet by ity of tablet 15:35: mouth at [place] [address] bedtime. Medical Branch traZODone Yes 50mg Take 1 Univer s 50 mg 9-29 tablet by ity of tablet 15:35: mouth at [place] [address] bedtime. Medical Branch traZODone Yes 50mg Take 1 Univer s 50 mg 9-29 tablet by ity of tablet 15:35: mouth at [place] [address] bedtime. Medical Branch traZODone Yes 50mg Take 1 Univer s 50 mg 9-29 tablet by ity of tablet 15:35: mouth at [place] [address] bedtime. Medical Branch traZODone Yes 50mg Take 1 Univer s 50 mg 9-29 tablet by ity of tablet 15:35: mouth at [place] [address] bedtime. Medical Branch traZODone Yes 50mg Take 1 Univer s 50 mg 9-29 tablet by ity of tablet 15:35: mouth at [place] [address] bedtime. Medical Branch traZODone Yes 50mg Take 1 Univer s 50 mg 9-29 tablet by ity of tablet 15:35: mouth at [place] [address] bedtime. Medical Branch traZODone Yes 50mg Take 1 Univer s 50 mg 9-29 tablet by ity of tablet 15:35: mouth at [place] [address] bedtime. Medical Branch traZODone Yes 50mg Take 1 Univer s 50 mg 9-29 tablet by ity of tablet 15:35: mouth at [place] [address] bedtime. Medical Branch fluconazole Yes TAKE 1 Univ ers 150 mg 9-01 TABLET BY ity of tablet 00:00: MOUTH [place] 00 EVERY WEEK Medical FOR 4 Branch WEEKS asenapine Yes 1{tbl} Place 1 Uni vers maleate 2.5 9-01 tablet ity of mg Subl 00:00: under the 00 tongue at Medical bedtime. Branch fluconazole 0 Yes TAKE 1 Univ ers 150 mg 9-01 TABLET BY ity of tablet 00:00: MOUTH [place] EVERY WEEK Medical FOR 4 Branch WEEKS asenapine 0 Yes 1{tbl} Place 1 Uni vers maleate 2.5 9-01 tablet ity of mg Subl 00:00: under the [place] tongue at Medical bedtime. Branch fluconazole Yes TAKE 1 Univ ers 150 mg 9-01 TABLET BY ity of tablet 00:00: MOUTH EVERY WEEK Medical FOR 4 Branch WEEKS asenapine Yes 1{tbl} Place 1 Uni vers maleate 2.5 9-01 tablet ity of mg Subl 00:00: under the [place] tongue at Medical bedtime. Branch fluconazole Yes TAKE 1 Univ ers 150 mg 9-01 TABLET BY ity of tablet 00:00: MOUTH EVERY WEEK Medical FOR 4 Branch WEEKS asenapine 0 Yes 1{tbl} Place 1 Uni vers maleate 2.5 9-01 tablet ity of mg Subl 00:00: under the [place] tongue at Medical bedtime. Branch fluconazole Yes TAKE 1 Univ ers 150 mg 9-01 TABLET BY ity of tablet 00:00: MOUTH EVERY WEEK Medical FOR 4 Branch WEEKS asenapine 0 Yes 1{tbl} Place 1 Uni vers maleate 2.5 9-01 tablet ity of mg Subl 00:00: under the [place] tongue at Medical bedtime. Branch fluconazole 0 Yes TAKE 1 Univ ers 150 mg 9-01 TABLET BY ity of tablet 00:00: MOUTH EVERY WEEK Medical FOR 4 Branch WEEKS asenapine 2022-0 Yes 1{tbl} Place 1 Uni vers maleate 2.5 9-01 tablet ity of mg Subl 00:00: under the [place] tongue at Medical bedtime. Branch fluconazole 2022-0 Yes TAKE 1 Univ ers 150 mg 9-01 TABLET BY ity of tablet 00:00: MOUTH [place] EVERY WEEK Medical FOR 4 Branch WEEKS asenapine 2022-0 Yes 1{tbl} Place 1 Uni vers maleate 2.5 9-01 tablet ity of mg Subl 00:00: under the [place] 00 tongue at Medical bedtime. Branch fluconazole Yes TAKE 1 Univ ers 150 mg 9-01 TABLET BY ity of tablet 00:00: MOUTH [place] 00 EVERY WEEK Medical FOR 4 Branch WEEKS asenapine Yes 1{tbl} Place 1 Uni vers maleate 2.5 9-01 tablet ity of mg Subl 00:00: under the [place] 00 tongue at Medical bedtime. Branch fluconazole Yes TAKE 1 Univ ers 150 mg 9-01 TABLET BY ity of tablet 00:00: MOUTH [place] 00 EVERY WEEK Medical FOR 4 Branch WEEKS asenapine Yes 1{tbl} Place 1 Uni vers maleate 2.5 9-01 tablet ity of mg Subl 00:00: under the [place] 00 tongue at Medical bedtime. Branch fluconazole 2022- No TAKE 1 Uni vers 150 mg 9-01 10-30 TABLET BY ity of tablet 00:00: 00:00 MOUTH [place] 00 :00 EVERY WEEK Medical FOR 4 Branch WEEKS asenapine 2022- No 1{tbl} Place 1 Un conchita maleate 2.5 9-01 10-30 tablet ity o f mg Subl 00:00: 00:00 [place] 00 :[place] tongue at Medical bedtime. Branch fluconazole 2022- No TAKE 1 Uni vers 150 mg 9-01 10-30 TABLET BY ity of tablet 00:00: 00:00 MOUTH [place] 00 :00 EVERY WEEK Medical FOR 4 Branch WEEKS asenapine 2022- No 1{tbl} Place 1 Un conchita maleate 2.5 9- 10-30 tablet ity o f mg Subl 00:00: 00:00 [place] 00 :[place] tongue at Medical bedtime. Branch iopamidol 2022- No [id number] 100mL 100 mL, Univers (ISOVUE 06-20 Intravenou ity o f 370-500 mL) 04:45: 03:46 s, ONCE, 1 [place] injection 00 :00 dose, On Medica l 100 mL Mon Branch 06/19/23 at 2345, Routine ketorolac 2022- No 30mg 30 mg, Unive rs (TORADOL) 06-20 Slow IV ity of injection 04:15: 03:36 Push, [place] 30 mg 00 :00 ONCE, 1 Medical dose, On Branch 06/19/23 at 2315, Routine KCL 20 2022-2022- No 40meq 40 mEq, Univer s mEq/15 mL 06-20 Oral, ity of solution 40 04:00: 04:07 ONCE, 1 [place] mEq 00 :00 dose, On Medical Mon Branch 06/19/23 at 2300, Routine ondansetron 2022-0 2022- No 4mg 4 mg, Slow Univers (ZOFRAN 06-20 IV Push, ity of (PF)) 03:15: 03:35 ONCE, 1 [place] injection 4 00 :00 dose, On Medi rach mg [facility] Branch 06/19/23 at 2215, RUBY levoFLOXaci 2022-0 Yes [id number] 500mg Take 1 Univers n 500 mg 8-28 tablet by ity of tablet 00:00: mouth [place] 00 every 24 Medical (twenty-fo Branch ur) hours. dicyclomine 2023-0 Yes [id number] 20mg Take 1 Univers 20 mg 8-28 tablet by ity of tablet 00:00: mouth [place] 00 every 6 Medical (six) Branch hours as needed for Abdominal pain. ondansetron 2023-0 Yes [id number] 4mg Take 1 Univers (ZOFRAN) 4 8-28 tablet by ity of mg tablet 00:00: mouth [place] 00 every 8 Medical (eight) Branch hours as needed for Nausea and Vomiting (N/V). levoFLOXaci 2023-0 Yes [id number] 500mg Take 1 Univers n 500 mg 8-28 tablet by ity of tablet 00:00: mouth [place] 00 every 24 Medical (twenty-fo Branch ur) hours. dicyclomine 2023-0 Yes [id number] 20mg Take 1 Univers 20 mg 8-28 tablet by ity of tablet 00:00: mouth [place] 00 every 6 Medical (six) Branch hours as needed for Abdominal pain. ondansetron 2023-0 Yes [id number] 4mg Take 1 Univers (ZOFRAN) 4 8-28 tablet by ity of mg tablet 00:00: mouth [place] 00 every 8 Medical (eight) Branch hours as needed for Nausea and Vomiting (N/V). levoFLOXaci 2023-0 Yes [id number] 500mg Take 1 Univers n 500 mg 8-28 tablet by ity of tablet 00:00: mouth [place] 00 every 24 Medical (twenty-fo Branch ur) hours. dicyclomine 2023-0 Yes [id number] 20mg Take 1 Univers 20 mg 8-28 tablet by ity of tablet 00:00: mouth [place] 00 every 6 Medical (six) Branch hours as needed for Abdominal pain. ondansetron 2023-0 Yes [id number] 4mg Take 1 Univers (ZOFRAN) 4 8-28 tablet by ity of mg tablet 00:00: mouth [place] 00 every 8 Medical (eight) Branch hours as needed for Nausea and Vomiting (N/V). levoFLOXaci 2023-0 Yes [id number] 500mg Take 1 Univers n 500 mg 8-28 tablet by ity of tablet 00:00: mouth [place] 00 every 24 Medical (twenty-fo Branch ur) hours. dicyclomine 2023-0 Yes [id number] 20mg Take 1 Univers 20 mg 8-28 tablet by ity of tablet 00:00: mouth [place] 00 every 6 Medical (six) Branch hours as needed for Abdominal pain. ondansetron 2023-0 Yes [id number] 4mg Take 1 Univers (ZOFRAN) 4 8-28 tablet by ity of mg tablet 00:00: mouth [place] 00 every 8 Medical (eight) Branch hours as needed for Nausea and Vomiting (N/V). levoFLOXaci 2023-0 2023- No [id number] 500mg Take 1 [facility] n 500 mg 8-28 09-29 tablet by ity o f tablet 00:00: 00:00 mouth [place] 00 :00 every 24 Medical (twenty-fo Branch ur) hours. dicyclomine 2023-0 2023- No [id number] 20mg Take 1 [facility] 20 mg 8-28 09-29 tablet by ity of tablet 00:00: 00:00 mouth [place] 00 :00 every 6 Medical (six) Branch hours as needed for Abdominal pain. ondansetron 2023-0 2023- No [id number] 4mg Take 1 [facility] (ZOFRAN) 4 8-28 09-29 tablet by ity of mg tablet 00:00: 00:00 mouth [place] 00 :00 every 8 Medical (eight) Branch hours as needed for Nausea and Vomiting (N/V). omeprazole 2023-0 Yes 20mg Take 1 [facility] 20 mg 8-21 capsule by ity of capsule 00:00: mouth [place] 00 every Medical morning. Branch omeprazole 2023-0 Yes 20mg Take 1 [facility] 20 mg 8-21 capsule by ity of capsule 00:00: mouth [place] 00 every Medical morning. Branch omeprazole 2023-0 Yes 20mg Take 1 [facility] 20 mg 8-21 capsule by ity of capsule 00:00: mouth [place] 00 every Medical morning. Branch omeprazole 2023-0 Yes 20mg Take 1 [facility] 20 mg 8-21 capsule by ity of capsule 00:00: mouth [place] 00 every Medical morning. Branch omeprazole 2023-0 Yes 20mg Take 1 [facility] 20 mg 8-21 capsule by ity of capsule 00:00: mouth [place] 00 every Medical morning. Branch omeprazole 2023-0 Yes 20mg Take 1 [facility] 20 mg 8-21 capsule by ity of capsule 00:00: mouth [place] 00 every Medical morning. Branch omeprazole 2023-0 Yes 20mg Take 1 [facility] 20 mg 8-21 capsule by ity of capsule 00:00: mouth [place] 00 every Medical morning. Branch omeprazole 2023-0 Yes 20mg Take 1 [facility] 20 mg 8-21 capsule by ity of capsule 00:00: mouth [place] 00 every Medical morning. Branch omeprazole 2023-0 Yes 20mg Take 1 [facility] 20 mg 8-21 capsule by ity of capsule 00:00: mouth [place] 00 every Medical morning. Branch omeprazole 2023-0 2023- No 20mg Take 1 [facility] 20 mg 8-21 10-30 capsule by ity of capsule 00:00: 00:00 mouth [place] 00 :00 every Medical morning. Branch omeprazole 2023-0 2023- No 20mg Take 1 [facility] ers 20 mg 8-21 10-30 capsule by ity of capsule 00:00: 00:00 mouth [place] 00 :00 every Medical morning. Branch cariprazine 2023-0 Yes [id number] 4.5mg Take 4.5 [facility] (VRAYLAR) 8-16 mg by ity of 4.5 mg Cap 14:08: mouth [place] 47 every Medical evening. Branch cariprazine 2023-0 Yes [id number] 4.5mg Take 4.5 [facility] (VRAYLAR) 8-16 mg by ity of 4.5 mg Cap 14:08: mouth [place] 47 every Medical evening. Bath cariprazine Yes [id number] 4.5mg Take 4.5 [facility] (VRAYLAR) 8-16 mg by ity of 4.5 mg Cap 14:08: mouth [place] 47 every Medical evening. [place] cariprazine Yes [id number] 4.5mg Take 4.5 [facility] (VRAYLAR) 8-16 mg by ity of 4.5 mg Cap 14:08: mouth [place] 47 every Medical evening. [place] cariprazine Yes [id number] 4.5mg Take 4.5 [facility] (VRAYLAR) 8-16 mg by ity of 4.5 mg Cap 14:08: mouth [place] 47 every Medical evening. [place] cariprazine Yes [id number] 4.5mg Take 4.5 [facility] (VRAYLAR) 8-16 mg by ity of 4.5 mg Cap 14:08: mouth [place] 47 every Medical evening. [place] cariprazine Yes [id number] 4.5mg Take 4.5 [facility] (VRAYLAR) 8-16 mg by ity of 4.5 mg Cap 14:08: mouth [place] 47 every Medical evening. Bath cetirizine 2022- No [id number] 10mg Take 1 [facility] 10 mg 8-16 08-16 tablet by ity of tablet 13:49: 00:00 mouth [place] 27 :00 every Medical morning. Bath predniSONE 2022- No [id number] 50mg Take 1 [facility] 50 mg 8-16 08-22 tablet by ity of tablet 00:00: 04:59 mouth in [place] 00 :00 the Medical morning Branch for 5 days. triamcinolo Yes APPLY [facility] ne 8-10 TOPICALLY ity of acetonide 00:00: TO THE [place] 0.1 % cream 00 AFFECTED Medi rach AREA TWICE Branch DAILY nystatin Yes APPLY [facility] 100,000 8-10 TOPICALLY ity of unit/gram 00:00: TO THE [place] cream 00 AFFECTED Medical AREA TWICE Branch DAILY triamcinolo Yes APPLY [facility] rs ne 8-10 TOPICALLY ity of acetonide 00:00: TO THE [place] 0.1 % cream 00 AFFECTED Medi rach AREA TWICE Branch DAILY nystatin 3-0 Yes APPLY [facility] 100,000 8-10 TOPICALLY ity of unit/gram 00:00: TO THE [place] cream 00 AFFECTED Medical AREA TWICE Branch DAILY triamcinolo 2022-0 Yes APPLY [facility] rs ne 8-10 TOPICALLY ity of acetonide 00:00: TO THE [place] 0.1 % cream 00 AFFECTED Medi rach AREA TWICE Branch DAILY nystatin 2022-0 Yes APPLY [facility] 100,000 8-10 TOPICALLY ity of unit/gram 00:00: TO THE [place] cream 00 AFFECTED Medical AREA TWICE Branch DAILY triamcinolo 2022-0 Yes APPLY [facility] rs ne 8-10 TOPICALLY ity of acetonide 00:00: TO THE [place] 0.1 % cream 00 AFFECTED Medi rach AREA TWICE Branch DAILY nystatin 2022-0 Yes APPLY [facility] 100,000 8-10 TOPICALLY ity of unit/gram 00:00: TO THE [place] cream 00 AFFECTED Medical AREA TWICE Branch DAILY triamcinolo 2022-0 Yes APPLY [facility] rs ne 8-10 TOPICALLY ity of acetonide 00:00: TO THE [place] 0.1 % cream 00 AFFECTED Medi rach AREA TWICE Branch DAILY nystatin 2022-0 Yes APPLY [facility] 100,000 8-10 TOPICALLY ity of unit/gram 00:00: TO THE [place] cream 00 AFFECTED Medical AREA TWICE Branch DAILY triamcinolo 3-0 Yes APPLY [facility] rs ne 8-10 TOPICALLY ity of acetonide 00:00: TO THE [place] 0.1 % cream 00 AFFECTED Medi rach AREA TWICE Branch DAILY nystatin 2022-0 Yes APPLY [facility] 100,000 8-10 TOPICALLY ity of unit/gram 00:00: TO THE [place] cream 00 AFFECTED Medical AREA TWICE Branch DAILY triamcinolo 3-0 Yes APPLY [facility]ive rs ne 8-10 TOPICALLY ity of acetonide 00:00: TO THE [place] 0.1 % cream 00 AFFECTED Medi rach AREA TWICE Branch DAILY nystatin 3-0 Yes APPLY [facility] 100,000 8-10 TOPICALLY ity of unit/gram 00:00: TO THE [place] cream 00 AFFECTED Medical AREA TWICE Branch DAILY triamcinolo 3-0 Yes APPLY Un[facility] rs ne 8-10 TOPICALLY ity of acetonide 00:00: TO THE [place] 0.1 % cream 00 AFFECTED Medi rach AREA TWICE Branch DAILY nystatin 2023-0 Yes APPLY [facility] 100,000 8-10 TOPICALLY ity of unit/gram 00:00: TO THE [place] cream 00 AFFECTED Medical AREA TWICE Branch DAILY triamcinolo 2023-0 Yes APPLY Unive rs ne 8-10 TOPICALLY ity of acetonide 00:00: TO THE [place] 0.1 % cream 00 AFFECTED Medi rach AREA TWICE Branch DAILY nystatin 2022-0 Yes APPLY [facility] 100,000 8-10 TOPICALLY ity of unit/gram 00:00: TO THE [place] cream 00 AFFECTED Medical AREA TWICE Branch DAILY triamcinolo 2023-0 2022- No APPLY Univ ers ne 8-10 10-30 TOPICALLY ity of acetonide 00:00: 00:00 TO THE [place] 0.1 % cream 00 :00 AFFECTED Medi rach AREA TWICE Branch DAILY nystatin 2023-0 2022- No APPLY [facility] 100,000 8-10 10-30 TOPICALLY ity of unit/gram 00:00: 00:00 TO THE [place] cream 00 :00 AFFECTED Medical AREA TWICE Branch DAILY triamcinolo 2023-0 3- No APPLY Univ ers ne 8-10 10-30 TOPICALLY ity of acetonide 00:00: 00:00 TO THE [place] 0.1 % cream 00 :00 AFFECTED Medi rach AREA TWICE Branch DAILY nystatin 2023-0 2022- No APPLY [facility] 100,000 8-10 10-30 TOPICALLY ity of unit/gram 00:00: 00:00 TO THE [place] cream 00 :00 AFFECTED Medical AREA TWICE Branch DAILY cyclobenzap 2022-0 Yes TAKE 1 Univ ers rine 10 mg 7-18 TABLET BY ity of tablet 00:00: MOUTH EVERY 8 Medical HOURS Branch NEEDED FOR MUSCLE SPASMS cyclobenzap 2022-0 Yes TAKE 1 [facility] ers rine 10 mg 7-18 TABLET BY ity of tablet 00:00: MOUTH EVERY 8 Medical HOURS Branch NEEDED FOR MUSCLE SPASMS cyclobenzap 2022-0 Yes TAKE 1 [facility] ers rine 10 mg 7-18 TABLET BY ity of tablet 00:00: MOUTH EVERY 8 Medical HOURS Branch NEEDED FOR MUSCLE SPASMS cyclobenzap 2022-0 Yes TAKE 1 [facility] ers rine 10 mg 7-18 TABLET BY ity of tablet 00:00: MOUTH [place] 00 EVERY 8 Medical HOURS Branch NEEDED FOR MUSCLE SPASMS cyclobenzap 2022-0 Yes TAKE 1 [facility] ers rine 10 mg 7-18 TABLET BY ity of tablet 00:00: MOUTH [place] 00 EVERY 8 Medical HOURS Branch NEEDED FOR MUSCLE SPASMS cyclobenzap 2022-0 Yes TAKE 1 [facility] ers rine 10 mg 7-18 TABLET BY ity of tablet 00:00: MOUTH [place] 00 EVERY 8 Medical HOURS Branch NEEDED FOR MUSCLE SPASMS cyclobenzap 2022-0 Yes TAKE 1 [facility] ers rine 10 mg 7-18 TABLET BY ity of tablet 00:00: MOUTH [place] 00 EVERY 8 Medical HOURS Branch NEEDED FOR MUSCLE SPASMS cyclobenzap 2022-0 Yes TAKE 1 Univ ers rine 10 mg 7-18 TABLET BY ity of tablet 00:00: MOUTH [place] 00 EVERY 8 Medical HOURS Branch NEEDED FOR MUSCLE SPASMS cyclobenzap 2022-0 Yes TAKE 1 Univ ers rine 10 mg 7-18 TABLET BY ity of tablet 00:00: MOUTH [place] 00 EVERY 8 Medical HOURS Branch NEEDED FOR MUSCLE SPASMS cyclobenzap 2022-0 2022- No TAKE 1 Uni vers rine 10 mg 7-18 10-30 TABLET BY ity of tablet 00:00: 00:00 MOUTH [place] 00 :00 EVERY 8 Medical HOURS Branch NEEDED FOR MUSCLE SPASMS cyclobenzap 2022-0 2022- No TAKE 1 Uni vers rine 10 mg 7-18 10-30 TABLET BY ity of tablet 00:00: 00:00 MOUTH [place] 00 :00 EVERY 8 Medical HOURS Branch NEEDED FOR MUSCLE SPASMS maalox:diph 2022-0 2022- No 15mL 15 mL, Uni vers enhydrAMINE 04-21 Oral, ity of :lidocaine 21:00: 21:07 ONCE, 1 [place] 2 % viscous 00 :00 dose, On Medi rach 1:1:1 Fri Branch ([facility] 04/21/23 at [facility]) 1600, oral Routine suspension 15 mL ketorolac 2022-0 2022- No 30mg 30 mg, Unive rs (TORADOL) 04-21 Slow IV ity of injection 20:15: 19:35 Push, [place] 30 mg 00 :00 ONCE, 1 Medical dose, On Branch 04/21/23 at 1515, Routine famotidine 2022- No 20mg 20 mg, Univ ers (PEPCID 04-21 Slow IV ity of (PF)) 19:30: 19:35 Push, [place] injection 00 :00 ONCE, 1 Medical 20 mg dose, On Branch 04/21/23 at 1430, RUBY vancomycin 2022-0 2022- No CONTINUOUS [facility] 1000 mg in 03-28 PRN, ity of NS 200 mL 12:49: 12:49 Starting [place] RTU IV 05 :05 on [facility] 03/28/23 at [facility] h 0749, Until Discontinu ed, Administer over 60 Minutes, CV Intraproce dure lidocaine 2022- No ONCE INTRA U nivers 2% 03-28 PROCEDURE, ity of (XYLOCAINE) 12:46: 13:01 [place] 20 mg/mL (2 00 :06 on Tue Medica l %) 03/28/23 at Branch injection 0746, Until Mon03/28/23 at 0801, Routine, CV Intraproce dure cariprazine 2022-0 Yes [id number] 4.5mg Take 4.5 Univers (VRAYLAR) 6-06 mg by ity of 4.5 mg Cap 09:15: mouth [place] 50 every Medical evening. Bath cetirizine 2022-0 Yes [id number] 10mg Take 1 [facility] 10 mg 6-06 tablet by ity of tablet 09:15: mouth [place] 50 every Medical morning. [place] cariprazine 2022-0 Yes [id number] 4.5mg Take 4.5 [facility] (VRAYLAR) 6-06 mg by ity of 4.5 mg Cap 09:15: mouth [place] 50 every Medical evening. [place] cetirizine 2022-0 Yes [id number] 10mg Take 1 [facility] 10 mg 6-06 tablet by ity of tablet 09:15: mouth [place] 50 every Medical morning. Bath cariprazine 2022-0 Yes [id number] 4.5mg Take 4.5 [facility] (VRAYLAR) 6-06 mg by ity of 4.5 mg Cap 09:15: mouth [place] 50 every Medical evening. [place] cetirizine 2022-0 Yes [id number] 10mg Take 1 [facility] 10 mg 6-06 tablet by ity of tablet 09:15: mouth [place] 50 every Medical morning. Branch cariprazine 2022-0 Yes [id number] 4.5mg Take 4.5 [facility] (VRAYLAR) 6-06 mg by ity of 4.5 mg Cap 09:15: mouth [place] 50 every Medical evening. Branch cetirizine 2022-0 Yes [id number] 10mg Take 1 [facility] 10 mg 6-06 tablet by ity of tablet 09:15: mouth [place] 50 every Medical morning. Branch cariprazine 2022-0 Yes [id number] 4.5mg Take 4.5 [facility] (VRAYLAR) 6-06 mg by ity of 4.5 mg Cap 09:15: mouth [place] 50 every Medical evening. Branch cetirizine 2022-0 Yes [id number] 10mg Take 1 [facility] 10 mg 6-06 tablet by ity of tablet 09:15: mouth [place] 50 every Medical morning. Branch cariprazine 2022-0 Yes [id number] 4.5mg Take 4.5 Univers (VRAYLAR) 6-06 mg by ity of 4.5 mg Cap 09:15: mouth [place] 50 every Medical evening. Branch cetirizine 2022-0 Yes [id number] 10mg Take 1 [facility] 10 mg 6-06 tablet by ity of tablet 09:15: mouth [place] 50 every Medical morning. Branch cariprazine 2022-0 Yes [id number] 4.5mg Take 4.5 [facility] (VRAYLAR) 6-06 mg by ity of 4.5 mg Cap 09:15: mouth [place] 50 every Medical evening. Branch cetirizine 2022-0 Yes [id number] 10mg Take 1 [facility] 10 mg 6-06 tablet by ity of tablet 09:15: mouth [place] 50 every Medical morning. Branch cariprazine 2022-0 Yes [id number] 4.5mg Take 4.5 Univers (VRAYLAR) 6-06 mg by ity of 4.5 mg Cap 09:15: mouth [place] 50 every Medical evening. Branch cetirizine 2022-0 Yes [id number] 10mg Take 1 [facility] 10 mg 6-06 tablet by ity of tablet 09:15: mouth [place] 50 every Medical morning. Branch cariprazine 2022-0 Yes [id number] 4.5mg Take 4.5 [facility] (VRAYLAR) 6-06 mg by ity of 4.5 mg Cap 09:15: mouth [place] 50 every Medical evening. Branch cetirizine 2022-0 Yes [id number] 10mg Take 1 [facility] 10 mg 6-06 tablet by ity of tablet 09:15: mouth [place] 50 every Medical morning. Branch cariprazine 2022-0 Yes [id number] 4.5mg Take 4.5 [facility] (VRAYLAR) 6-06 mg by ity of 4.5 mg Cap 09:15: mouth [place] 50 every Medical evening. Branch cetirizine 2022-0 Yes [id number] 10mg Take 1 [facility] 10 mg 6-06 tablet by ity of tablet 09:15: mouth [place] 50 every Medical morning. Branch cariprazine 2022-0 Yes [id number] 4.5mg Take 4.5 [facility] (VRAYLAR) 6-06 mg by ity of 4.5 mg Cap 09:15: mouth [place] 50 every Medical evening. Branch cetirizine 2022-0 Yes [id number] 10mg Take 1 [facility] 10 mg 6-06 tablet by ity of tablet 09:15: mouth [place] 50 every Medical morning. Branch cariprazine 2022-0 Yes [id number] 4.5mg Take 4.5 [facility] (VRAYLAR) 6-06 mg by ity of 4.5 mg Cap 09:15: mouth [place] 50 every Medical evening. Branch cetirizine 0 Yes [id number] 10mg Take 1 [facility] 10 mg 6-06 tablet by ity of tablet 09:15: mouth [place] 50 every Medical morning. Branch OPTICHAMBER Yes [id number] USE Univers THONY LG 4-10 DIRECTED ity o f MASK Spcr 00:00: NEEDED [place] 00 WITH Medical INHALER Branch OPTICHAMBER Yes [id number] USE Univers THONY LG 4-10 DIRECTED ity o f MASK Spcr 00:00: NEEDED [place] 00 WITH Medical INHALER Branch OPTICHAMBER Yes [id number] USE Univers THONY LG 4-10 DIRECTED ity o f MASK Spcr 00:00: NEEDED [place] 00 WITH Medical INHALER Branch OPTICHAMBER Yes [id number] USE Univers THONY LG 4-10 DIRECTED ity o f MASK Spcr 00:00: NEEDED [place] 00 WITH Medical INHALER Branch OPTICHAMBER 2023-0 Yes [id number] USE Univers THONY LG 4-10 DIRECTED ity o f MASK Spcr 00:00: NEEDED [place] 00 WITH Medical INHALER Branch OPTICHAMBER 2023-0 Yes [id number] USE Univers THONY LG 4-10 DIRECTED ity o f MASK Spcr 00:00: NEEDED [place] 00 WITH Medical INHALER Branch OPTICHAMBER 3-0 Yes [id number] USE Univers THONY LG 4-10 DIRECTED ity o f MASK Spcr 00:00: NEEDED [place] 00 WITH Medical INHALER Branch OPTICHAMBER 2022-0 Yes [id number] USE Univers THONY LG 4-10 DIRECTED ity o f MASK Spcr 00:00: NEEDED [place] 00 WITH Medical INHALER Branch OPTICHAMBER 2022-0 Yes [id number] USE Univers THONY LG 4-10 DIRECTED ity o f MASK Spcr 00:00: NEEDED [place] 00 WITH Medical INHALER Branch OPTICHAMBER 2022-0 Yes [id number] USE Univers THONY LG 4-10 DIRECTED ity o f MASK Spcr 00:00: NEEDED [place] 00 WITH Medical INHALER Branch OPTICHAMBER 2022-0 Yes [id number] USE Univers THONY LG 4-10 DIRECTED ity o f MASK Spcr 00:00: NEEDED [place] 00 WITH Medical INHALER Branch OPTICHAMBER 2023-0 Yes [id number] USE Univers THONY LG 4-10 DIRECTED ity o f MASK Spcr 00:00: NEEDED [place] 00 WITH Medical INHALER Branch OPTICHAMBER 3-0 Yes [id number] USE Univers THONY LG 4-10 DIRECTED ity o f MASK Spcr 00:00: NEEDED [place] 00 WITH Medical INHALER Branch OPTICHAMBER 2023-0 Yes [id number] USE Univers THONY LG 4-10 DIRECTED ity o f MASK Spcr 00:00: NEEDED [place] 00 WITH Medical INHALER Branch OPTICHAMBER 2023-0 Yes [id number] USE Univers THONY LG 4-10 DIRECTED ity o f MASK Spcr 00:00: NEEDED [place] 00 WITH Medical INHALER Branch OPTICHAMBER 2023-0 Yes [id number] USE Univers THONY LG 4-10 DIRECTED ity o f MASK Spcr 00:00: NEEDED [place] 00 WITH Medical INHALER Branch OPTICHAMBER 2023-0 Yes [id number] USE Univers THONY LG 4-10 DIRECTED ity o f MASK Spcr 00:00: NEEDED [place] 00 WITH Medical INHALER Branch OPTICHAMBER 3-0 Yes [id number] USE Univers THONY LG 4-10 DIRECTED ity o f MASK Spcr 00:00: NEEDED [place] 00 WITH Medical INHALER Branch OPTICHAMBER 2022-0 Yes [id number] USE Univers THONY LG 4-10 DIRECTED ity o f MASK Spcr 00:00: NEEDED [place] 00 WITH Medical INHALER Branch OPTICHAMBER 2022-0 Yes [id number] USE Univers THONY LG 4-10 DIRECTED ity o f MASK Spcr 00:00: NEEDED [place] 00 WITH Medical INHALER Branch OPTICHAMBER 2022-0 Yes [id number] USE Univers THONY LG 4-10 DIRECTED ity o f MASK Spcr 00:00: NEEDED [place] 00 WITH Medical INHALER Branch OPTICHAMBER 2022-0 Yes [id number] USE Univers THONY LG 4-10 DIRECTED ity o f MASK Spcr 00:00: NEEDED [place] 00 WITH Medical INHALER Branch OPTICHAMBER 2022-0 Yes [id number] USE Univers THONY LG 4-10 DIRECTED ity o f MASK Spcr 00:00: NEEDED [place] 00 WITH Medical INHALER Branch OPTICHAMBER 2022-0 Yes [id number] USE Univers THONY LG 4-10 DIRECTED ity o f MASK Spcr 00:00: NEEDED [place] 00 WITH Medical INHALER Branch OPTICHAMBER 3-0 Yes [id number] USE Univers THONY LG 4-10 DIRECTED ity o f MASK Spcr 00:00: NEEDED [place] 00 WITH Medical INHALER Branch OPTICHAMBER 3-0 Yes [id number] USE Univers THONY LG 4-10 DIRECTED ity o f MASK Spcr 00:00: NEEDED [place] 00 WITH Medical INHALER Branch OPTICHAMBER 3-0 Yes [id number] USE Univers THONY LG 4-10 DIRECTED ity o f MASK Spcr 00:00: NEEDED [place] 00 WITH Medical INHALER Branch OPTICHAMBER 2023-0 Yes [id number] USE Univers THONY LG 4-10 DIRECTED ity o f MASK Spcr 00:00: NEEDED [place] 00 WITH Medical INHALER Branch OPTICHAMBER 0 Yes [id number] USE [facility] THONY LG 4-10 DIRECTED ity o f MASK Spcr 00:00: NEEDED [place] 00 WITH Medical INHALER Branch OPTICHAMBER 0 Yes [id number] USE Univers THONY LG 4-10 DIRECTED ity o f MASK Spcr 00:00: NEEDED [place] 00 WITH Medical INHALER Branch OPTICHAMBER 0 Yes [id number] USE Univers HTONY LG 4-10 DIRECTED ity o f MASK Spcr 00:00: NEEDED [place] 00 WITH Medical INHALER Branch OPTICHAMBER 0 Yes [id number] USE Univers THONY LG 4-10 DIRECTED ity o f MASK Spcr 00:00: NEEDED [place] 00 WITH Medical INHALER Branch OPTICHAMBER 0 Yes [id number] USE Univers THONY LG 4-10 DIRECTED ity o f MASK Spcr 00:00: NEEDED [place] 00 WITH Medical INHALER Branch OPTICHAMBER 0 Yes [id number] USE Univers THONY LG 4-10 DIRECTED ity o f MASK Spcr 00:00: NEEDED [place] 00 WITH Medical INHALER Branch OPTICHAMBER 0 Yes [id number] USE [facility] THONY LG 4-10 DIRECTED ity o f MASK Spcr 00:00: NEEDED [place] 00 WITH Medical INHALER Branch OPTICHAMBER 0 Yes [id number] USE Univers THONY LG 4-10 DIRECTED ity o f MASK Spcr 00:00: NEEDED [place] 00 WITH Medical INHALER Branch OPTICHAMBER 0 Yes [id number] USE Univers THONY LG 4-10 DIRECTED ity o f MASK Spcr 00:00: NEEDED [place] 00 WITH Medical INHALER Branch OPTICHAMBER 0 Yes [id number] USE Univers THONY LG 4-10 DIRECTED ity o f MASK Spcr 00:00: NEEDED [place] 00 WITH Medical INHALER Branch OPTICHAMBER 2022-0 Yes [id number] USE Univers THONY LG 4-10 DIRECTED ity o f MASK Spcr 00:00: NEEDED [place] 00 WITH Medical INHALER Branch ondansetron 2022-0 3- No 4mg 4 mg, Slow Univers (ZOFRAN 4-04 04-04 IV Push, ity of (PF)) 02:15: 02:06 ONCE, 1 [place] injection 4 00 :00 dose, On Medi rach mg 01/23/23 Branch at 211, RUBY morpHINE (4 2022- No 4mg 4 mg, Slow Univers mg/mL) 01-24 04-04 IV Push, ity of injection 4 02:15: 02:05 ONCE, 1 [place] mg 00 :00 dose, On Medical 01/23/23 Branch at 211, STAT dicyclomine 2022-0 Yes [id number] 20mg Take 1 [facility] 20 mg 4-03 tablet by ity of tablet 00:00: mouth 4 [place] 00 (four) Medical times Branch daily. ondansetron 2022-0 Yes [id number] 4mg Take 1 [facility] 4 mg 4-03 tablet by ity of disintegrat 00:00: mouth [place] ing tablet 00 every 4 Medica l (four) Branch hours as needed for Nausea and Vomiting (N/V). Nitrofurant 2022-0 Yes [id number] 100mg Take 1 [facility] oin&Nit. 4-03 capsule by ity o f Macrocryst 00:00: mouth in [place] (MACROBID) 00 the Medical 100 mg morning Branch capsule and 1 capsule in the evening. dicyclomine 3-0 Yes [id number] 20mg Take 1 [facility] 20 mg 4-03 tablet by ity of tablet 00:00: mouth 4 [place] 00 (four) Medical times Branch daily. ondansetron 2022-0 Yes [id number] 4mg Take 1 [facility] 4 mg 4-03 tablet by ity of disintegrat 00:00: mouth [place] ing tablet 00 every 4 Medica l (four) Branch hours as needed for Nausea and Vomiting (N/V). Nitrofurant 2022-0 Yes [id number] 100mg Take 1 Univers oin&Nit. 4-03 capsule by ity o f Macrocryst 00:00: mouth in [place] (MACROBID) 00 the Medical 100 mg morning Branch capsule and 1 capsule in the evening. dicyclomine 3-0 Yes [id number] 20mg Take 1 [facility] 20 mg 4-03 tablet by ity of tablet 00:00: mouth 4 [place] 00 (four) Medical times Branch daily. ondansetron 3-0 Yes [id number] 4mg Take 1 [facility] 4 mg 4-03 tablet by ity of disintegrat 00:00: mouth [place] ing tablet 00 every 4 Medica l (four) Branch hours as needed for Nausea and Vomiting (N/V). Nitrofurant 2023-0 Yes [id number] 100mg Take 1 [facility] oin&Nit. 4-03 capsule by ity o f Macrocryst 00:00: mouth in [place] (MACROBID) 00 the Medical 100 mg morning Branch capsule and 1 capsule in the evening. dicyclomine 2023-0 Yes [id number] 20mg Take 1 [facility] 20 mg 4-03 tablet by ity of tablet 00:00: mouth 4 [place] 00 (four) Medical times Branch daily. ondansetron 2023-0 Yes [id number] 4mg Take 1 [facility] 4 mg 4-03 tablet by ity of disintegrat 00:00: mouth [place] ing tablet 00 every 4 Medica l (four) Branch hours as needed for Nausea and Vomiting (N/V). Nitrofurant 2023-0 Yes [id number] 100mg Take 1 [facility] oin&Nit. 4-03 capsule by ity o f Macrocryst 00:00: mouth in [place] (MACROBID) 00 the Medical 100 mg morning Branch capsule and 1 capsule in the evening. dicyclomine 2023-0 Yes [id number] 20mg Take 1 [facility] 20 mg 4-03 tablet by ity of tablet 00:00: mouth 4 [place] 00 (four) Medical times Branch daily. ondansetron 2023-0 Yes [id number] 4mg Take 1 [facility] 4 mg 4-03 tablet by ity of disintegrat 00:00: mouth [place] ing tablet 00 every 4 Medica l (four) Branch hours as needed for Nausea and Vomiting (N/V). Nitrofurant 2023-0 Yes [id number] 100mg Take 1 [facility] oin&Nit. 4-03 capsule by ity o f Macrocryst 00:00: mouth in [place] (MACROBID) 00 the Medical 100 mg morning Branch capsule and 1 capsule in the evening. dicyclomine 2023-0 Yes [id number] 20mg Take 1 [facility] 20 mg 4-03 tablet by ity of tablet 00:00: mouth 4 [place] 00 (four) Medical times Branch daily. ondansetron 2023-0 Yes [id number] 4mg Take 1 [facility] 4 mg 4-03 tablet by ity of disintegrat 00:00: mouth [place] ing tablet 00 every 4 Medica l (four) Branch hours as needed for Nausea and Vomiting (N/V). Nitrofurant 2023-0 Yes [id number] 100mg Take 1 [facility] oin&Nit. 4-03 capsule by ity o f Macrocryst 00:00: mouth in [place] (MACROBID) 00 the Medical 100 mg morning Branch capsule and 1 capsule in the evening. dicyclomine 2023-0 Yes [id number] 20mg Take 1 [facility] 20 mg 4-03 tablet by ity of tablet 00:00: mouth 4 [place] 00 (four) Medical times Branch daily. ondansetron 2023-0 Yes [id number] 4mg Take 1 [facility] 4 mg 4-03 tablet by ity of disintegrat 00:00: mouth [place] ing tablet 00 every 4 Medica l (four) Branch hours as needed for Nausea and Vomiting (N/V). Nitrofurant 2023-0 Yes [id number] 100mg Take 1 [facility] oin&Nit. 4-03 capsule by ity o f Macrocryst 00:00: mouth in [place] (MACROBID) 00 the Medical 100 mg morning Branch capsule and 1 capsule in the evening. dicyclomine 2023-0 Yes [id number] 20mg Take 1 [facility] 20 mg 4-03 tablet by ity of tablet 00:00: mouth 4 [place] 00 (four) Medical times Branch daily. ondansetron 2023-0 Yes [id number] 4mg Take 1 [facility] 4 mg 4-03 tablet by ity of disintegrat 00:00: mouth [place] ing tablet 00 every 4 Medica l (four) Branch hours as needed for Nausea and Vomiting (N/V). Nitrofurant 2023-0 Yes [id number] 100mg Take 1 [facility] oin&Nit. 4-03 capsule by ity o f Macrocryst 00:00: mouth in [place] (MACROBID) 00 the Medical 100 mg morning Branch capsule and 1 capsule in the evening. dicyclomine 2023-0 Yes [id number] 20mg Take 1 [facility] 20 mg 4-03 tablet by ity of tablet 00:00: mouth 4 [place] 00 (four) Medical times Branch daily. ondansetron 2023-0 Yes [id number] 4mg Take 1 [facility] 4 mg 4-03 tablet by ity of disintegrat 00:00: mouth [place] ing tablet 00 every 4 Medica l (four) Branch hours as needed for Nausea and Vomiting (N/V). Nitrofurant 2023-0 Yes [id number] 100mg Take 1 [facility] oin&Nit. 4-03 capsule by ity o f Macrocryst 00:00: mouth in [place] (MACROBID) 00 the Medical 100 mg morning Branch capsule and 1 capsule in the evening. dicyclomine 2023-0 Yes [id number] 20mg Take 1 [facility] 20 mg 4-03 tablet by ity of tablet 00:00: mouth 4 [place] 00 (four) Medical times Branch daily. ondansetron 2023-0 Yes [id number] 4mg Take 1 [facility] 4 mg 4-03 tablet by ity of disintegrat 00:00: mouth [place] ing tablet 00 every 4 Medica l (four) Branch hours as needed for Nausea and Vomiting (N/V). Nitrofurant 2023-0 Yes [id number] 100mg Take 1 [facility] oin&Nit. 4-03 capsule by ity o f Macrocryst 00:00: mouth in [place] (MACROBID) 00 the Medical 100 mg morning Branch capsule and 1 capsule in the evening. dicyclomine 2023-0 Yes [id number] 20mg Take 1 [facility] 20 mg 4-03 tablet by ity of tablet 00:00: mouth 4 [place] 00 (four) Medical times Branch daily. ondansetron 2023-0 Yes [id number] 4mg Take 1 [facility] 4 mg 4-03 tablet by ity of disintegrat 00:00: mouth [place] ing tablet 00 every 4 Medica l (four) Branch hours as needed for Nausea and Vomiting (N/V). Nitrofurant 2023-0 Yes [id number] 100mg Take 1 [facility] oin&Nit. 4-03 capsule by ity o f Macrocryst 00:00: mouth in [place] (MACROBID) 00 the Medical 100 mg morning Branch capsule and 1 capsule in the evening. dicyclomine 2023-0 Yes [id number] 20mg Take 1 [facility] 20 mg 4-03 tablet by ity of tablet 00:00: mouth 4 [place] 00 (four) Medical times Branch daily. ondansetron 2023-0 Yes [id number] 4mg Take 1 [facility] 4 mg 4-03 tablet by ity of disintegrat 00:00: mouth [place] ing tablet 00 every 4 Medica l (four) Branch hours as needed for Nausea and Vomiting (N/V). Nitrofurant 2023-0 Yes [id number] 100mg Take 1 [facility] oin&Nit. 4-03 capsule by ity o f Macrocryst 00:00: mouth in [place] (MACROBID) 00 the Medical 100 mg morning Branch capsule and 1 capsule in the evening. dicyclomine 2023-0 Yes [id number] 20mg Take 1 [facility] 20 mg 4-03 tablet by ity of tablet 00:00: mouth 4 [place] 00 (four) Medical times Branch daily. ondansetron 2023-0 Yes [id number] 4mg Take 1 [facility] 4 mg 4-03 tablet by ity of disintegrat 00:00: mouth [place] ing tablet 00 every 4 Medica l (four) Branch hours as needed for Nausea and Vomiting (N/V). Nitrofurant 2023-0 Yes [id number] 100mg Take 1 [facility] oin&Nit. 4-03 capsule by ity o f Macrocryst 00:00: mouth in [place] (MACROBID) 00 the Medical 100 mg morning Branch capsule and 1 capsule in the evening. dicyclomine 2023-0 Yes [id number] 20mg Take 1 [facility] 20 mg 4-03 tablet by ity of tablet 00:00: mouth 4 [place] 00 (four) Medical times Branch daily. ondansetron 2023-0 Yes [id number] 4mg Take 1 [facility] 4 mg 4-03 tablet by ity of disintegrat 00:00: mouth [place] ing tablet 00 every 4 Medica l (four) Branch hours as needed for Nausea and Vomiting (N/V). Nitrofurant 2023-0 Yes [id number] 100mg Take 1 [facility] oin&Nit. 4-03 capsule by ity o f [facility]ryst 00:00: mouth in [place] (MACROBID) 00 the Medical 100 mg morning Branch capsule and 1 capsule in the evening. dicyclomine 2023-0 Yes [id number] 20mg Take 1 [facility] 20 mg 4-03 tablet by ity of tablet 00:00: mouth 4 [place] 00 (four) Medical times Branch daily. ondansetron 2023-0 Yes [id number] 4mg Take 1 [facility] 4 mg 4-03 tablet by ity of disintegrat 00:00: mouth [place] ing tablet 00 every 4 Medica l (four) Branch hours as needed for Nausea and Vomiting (N/V). Nitrofurant 2022-0 Yes [id number] 100mg Take 1 [facility] oin&Nit. 4-03 capsule by ity o f Macrocryst 00:00: mouth in [place] (MACROBID) 00 the Medical 100 mg morning Branch capsule and 1 capsule in the evening. dicyclomine 3-0 Yes [id number] 20mg Take 1 [facility] 20 mg 4-03 tablet by ity of tablet 00:00: mouth 4 [place] 00 (four) Medical times Branch daily. ondansetron 2022-0 Yes [id number] 4mg Take 1 [facility] 4 mg 4-03 tablet by ity of disintegrat 00:00: mouth [place] ing tablet 00 every 4 Medica l (four) Branch hours as needed for Nausea and Vomiting (N/V). Nitrofurant 2022-0 Yes [id number] 100mg Take 1 [facility] oin&Nit. 4-03 capsule by ity o f [facility]ryst 00:00: mouth in [place] (MACROBID) 00 the Medical 100 mg morning Branch capsule and 1 capsule in the evening. dicyclomine 2022-0 3- No [id number] 20mg Take 1 [facility] 20 mg 4-03 08-16 tablet by ity of tablet 00:00: 00:00 mouth 4 [place] 00 :00 (four) Medical times [place] daily. ondansetron 3-0 3- No [id number] 4mg Take 1 [facility] 4 mg 4-03 08-16 tablet by ity of disintegrat 00:00: 00:00 [place] tablet 00 :00 every 4 Medica l (four) Branch hours as needed for Nausea and Vomiting (N/V). Nitrofurant 2022-0 2023- No [id number] 100mg Take 1 [facility] oin&Nit. 4-03 08-16 capsule by ity of Macrocryst 00:00: 00:00 mouth in [place] (MACROBID) 00 :00 the Medical 100 mg morning Branch capsule and 1 capsule in the evening. cariprazine 2022-0 Yes [id number] 4.5mg Take 4.5 [facility] (VRAYLAR) 3-20 mg by ity of 4.5 mg Cap 09:37: mouth [place] 23 every Medical evening. Branch cetirizine 2022-0 Yes [id number] 10mg Take 1 [facility] 10 mg 3-20 tablet by ity of tablet 09:37: mouth [place] 23 every Medical morning. Branch cariprazine 2022-0 Yes [id number] 4.5mg Take 4.5 [facility] (VRAYLAR) 3-20 mg by ity of 4.5 mg Cap 09:37: mouth [place] 23 every Medical evening. Branch cetirizine 2022-0 Yes [id number] 10mg Take 1 [facility] 10 mg 3-20 tablet by ity of tablet 09:37: mouth [place] 23 every Medical morning. Branch cariprazine 2022-0 Yes [id number] 4.5mg Take 4.5 [facility] (VRAYLAR) 3-20 mg by ity of 4.5 mg Cap 09:37: mouth [place] 23 every Medical evening. Branch cetirizine 0 Yes [id number] 10mg Take 1 [facility] 10 mg 3-20 tablet by ity of tablet 09:37: mouth [place] 23 every Medical morning. Branch cariprazine 2022-0 Yes [id number] 4.5mg Take 4.5 [facility] (VRAYLAR) 3-20 mg by ity of 4.5 mg Cap 09:37: mouth [place] 23 every Medical evening. Branch cetirizine 0 Yes [id number] 10mg Take 1 [facility] 10 mg 3-20 tablet by ity of tablet 09:37: mouth [place] 23 every Medical morning. Branch cariprazine 2022-0 Yes [id number] 4.5mg Take 4.5 [facility] (VRAYLAR) 3-20 mg by ity of 4.5 mg Cap 09:37: mouth [place] 23 every Medical evening. Branch cetirizine 2022-0 Yes [id number] 10mg Take 1 [facility] 10 mg 3-20 tablet by ity of tablet 09:37: mouth [place] 23 every Medical morning. Branch cariprazine 2022-0 Yes [id number] 4.5mg Take 4.5 [facility] (VRAYLAR) 3-20 mg by ity of 4.5 mg Cap 09:37: mouth [place] 23 every Medical evening. Branch cetirizine 2022-0 Yes [id number] 10mg Take 1 [facility] 10 mg 3-20 tablet by ity of tablet 09:37: mouth [place] 23 every Medical morning. Branch cariprazine 2022-0 Yes [id number] 4.5mg Take 4.5 [facility] (VRAYLAR) 3-20 mg by ity of 4.5 mg Cap 09:37: mouth [place] 23 every Medical evening. Branch cetirizine 2022-0 Yes [id number] 10mg Take 1 [facility] 10 mg 3-20 tablet by ity of tablet 09:37: mouth [place] 23 every Medical morning. Branch cariprazine 2022-0 Yes [id number] 4.5mg Take 4.5 [facility] (VRAYLAR) 3-20 mg by ity of 4.5 mg Cap 09:37: mouth [place] 23 every Medical evening. Branch cetirizine 2022-0 Yes [id number] 10mg Take 1 [facility] 10 mg 3-20 tablet by ity of tablet 09:37: mouth [place] 23 every Medical morning. Branch cariprazine 0 Yes [id number] 4.5mg Take 4.5 [facility] (VRAYLAR) 3-20 mg by ity of 4.5 mg Cap 09:37: mouth [place] 23 every Medical evening. Branch cetirizine 2022-0 Yes [id number] 10mg Take 1 [facility] 10 mg 3-20 tablet by ity of tablet 09:37: mouth [place] 23 every Medical morning. [place] cariprazine 2022-0 Yes [id number] 4.5mg Take 4.5 [facility] (VRAYLAR) 3-20 mg by ity of 4.5 mg Cap 09:37: mouth [place] 23 every Medical evening. Branch cetirizine 2022-0 Yes [id number] 10mg Take 1 [facility] 10 mg 3-20 tablet by ity of tablet 09:37: mouth [place] 23 every Medical morning. Branch cariprazine 2022-0 Yes [id number] 4.5mg Take 4.5 [facility] (VRAYLAR) 3-20 mg by ity of 4.5 mg Cap 09:37: mouth [place] 23 every Medical evening. Branch cetirizine 2022-0 Yes [id number] 10mg Take 1 [facility] 10 mg 3-20 tablet by ity of tablet 09:37: mouth [place] 23 every Medical morning. [place] tiotropium 2022-0 Yes [id number] 2{puff} Inhale 2 [facility] bromide 3-20 Puffs in ity of (SPIRIVA 00:00: the [place] RESPIMAT) 00 morning. Medica l 2.5 Branch mcg/actuati on [place] tiotropium 2023-0 Yes [id number] 2{puff} Inhale 2 [facility] bromide 3-20 Puffs in ity of (SPIRIVA 00:00: the [place] RESPIMAT) 00 morning. Medica l 2.5 Branch mcg/actuati on [place] tiotropium 2023-0 Yes [id number] 2{puff} Inhale 2 [facility] bromide 3-20 Puffs in ity of (SPIRIVA 00:00: the [place] RESPIMAT) 00 morning. Medica l 2.5 Branch mcg/actuati on [place] tiotropium 2023-0 Yes [id number] 2{puff} Inhale 2 [facility] bromide 3-20 Puffs in ity of (SPIRIVA 00:00: the [place] RESPIMAT) 00 morning. Medica l 2.5 Branch mcg/actuati on [place] tiotropium 2023-0 Yes [id number] 2{puff} Inhale 2 [facility] bromide 3-20 Puffs in ity of (SPIRIVA 00:00: the [place] RESPIMAT) 00 morning. Medica l 2.5 Branch mcg/actuati on [place] tiotropium 2023-0 Yes [id number] 2{puff} Inhale 2 [facility] bromide 3-20 Puffs in ity of (SPIRIVA 00:00: the [place] RESPIMAT) 00 morning. Medica l 2.5 Branch mcg/actuati on [place] tiotropium 2023-0 Yes [id number] 2{puff} Inhale 2 [facility] bromide 3-20 Puffs in ity of (SPIRIVA 00:00: the [place] RESPIMAT) 00 morning. Medica l 2.5 Branch mcg/actuati on [place] tiotropium 2023-0 Yes [id number] 2{puff} Inhale 2 [facility] bromide 3-20 Puffs in ity of (SPIRIVA 00:00: the [place] RESPIMAT) 00 morning. Medica l 2.5 Branch mcg/actuati on [place] tiotropium 2023-0 Yes [id number] 2{puff} Inhale 2 [facility] bromide 3-20 Puffs in ity of (SPIRIVA 00:00: the [place] RESPIMAT) 00 morning. Medica l 2.5 Branch mcg/actuati on [place] tiotropium 2022-0 Yes [id number] 2{puff} Inhale 2 [facility] bromide 3-20 Puffs in ity of (SPIRIVA 00:00: the [place] RESPIMAT) 00 morning. Medica l 2.5 Branch mcg/actuati on [place] tiotropium 2022-0 Yes [id number] 2{puff} Inhale 2 [facility] bromide 3-20 Puffs in ity of (SPIRIVA 00:00: the [place] RESPIMAT) 00 morning. Medica l 2.5 Branch mcg/actuati on [place] tiotropium 2022-0 Yes [id number] 2{puff} Inhale 2 [facility] bromide 3-20 Puffs in ity of (SPIRIVA 00:00: the [place] RESPIMAT) 00 morning. Medica l 2.5 Branch mcg/actuati on [place] tiotropium 2022-0 Yes [id number] 2{puff} Inhale 2 [facility] bromide 3-20 Puffs in ity of (SPIRIVA 00:00: the [place] RESPIMAT) 00 morning. Medica l 2.5 Branch mcg/actuati on [place] tiotropium 2022-0 Yes [id number] 2{puff} Inhale 2 [facility] bromide 3-20 Puffs in ity of (SPIRIVA 00:00: the [place] RESPIMAT) 00 morning. Medica l 2.5 Branch mcg/actuati on [place] tiotropium 2022-0 Yes [id number] 2{puff} Inhale 2 [facility] bromide 3-20 Puffs in ity of (SPIRIVA 00:00: the [place] RESPIMAT) 00 morning. Medica l 2.5 Branch mcg/actuati on [place] tiotropium 3-0 Yes [id number] 2{puff} Inhale 2 [facility] bromide 3-20 Puffs in ity of (SPIRIVA 00:00: the [place] RESPIMAT) 00 morning. Medica l 2.5 Branch mcg/actuati on [place] tiotropium 3-0 Yes [id number] 2{puff} Inhale 2 [facility] bromide 3-20 Puffs in ity of (SPIRIVA 00:00: the [place] RESPIMAT) 00 morning. Medica l 2.5 Branch mcg/actuati on [place] tiotropium 3-0 Yes [id number] 2{puff} Inhale 2 [facility] bromide 3-20 Puffs in ity of (SPIRIVA 00:00: the [place] RESPIMAT) 00 morning. Medica l 2.5 Branch mcg/actuati on [place] tiotropium 2023-0 Yes [id number] 2{puff} Inhale 2 [facility] bromide 3-20 Puffs in ity of (SPIRIVA 00:00: the [place] RESPIMAT) 00 morning. Medica l 2.5 Branch mcg/actuati on [place] tiotropium 2023-0 Yes [id number] 2{puff} Inhale 2 [facility] bromide 3-20 Puffs in ity of (SPIRIVA 00:00: the [place] RESPIMAT) 00 morning. Medica l 2.5 Branch mcg/actuati on [place] tiotropium 2023-0 Yes [id number] 2{puff} Inhale 2 [facility] bromide 3-20 Puffs in ity of (SPIRIVA 00:00: the [place] RESPIMAT) 00 morning. Medica l 2.5 Branch mcg/actuati on [place] tiotropium 2023-0 Yes [id number] 2{puff} Inhale 2 [facility] bromide 3-20 Puffs in ity of (SPIRIVA 00:00: the [place] RESPIMAT) 00 morning. Medica l 2.5 Branch mcg/actuati on [place] tiotropium 3-0 Yes [id number] 2{puff} Inhale 2 [facility] bromide 3-20 Puffs in ity of (SPIRIVA 00:00: the [place] RESPIMAT) 00 morning. Medica l 2.5 Branch mcg/actuati on [place] tiotropium 2023-0 Yes [id number] 2{puff} Inhale 2 [facility] bromide 3-20 Puffs in ity of (SPIRIVA 00:00: the [place] RESPIMAT) 00 morning. Medica l 2.5 Branch mcg/actuati on [place] tiotropium 2023-0 Yes [id number] 2{puff} Inhale 2 [facility] bromide 3-20 Puffs in ity of (SPIRIVA 00:00: the [place] RESPIMAT) 00 morning. Medica l 2.5 Branch mcg/actuati on [place] tiotropium 2023-0 Yes [id number] 2{puff} Inhale 2 [facility] bromide 3-20 Puffs in ity of (SPIRIVA 00:00: the [place] RESPIMAT) 00 morning. Medica l 2.5 Branch mcg/actuati on [place] tiotropium 2023-0 Yes [id number] 2{puff} Inhale 2 [facility] bromide 3-20 Puffs in ity of (SPIRIVA 00:00: the [place] RESPIMAT) 00 morning. Medica l 2.5 Branch mcg/actuati on [place] tiotropium 2023-0 Yes [id number] 2{puff} Inhale 2 [facility] bromide 3-20 Puffs in ity of (SPIRIVA 00:00: the [place] RESPIMAT) 00 morning. Medica l 2.5 Branch mcg/actuati on [place] tiotropium 2023-0 Yes [id number] 2{puff} Inhale 2 [facility] bromide 3-20 Puffs in ity of (SPIRIVA 00:00: the [place] RESPIMAT) 00 morning. Medica l 2.5 Branch mcg/actuati on [place] tiotropium 2023-0 Yes [id number] 2{puff} Inhale 2 [facility] bromide 3-20 Puffs in ity of (SPIRIVA 00:00: the [place] RESPIMAT) 00 morning. Medica l 2.5 Branch mcg/actuati on [place] tiotropium 2023-0 Yes [id number] 2{puff} Inhale 2 [facility] bromide 3-20 Puffs in ity of (SPIRIVA 00:00: the [place] RESPIMAT) 00 morning. Medica l 2.5 Branch mcg/actuati on [place] tiotropium 2023-0 Yes [id number] 2{puff} Inhale 2 [facility] bromide 3-20 Puffs in ity of (SPIRIVA 00:00: the [place] RESPIMAT) 00 morning. Medica l 2.5 Branch mcg/actuati on [place] tiotropium 2023-0 Yes [id number] 2{puff} Inhale 2 [facility] bromide 3-20 Puffs in ity of (SPIRIVA 00:00: the [place] RESPIMAT) 00 morning. Medica l 2.5 Branch mcg/actuati on [place] tiotropium 2023-0 Yes [id number] 2{puff} Inhale 2 [facility] bromide 3-20 Puffs in ity of (SPIRIVA 00:00: the [place] RESPIMAT) 00 morning. Medica l 2.5 Branch mcg/actuati on [place] tiotropium 2022-0 Yes [id number] 2{puff} Inhale 2 [facility] bromide 3-20 Puffs in ity of (SPIRIVA 00:00: the [place] RESPIMAT) 00 morning. Medica l 2.5 Branch mcg/actuati on [place] tiotropium 2022-0 Yes [id number] 2{puff} Inhale 2 [facility] bromide 3-20 Puffs in ity of (SPIRIVA 00:00: the [place] RESPIMAT) 00 morning. Medica l 2.5 Branch mcg/actuati on [place] tiotropium 2022-0 Yes [id number] 2{puff} Inhale 2 [facility] bromide 3-20 Puffs in ity of (SPIRIVA 00:00: the [place] RESPIMAT) 00 morning. Medica l 2.5 Branch mcg/actuati on [place] tiotropium 2022-0 Yes [id number] 2{puff} Inhale 2 [facility] bromide 3-20 Puffs in ity of (SPIRIVA 00:00: the [place] RESPIMAT) 00 morning. Medica l 2.5 Branch mcg/actuati on [place] tiotropium 2022-0 Yes [id number] 2{puff} Inhale 2 [facility] bromide 3-20 Puffs in ity of (SPIRIVA 00:00: the [place] RESPIMAT) 00 morning. Medica l 2.5 Branch mcg/actuati on [place] tiotropium 2022-0 Yes [id number] 2{puff} Inhale 2 [facility] bromide 3-20 Puffs in ity of (SPIRIVA 00:00: the [place] RESPIMAT) 00 morning. Medica l 2.5 Branch mcg/actuati on [place] tiotropium 3-0 Yes [id number] 2{puff} Inhale 2 [facility] bromide 3-20 Puffs in ity of (SPIRIVA 00:00: the [place] RESPIMAT) 00 morning. Medica l 2.5 Branch mcg/actuati on [place] tiotropium 3-0 Yes [id number] 2{puff} Inhale 2 [facility] bromide 3-20 Puffs in ity of (SPIRIVA 00:00: the [place] RESPIMAT) 00 morning. Medica l 2.5 Branch mcg/actuati on [place] tiotropium 3-0 Yes [id number] 2{puff} Inhale 2 [facility] bromide 3-20 Puffs in ity of (SPIRIVA 00:00: the [place] RESPIMAT) 00 morning. Medica l 2.5 Branch mcg/actuati on [place] tiotropium Yes [id number] 2{puff} Inhale 2 [facility] bromide 3-20 Puffs in ity of (SPIRIVA 00:00: the [place] RESPIMAT) 00 morning. Medica l 2.5 Branch mcg/actuati on [place] iopamidol 2022- No [id number] 75mL 75 mL, U nivers (ISOVUE 01-04-15 Intravenou ity o f 370-500 mL) 16:00: 15:53 s, ONCE, 1 [place] injection 00 :00 dose, On Medica l 75 mL Wed Branch 01/04/23 at 1100, Routine nitroglycer 2022- No [id number] .8mg 0.8 mg, [facility] in 01-04 Sublingual ity of (NITROSTAT) 15:30: 15:39 , ONCE, 1 [place] sublingual 00 :00 dose, On Medic al tablet 0.8 Mon Branch mg 01/04/23 at 1030, Routine diphenhydrA Yes [id number] Take 1 [facility] MINE 3-07 oral tab ity of (BENADRYL) 00:00: every 12 [place] 25 mg 00 hrs. Start Medical capsule one day Branch before procedure and last dose on morning of procedure famotidine Yes [id number] Take 1 [facility] (PEPCID) 20 3-07 oral tab ity of mg tablet 00:00: every 12 [place] 00 hrs. Start Medical one day Branch before procedure and last dose on morning of procedure predniSONE 2022-0 Yes [id number] Take two [facility] 20 mg 3-07 20mg tabs ity of tablet 00:00: every 6 [place] 00 hrs. Start Medical one day Branch before procedure and last dose on morning of procedure diphenhydrA 2022-0 Yes [id number] Take 1 [facility] MINE 3-07 oral tab ity of (BENADRYL) 00:00: every 12 [place] 25 mg 00 hrs. Start Medical capsule one day Branch before procedure and last dose on morning of procedure famotidine Yes [id number] Take 1 [facility] (PEPCID) 20 3-07 oral tab [facility]y of mg tablet 00:00: every 12 [place] 00 hrs. Start Medical one day Branch before procedure and last dose on morning of procedure predniSONE 2023-0 Yes [id number] Take two [facility] 20 mg 3-07 20mg tabs ity of tablet 00:00: every 6 [place] 00 hrs. Start Medical one day Branch before procedure and last dose on morning of procedure diphenhydrA 2023-0 Yes [id number] Take 1 [facility] MINE 3-07 oral tab ity of (BENADRYL) 00:00: every 12 [place] 25 mg 00 hrs. Start Medical capsule one day Branch before procedure and last dose on morning of procedure famotidine 3-0 Yes [id number] Take 1 [facility] (PEPCID) 20 3-07 oral tab ity of mg tablet 00:00: every 12 [place] 00 hrs. Start Medical one day Branch before procedure and last dose on morning of procedure predniSONE 3-0 Yes [id number] Take two [facility] 20 mg 3-07 20mg tabs ity of tablet 00:00: every 6 [place] 00 hrs. Start Medical one day Branch before procedure and last dose on morning of procedure diphenhydrA 3-0 Yes [id number] Take 1 [facility] MINE 3-07 oral tab ity of (BENADRYL) 00:00: every 12 [place] 25 mg 00 hrs. Start Medical capsule one day Branch before procedure and last dose on morning of procedure famotidine 3-0 Yes [id number] Take 1 [facility] (PEPCID) 20 3-07 oral tab ity of mg tablet 00:00: every 12 [place] 00 hrs. Start Medical one day Branch before procedure and last dose on morning of procedure predniSONE 2023-0 Yes [id number] Take two [facility] 20 mg 3-07 20mg tabs ity of tablet 00:00: every 6 [place] 00 hrs. Start Medical one day Branch before procedure and last dose on morning of procedure diphenhydrA 2023-0 Yes [id number] Take 1 [facility] MINE 3-07 oral tab ity of (BENADRYL) 00:00: every 12 [place] 25 mg 00 hrs. Start Medical capsule one day Branch before procedure and last dose on morning of procedure famotidine 2023-0 Yes [id number] Take 1 [facility] (PEPCID) 20 3-07 oral tab ity of mg tablet 00:00: every 12 [place] 00 hrs. Start Medical one day Branch before procedure and last dose on morning of procedure predniSONE 2023-0 Yes [id number] Take two [facility] 20 mg 3-07 20mg tabs ity of tablet 00:00: every 6 [place] 00 hrs. Start Medical one day Branch before procedure and last dose on morning of procedure diphenhydrA 2023-0 Yes [id number] Take 1 [facility] MINE 3-07 oral tab ity of (BENADRYL) 00:00: every 12 [place] 25 mg 00 hrs. Start Medical capsule one day Branch before procedure and last dose on morning of procedure famotidine 3-0 Yes [id number] Take 1 [facility] (PEPCID) 20 3-07 oral tab ity of mg tablet 00:00: every 12 [place] 00 hrs. Start Medical one day Branch before procedure and last dose on morning of procedure predniSONE 2023-0 Yes [id number] Take two [facility] 20 mg 3-07 20mg tabs ity of tablet 00:00: every 6 [place] 00 hrs. Start Medical one day Branch before procedure and last dose on morning of procedure diphenhydrA 2023-0 Yes [id number] Take 1 [facility] MINE 3-07 oral tab ity of (BENADRYL) 00:00: every 12 [place] 25 mg 00 hrs. Start Medical capsule one day Branch before procedure and last dose on morning of procedure famotidine 3-0 Yes [id number] Take 1 [facility] (PEPCID) 20 3-07 oral tab ity of mg tablet 00:00: every 12 [place] 00 hrs. Start Medical one day Branch before procedure and last dose on morning of procedure predniSONE 2023-0 Yes [id number] Take two [facility] 20 mg 3-07 20mg tabs ity of tablet 00:00: every 6 [place] 00 hrs. Start Medical one day Branch before procedure and last dose on morning of procedure diphenhydrA 2023-0 Yes [id number] Take 1 [facility] MINE 3-07 oral tab ity of (BENADRYL) 00:00: every 12 [place] 25 mg 00 hrs. Start Medical capsule one day Branch before procedure and last dose on morning of procedure famotidine 2023-0 Yes [id number] Take 1 [facility] (PEPCID) 20 3-07 oral tab ity of mg tablet 00:00: every 12 [place] 00 hrs. Start Medical one day Branch before procedure and last dose on morning of procedure predniSONE 2023-0 Yes [id number] Take two [facility] 20 mg 3-07 20mg tabs ity of tablet 00:00: every 6 [place] 00 hrs. Start Medical one day Branch before procedure and last dose on morning of procedure diphenhydrA 2023-0 Yes [id number] Take 1 [facility] MINE 3-07 oral tab ity of (BENADRYL) 00:00: every 12 [place] 25 mg 00 hrs. Start Medical capsule one day Branch before procedure and last dose on morning of procedure famotidine 3-0 Yes [id number] Take 1 [facility] (PEPCID) 20 3-07 oral tab ity of mg tablet 00:00: every 12 [place] 00 hrs. Start Medical one day Branch before procedure and last dose on morning of procedure predniSONE 2023-0 Yes [id number] Take two [facility] 20 mg 3-07 20mg tabs ity of tablet 00:00: every 6 [place] 00 hrs. Start Medical one day Branch before procedure and last dose on morning of procedure diphenhydrA 3-0 Yes [id number] Take 1 [facility] MINE 3-07 oral tab ity of (BENADRYL) 00:00: every 12 [place] 25 mg 00 hrs. Start Medical capsule one day Branch before procedure and last dose on morning of procedure famotidine 3-0 Yes [id number] Take 1 [facility] (PEPCID) 20 3-07 oral tab ity of mg tablet 00:00: every 12 [place] 00 hrs. Start Medical one day Branch before procedure and last dose on morning of procedure predniSONE 2023-0 Yes [id number] Take two [facility] 20 mg 3-07 20mg tabs ity of tablet 00:00: every 6 [place] 00 hrs. Start Medical one day Branch before procedure and last dose on morning of procedure diphenhydrA 2023-0 Yes [id number] Take 1 [facility] MINE 3-07 oral tab ity of (BENADRYL) 00:00: every 12 [place] 25 mg 00 hrs. Start Medical capsule one day Branch before procedure and last dose on morning of procedure famotidine 2023-0 Yes [id number] Take 1 [facility] (PEPCID) 20 3-07 oral tab ity of mg tablet 00:00: every 12 [place] 00 hrs. Start Medical one day Branch before procedure and last dose on morning of procedure predniSONE 2023-0 Yes [id number] Take two [facility] 20 mg 3-07 20mg tabs ity of tablet 00:00: every 6 [place] 00 hrs. Start Medical one day Branch before procedure and last dose on morning of procedure diphenhydrA 2023-0 Yes [id number] Take 1 [facility] MINE 3-07 oral tab ity of (BENADRYL) 00:00: every 12 [place] 25 mg 00 hrs. Start Medical capsule one day Branch before procedure and last dose on morning of procedure famotidine 2023-0 Yes [id number] Take 1 [facility] (PEPCID) 20 3-07 oral tab ity of mg tablet 00:00: every 12 [place] 00 hrs. Start Medical one day Branch before procedure and last dose on morning of procedure predniSONE 2023-0 Yes [id number] Take two [facility] 20 mg 3-07 20mg tabs ity of tablet 00:00: every 6 [place] 00 hrs. Start Medical one day Branch before procedure and last dose on morning of procedure diphenhydrA 2023-0 Yes [id number] Take 1 [facility] MINE 3-07 oral tab ity of (BENADRYL) 00:00: every 12 [place] 25 mg 00 hrs. Start Medical capsule one day Branch before procedure and last dose on morning of procedure famotidine 2023-0 Yes [id number] Take 1 [facility] (PEPCID) 20 3-07 oral tab ity of mg tablet 00:00: every 12 [place] 00 hrs. Start Medical one day Branch before procedure and last dose on morning of procedure predniSONE 2023-0 Yes [id number] Take two [facility] 20 mg 3-07 20mg tabs ity of tablet 00:00: every 6 [place] 00 hrs. Start Medical one day Branch before procedure and last dose on morning of procedure diphenhydrA 2023-0 Yes [id number] Take 1 [facility] MINE 3-07 oral tab ity of (BENADRYL) 00:00: every 12 [place] 25 mg 00 hrs. Start Medical capsule one day Branch before procedure and last dose on morning of procedure famotidine 2023-0 Yes [id number] Take 1 [facility] (PEPCID) 20 3-07 oral tab ity of mg tablet 00:00: every 12 [place] 00 hrs. Start Medical one day Branch before procedure and last dose on morning of procedure predniSONE 2023-0 Yes [id number] Take two [facility] 20 mg 3-07 20mg tabs ity of tablet 00:00: every 6 [place] 00 hrs. Start Medical one day Branch before procedure and last dose on morning of procedure diphenhydrA 2023-0 Yes [id number] Take 1 [facility] MINE 3-07 oral tab ity of (BENADRYL) 00:00: every 12 [place] 25 mg 00 hrs. Start Medical capsule one day Branch before procedure and last dose on morning of procedure famotidine 2023-0 Yes [id number] Take 1 [facility] (PEPCID) 20 3-07 oral tab [facility] mg tablet 00:00: every 12 [place] 00 hrs. Start Medical one day Branch before procedure and last dose on morning of procedure predniSONE 2023-0 Yes [id number] Take two [facility] 20 mg 3-07 20mg tabs ity of tablet 00:00: every 6 [place] 00 hrs. Start Medical one day Branch before procedure and last dose on morning of procedure diphenhydrA 2023-0 Yes [id number] Take 1 [facility] MINE 3-07 oral tab ity of (BENADRYL) 00:00: every 12 [place] 25 mg 00 hrs. Start Medical capsule one day Branch before procedure and last dose on morning of procedure famotidine 2023-0 Yes [id number] Take 1 [facility] (PEPCID) 20 3-07 oral tab [facility] mg tablet 00:00: every 12 [place] 00 hrs. Start Medical one day Branch before procedure and last dose on morning of procedure predniSONE 2023-0 Yes [id number] Take two [facility] 20 mg 3-07 20mg tabs ity of tablet 00:00: every 6 [place] 00 hrs. Start Medical one day Branch before procedure and last dose on morning of procedure diphenhydrA 2023-0 Yes [id number] Take 1 [facility] MINE 3-07 oral tab ity of (BENADRYL) 00:00: every 12 [place] 25 mg 00 hrs. Start Medical capsule one day Branch before procedure and last dose on morning of procedure famotidine 2023-0 Yes [id number] Take 1 [facility] (PEPCID) 20 3-07 oral tab [facility] mg tablet 00:00: every 12 [place] 00 hrs. Start Medical one day Branch before procedure and last dose on morning of procedure predniSONE 3-0 Yes [id number] Take two [facility] 20 mg 3-07 20mg tabs ity of tablet 00:00: every 6 [place] 00 hrs. Start Medical one day Branch before procedure and last dose on morning of procedure diphenhydrA 2022-0 Yes [id number] Take 1 [facility] MINE 3-07 oral tab ity of (BENADRYL) 00:00: every 12 [place] 25 mg 00 hrs. Start Medical capsule one day Branch before procedure and last dose on morning of procedure famotidine 2022-0 Yes [id number] Take 1 [facility] (PEPCID) 20 3-07 oral tab [facility] of mg tablet 00:00: every 12 [place] 00 hrs. Start Medical one day Branch before procedure and last dose on morning of procedure predniSONE 2022-0 Yes [id number] Take two [facility] 20 mg 3-07 20mg tabs ity of tablet 00:00: every 6 [place] 00 hrs. Start Medical one day Branch before procedure and last dose on morning of procedure famotidine 2022-0 Yes [id number] Take 1 [facility] (PEPCID) 20 3-07 oral tab [facility] of mg tablet 00:00: every 12 [place] 00 hrs. Start Medical one day Branch before procedure and last dose on morning of procedure famotidine 2022-0 Yes [id number] Take 1 [facility] (PEPCID) 20 3-07 oral tab [facility] of mg tablet 00:00: every 12 [place] 00 hrs. Start Medical one day Branch before procedure and last dose on morning of procedure famotidine 2022-0 Yes [id number] Take 1 [facility] (PEPCID) 20 3-07 oral tab [facility] of mg tablet 00:00: every 12 [place] 00 hrs. Start Medical one day Branch before procedure and last dose on morning of procedure famotidine 2022-0 Yes [id number] Take 1 [facility] (PEPCID) 20 3-07 oral tab [facility] of mg tablet 00:00: every 12 [place] 00 hrs. Start Medical one day Branch before procedure and last dose on morning of procedure famotidine 2022-0 Yes [id number] Take 1 [facility] (PEPCID) 20 3-07 oral tab [facility] of mg tablet 00:00: every 12 [place] 00 hrs. Start Medical one day Branch before procedure and last dose on morning of procedure famotidine 3-0 Yes [id number] Take 1 [facility] (PEPCID) 20 3-07 oral tab [facility] of mg tablet 00:00: every 12 [place] 00 hrs. Start Medical one day Branch before procedure and last dose on morning of procedure famotidine 3-0 Yes [id number] Take 1 [facility] (PEPCID) 20 3-07 oral tab [facility] of mg tablet 00:00: every 12 [place] 00 hrs. Start Medical one day Branch before procedure and last dose on morning of procedure famotidine 3-0 Yes [id number] Take 1 [facility] (PEPCID) 20 3-07 oral tab [facility] of mg tablet 00:00: every 12 [place] 00 hrs. Start Medical one day Branch before procedure and last dose on morning of procedure famotidine 3-0 Yes [id number] Take 1 [facility] (PEPCID) 20 3-07 oral tab [facility] of mg tablet 00:00: every 12 [place] 00 hrs. Start Medical one day Branch before procedure and last dose on morning of procedure famotidine 3-0 Yes [id number] Take 1 [facility] (PEPCID) 20 3-07 oral tab [facility] of mg tablet 00:00: every 12 [place] 00 hrs. Start Medical one day Branch before procedure and last dose on morning of procedure famotidine 3-0 Yes [id number] Take 1 [facility] (PEPCID) 20 3-07 oral tab [facility]y of mg tablet 00:00: every 12 [place] 00 hrs. Start Medical one day Branch before procedure and last dose on morning of procedure famotidine 3-0 Yes [id number] Take 1 [facility] (PEPCID) 20 3-07 oral tab [facility] of mg tablet 00:00: every 12 [place] 00 hrs. Start Medical one day Branch before procedure and last dose on morning of procedure famotidine 2023-0 Yes [id number] Take 1 [facility] (PEPCID) 20 3-07 oral tab [facility]y of mg tablet 00:00: every 12 [place] 00 hrs. Start Medical one day Branch before procedure and last dose on morning of procedure famotidine 2023-0 Yes [id number] Take 1 [facility] (PEPCID) 20 3-07 oral tab ity of mg tablet 00:00: every 12 [place] 00 hrs. Start Medical one day Branch before procedure and last dose on morning of procedure famotidine 2022-0 Yes [id number] Take 1 [facility] (PEPCID) 20 3-07 oral tab ity of mg tablet 00:00: every 12 [place] 00 hrs. Start Medical one day Branch before procedure and last dose on morning of procedure famotidine 2022-0 Yes [id number] Take 1 [facility] (PEPCID) 20 3-07 oral tab ity of mg tablet 00:00: every 12 [place] 00 hrs. Start Medical one day Branch before procedure and last dose on morning of procedure famotidine 2022-0 Yes [id number] Take 1 [facility] (PEPCID) 20 3-07 oral tab ity of mg tablet 00:00: every 12 [place] 00 hrs. Start Medical one day Branch before procedure and last dose on morning of procedure famotidine 2022-0 Yes [id number] Take 1 [facility] (PEPCID) 20 3-07 oral tab ity of mg tablet 00:00: every 12 [place] 00 hrs. Start Medical one day Branch before procedure and last dose on morning of procedure famotidine 2022-0 Yes [id number] Take 1 [facility] (PEPCID) 20 3-07 oral tab ity of mg tablet 00:00: every 12 [place] 00 hrs. Start Medical one day Branch before procedure and last dose on morning of procedure famotidine 2022-0 Yes [id number] Take 1 [facility] (PEPCID) 20 3-07 oral tab ity of mg tablet 00:00: every 12 [place] 00 hrs. Start Medical one day Branch before procedure and last dose on morning of procedure diphenhydrA 2022-0 Yes [id number] Take 1 [facility] MINE 3-07 oral tab ity of (BENADRYL) 00:00: every 12 [place] 25 mg 00 hrs. Start Medical capsule one day Branch before procedure and last dose on morning of procedure famotidine 2022-0 Yes [id number] Take 1 [facility] (PEPCID) 20 3-07 oral tab ity of mg tablet 00:00: every 12 [place] 00 hrs. Start Medical one day Branch before procedure and last dose on morning of procedure predniSONE 2023-0 Yes [id number] Take two [facility] 20 mg 3-07 20mg tabs ity of tablet 00:00: every 6 [place] 00 hrs. Start Medical one day Branch before procedure and last dose on morning of procedure diphenhydrA 2023-0 Yes [id number] Take 1 [facility] MINE 3-07 oral tab ity of (BENADRYL) 00:00: every 12 [place] 25 mg 00 hrs. Start Medical capsule one day Branch before procedure and last dose on morning of procedure famotidine 3-0 Yes [id number] Take 1 [facility] (PEPCID) 20 3-07 oral tab ity of mg tablet 00:00: every 12 [place] 00 hrs. Start Medical one day Branch before procedure and last dose on morning of procedure predniSONE 3-0 Yes [id number] Take two [facility] 20 mg 3-07 20mg tabs ity of tablet 00:00: every 6 [place] 00 hrs. Start Medical one day Branch before procedure and last dose on morning of procedure diphenhydrA 3-0 Yes [id number] Take 1 [facility] MINE 3-07 oral tab ity of (BENADRYL) 00:00: every 12 [place] 25 mg 00 hrs. Start Medical capsule one day Branch before procedure and last dose on morning of procedure famotidine 3-0 Yes [id number] Take 1 [facility] (PEPCID) 20 3-07 oral tab ity of mg tablet 00:00: every 12 [place] 00 hrs. Start Medical one day Branch before procedure and last dose on morning of procedure predniSONE 2023-0 Yes [id number] Take two [facility] 20 mg 3-07 20mg tabs ity of tablet 00:00: every 6 [place] 00 hrs. Start Medical one day Branch before procedure and last dose on morning of procedure diphenhydrA 3-0 Yes [id number] Take 1 [facility] MINE 3-07 oral tab ity of (BENADRYL) 00:00: every 12 [place] 25 mg 00 hrs. Start Medical capsule one day Branch before procedure and last dose on morning of procedure famotidine 2023-0 Yes [id number] Take 1 [facility] (PEPCID) 20 3-07 oral tab ity of mg tablet 00:00: every 12 [place] 00 hrs. Start Medical one day Branch before procedure and last dose on morning of procedure predniSONE 2023-0 Yes [id number] Take two [facility] 20 mg 3-07 20mg tabs ity of tablet 00:00: every 6 [place] 00 hrs. Start Medical one day Branch before procedure and last dose on morning of procedure diphenhydrA 3-0 Yes [id number] Take 1 [facility] MINE 3-07 oral tab ity of (BENADRYL) 00:00: every 12 [place] 25 mg 00 hrs. Start Medical capsule one day Branch before procedure and last dose on morning of procedure famotidine 2022-0 Yes [id number] Take 1 [facility] (PEPCID) 20 3-07 oral tab ity of mg tablet 00:00: every 12 [place] 00 hrs. Start Medical one day Branch before procedure and last dose on morning of procedure predniSONE 2022-0 Yes [id number] Take two [facility] 20 mg 3-07 20mg tabs ity of tablet 00:00: every 6 [place] 00 hrs. Start Medical one day Branch before procedure and last dose on morning of procedure diphenhydrA 2022-0 Yes [id number] Take 1 [facility] MINE 3-07 oral tab ity of (BENADRYL) 00:00: every 12 [place] 25 mg 00 hrs. Start Medical capsule one day Branch before procedure and last dose on morning of procedure famotidine 2022-0 Yes [id number] Take 1 [facility] (PEPCID) 20 3-07 oral tab ity of mg tablet 00:00: every 12 [place] 00 hrs. Start Medical one day Branch before procedure and last dose on morning of procedure predniSONE 3-0 Yes [id number] Take two [facility] 20 mg 3-07 20mg tabs ity of tablet 00:00: every 6 [place] 00 hrs. Start Medical one day Branch before procedure and last dose on morning of procedure diphenhydrA 3-0 Yes [id number] Take 1 [facility] MINE 3-07 oral tab ity of (BENADRYL) 00:00: every 12 [place] 25 mg 00 hrs. Start Medical capsule one day Branch before procedure and last dose on morning of procedure famotidine 3-0 Yes [id number] Take 1 [facility] (PEPCID) 20 3-07 oral tab ity of mg tablet 00:00: every 12 [place] 00 hrs. Start Medical one day Branch before procedure and last dose on morning of procedure predniSONE 2022-0 Yes [id number] Take two [facility] 20 mg 3-07 20mg tabs ity of tablet 00:00: every 6 [place] 00 hrs. Start Medical one day Branch before procedure and last dose on morning of procedure famotidine 0 2022- No [id number] Take 1 [facility] (PEPCID) 20 3-07 10-30 oral tab ity of mg tablet 00:00: 00:00 every 12 [place] 00 :00 hrs. Start Medical one day Branch before procedure and last dose on morning of procedure famotidine 0 2022- No [id number] Take 1 [facility] (PEPCID) 20 3-07 10-30 oral tab ity of mg tablet 00:00: 00:00 every 12 [place] 00 :00 hrs. Start Medical one day Branch before procedure and last dose on morning of procedure diphenhydrA 2022- No [id number] Take 1 [facility] MINE 3- 08-16 oral tab ity of (BENADRYL) 00:00: 00:00 every 12 [place] 25 mg 00 :00 hrs. Start Medical capsule one day Branch before procedure and last dose on morning of procedure predniSONE 2022-0 2022- No [id number] Take two [facility] 20 mg 3-07 08-16 20mg tabs ity of tablet 00:00: 00:00 every 6 [place] 00 :00 hrs. Start Medical one day Branch before procedure and last dose on morning of procedure rosuvastati 2022-0 Yes 10mg 1 tablet Un [place] n 10 mg 3-06 at ity of tablet 00:00: bedtime. [place] [facility] rosuvastati 3-0 Yes 10mg 1 tablet Un [place] n 10 mg 3-06 at ity of tablet 00:00: bedtime. [place] [facility] rosuvastati 2023-0 Yes 10mg 1 tablet Un [place] n 10 mg 3-06 at ity of tablet 00:00: bedtime. [place] [facility] rosuvastati 3-0 Yes 10mg 1 tablet Un [place] n 10 mg 3-06 at ity of tablet 00:00: bedtime. [place] [facility] rosuvastati 2022-0 Yes 10mg 1 tablet Un [place] n 10 mg 3-06 at ity of tablet 00:00: bedtime. [place] [id number] Medical Branch rosuvastati 2023-0 Yes 10mg 1 tablet Un [place] n 10 mg 3-06 at ity of tablet 00:00: bedtime. [place] [facility] rosuvastati 2023-0 Yes 10mg 1 tablet Un [place] n 10 mg 3-06 at ity of tablet 00:00: bedtime. [place] [facility] rosuvastati 2023-0 Yes 10mg 1 tablet Un [place] n 10 mg 3-06 at ity of tablet 00:00: bedtime. [place] [facility] rosuvastati 2023-0 Yes 10mg 1 tablet Un [place] n 10 mg 3-06 at ity of tablet 00:00: bedtime. [place] [facility] rosuvastati 2023-0 Yes 10mg 1 tablet Un [place] 10 mg 3-06 at ity of tablet 00:00: bedtime. [place] [facility] rosuvastati 2023-0 Yes 10mg 1 tablet Un [place] n 10 mg 3-06 at ity of tablet 00:00: bedtime. [place] [facility] rosuvastati 2023-0 Yes 10mg 1 tablet Un [place] n 10 mg 3-06 at ity of tablet 00:00: bedtime. [place] [facility] rosuvastati 2023-0 Yes 10mg 1 tablet Un [place] n 10 mg 3-06 at ity of tablet 00:00: bedtime. [place] [facility] rosuvastati 2023-0 Yes 10mg 1 tablet Un [place] n 10 mg 3-06 at ity of tablet 00:00: bedtime. [place] [facility] rosuvastati 2023-0 Yes 10mg 1 tablet Un [place] n 10 mg 3-06 at ity of tablet 00:00: bedtime. [place] [facility] rosuvastati 2023-0 Yes 10mg 1 tablet Un [place] n 10 mg 3-06 at ity of tablet 00:00: bedtime. [place] [facility] rosuvastati 2023-0 Yes 10mg 1 tablet Un [place] n 10 mg 3-06 at ity of tablet 00:00: bedtime. [place] [facility] rosuvastati 2023-0 Yes 10mg 1 tablet Un [place] 10 mg 3-06 at ity of tablet 00:00: bedtime. Medical Branch rosuvastati 2023-0 Yes 10mg 1 tablet Un [place] 10 mg 3-06 at ity of tablet 00:00: bedtime. Medical Branch rosuvastati 2023-0 Yes 10mg 1 tablet Un [place] 10 mg 3-06 at ity of tablet 00:00: bedtime. [place] [facility] rosuvastati 2023-0 Yes 10mg 1 tablet Un [place] n 10 mg 3-06 at ity of tablet 00:00: bedtime. [place] [facility] rosuvastati 2023-0 Yes 10mg 1 tablet Un [place] 10 mg 3-06 at ity of tablet 00:00: bedtime. [place] [facility] rosuvastati 2023-0 Yes 10mg 1 tablet Un [place] 10 mg 3-06 at ity of tablet 00:00: bedtime. [place] [facility] rosuvastati 2023-0 Yes 10mg 1 tablet Un [place] 10 mg 3-06 at ity of tablet 00:00: bedtime. [place] [facility] rosuvastati 2023-0 Yes 10mg 1 tablet Un [place] 10 mg 3-06 at ity of tablet 00:00: bedtime. [place] [facility] rosuvastati 2023-0 Yes 10mg 1 tablet Un [place] 10 mg 3-06 at ity of tablet 00:00: bedtime. [place] [facility] rosuvastati 2023-0 Yes 10mg 1 tablet Un [place] 10 mg 3-06 at ity of tablet 00:00: bedtime. [place] [facility] rosuvastati 2023-0 Yes 10mg 1 tablet Un [place] 10 mg 3-06 at ity of tablet 00:00: bedtime. [place] [facility] rosuvastati 2023-0 Yes 10mg 1 tablet Un [place] 10 mg 3-06 at ity of tablet 00:00: bedtime. [place] [facility] rosuvastati 2023-0 Yes 10mg 1 tablet Un [place] 10 mg 3-06 at ity of tablet 00:00: bedtime. [place] [facility] rosuvastati 2023-0 Yes 10mg 1 tablet Un [place] n 10 mg 3-06 at ity of tablet 00:00: bedtime. [place] [facility] rosuvastati 2023-0 Yes 10mg 1 tablet Un [place] n 10 mg 3-06 at ity of tablet 00:00: bedtime. [place] [facility] rosuvastati 2023-0 Yes 10mg 1 tablet Un [place] n 10 mg 3-06 at ity of tablet 00:00: bedtime. [place] [facility] rosuvastati 2023-0 Yes 10mg 1 tablet Un [place] n 10 mg 3-06 at ity of tablet 00:00: bedtime. [place] [facility] rosuvastati 2023-0 Yes 10mg 1 tablet Un [place] n 10 mg 3-06 at ity of tablet 00:00: bedtime. [place] [facility] rosuvastati 2023-0 Yes 10mg 1 tablet Un [place] n 10 mg 3-06 at ity of tablet 00:00: bedtime. [place] [facility] rosuvastati 2023-0 Yes 10mg 1 tablet Un [place] n 10 mg 3-06 at ity of tablet 00:00: bedtime. [place] [facility] rosuvastati 2023-0 Yes 10mg 1 tablet Un [place] n 10 mg 3-06 at ity of tablet 00:00: bedtime. [place] [facility] rosuvastati 2023-0 Yes 10mg 1 tablet Un [place] n 10 mg 3-06 at ity of tablet 00:00: bedtime. [place] [facility] rosuvastati 2023-0 Yes 10mg 1 tablet Un [place] 10 mg 3-06 at ity of tablet 00:00: bedtime. [place] [facility] rosuvastati 2023-0 Yes 10mg 1 tablet Un [place] 10 mg 3-06 at ity of tablet 00:00: bedtime. [place] [facility] rosuvastati 2023-0 Yes 10mg 1 tablet Un [place] 10 mg 3-06 at ity of tablet 00:00: bedtime. [place] [facility] rosuvastati 2023-0 Yes 10mg 1 tablet Un [place] 10 mg 3-06 at ity of tablet 00:00: bedtime. [place] [facility] rosuvastati 2023-0 Yes 10mg 1 tablet Un [place] 10 mg 3-06 at ity of tablet 00:00: bedtime. [place] [facility] rosuvastati 2023-0 Yes 10mg 1 tablet Un [place] n 10 mg 3-06 at ity of tablet 00:00: bedtime. [place] 00 [facility] rosuvastati 3-0 Yes 10mg 1 tablet Un [place] n 10 mg 3-06 at ity of tablet 00:00: bedtime. [place] 00 [facility] rosuvastati 3-0 Yes 10mg 1 tablet Un [place] n 10 mg 3-06 at ity of tablet 00:00: bedtime. [place] 00 [facility] rosuvastati 3-0 Yes 10mg 1 tablet Un [place] n 10 mg 3-06 at ity of tablet 00:00: bedtime. [place] 00 [facility] INGREZZA 60 3-0 Yes Univer s mg Cap 2-27 ity of 00:00: [place] 00 [facility] INGREZZA 60 3-0 Yes Univer s mg Cap 2-27 ity of 00:00: [place] 00 [facility] INGREZZA 60 3-0 Yes Univer s mg Cap 2-27 ity of 00:00: [place] 00 [facility] INGREZZA 60 3-0 Yes Univer s mg Cap 2-27 ity of 00:00: [place] 00 [facility] INGREZZA 60 3-0 Yes Univer s mg Cap 2-27 ity of 00:00: [place] 00 [facility] INGREZZA 60 3-0 Yes Univer s mg Cap 2-27 ity of 00:00: [place] 00 [facility] INGREZZA 60 2023-0 Yes Univer s mg Cap 2-27 ity of 00:00: [place] 00 [facility] INGREZZA 60 2023-0 Yes Univer s mg Cap 2-27 ity of 00:00: [place] 00 [facility] INGREZZA 60 2023-0 Yes Univer s mg Cap 2-27 ity of 00:00: [place] 00 [facility] INGREZZA 60 2023-0 Yes Univer s mg Cap 2-27 ity of 00:00: [place] 00 [facility] INGREZZA 60 2023-0 Yes Univer s mg Cap 2-27 ity of 00:00: [place] 00 [facility] INGREZZA 60 2023-0 Yes Univer s mg Cap 2-27 ity of 00:00: [place] 00 [facility] INGREZZA 60 2023-0 Yes Univer s mg Cap 2-27 ity of 00:00: [place] 00 [facility] INGREZZA 60 2023-0 Yes Univer s mg Cap 2-27 ity of 00:00: [place] 00 [facility] INGREZZA 60 2023-0 Yes Univer s mg Cap 2-27 ity of 00:00: [place] 00 [facility] INGREZZA 60 2023-0 Yes Univer s mg Cap 2-27 ity of 00:00: [place] 00 [facility] INGREZZA 60 2023-0 Yes Univer s mg Cap 2-27 ity of 00:00: [place] 00 [facility] INGREZZA 60 2023-0 Yes Univer s mg Cap 2-27 ity of 00:00: [place] 00 [facility] INGREZZA 60 2023-0 Yes Univer s mg Cap 2-27 ity of 00:00: [place] 00 [facility] INGREZZA 60 2023-0 Yes Univer s mg Cap 2-27 ity of 00:00: [place] 00 [facility] INGREZZA 60 2023-0 Yes Univer s mg Cap 2-27 ity of 00:00: [place] 00 [facility] INGREZZA 60 2023-0 Yes Univer s mg Cap 2-27 ity of 00:00: [place] 00 [facility] INGREZZA 60 2023-0 Yes Univer s mg Cap 2-27 ity of 00:00: [place] 00 [facility] INGREZZA 60 2023-0 Yes Univer s mg Cap 2-27 ity of 00:00: [place] 00 [facility] INGREZZA 60 2023-0 Yes Univer s mg Cap 2-27 ity of 00:00: [place] 00 [facility] INGREZZA 60 2023-0 Yes Univer s mg Cap 2-27 ity of 00:00: [place] 00 [facility] INGREZZA 60 2023-0 Yes Univer s mg Cap 2-27 ity of 00:00: [place] 00 [facility] INGREZZA 60 2023-0 Yes Univer s mg Cap 2-27 ity of 00:00: [place] 00 [facility] INGREZZA 60 2023-0 Yes Univer s mg Cap 2-27 ity of 00:00: [place] 00 [facility] INGREZZA 60 2023-0 Yes Univer s mg Cap 2-27 ity of 00:00: [place] 00 [facility] INGREZZA 60 2023-0 Yes Univer s mg Cap 2-27 ity of 00:00: [place] 00 [facility] ELZBIETA 60 3-0 Yes Univer s mg Cap 2-27 ity of 00:00: [place] 00 [facility] ELZBIETA 60 3-0 Yes Univer s mg Cap 2-27 ity of 00:00: [place] 00 [facility] ELZBIETA 60 3-0 Yes Univer s mg Cap 2-27 ity of 00:00: [place] 00 [facility] ELZBIETA 60 3-0 Yes Univer s mg Cap 2-27 ity of 00:00: [place] 00 [facility] ELZBIETA 60 3-0 Yes Univer s mg Cap 2-27 ity of 00:00: [place] 00 [facility] ELZBIETA 60 3-0 Yes Univer s mg Cap 2-27 ity of 00:00: [place] 00 [facility] ELZBIETA 60 3-0 Yes Univer s mg Cap 2-27 ity of 00:00: [place] 00 [facility] ELZBIETA 60 3-0 2023- No Unive rs mg Cap 2-27 10-30 ity of 00:00: 00:00 [place] 00 :00 Medical Branch ELZBIETA 60 3-0 3- No Unive rs mg Cap 2-27 10-30 ity of 00:00: 00:00 [place] 00 :00 Medical Branch omeprazole 3-0 3- No 20mg Take 20 mg [facility] 20 mg 11-22 by mouth ity of capsule 13:51: 00:00 daily. [place] 11 :00 [facility] Branch omeprazole 2022-0 2022- No 20mg Take 20 mg [facility] 20 mg 11-22 by mouth ity of capsule 13:51: 00:00 daily. [place] 11 :00 Medical Branch omeprazole 2022-0 2022- No 20mg Take 20 mg [facility] 20 mg 11-22 by mouth ity of capsule 13:51: 00:00 daily. [place] 11 :00 [facility] Branch omeprazole 2022-0 2022- No 20mg Take 20 mg [facility] 20 mg 11-22 by mouth ity of capsule 13:51: 00:00 daily. [place] 11 :00 [facility] Branch ARIPiprazol 2022-0 2022- No 10mg Take 10 mg [facility] e 10 mg 11-22 by mouth ity of tablet 13:36: 00:00 daily. [place] 03 :00 Medical Branch ARIPiprazol 2022-2022- No 10mg Take 10 mg [facility] e 10 mg 11-22 by mouth ity of tablet 13:36: 00:00 daily. [place] 03 :00 Medical Branch ARIPiprazol 2022-2022- No 10mg Take 10 mg [facility] e 10 mg 11-22 by mouth ity of tablet 13:36: 00:00 daily. [place] 03 :00 Medical Branch ARIPiprazol 2022- No 10mg Take 10 mg [facility] e 10 mg 11-22 by mouth ity of tablet 13:36: 00:00 daily. [place] 03 :00 Medical Branch BUSPIRONE 2022-2022- No 15mg Take 15 mg U nivers HCL (BUSPAR 11-22 by mouth 2 i ty of ORAL) 13:35: 00:00 (two) [place] 53 :00 times Medical daily. Branch BUSPIRONE 2022-2022- No 15mg Take 15 mg U nivers HCL (BUSPAR 11-22 by mouth 2 i ty of ORAL) 13:35: 00:00 (two) [place] 53 :00 times Medical daily. Branch BUSPIRONE 2022-2022- No 15mg Take 15 mg U nivers HCL (BUSPAR 11-22 by mouth 2 i ty of ORAL) 13:35: 00:00 (two) [place] 53 :00 times Medical daily. Branch BUSPIRONE 2022-2022- No 15mg Take 15 mg U nivers HCL (BUSPAR 11-22 by mouth 2 i ty of ORAL) 13:35: 00:00 (two) [place] 53 :00 times Medical daily. Branch cariprazine 2022-0 Yes [id number] 4.5mg Take 4.5 [facility] (VRAYLAR) 1-31 mg by ity of 4.5 mg Cap 13:35: mouth [place] 51 every Medical evening. Branch cetirizine 2022-0 Yes [id number] 10mg Take 10 mg [facility] 10 mg 11-22 by mouth ity of tablet 13:35: every [place] 51 morning. Medical Branch cariprazine 2022-0 Yes [id number] 4.5mg Take 4.5 [facility] (VRAYLAR) 1-31 mg by ity of 4.5 mg Cap 13:35: mouth [place] 51 every Medical evening. Branch cetirizine Yes [id number] 10mg Take 10 mg [facility] 10 mg 1-31 by mouth ity of tablet 13:35: every [place] 51 morning. Medical Branch cariprazine Yes [id number] 4.5mg Take 4.5 [facility] (VRAYLAR) 1-31 mg by ity of 4.5 mg Cap 13:35: mouth [place] 51 every Medical evening. Branch cetirizine Yes [id number] 10mg Take 10 mg [facility] 10 mg 1-31 by mouth ity of tablet 13:35: every [place] 51 morning. Medical Branch cariprazine Yes [id number] 4.5mg Take 4.5 [facility] (VRAYLAR) 1-31 mg by ity of 4.5 mg Cap 13:35: mouth [place] 51 every Medical evening. Branch cetirizine Yes [id number] 10mg Take 10 mg [facility] 10 mg 1-31 by mouth ity of tablet 13:35: every [place] 51 morning. Medical Branch cariprazine Yes [id number] 4.5mg Take 4.5 [facility] (VRAYLAR) 1-31 mg by ity of 4.5 mg Cap 13:35: mouth [place] 51 every Medical evening. Branch cetirizine Yes [id number] 10mg Take 10 mg [facility] 10 mg 1-31 by mouth ity of tablet 13:35: every [place] 51 morning. Medical Branch cariprazine Yes [id number] 4.5mg Take 4.5 [facility] (VRAYLAR) 1-31 mg by ity of 4.5 mg Cap 13:35: mouth [place] 51 every Medical evening. Branch cetirizine Yes [id number] 10mg Take 10 mg [facility] 10 mg 1-31 by mouth ity of tablet 13:35: every [place] 51 morning. Medical Branch cariprazine Yes [id number] 4.5mg Take 4.5 [facility] (VRAYLAR) 1-31 mg by ity of 4.5 mg Cap 13:35: mouth [place] 51 every Medical evening. Branch cetirizine 2023-0 Yes [id number] 10mg Take 10 mg [facility] 10 mg 1-31 by mouth ity of tablet 13:35: every [place] [id number] morning. Medical Branch cariprazine 2022-0 Yes [id number] 4.5mg Take 4.5 [facility] (VRAYLAR) 1-31 mg by ity of 4.5 mg Cap 13:35: mouth [place] 51 every Medical evening. Branch cetirizine 2022-0 Yes [id number] 10mg Take 10 mg [facility] 10 mg 1-31 by mouth ity of tablet 13:35: every [place] [address] morning. Medical Branch busPIRone 2022-0 Yes [id number] 30mg Take 30 mg [facility] 30 mg 1-30 by mouth ity of tablet 00:00: in the [place] 00 morning Medical and 30 mg Branch in the evening. busPIRone 2022-0 Yes [id number] 30mg Take 30 mg [facility] 30 mg 1-30 by mouth ity of tablet 00:00: in the [place] 00 morning Medical and 30 mg Branch in the evening. busPIRone 2022-0 Yes [id number] 30mg Take 30 mg [facility] 30 mg 1-30 by mouth ity of tablet 00:00: in the [place] 00 morning Medical and 30 mg Branch in the evening. busPIRone 2022-0 Yes [id number] 30mg Take 30 mg [facility] 30 mg 1-30 by mouth ity of tablet 00:00: in the [place] morning Medical and 30 mg Branch in the evening. busPIRone 2022-0 Yes [id number] 30mg Take 30 mg [facility] 30 mg 1-30 by mouth ity of tablet 00:00: in the [place] 00 morning Medical and 30 mg Branch in the evening. busPIRone 2022-0 Yes [id number] 30mg Take 30 mg [facility] 30 mg 1-30 by mouth ity of tablet 00:00: in the [place] 00 morning Medical and 30 mg Branch in the evening. busPIRone 3-0 Yes [id number] 30mg Take 30 mg [facility] 30 mg 1-30 by mouth ity of tablet 00:00: in the [place] 00 morning Medical and 30 mg Branch in the evening. busPIRone 3-0 Yes [id number] 30mg Take 30 mg [facility] 30 mg 1-30 by mouth ity of tablet 00:00: in the [place] 00 morning Medical and 30 mg Branch in the evening. busPIRone 2023-0 Yes [id number] 30mg Take 1 U nivers 30 mg 1-30 tablet by ity of tablet 00:00: mouth in [place] 00 the Medical morning Branch and 1 tablet in the evening. busPIRone 2023-0 Yes [id number] 30mg Take 1 U nivers 30 mg 1-30 tablet by ity of tablet 00:00: mouth in [place] 00 the Medical morning Branch and 1 tablet in the evening. busPIRone 2023-0 Yes [id number] 30mg Take 1 U nivers 30 mg 1-30 tablet by ity of tablet 00:00: mouth in [place] 00 the Medical morning Branch and 1 tablet in the evening. busPIRone 2023-0 Yes [id number] 30mg Take 1 U nivers 30 mg 1-30 tablet by ity of tablet 00:00: mouth in [place] [address] the Medical morning Branch and 1 tablet in the evening. busPIRone 2023-0 Yes [id number] 30mg Take 1 U nivers 30 mg 1-30 tablet by ity of tablet 00:00: mouth in [place] [address] the Medical morning Branch and 1 tablet in the evening. busPIRone 2023-0 Yes [id number] 30mg Take 1 U nivers 30 mg 1-30 tablet by ity of tablet 00:00: mouth in [place] 00 the Medical morning Branch and 1 tablet in the evening. busPIRone 2023-0 Yes [id number] 30mg Take 1 U nivers 30 mg 1-30 tablet by ity of tablet 00:00: mouth in [place] 00 the Medical morning Branch and 1 tablet in the evening. busPIRone 2023-0 Yes [id number] 30mg Take 1 U nivers 30 mg 1-30 tablet by ity of tablet 00:00: mouth in [place] 00 the Medical morning Branch and 1 tablet in the evening. busPIRone 2023-0 Yes [id number] 30mg Take 1 U nivers 30 mg 1-30 tablet by ity of tablet 00:00: mouth in [place] [address] the Medical morning Branch and 1 tablet in the evening. busPIRone 2023-0 Yes [id number] 30mg Take 1 U nivers 30 mg 1-30 tablet by ity of tablet 00:00: mouth in [place] 00 the Medical morning Branch and 1 tablet in the evening. busPIRone 2023-0 Yes [id number] 30mg Take 1 U nivers 30 mg 1-30 tablet by ity of tablet 00:00: mouth in [place] 00 the Medical morning Branch and 1 tablet in the evening. busPIRone 2023-0 Yes [id number] 30mg Take 1 U nivers 30 mg 1-30 tablet by ity of tablet 00:00: mouth in [place] 00 the Medical morning Branch and 1 tablet in the evening. busPIRone 2023-0 Yes [id number] 30mg Take 1 U nivers 30 mg 1-30 tablet by ity of tablet 00:00: mouth in [place] 00 the Medical morning Branch and 1 tablet in the evening. busPIRone 2023-0 Yes [id number] 30mg Take 1 U nivers 30 mg 1-30 tablet by ity of tablet 00:00: mouth in [place] [address] the Medical morning Branch and 1 tablet in the evening. busPIRone 2023-0 Yes [id number] 30mg Take 1 U nivers 30 mg 1-30 tablet by ity of tablet 00:00: mouth in [place] [address] the Medical morning Branch and 1 tablet in the evening. busPIRone 2023-0 Yes [id number] 30mg Take 1 U nivers 30 mg 1-30 tablet by ity of tablet 00:00: mouth in [place] [address] the Medical morning Branch and 1 tablet in the evening. busPIRone 2023-0 Yes [id number] 30mg Take 1 U nivers 30 mg 1-30 tablet by ity of tablet 00:00: mouth in [place] [address] the Medical morning Branch and 1 tablet in the evening. busPIRone 2023-0 Yes [id number] 30mg Take 1 U nivers 30 mg 1-30 tablet by ity of tablet 00:00: mouth in [place] [address] the Medical morning Branch and 1 tablet in the evening. busPIRone 2023-0 Yes [id number] 30mg Take 1 U nivers 30 mg 1-30 tablet by ity of tablet 00:00: mouth in [place] [address] the Medical morning Branch and 1 tablet in the evening. busPIRone 2023-0 Yes [id number] 30mg Take 1 U nivers 30 mg 1-30 tablet by ity of tablet 00:00: mouth in [place] 00 the Medical morning Branch and 1 tablet in the evening. busPIRone 2023-0 Yes [id number] 30mg Take 1 U nivers 30 mg 1-30 tablet by ity of tablet 00:00: mouth in [place] 00 the Medical morning Branch and 1 tablet in the evening. busPIRone 2023-0 Yes [id number] 30mg Take 1 U nivers 30 mg 1-30 tablet by ity of tablet 00:00: mouth in [place] 00 the Medical morning Branch and 1 tablet in the evening. busPIRone 2023-0 Yes [id number] 30mg Take 1 U nivers 30 mg 1-30 tablet by ity of tablet 00:00: mouth in [place] 00 the Medical morning Branch and 1 tablet in the evening. busPIRone 2023-0 Yes [id number] 30mg Take 1 U nivers 30 mg 1-30 tablet by ity of tablet 00:00: mouth in [place] [address] the Medical morning Branch and 1 tablet in the evening. busPIRone 2023-0 Yes [id number] 30mg Take 1 U nivers 30 mg 1-30 tablet by ity of tablet 00:00: mouth in [place] [address] the Medical morning Branch and 1 tablet in the evening. busPIRone 2023-0 Yes [id number] 30mg Take 1 U nivers 30 mg 1-30 tablet by ity of tablet 00:00: mouth in [place] [address] the Medical morning Branch and 1 tablet in the evening. busPIRone 2023-0 Yes [id number] 30mg Take 1 U nivers 30 mg 1-30 tablet by ity of tablet 00:00: mouth in [place] [address] the Medical morning Branch and 1 tablet in the evening. busPIRone 2023-0 Yes [id number] 30mg Take 1 U nivers 30 mg 1-30 tablet by ity of tablet 00:00: mouth in [place] [address] the Medical morning Branch and 1 tablet in the evening. busPIRone 2023-0 Yes [id number] 30mg Take 1 U nivers 30 mg 1-30 tablet by ity of tablet 00:00: mouth in [place] [address] the Medical morning Branch and 1 tablet in the evening. busPIRone 2023-0 Yes [id number] 30mg Take 1 U nivers 30 mg 1-30 tablet by ity of tablet 00:00: mouth in [place] 00 the Medical morning Branch and 1 tablet in the evening. busPIRone 2023-0 Yes [id number] 30mg Take 1 U nivers 30 mg 1-30 tablet by ity of tablet 00:00: mouth in [place] 00 the Medical morning Branch and 1 tablet in the evening. busPIRone 2023-0 Yes [id number] 30mg Take 1 U nivers 30 mg 1-30 tablet by ity of tablet 00:00: mouth in [place] 00 the Medical morning Branch and 1 tablet in the evening. busPIRone 2023-0 Yes [id number] 30mg Take 1 U nivers 30 mg 1-30 tablet by ity of tablet 00:00: mouth in [place] 00 the Medical morning Branch and 1 tablet in the evening. busPIRone 2023-0 Yes [id number] 30mg Take 1 U nivers 30 mg 1-30 tablet by ity of tablet 00:00: mouth in [place] [address] the Medical morning Branch and 1 tablet in the evening. busPIRone 2023-0 Yes [id number] 30mg Take 1 U nivers 30 mg 1-30 tablet by ity of tablet 00:00: mouth in [place] [address] the Medical morning Branch and 1 tablet in the evening. busPIRone 2023-0 Yes [id number] 30mg Take 1 U nivers 30 mg 1-30 tablet by ity of tablet 00:00: mouth in [place] [address] the Medical morning Branch and 1 tablet in the evening. busPIRone 2023-0 Yes [id number] 30mg Take 1 U nivers 30 mg 1-30 tablet by ity of tablet 00:00: mouth in [place] [address] the Medical morning Branch and 1 tablet in the evening. busPIRone 2023-0 Yes [id number] 30mg Take 1 U nivers 30 mg 1-30 tablet by ity of tablet 00:00: mouth in [place] [address] the Medical morning Branch and 1 tablet in the evening. busPIRone 2023-0 Yes [id number] 30mg Take 1 U nivers 30 mg 1-30 tablet by ity of tablet 00:00: mouth in [place] [address] the Medical morning Branch and 1 tablet in the evening. busPIRone 2023-0 Yes [id number] 30mg Take 1 U nivers 30 mg 1-30 tablet by ity of tablet 00:00: mouth in [place] 00 the Medical morning Branch and 1 tablet in the evening. busPIRone 2022-0 Yes [id number] 30mg Take 1 U nivers 30 mg 1-30 tablet by ity of tablet 00:00: mouth in [place] 00 the Medical morning Branch and 1 tablet in the evening. busPIRone 2022-0 Yes [id number] 30mg Take 1 U nivers 30 mg 1-30 tablet by ity of tablet 00:00: mouth in [place] 00 the Medical morning Branch and 1 tablet in the evening. busPIRone 2022-0 Yes [id number] 30mg Take 1 U nivers 30 mg 1-30 tablet by ity of tablet 00:00: mouth in [place] 00 the Medical morning Branch and 1 tablet in the evening. busPIRone 0 2022- No [id number] 30mg Take 1 [facility] 30 mg 1-30 10-30 tablet by ity of tablet 00:00: 00:00 mouth in [place] 00 :00 the Medical morning Branch and 1 tablet in the evening. busPIRone 2022- No [id number] 30mg Take 1 [facility] 30 mg 1-30 10-30 tablet by ity of tablet 00:00: 00:00 mouth in [place] 00 :00 the Medical morning Branch and 1 tablet in the evening. sulfamethox 2021-10- No [id number] 1{tbl} Take 1 [facility] azole-trime 2-13 12-17 tablet by it y of thoprim 00:00: 05:59 mouth in [place] 800-160 mg 00 :00 the Medical per tablet morning Branch and 1 tablet in the evening. Do all this for 3 days. sulfamethox 2021-10- No [id number] 1{tbl} Take 1 [facility] azole-trime 2-13 12-17 tablet by it y of thoprim 00:00: 05:59 mouth in [place] 800-160 mg 00 :00 the Medical per tablet morning Branch and 1 tablet in the evening. Do all this for 3 days. tiotropium 2021-10 Yes [id number] 18ug Inhale 1 [facility] 18 mcg 1-28 capsule in ity of inhalation 00:00: the [place] 00 morning. Medical Branch tiotropium 2021-10 Yes [id number] 18ug Inhale 1 [facility] 18 mcg 1-28 capsule in ity of inhalation 00:00: the [place] 00 morning. Medical Branch tiotropium 2021- Yes [id number] 18ug Inhale 1 [facility] 18 mcg 1-28 capsule in ity of inhalation 00:00: the [place] 00 morning. Medical Branch tiotropium 2021- Yes [id number] 18ug Inhale 1 [facility] 18 mcg 1-28 capsule in ity of inhalation 00:00: the [place] 00 morning. Medical Branch tiotropium 2021- Yes [id number] 18ug Inhale 1 [facility] 18 mcg 1-28 capsule in ity of inhalation 00:00: the [place] 00 morning. Medical Branch tiotropium 2021-10 Yes [id number] 18ug Inhale 1 [facility] 18 mcg 1-28 capsule in ity of inhalation 00:00: the [place] 00 morning. Medical Branch tiotropium 2021- Yes [id number] 18ug Inhale 1 [facility] 18 mcg 1-28 capsule in ity of inhalation 00:00: the [place] 00 morning. Medical Branch tiotropium 2021- Yes [id number] 18ug Inhale 1 [facility] 18 mcg 1-28 capsule in ity of inhalation 00:00: the [place] 00 morning. Medical Branch tiotropium 2021-10 Yes [id number] 18ug Inhale 1 [facility] 18 mcg 1-28 capsule in ity of inhalation 00:00: the [place] 00 morning. Medical Branch tiotropium 2021- Yes [id number] 18ug Inhale 1 [facility] 18 mcg 1-28 capsule in ity of inhalation 00:00: the [place] 00 morning. Medical Branch tiotropium 2021- Yes [id number] 18ug Inhale 1 [facility] 18 mcg 1-28 capsule in ity of inhalation 00:00: the [place] 00 morning. Medical Branch tiotropium 2021- Yes [id number] 18ug Inhale 1 [facility] 18 mcg 1-28 capsule in ity of inhalation 00:00: the [place] 00 morning. Medical Branch tiotropium 2021- Yes [id number] 18ug Inhale 1 [facility] 18 mcg 1-28 capsule in ity of inhalation 00:00: the [place] 00 morning. Medical Branch tiotropium 2021- Yes [id number] 18ug Inhale 1 [facility] 18 mcg 1-28 capsule in ity of inhalation 00:00: the [place] 00 morning. Medical Branch tiotropium 2021-10 Yes [id number] 18ug Inhale 1 [facility] 18 mcg 1-28 capsule in ity of inhalation 00:00: the [place] 00 morning. Medical Branch tiotropium 2021-10 Yes [id number] 18ug Inhale 1 [facility] 18 mcg 1-28 capsule in ity of inhalation 00:00: the [place] 00 morning. Medical Branch tiotropium 2021-10 Yes [id number] 18ug Inhale 1 [facility] 18 mcg 1-28 capsule in ity of inhalation 00:00: the [place] 00 morning. Medical Branch tiotropium 2021-10 Yes [id number] 18ug Inhale 1 [facility] 18 mcg 1-28 capsule in ity of inhalation 00:00: the [place] 00 morning. Medical Branch tiotropium 2021-10 Yes [id number] 18ug Inhale 1 [facility] 18 mcg 1-28 capsule in ity of inhalation 00:00: the [place] 00 morning. Medical Branch tiotropium 2021-10 Yes [id number] 18ug Inhale 1 [facility] 18 mcg 1-28 capsule in ity of inhalation 00:00: the [place] 00 morning. Medical Branch tiotropium 2021-10- No [id number] 18ug Inhale 1 [facility] 18 mcg 1-28 03-20 capsule in ity of inhalation 00:00: 00:00 the [place] 00 :00 morning. Medical Branch tiotropium 2021-10- No [id number] 18ug Inhale 1 [facility] 18 mcg 1-28 03-20 capsule in ity of inhalation 00:00: 00:00 the [place] 00 :00 morning. Medical Branch tiotropium 2021-10- No [id number] 18ug Inhale 1 [facility] 18 mcg 1-28 03-20 capsule in ity of inhalation 00:00: 00:00 the [place] 00 :00 morning. Medical Branch tiotropium 2021-10- No [id number] 18ug Inhale 1 [facility] 18 mcg 1-28 03-20 capsule in ity of inhalation 00:00: 00:00 the [place] 00 :00 morning. Medical Branch umeclidiniu 2021-10 Yes [id number] 1{puff} Inhale 1 Univers m (INCRUSE 1-18 Puff ity of ELLIPTA) 00:00: daily. [place] 62.5 00 Medical mcg/actuati Branch on DsDv umeclidiniu 2021-10 Yes [id number] 1{puff} Inhale 1 Univers m (INCRUSE 1-18 Puff ity of ELLIPTA) 00:00: daily. [place] [address] 00 Medical [facility]/actuati Branch on DsDv umeclidiniu 2021-10 Yes [id number] 1{puff} Inhale 1 Univers m (INCRUSE 1-18 Puff ity of ELLIPTA) 00:00: daily. [place] [address] 00 Medical [facility]/actuati Branch on DsDv umeclidiniu 2021-10- No [id number] 1{puff} Inhale 1 Univers m (INCRUSE 1-18 11-28 Puff ity of ELLIPTA) 00:00: 00:00 daily. [place] [address] 00 :00 Medical [facility]/actuati Branch on DsDv predniSONE 2021- No [id number] Take 2 Univers 10 mg 8-20 09- tablets by ity of tablet 00:00: 04:59 mouth 2 [place] 00 :00 (two) [facility] times Branch daily for 3 days, THEN 2 tablets daily for 3 days, THEN 1 tablet daily for 5 days. BUSPIRONE Yes 15mg Take 15 mg Un [facility] HCL (BUSPAR 5-13 by mouth 2 it y of ORAL) 10:29: (two) [address] daily. Branch omeprazole Yes 20mg Take 20 mg U nivers 20 mg 5-13 by mouth ity of capsule 10:29: daily. [address] ARIPiprazol 0 Yes 10mg Take 10 mg Univers e 10 mg 5-13 by mouth ity of tablet 10:29: daily. [address] BUSPIRONE 0 Yes 15mg Take 15 mg Un [place] HCL (BUSPAR 5-13 by mouth 2 it y of ORAL) 10:29: (two) [address] daily. Branch omeprazole 0 Yes 20mg Take 20 mg U nivers 20 mg 5-13 by mouth ity of capsule 10:29: daily. [address] ARIPiprazol 0 Yes 10mg Take 10 mg Univers e 10 mg 5-13 by mouth ity of tablet 10:29: daily. [address] BUSPIRONE 2021-0 Yes 15mg Take 15 mg Un [place] HCL (BUSPAR 5-13 by mouth 2 it y of ORAL) 10:29: (two) [address] Medical daily. Branch omeprazole 2-0 Yes 20mg Take 20 mg U nivers 20 mg 5-13 by mouth ity of capsule 10:29: daily. [address] ARIPiprazol 2021-0 Yes 10mg Take 10 mg Univers e 10 mg 5-13 by mouth ity of tablet 10:29: daily. [address] BUSPIRONE 2021-0 Yes 15mg Take 15 mg [facility] [place] HCL (BUSPAR 5-13 by mouth 2 it y of ORAL) 10:29: (two) [address] daily. Branch omeprazole 2021-0 Yes 20mg Take 20 mg U nivers 20 mg 5-13 by mouth ity of capsule 10:29: daily. [address] ARIPiprazol 2021-0 Yes 10mg Take 10 mg Univers e 10 mg 5-13 by mouth ity of tablet 10:29: daily. [address] BUSPIRONE 2021-0 Yes 15mg Take 15 mg Un [place] HCL (BUSPAR 5-13 by mouth 2 it y of ORAL) 10:29: (two) [address] daily. Branch omeprazole 2021-0 Yes 20mg Take 20 mg U nivers 20 mg 5-13 by mouth ity of capsule 10:29: daily. [address] ARIPiprazol 2021-0 Yes 10mg Take 10 mg Univers e 10 mg 5-13 by mouth ity of tablet 10:29: daily. [address] BUSPIRONE 2021-0 Yes 15mg Take 15 mg [facility] [place] HCL (BUSPAR 5-13 by mouth 2 it y of ORAL) 10:29: (two) [address] daily. Branch omeprazole 2-0 Yes 20mg Take 20 mg U nivers 20 mg 5-13 by mouth ity of capsule 10:29: daily. [address] ARIPiprazol 2021-0 Yes 10mg Take 10 mg Univers e 10 mg 5-13 by mouth ity of tablet 10:29: daily. [address] BUSPIRONE 2021-0 Yes 15mg Take 15 mg Un [place] HCL (BUSPAR 5-13 by mouth 2 it y of ORAL) 10:29: (two) [place] [address] times Medical daily. Branch omeprazole 2022-0 Yes 20mg Take 20 mg U nivers 20 mg 5-13 by mouth ity of capsule 10:29: daily. [address] Branch ARIPiprazol 2021-0 Yes 10mg Take 10 mg Univers e 10 mg 5-13 by mouth ity of tablet 10:29: daily. [address] Branch BUSPIRONE 2-0 Yes 15mg Take 15 mg Un [place] HCL (BUSPAR 5-13 by mouth 2 it y of ORAL) 10:29: (two) [address] Medical daily. Branch omeprazole 2-0 Yes 20mg Take 20 mg U nivers 20 mg 5-13 by mouth ity of capsule 10:29: daily. [address] ARIPiprazol 2021-0 Yes 10mg Take 10 mg Univers e 10 mg 5-13 by mouth ity of tablet 10:29: daily. [address] Branch BUSPIRONE 2-0 Yes 15mg Take 15 mg Un [facility] HCL (BUSPAR 5-13 by mouth 2 it y of ORAL) 10:29: (two) [address] Medical daily. Branch omeprazole 2-0 Yes 20mg Take 20 mg U nivers 20 mg 5-13 by mouth ity of capsule 10:29: daily. [address] ARIPiprazol 2021-0 Yes 10mg Take 10 mg Univers e 10 mg 5-13 by mouth ity of tablet 10:29: daily. [address] BUSPIRONE 2-0 Yes 15mg Take 15 mg Un [facility] HCL (BUSPAR 5-13 by mouth 2 it y of ORAL) 10:29: (two) [address] Medical daily. Branch omeprazole 2-0 Yes 20mg Take 20 mg U nivers 20 mg 5-13 by mouth ity of capsule 10:29: daily. [address] Branch ARIPiprazol 2-0 Yes 10mg Take 10 mg Univers e 10 mg 5-13 by mouth ity of tablet 10:29: daily. [address] BUSPIRONE 2-0 Yes 15mg Take 15 mg Un [facility] HCL (BUSPAR 5-13 by mouth 2 it y of ORAL) 10:29: (two) [place] 36 times Medical daily. Branch omeprazole 2022-0 Yes 20mg Take 20 mg U nivers 20 mg 5-13 by mouth ity of capsule 10:29: daily. [address] Branch ARIPiprazol 2-0 Yes 10mg Take 10 mg Univers e 10 mg 5-13 by mouth ity of tablet 10:29: daily. [address] Branch BUSPIRONE 2022-0 Yes 15mg Take 15 mg Un [facility] HCL (BUSPAR 5-13 by mouth 2 it y of ORAL) 10:29: (two) [address] Medical daily. Branch omeprazole 2022-0 Yes 20mg Take 20 mg U nivers 20 mg 5-13 by mouth ity of capsule 10:29: daily. [address] Branch ARIPiprazol 2-0 Yes 10mg Take 10 mg Univers e 10 mg 5-13 by mouth ity of tablet 10:29: daily. [address] Branch BUSPIRONE 2-0 Yes 15mg Take 15 mg Un [facility] HCL (BUSPAR 5-13 by mouth 2 it y of ORAL) 10:29: (two) [address] Medical daily. Branch omeprazole 2022-0 Yes 20mg Take 20 mg U nivers 20 mg 5-13 by mouth ity of capsule 10:29: daily. [address] Branch ARIPiprazol 2-0 Yes 10mg Take 10 mg Univers e 10 mg 5-13 by mouth ity of tablet 10:29: daily. [address] Branch BUSPIRONE 2-0 Yes 15mg Take 15 mg Un [facility] HCL (BUSPAR 5-13 by mouth 2 it y of ORAL) 10:29: (two) [address] Medical daily. Branch omeprazole 2022-0 Yes 20mg Take 20 mg U nivers 20 mg 5-13 by mouth ity of capsule 10:29: daily. [address] ARIPiprazol 2-0 Yes 10mg Take 10 mg Univers e 10 mg 5-13 by mouth ity of tablet 10:29: daily. [address] Branch BUSPIRONE 2022-0 Yes 15mg Take 15 mg Un [facility] HCL (BUSPAR 5-13 by mouth 2 it y of ORAL) 10:29: (two) [address] Medical daily. Branch omeprazole 2022-0 Yes 20mg Take 20 mg U nivers 20 mg 5-13 by mouth ity of capsule 10:29: daily. [place] [address] Medical Branch ARIPiprazol Yes 10mg Take 10 mg Univers e 10 mg 5-13 by mouth ity of tablet 10:29: daily. [place] [address] Medical Branch inhalat.spa Yes [id number] 1U 1 Units as Univers cing 5-13 needed ity of dev,large 00:00: (use with [place] as mask 00 inhaler). Medical (BREATHERIT Branch E SPACER-MASK ,ADULT) Spcr albuterol Yes [id number] 2{puff} Inhale 2 Univers 90 5-13 Puffs ity of mcg/actuati 00:00: every 6 [place] as on inhaler 00 (six) Medical hours as Branch needed for Wheezing or Shortness of Breath. fluticasone Yes [id number] 1{puff} Inhale 1 Univers propion-nida 5-13 Puff every it y of meteroL 00:00: 12 [place] (ADVAIR (twelve) Medical DISKUS) hours. Branch 250-50 mcg/dose inhalation disk inhalat.spa Yes [id number] 1U 1 Units as Univers cing 5-13 needed ity of dev,large 00:00: (use with [place] as mask 00 inhaler). Medical (BREATHERIT Branch E SPACER-MASK ,ADULT) Spcr albuterol Yes [id number] 2{puff} Inhale 2 Univers 90 5-13 Puffs ity of mcg/actuati 00:00: every 6 [place] as on inhaler 00 (six) Medical hours as Branch needed for Wheezing or Shortness of Breath. fluticasone Yes [id number] 1{puff} Inhale 1 Univers propion-nida 5-13 Puff every it y of meteroL 00:00: 12 [place] (ADVAIR 00 (twelve) Medical DISKUS) hours. Branch 250-50 mcg/dose inhalation disk inhalat.spa Yes [id number] 1U 1 Units as Univers cing 5-13 needed ity of dev,large 00:00: (use with [place] as mask 00 inhaler). Medical (BREATHERIT Branch E SPACER-MASK ,ADULT) Spcr albuterol Yes [id number] 2{puff} Inhale 2 Univers 90 5-13 Puffs ity of mcg/actuati 00:00: every 6 [place] as on inhaler 00 (six) Medical hours as Branch needed for Wheezing or Shortness of Breath. fluticasone Yes [id number] 1{puff} Inhale 1 Univers propion-nida 5-13 Puff every it y of meteroL 00:00: 12 [place] (ADVAIR (twelve) Medical DISKUS) hours. Branch 250-50 mcg/dose inhalation disk inhalat.spa Yes [id number] 1U 1 Units as Univers cing 5-13 needed ity of dev,large 00:00: (use with [place] as mask 00 inhaler). Medical (BREATHERIT Branch E SPACER-MASK ,ADULT) Spcr albuterol Yes [id number] 2{puff} Inhale 2 Univers 90 5-13 Puffs ity of mcg/actuati 00:00: every 6 [place] as on inhaler 00 (six) Medical hours as Branch needed for Wheezing or Shortness of Breath. fluticasone Yes [id number] 1{puff} Inhale 1 Univers propion-nida 5-13 Puff every it y of meteroL 00:00: 12 [place] (ADVAIR () Medical DISKUS) hours. Branch 250-50 mcg/dose inhalation disk inhalat.spa Yes [id number] 1U 1 Units as Univers cing 5-13 needed ity of dev,large 00:00: (use with [place] as mask 00 inhaler). Medical (BREATHERIT Branch E SPACER-MASK ,ADULT) Spcr albuterol Yes [id number] 2{puff} Inhale 2 Univers 90 5-13 Puffs ity of mcg/actuati 00:00: every 6 [place] as on inhaler 00 (six) Medical hours as Branch needed for Wheezing or Shortness of Breath. fluticasone Yes [id number] 1{puff} Inhale 1 Univers propion-nida 5-13 Puff every it y of meteroL 00:00: 12 [place] (ADVAIR (twelve) Medical DISKUS) hours. Branch 250-50 mcg/dose inhalation disk inhalat.spa Yes [id number] 1U 1 Units as Univers cing 5-13 needed ity of dev,large 00:00: (use with [place] as mask 00 inhaler). Medical (BREATHERIT Branch E SPACER-MASK ,ADULT) Spcr albuterol Yes [id number] 2{puff} Inhale 2 Univers 90 5-13 Puffs ity of mcg/actuati 00:00: every 6 [place] as on inhaler 00 (six) Medical hours as Branch needed for Wheezing or Shortness of Breath. fluticasone Yes [id number] 1{puff} Inhale 1 Univers propion-nida 5-13 Puff every it y of meteroL 00:00: 12 [place] (ADVAIR 00 (twelve) Medical DISKUS) hours. Branch 250-50 mcg/dose inhalation disk inhalat.spa Yes [id number] 1U 1 Units as Univers cing 5-13 needed ity of dev,large 00:00: (use with [place] as mask 00 inhaler). Medical (BREATHERIT Branch E SPACER-MASK ,ADULT) Spcr albuterol Yes [id number] 2{puff} Inhale 2 Univers 90 5-13 Puffs ity of mcg/actuati 00:00: every 6 [place] as on inhaler 00 (six) Medical hours as Branch needed for Wheezing or Shortness of Breath. fluticasone Yes [id number] 1{puff} Inhale 1 Univers propion-nida 5-13 Puff every it y of meteroL 00:00: 12 [place] (ADVAIR 00 (twelve) Medical DISKUS) hours. Branch 250-50 mcg/dose inhalation disk inhalat.spa Yes [id number] 1U 1 Units as Univers cing 5-13 needed ity of dev,large 00:00: (use with [place] as mask 00 inhaler). Medical (BREATHERIT Branch E SPACER-MASK ,ADULT) Spcr albuterol Yes [id number] 2{puff} Inhale 2 Univers 90 5-13 Puffs ity of mcg/actuati 00:00: every 6 [facility] as on inhaler 00 (six) Medical hours as Branch needed for Wheezing or Shortness of Breath. fluticasone Yes [id number] 1{puff} Inhale 1 [facility] 5-13 Puff every it y of meteroL 00:00: 12 [place] (ADVAIR 00 (twelve) Medical DISKUS) hours. Branch 250-50 mcg/dose inhalation disk inhalat.spa Yes [id number] 1U 1 Units as [facility] cing 5-13 needed ity of dev,large 00:00: (use with Ramon as mask 00 inhaler). Medical (BREATHERIT Branch E SPACER-MASK ,ADULT) Spcr albuterol Yes [id number] 2{puff} Inhale 2 [facility] 90 5-13 Puffs ity of mcg/actuati 00:00: every 6 [facility] as on inhaler 00 (six) Medical hours as Branch needed for Wheezing or Shortness of Breath. fluticasone Yes [id number] 1{puff} Inhale 1 [facility] 5-13 Puff every it y of meteroL 00:00: 12 [place] (ADVAIR (twelve) Medical DISKUS) hours. Branch 250-50 mcg/dose inhalation disk inhalat.spa Yes [id number] 1U 1 Units as [facility] cing 5-13 needed ity of dev,large 00:00: (use with Ram[facility] as mask 00 inhaler). Medical (BREATHERIT Branch E SPACER-MASK ,ADULT) Spcr albuterol Yes [id number] 2{puff} Inhale 2 [facility] 90 5-13 Puffs ity of mcg/actuati 00:00: every 6 [facility] as on inhaler 00 (six) Medical hours as Branch needed for Wheezing or Shortness of Breath. fluticasone Yes [id number] 1{puff} Inhale 1 [facility] 5-13 Puff every it y of meteroL 00:00: 12 [place] (ADVAIR 00 (twelve) Medical DISKUS) hours. Branch 250-50 mcg/dose inhalation disk inhalat.spa Yes [id number] 1U 1 Units as [facility] cing 5-13 needed ity of dev,large 00:00: (use with [facility] as mask 00 inhaler). Medical (BREATHERIT Branch E SPACER-MASK ,ADULT) Spcr albuterol Yes [id number] 2{puff} Inhale 2 [facility] 90 5-13 Puffs ity of mcg/actuati 00:00: every 6 [facility] as on inhaler 00 (six) Medical hours as Branch needed for Wheezing or Shortness of Breath. fluticasone Yes [id number] 1{puff} Inhale 1 [facility] 5-13 Puff every it y of meteroL 00:00: 12 [place] (ADVAIR 00 (twelve) Medical DISKUS) hours. Branch 250-50 mcg/dose inhalation disk inhalat.spa Yes [id number] 1U 1 Units as [facility] cing 5-13 needed ity of dev,large 00:00: (use with [facility] as mask 00 inhaler). Medical (BREATHERIT Branch E SPACER-MASK ,ADULT) Spcr albuterol Yes [id number] 2{puff} Inhale 2 [facility] 90 5-13 Puffs ity of mcg/actuati 00:00: every 6 [facility] on inhaler 00 (six) Medical hours as Branch needed for Wheezing or Shortness of Breath. fluticasone Yes [id number] 1{puff} Inhale 1 [facility] 5-13 Puff every it y of meteroL 00:00: 12 [place] (ADVAIR (twelve) Medical DISKUS) hours. Branch 250-50 mcg/dose inhalation disk inhalat.spa Yes [id number] 1U 1 Units as [facility] cing 5-13 needed ity of dev,large 00:00: (use with [facility] as mask 00 inhaler). Medical (BREATHERIT Branch E SPACER-MASK ,ADULT) Spcr albuterol Yes [id number] 2{puff} Inhale 2 [facility] 90 5-13 Puffs ity of mcg/actuati 00:00: every 6 [facility] on inhaler 00 (six) Medical hours as Branch needed for Wheezing or Shortness of Breath. fluticasone Yes [id number] 1{puff} Inhale 1 [facility] 5-13 Puff every it y of meteroL 00:00: 12 [place] (ADVAIR 00 (twelve) Medical DISKUS) hours. Branch 250-50 mcg/dose inhalation disk inhalat.spa Yes [id number] 1U 1 Units as [facility] cing 5-13 needed ity of dev,large 00:00: (use with [facility] as mask 00 inhaler). Medical (BREATHERIT Branch E SPACER-MASK ,ADULT) Spcr albuterol Yes [id number] 2{puff} Inhale 2 [facility] 90 5-13 Puffs ity of mcg/actuati 00:00: every 6 [facility] as on inhaler 00 (six) Medical hours as Branch needed for Wheezing or Shortness of Breath. fluticasone Yes [id number] 1{puff} Inhale 1 [facility] 5-13 Puff every it y of meteroL 00:00: 12 [place] (ADVAIR 00 (twelve) Medical DISKUS) hours. Branch 250-50 mcg/dose inhalation disk inhalat.spa Yes [id number] 1U 1 Units as [facility] cing 5-13 needed ity of dev,large 00:00: (use with [facility] as mask 00 inhaler). Medical (BREATHERIT Branch E SPACER-MASK ,ADULT) Spcr albuterol Yes [id number] 2{puff} Inhale 2 [facility] 90 5-13 Puffs ity of mcg/actuati 00:00: every 6 [facility] on inhaler 00 (six) Medical hours as Branch needed for Wheezing or Shortness of Breath. fluticasone Yes [id number] 1{puff} Inhale 1 [facility] 5-13 Puff every it y of meteroL 00:00: 12 [place] (ADVAIR 00 (twelve) Medical DISKUS) hours. Branch 250-50 mcg/dose inhalation disk inhalat.spa Yes [id number] 1U 1 Units as [facility] cing 5-13 needed ity of dev,large 00:00: (use with [facility] as mask 00 inhaler). Medical (BREATHERIT Branch E SPACER-MASK ,ADULT) Spcr albuterol Yes [id number] 2{puff} Inhale 2 [facility] 90 5-13 Puffs ity of mcg/actuati 00:00: every 6 [facility] on inhaler 00 (six) Medical hours as Branch needed for Wheezing or Shortness of Breath. fluticasone Yes [id number] 1{puff} Inhale 1 [facility] 5-13 Puff every it y of meteroL 00:00: 12 [place] (ADVAIR 00 (twelve) Medical DISKUS) hours. Branch 250-50 mcg/dose inhalation disk inhalat.spa Yes [id number] 1U 1 Units as [facility] cing 5-13 needed ity of dev,large 00:00: (use with [facility] as mask 00 inhaler). Medical (BREATHERIT Branch E SPACER-MASK ,ADULT) Spcr albuterol Yes [id number] 2{puff} Inhale 2 [facility] 90 5-13 Puffs ity of mcg/actuati 00:00: every 6 [facility] as on inhaler 00 (six) Medical hours as Branch needed for Wheezing or Shortness of Breath. fluticasone Yes [id number] 1{puff} Inhale 1 [facility] 5-13 Puff every it y of meteroL 00:00: 12 [place] (ADVAIR 00 (twelve) Medical DISKUS) hours. Branch 250-50 mcg/dose inhalation disk inhalat.spa Yes [id number] 1U 1 Units as [facility] cing 5-13 needed ity of dev,large 00:00: (use with [facility] as mask 00 inhaler). Medical (BREATHERIT Branch E SPACER-MASK ,ADULT) Spcr albuterol Yes [id number] 2{puff} Inhale 2 [facility] 90 5-13 Puffs ity of mcg/actuati 00:00: every 6 [facility] as on inhaler 00 (six) Medical hours as Branch needed for Wheezing or Shortness of Breath. fluticasone Yes [id number] 1{puff} Inhale 1 [facility] 5-13 Puff every it y of meteroL 00:00: 12 [place] (ADVAIR 00 (twelve) Medical DISKUS) hours. Branch 250-50 mcg/dose inhalation disk inhalat.spa Yes [id number] 1U 1 Units as [facility] cing 5-13 needed ity of dev,large 00:00: (use with [facility] as mask 00 inhaler). Medical (BREATHERIT Branch E SPACER-MASK ,ADULT) Spcr albuterol Yes [id number] 2{puff} Inhale 2 [facility] 90 5-13 Puffs ity of mcg/actuati 00:00: every 6 [facility] on inhaler 00 (six) Medical hours as Branch needed for Wheezing or Shortness of Breath. fluticasone Yes [id number] 1{puff} Inhale 1 [facility] 5-13 Puff every it y of meteroL 00:00: 12 [place] (ADVAIR 00 (twelve) Medical DISKUS) hours. Branch 250-50 mcg/dose inhalation disk inhalat.spa Yes [id number] 1U 1 Units as [facility] cing 5-13 needed ity of dev,large 00:00: (use with [facility] as mask 00 inhaler). Medical (BREATHERIT Branch E SPACER-MASK ,ADULT) Spcr albuterol Yes [id number] 2{puff} Inhale 2 [facility] 90 5-13 Puffs ity of mcg/actuati 00:00: every 6 [facility] on inhaler 00 (six) Medical hours as Branch needed for Wheezing or Shortness of Breath. fluticasone Yes [id number] 1{puff} Inhale 1 [facility] 5-13 Puff every it y of meteroL 00:00: 12 [place] (ADVAIR 00 (twelve) Medical DISKUS) hours. Branch 250-50 mcg/dose inhalation disk inhalat.spa Yes [id number] 1U 1 Units as [facility] cing 5-13 needed ity of dev,large 00:00: (use with [facility] as mask 00 inhaler). Medical (BREATHERIT Branch E SPACER-MASK ,ADULT) Spcr albuterol Yes [id number] 2{puff} Inhale 2 [facility] 90 5-13 Puffs ity of mcg/actuati 00:00: every 6 [facility] as on inhaler 00 (six) Medical hours as Branch needed for Wheezing or Shortness of Breath. fluticasone Yes [id number] 1{puff} Inhale 1 [facility] 5-13 Puff every it y of meteroL 00:00: 12 [place] (ADVAIR 00 (twelve) Medical DISKUS) hours. Branch 250-50 mcg/dose inhalation disk inhalat.spa Yes [id number] 1U 1 Units as [facility] cing 5-13 needed ity of dev,large 00:00: (use with [facility] as mask 00 inhaler). Medical (BREATHERIT Branch E SPACER-MASK ,ADULT) Spcr albuterol Yes [id number] 2{puff} Inhale 2 [facility] 90 5-13 Puffs ity of mcg/actuati 00:00: every 6 [facility] as on inhaler 00 (six) Medical hours as Branch needed for Wheezing or Shortness of Breath. fluticasone Yes [id number] 1{puff} Inhale 1 [facility] 5-13 Puff every it y of meteroL 00:00: 12 [place] (ADVAIR 00 (twelve) Medical DISKUS) hours. Branch 250-50 mcg/dose inhalation disk inhalat.spa Yes [id number] 1U 1 Units as [facility] cing 5-13 needed ity of dev,large 00:00: (use with [facility] as mask 00 inhaler). Medical (BREATHERIT Branch E SPACER-MASK ,ADULT) Spcr albuterol Yes [id number] 2{puff} Inhale 2 [facility] 90 5-13 Puffs ity of mcg/actuati 00:00: every 6 [facility] as on inhaler 00 (six) Medical hours as Branch needed for Wheezing or Shortness of Breath. fluticasone Yes [id number] 1{puff} Inhale 1 [facility] 5-13 Puff every it y of meteroL 00:00: 12 [place] (ADVAIR 00 (twelve) Medical DISKUS) hours. Branch 250-50 mcg/dose inhalation disk inhalat.spa Yes [id number] 1U 1 Units as [facility] cing 5-13 needed ity of dev,large 00:00: (use with [facility] as mask 00 inhaler). Medical (BREATHERIT Branch E SPACER-MASK ,ADULT) Spcr albuterol Yes [id number] 2{puff} Inhale 2 [facility] 90 5-13 Puffs ity of mcg/actuati 00:00: every 6 [facility] as on inhaler 00 (six) Medical hours as Branch needed for Wheezing or Shortness of Breath. fluticasone Yes [id number] 1{puff} Inhale 1 [facility] prop[facility] 5-13 Puff every it y of meteroL 00:00: 12 [place] (ADVAIR 00 (twelve) Medical DISKUS) hours. Branch 250-50 mcg/dose inhalation disk inhalat.spa Yes [id number] 1U 1 Units as [facility] cing 5-13 needed ity of dev,large 00:00: (use with [facility] as mask 00 inhaler). Medical (BREATHERIT Branch E SPACER-MASK ,ADULT) Spcr albuterol Yes [id number] 2{puff} Inhale 2 [facility] 90 5-13 Puffs ity of mcg/actuati 00:00: every 6 [facility] as on inhaler 00 (six) Medical hours as Branch needed for Wheezing or Shortness of Breath. fluticasone Yes [id number] 1{puff} Inhale 1 [facility] prop[facility] 5-13 Puff every it y of meteroL 00:00: 12 [place] (ADVAIR 00 (twelve) Medical DISKUS) hours. Branch 250-50 mcg/dose inhalation disk inhalat.spa Yes [id number] 1U 1 Units as [facility] cing 5-13 needed ity of dev,large 00:00: (use with [facility] as mask 00 inhaler). Medical (BREATHERIT Branch E SPACER-MASK ,ADULT) Spcr albuterol Yes [id number] 2{puff} Inhale 2 [facility] 90 5-13 Puffs ity of mcg/actuati 00:00: every 6 [facility] as on inhaler 00 (six) Medical hours as Branch needed for Wheezing or Shortness of Breath. fluticasone Yes [id number] 1{puff} Inhale 1 [facility] 5-13 Puff every it y of meteroL 00:00: 12 [place] (ADVAIR 00 (twelve) Medical DISKUS) hours. Branch 250-50 mcg/dose inhalation disk inhalat.spa Yes [id number] 1U 1 Units as [facility] cing 5-13 needed ity of dev,large 00:00: (use with [facility] as mask 00 inhaler). Medical (BREATHERIT Branch E SPACER-MASK ,ADULT) Spcr albuterol Yes [id number] 2{puff} Inhale 2 [facility] 90 5-13 Puffs ity of mcg/actuati 00:00: every 6 [facility] as on inhaler 00 (six) Medical hours as Branch needed for Wheezing or Shortness of Breath. fluticasone Yes [id number] 1{puff} Inhale 1 [facility] 5-13 Puff every it y of meteroL 00:00: 12 [place] (ADVAIR (twelve) Medical DISKUS) hours. Branch 250-50 mcg/dose inhalation disk inhalat.spa Yes [id number] 1U 1 Units as [facility] cing 5-13 needed ity of dev,large 00:00: (use with [facility] as mask 00 inhaler). Medical (BREATHERIT Branch E SPACER-MASK ,ADULT) Spcr albuterol Yes [id number] 2{puff} Inhale 2 [facility] 90 5-13 Puffs ity of mcg/actuati 00:00: every 6 [facility] as on inhaler 00 (six) Medical hours as Branch needed for Wheezing or Shortness of Breath. fluticasone Yes [id number] 1{puff} Inhale 1 [facility] 5-13 Puff every it y of meteroL 00:00: 12 [place] (ADVAIR (twelve) Medical DISKUS) hours. Branch 250-50 mcg/dose inhalation disk inhalat.spa Yes [id number] 1U 1 Units as [facility] cing 5-13 needed ity of dev,large 00:00: (use with [facility] as mask 00 inhaler). Medical (BREATHERIT Branch E SPACER-MASK ,ADULT) Spcr albuterol Yes [id number] 2{puff} Inhale 2 [facility] 90 5-13 Puffs ity of mcg/actuati 00:00: every 6 [facility] as on inhaler 00 (six) Medical hours as Branch needed for Wheezing or Shortness of Breath. fluticasone Yes [id number] 1{puff} Inhale 1 [facility] prop[facility] 5-13 Puff every it y of meteroL 00:00: 12 [place] (ADVAIR 00 (twelve) Medical DISKUS) hours. Branch 250-50 mcg/dose inhalation disk inhalat.spa Yes [id number] 1U 1 Units as [facility] cing 5-13 needed ity of dev,large 00:00: (use with [facility] as mask 00 inhaler). Medical (BREATHERIT Branch E SPACER-MASK ,ADULT) Spcr albuterol Yes [id number] 2{puff} Inhale 2 [facility] 90 5-13 Puffs ity of mcg/actuati 00:00: every 6 [facility] as on inhaler 00 (six) Medical hours as Branch needed for Wheezing or Shortness of Breath. fluticasone Yes [id number] 1{puff} Inhale 1 [facility] prop[facility] 5-13 Puff every it y of meteroL 00:00: 12 [place] (ADVAIR 00 (twelve) Medical DISKUS) hours. Branch 250-50 mcg/dose inhalation disk inhalat.spa Yes [id number] 1U 1 Units as [facility] cing 5-13 needed ity of dev,large 00:00: (use with Ram[facility] as mask 00 inhaler). Medical (BREATHERIT Branch E SPACER-MASK ,ADULT) Spcr albuterol Yes [id number] 2{puff} Inhale 2 [facility] 90 5-13 Puffs ity of mcg/actuati 00:00: every 6 [facility] as on inhaler 00 (six) Medical hours as Branch needed for Wheezing or Shortness of Breath. fluticasone Yes [id number] 1{puff} Inhale 1 [facility] prop[facility] 5-13 Puff every it y of meteroL 00:00: 12 [place] (ADVAIR 00 (twelve) Medical DISKUS) hours. Branch 250-50 mcg/dose inhalation disk albuterol Yes [id number] 2{puff} Inhale 2 [facility] 90 5-13 Puffs ity of mcg/actuati 00:00: every 6 [facility] as on inhaler 00 (six) Medical hours as Branch needed for Wheezing or Shortness of Breath. fluticasone Yes [id number] 1{puff} Inhale 1 [facility] prop[facility]ida 5-13 Puff every it y of meteroL 00:00: 12 [place] (ADVAIR 00 (twelve) Medical DISKUS) hours. Branch 250-50 mcg/dose inhalation disk albuterol Yes [id number] 2{puff} Inhale 2 [facility] 90 5-13 Puffs ity of mcg/actuati 00:00: every 6 [facility] as on inhaler 00 (six) Medical hours as Branch needed for Wheezing or Shortness of Breath. fluticasone 0 Yes [id number] 1{puff} Inhale 1 [facility] prop[facility] 5-13 Puff every it y of meteroL 00:00: 12 [place] (ADVAIR 00 (twelve) Medical DISKUS) hours. Branch 250-50 mcg/dose inhalation disk albuterol 0 Yes [id number] 2{puff} Inhale 2 [facility] 90 5-13 Puffs ity of mcg/actuati 00:00: every 6 [facility] as on inhaler 00 (six) Medical hours as Branch needed for Wheezing or Shortness of Breath. fluticasone 2021-0 Yes [id number] 1{puff} Inhale 1 [facility] prop[facility]-n[facility] 5-13 Puff every it y of meteroL 00:00: 12 [place] (ADVAIR 00 (twelve) Medical DISKUS) hours. Branch 250-50 mcg/dose inhalation disk albuterol 2021-0 Yes [id number] 2{puff} Inhale 2 [facility] 90 5-13 Puffs ity of mcg/actuati 00:00: every 6 [facility] as on inhaler 00 (six) Medical hours as Branch needed for Wheezing or Shortness of Breath. fluticasone 2021-0 Yes [id number] 1{puff} Inhale 1 [facility] propion-nida 5-13 Puff every it y of meteroL 00:00: 12 [place] (ADVAIR 00 (twelve) Medical DISKUS) hours. Branch 250-50 mcg/dose inhalation disk albuterol 2021-0 Yes [id number] 2{puff} Inhale 2 [facility] 90 5-13 Puffs ity of mcg/actuati 00:00: every 6 [facility] as on inhaler 00 (six) Medical hours as Branch needed for Wheezing or Shortness of Breath. fluticasone 2021-0 Yes [id number] 1{puff} Inhale 1 [facility] prop[facility]-nida 5-13 Puff every it y of meteroL 00:00: 12 [place] (ADVAIR 00 (twelve) Medical DISKUS) hours. Branch 250-50 mcg/dose inhalation disk albuterol 2021-0 Yes [id number] 2{puff} Inhale 2 [facility] 90 5-13 Puffs ity of mcg/actuati 00:00: every 6 [facility] as on inhaler 00 (six) Medical hours as Branch needed for Wheezing or Shortness of Breath. fluticasone 2021-0 Yes [id number] 1{puff} Inhale 1 [facility] prop[facility]-nida 5-13 Puff every it y of meteroL 00:00: 12 [place] (ADVAIR 00 (twelve) Medical DISKUS) hours. Branch 250-50 mcg/dose inhalation disk albuterol 202-0 Yes [id number] 2{puff} Inhale 2 [facility] 90 5-13 Puffs ity of mcg/actuati 00:00: every 6 [facility] as on inhaler 00 (six) Medical hours as Branch needed for Wheezing or Shortness of Breath. fluticasone 2021-0 Yes [id number] 1{puff} Inhale 1 [facility] prop[facility]-nida 5-13 Puff every it y of meteroL 00:00: 12 [place] (ADVAIR 00 (twelve) Medical DISKUS) hours. Branch 250-50 mcg/dose inhalation disk albuterol 2021-0 Yes [id number] 2{puff} Inhale 2 [facility] 90 5-13 Puffs ity of mcg/actuati 00:00: every 6 [facility] as on inhaler 00 (six) Medical hours as Branch needed for Wheezing or Shortness of Breath. fluticasone 2021-0 Yes [id number] 1{puff} Inhale 1 [facility] propion-nida 5-13 Puff every it y of meteroL 00:00: 12 [place] (ADVAIR 00 (twelve) Medical DISKUS) hours. Branch 250-50 mcg/dose inhalation disk albuterol 2021-0 Yes [id number] 2{puff} Inhale 2 [facility] 90 5-13 Puffs ity of mcg/actuati 00:00: every 6 [facility] as on inhaler 00 (six) Medical hours as Branch needed for Wheezing or Shortness of Breath. fluticasone 2021-0 Yes [id number] 1{puff} Inhale 1 [facility] propion-nida 5-13 Puff every it y of meteroL 00:00: 12 [place] (ADVAIR 00 (twelve) Medical DISKUS) hours. Branch 250-50 mcg/dose inhalation disk albuterol 202-0 Yes [id number] 2{puff} Inhale 2 [facility] 90 5-13 Puffs ity of mcg/actuati 00:00: every 6 [facility] as on inhaler 00 (six) Medical hours as Branch needed for Wheezing or Shortness of Breath. fluticasone 2021-0 Yes [id number] 1{puff} Inhale 1 [facility] propion-nida 5-13 Puff every it y of meteroL 00:00: 12 [place] (ADVAIR 00 (twelve) Medical DISKUS) hours. Branch 250-50 mcg/dose inhalation disk albuterol 2021-0 Yes [id number] 2{puff} Inhale 2 [facility] 90 5-13 Puffs ity of mcg/actuati 00:00: every 6 [facility] as on inhaler 00 (six) Medical hours as Branch needed for Wheezing or Shortness of Breath. fluticasone 2021-0 Yes [id number] 1{puff} Inhale 1 [facility] propion-nida 5-13 Puff every it y of meteroL 00:00: 12 [place] (ADVAIR 00 (twelve) Medical DISKUS) hours. Branch 250-50 mcg/dose inhalation disk albuterol 2021-0 Yes [id number] 2{puff} Inhale 2 [facility] 90 5-13 Puffs ity of mcg/actuati 00:00: every 6 [facility] as on inhaler 00 (six) Medical hours as Branch needed for Wheezing or Shortness of Breath. fluticasone 2021-0 Yes [id number] 1{puff} Inhale 1 [facility] propion-nida 5-13 Puff every it y of meteroL 00:00: 12 [place] (ADVAIR 00 (twelve) Medical DISKUS) hours. Branch 250-50 mcg/dose inhalation disk albuterol 2021-0 Yes [id number] 2{puff} Inhale 2 [facility] 90 5-13 Puffs ity of mcg/actuati 00:00: every 6 [facility] as on inhaler 00 (six) Medical hours as Branch needed for Wheezing or Shortness of Breath. fluticasone 2021-0 Yes [id number] 1{puff} Inhale 1 [facility] propion-nida 5-13 Puff every it y of meteroL 00:00: 12 [place] (ADVAIR 00 (twelve) Medical DISKUS) hours. Branch 250-50 mcg/dose inhalation disk albuterol 2021-0 Yes [id number] 2{puff} Inhale 2 [facility] 90 5-13 Puffs ity of mcg/actuati 00:00: every 6 [facility] as on inhaler 00 (six) Medical hours as Branch needed for Wheezing or Shortness of Breath. fluticasone 2021-0 Yes [id number] 1{puff} Inhale 1 [facility] propion-nida 5-13 Puff every it y of meteroL 00:00: 12 [place] (ADVAIR (twelve) Medical DISKUS) hours. Branch 250-50 mcg/dose inhalation disk albuterol 2021-0 Yes [id number] 2{puff} Inhale 2 [facility] 90 5-13 Puffs ity of mcg/actuati 00:00: every 6 [facility] as on inhaler 00 (six) Medical hours as Branch needed for Wheezing or Shortness of Breath. fluticasone 2021-0 Yes [id number] 1{puff} Inhale 1 [facility] propion-nida 5-13 Puff every it y of meteroL 00:00: 12 [place] (ADVAIR ([facility]) Medical DISKUS) hours. Branch 250-50 mcg/dose inhalation disk albuterol 2021-0 Yes [id number] 2{puff} Inhale 2 [facility] 90 5-13 Puffs ity of mcg/actuati 00:00: every 6 [facility] as on inhaler 00 (six) Medical hours as Branch needed for Wheezing or Shortness of Breath. fluticasone 2021-0 Yes [id number] 1{puff} Inhale 1 [facility] propion-nida 5-13 Puff every it y of meteroL 00:00: 12 [place] (ADVAIR (twelve) Medical DISKUS) hours. Branch 250-50 mcg/dose inhalation disk albuterol 2021-0 Yes [id number] 2{puff} Inhale 2 [facility] 90 5-13 Puffs ity of mcg/actuati 00:00: every 6 [facility] as on inhaler 00 (six) Medical hours as Branch needed for Wheezing or Shortness of Breath. fluticasone 2021-0 Yes [id number] 1{puff} Inhale 1 [facility] propion-nida 5-13 Puff every it y of meteroL 00:00: 12 [place] (ADVAIR (twelve) Medical DISKUS) hours. Branch 250-50 mcg/dose inhalation disk albuterol 2021-0 Yes [id number] 2{puff} Inhale 2 [facility] 90 5-13 Puffs ity of mcg/actuati 00:00: every 6 [facility] as on inhaler 00 (six) Medical hours as Branch needed for Wheezing or Shortness of Breath. fluticasone Yes [id number] 1{puff} Inhale 1 [facility] propion-nida 5-13 Puff every it y of meteroL 00:00: 12 [place] (ADVAIR () Medical DISKUS) hours. Branch 250-50 mcg/dose inhalation disk albuterol Yes [id number] 2{puff} Inhale 2 [facility] 90 5-13 Puffs ity of mcg/actuati 00:00: every 6 [facility] as on inhaler 00 (six) Medical hours as Branch needed for Wheezing or Shortness of Breath. fluticasone 0 Yes [id number] 1{puff} Inhale 1 [facility] propion-nida 5-13 Puff every it y of meteroL 00:00: 12 [place] (ADVAIR ([facility]) Medical DISKUS) hours. Branch 250-50 mcg/dose inhalation disk albuterol 0 Yes [id number] 2{puff} Inhale 2 [facility] 90 5-13 Puffs ity of mcg/actuati 00:00: every 6 [place] as on inhaler 00 (six) Medical hours as Branch needed for Wheezing or Shortness of Breath. fluticasone 0 Yes [id number] 1{puff} Inhale 1 [facility] propion-nida 5-13 Puff every it y of meteroL 00:00: 12 [place] (ADVAIR ([facility]) Medical DISKUS) hours. Branch 250-50 mcg/dose inhalation disk albuterol 0 Yes [id number] 2{puff} Inhale 2 [facility] 90 5-13 Puffs ity of mcg/actuati 00:00: every 6 [place] as on inhaler 00 (six) Medical hours as Branch needed for Wheezing or Shortness of Breath. fluticasone 0 Yes [id number] 1{puff} Inhale 1 [facility] propion-nida 5-13 Puff every it y of meteroL 00:00: 12 [place] (ADVAIR () Medical DISKUS) hours. Branch 250-50 mcg/dose inhalation disk albuterol Yes [id number] 2{puff} Inhale 2 [facility] 90 5-13 Puffs ity of mcg/actuati 00:00: every 6 [place] as on inhaler 00 (six) Medical hours as Branch needed for Wheezing or Shortness of Breath. fluticasone Yes [id number] 1{puff} Inhale 1 [facility] propion-nida 5-13 Puff every it y of meteroL 00:00: 12 [place] (ADVAIR ([facility]) Medical DISKUS) hours. Branch 250-50 mcg/dose inhalation disk albuterol Yes [id number] 2{puff} Inhale 2 [facility] 90 5-13 Puffs ity of mcg/actuati 00:00: every 6 [place] as on inhaler 00 (six) Medical hours as Branch needed for Wheezing or Shortness of Breath. fluticasone Yes [id number] 1{puff} Inhale 1 [facility] propion-nida 5-13 Puff every it y of meteroL 00:00: 12 [place] (ADVAIR ([facility]) Medical DISKUS) hours. Branch 250-50 mcg/dose inhalation disk albuterol Yes [id number] 2{puff} Inhale 2 [facility] 90 5-13 Puffs ity of mcg/actuati 00:00: every 6 [place] as on inhaler 00 (six) Medical hours as Branch needed for Wheezing or Shortness of Breath. fluticasone Yes [id number] 1{puff} Inhale 1 [facility] propion-nida 5-13 Puff every it y of meteroL 00:00: 12 [place] (ADVAIR ([facility]) Medical DISKUS) hours. Branch 250-50 mcg/dose inhalation disk albuterol 0 Yes [id number] 2{puff} Inhale 2 [facility] 90 5-13 Puffs ity of mcg/actuati 00:00: every 6 [place] as on inhaler 00 (six) Medical hours as Branch needed for Wheezing or Shortness of Breath. fluticasone 0 Yes [id number] 1{puff} Inhale 1 [facility] propion-nida 5-13 Puff every it y of meteroL 00:00: 12 [place] (ADVAIR ([facility]) Medical DISKUS) hours. Branch 250-50 mcg/dose inhalation disk albuterol Yes [id number] 2{puff} Inhale 2 [facility] 90 5-13 Puffs ity of mcg/actuati 00:00: every 6 [facility] as on inhaler 00 (six) Medical hours as Branch needed for Wheezing or Shortness of Breath. fluticasone Yes [id number] 1{puff} Inhale 1 [facility] propion-nida 5-13 Puff every it y of meteroL 00:00: 12 [place] (ADVAIR (twelve) Medical DISKUS) hours. Branch 250-50 mcg/dose inhalation disk albuterol Yes [id number] 2{puff} Inhale 2 [facility] 90 5-13 Puffs ity of mcg/actuati 00:00: every 6 [facility] as on inhaler 00 (six) Medical hours as Branch needed for Wheezing or Shortness of Breath. fluticasone Yes [id number] 1{puff} Inhale 1 [facility] propion-nida 5-13 Puff every it y of meteroL 00:00: 12 [place] (ADVAIR ([facility]) Medical DISKUS) hours. Branch 250-50 mcg/dose inhalation disk albuterol Yes [id number] 2{puff} Inhale 2 [facility] 90 5-13 Puffs ity of mcg/actuati 00:00: every 6 [place] as on inhaler 00 (six) Medical hours as Branch needed for Wheezing or Shortness of Breath. fluticasone Yes [id number] 1{puff} Inhale 1 [facility] propion-nida 5-13 Puff every it y of meteroL 00:00: 12 [place] (ADVAIR (twelve) Medical DISKUS) hours. Branch 250-50 mcg/dose inhalation disk albuterol 0 Yes [id number] 2{puff} Inhale 2 [facility] 90 5-13 Puffs ity of mcg/actuati 00:00: every 6 [place] as on inhaler 00 (six) Medical hours as Branch needed for Wheezing or Shortness of Breath. fluticasone 0 Yes [id number] 1{puff} Inhale 1 [facility] propion-nida 5-13 Puff every it y of meteroL 00:00: 12 [place] (ADVAIR (twelve) Medical DISKUS) hours. Branch 250-50 mcg/dose inhalation disk albuterol Yes [id number] 2{puff} Inhale 2 [facility] 90 5-13 Puffs ity of mcg/actuati 00:00: every 6 [place] on inhaler 00 (six) Medical hours as Branch needed for Wheezing or Shortness of Breath. fluticasone Yes [id number] 1{puff} Inhale 1 [facility] propion-nida 5-13 Puff every it y of meteroL 00:00: 12 [place] (ADVAIR 00 (twelve) Medical DISKUS) hours. Branch 250-50 mcg/dose inhalation disk albuterol Yes [id number] 2{puff} Inhale 2 [facility] 90 5-13 Puffs ity of mcg/actuati 00:00: every 6 [place] on inhaler 00 (six) Medical hours as Branch needed for Wheezing or Shortness of Breath. fluticasone Yes [id number] 1{puff} Inhale 1 [facility] propion-nida 5-13 Puff every it y of meteroL 00:00: 12 [place] (ADVAIR 00 (twelve) Medical DISKUS) hours. Branch 250-50 mcg/dose inhalation disk albuterol 0 Yes [id number] 2{puff} Inhale 2 [facility] 90 5-13 Puffs ity of mcg/actuati 00:00: every 6 [place] on inhaler 00 (six) Medical hours as Branch needed for Wheezing or Shortness of Breath. fluticasone 0 Yes [id number] 1{puff} Inhale 1 [facility] propion-nida 5-13 Puff every it y of meteroL 00:00: 12 [place] (ADVAIR 00 (twelve) Medical DISKUS) hours. Branch 250-50 mcg/dose inhalation disk albuterol 0 Yes [id number] 2{puff} Inhale 2 [facility] 90 5-13 Puffs ity of mcg/actuati 00:00: every 6 [place] on inhaler 00 (six) Medical hours as Branch needed for Wheezing or Shortness of Breath. fluticasone 0 Yes [id number] 1{puff} Inhale 1 [facility] propion-nida 5-13 Puff every it y of meteroL 00:00: 12 [place] (ADVAIR 00 (twelve) Medical DISKUS) hours. Branch 250-50 mcg/dose inhalation disk albuterol Yes [id number] 2{puff} Inhale 2 [facility] 90 5-13 Puffs ity of mcg/actuati 00:00: every 6 [place] on inhaler 00 (six) Medical hours as Branch needed for Wheezing or Shortness of Breath. fluticasone 0 Yes [id number] 1{puff} Inhale 1 [facility] propion-nida 5-13 Puff every it y of meteroL 00:00: 12 [place] (ADVAIR 00 (twelve) Medical DISKUS) hours. Branch 250-50 mcg/dose inhalation disk albuterol 0 Yes [id number] 2{puff} Inhale 2 [facility] 90 5-13 Puffs ity of mcg/actuati 00:00: every 6 [place] on inhaler 00 (six) Medical hours as Branch needed for Wheezing or Shortness of Breath. fluticasone 0 Yes [id number] 1{puff} Inhale 1 [facility] propion-nida 5-13 Puff every it y of meteroL 00:00: 12 [place] (ADVAIR 00 (twelve) Medical DISKUS) hours. Branch 250-50 mcg/dose inhalation disk albuterol 0 Yes [id number] 2{puff} Inhale 2 [facility] 90 5-13 Puffs ity of mcg/actuati 00:00: every 6 [place] on inhaler 00 (six) Medical hours as Branch needed for Wheezing or Shortness of Breath. fluticasone 0 Yes [id number] 1{puff} Inhale 1 [facility] propion-nida 5-13 Puff every it y of meteroL 00:00: 12 [place] (ADVAIR 00 (twelve) Medical DISKUS) hours. Branch 250-50 mcg/dose inhalation disk albuterol 0 Yes [id number] 2{puff} Inhale 2 [facility] 90 5-13 Puffs ity of mcg/actuati 00:00: every 6 [place] on inhaler 00 (six) Medical hours as Branch needed for Wheezing or Shortness of Breath. fluticasone 0 Yes [id number] 1{puff} Inhale 1 [facility] propion-nida 5-13 Puff every it y of meteroL 00:00: 12 [place] (ADVAIR 00 (twelve) Medical DISKUS) hours. Branch 250-50 mcg/dose inhalation disk albuterol Yes [id number] 2{puff} Inhale 2 [facility] 90 5-13 Puffs ity of mcg/actuati 00:00: every 6 [place] on inhaler 00 (six) Medical hours as Branch needed for Wheezing or Shortness of Breath. fluticasone Yes [id number] 1{puff} Inhale 1 [facility] propion-nida 5-13 Puff every it y of meteroL 00:00: 12 [place] (ADVAIR 00 (twelve) Medical DISKUS) hours. Branch 250-50 mcg/dose inhalation disk albuterol 0 Yes [id number] 2{puff} Inhale 2 [facility] 90 5-13 Puffs ity of mcg/actuati 00:00: every 6 [place] on inhaler 00 (six) Medical hours as Branch needed for Wheezing or Shortness of Breath. fluticasone 0 Yes [id number] 1{puff} Inhale 1 [facility] propion-nida 5-13 Puff every it y of meteroL 00:00: 12 [place] (ADVAIR 00 (twelve) Medical DISKUS) hours. Branch 250-50 mcg/dose inhalation disk albuterol 0 Yes [id number] 2{puff} Inhale 2 [facility] 90 5-13 Puffs ity of mcg/actuati 00:00: every 6 [place] on inhaler 00 (six) Medical hours as Branch needed for Wheezing or Shortness of Breath. fluticasone 0 Yes [id number] 1{puff} Inhale 1 [facility] propion-nida 5-13 Puff every it y of meteroL 00:00: 12 [place] (ADVAIR 00 (twelve) Medical DISKUS) hours. Branch 250-50 mcg/dose inhalation disk albuterol 0 Yes [id number] 2{puff} Inhale 2 [facility] 90 5-13 Puffs ity of mcg/actuati 00:00: every 6 [place] on inhaler 00 (six) Medical hours as Branch needed for Wheezing or Shortness of Breath. fluticasone 0 Yes [id number] 1{puff} Inhale 1 [facility] propion-nida 5-13 Puff every it y of meteroL 00:00: 12 [place] (ADVAIR 00 (twelve) Medical DISKUS) hours. Branch 250-50 mcg/dose inhalation disk albuterol Yes [id number] 2{puff} Inhale 2 [facility] 90 5-13 Puffs ity of mcg/actuati 00:00: every 6 [place] on inhaler 00 (six) Medical hours as Branch needed for Wheezing or Shortness of Breath. fluticasone 0 Yes [id number] 1{puff} Inhale 1 [facility] propion-nida 5-13 Puff every it y of meteroL 00:00: 12 [place] (ADVAIR 00 (twelve) Medical DISKUS) hours. Branch 250-50 mcg/dose inhalation disk albuterol Yes [id number] 2{puff} Inhale 2 [facility] 90 5-13 Puffs ity of mcg/actuati 00:00: every 6 [place] on inhaler 00 (six) Medical hours as Branch needed for Wheezing or Shortness of Breath. fluticasone 2021-0 Yes [id number] 1{puff} Inhale 1 [facility] propion-nida 5-13 Puff every it y of meteroL 00:00: 12 [place] (ADVAIR 00 (twelve) Medical DISKUS) hours. Branch 250-50 mcg/dose inhalation disk albuterol 0 Yes [id number] 2{puff} Inhale 2 [facility] 90 5-13 Puffs ity of mcg/actuati 00:00: every 6 [place] on inhaler 00 (six) Medical hours as Branch needed for Wheezing or Shortness of Breath. fluticasone 2021-0 Yes [id number] 1{puff} Inhale 1 [facility] propion-nida 5-13 Puff every it y of meteroL 00:00: 12 [place] (ADVAIR 00 (twelve) Medical DISKUS) hours. Branch 250-50 mcg/dose inhalation disk albuterol 2021-0 Yes [id number] 2{puff} Inhale 2 [facility] 90 5-13 Puffs ity of mcg/actuati 00:00: every 6 [place] on inhaler 00 (six) Medical hours as Branch needed for Wheezing or Shortness of Breath. fluticasone 2021-0 Yes [id number] 1{puff} Inhale 1 [facility] propion-nida 5-13 Puff every it y of meteroL 00:00: 12 [place] (ADVAIR 00 (twelve) Medical DISKUS) hours. Branch 250-50 mcg/dose inhalation disk inhalat[facility] 2022- No [id number] 1U 1 Units as Univers cing 5-13 04-10 needed ity of dev,large 00:00: 00:00 (use with [place] mask 00 :00 inhaler). Medical (BREATHERIT Branch E SPACER-MASK ,ADULT) [facility]cr inhalat[facility] 2022- No [id number] 1U 1 Units as Univers cing 5-13 04-10 needed ity of dev,large 00:00: 00:00 (use with [place] mask 00 :00 inhaler). Medical (BREATHERIT Branch E SPACER-MASK ,ADULT) [facility] inhalat[facility] 2022- No [id number] 1U 1 Units as Univers cing 5-13 04-10 needed ity of dev,large 00:00: 00:00 (use with [place] mask 00 :00 inhaler). Medical (BREATHERIT Branch E SPACER-MASK ,ADULT) [facility] inhalat[facility] 2022- No [id number] 1U 1 Units as Univers cing 5-13 04-10 needed ity of dev,large 00:00: 00:00 (use with [place] mask 00 :00 inhaler). Medical (BREATHERIT Branch E SPACER-MASK ,ADULT) Spcr solifenacin Yes [id number] 10mg Take 1 [facility] (VESICARE) 5-09 tablet by ity of 10 mg 00:00: mouth [place] tablet 00 daily. Medical Branch estradioL Yes [id number] Apply 1g [facility] (ESTRACE) 5-09 vaginally ity o f 0.01 % (0.1 00:00: at bedtime [place] mg/gram) 00 every Medical vaginal night for Branch cream 2 weeks and then apply 1g vaginally at bedtime 2 times per week solifenacin Yes [id number] 10mg Take 1 [facility] (VESICARE) 5-09 tablet by ity of 10 mg 00:00: mouth [place] tablet 00 daily. Medical Branch estradioL Yes [id number] Apply 1g [facility] (ESTRACE) 5-09 vaginally ity o f 0.01 % (0.1 00:00: at bedtime [place] mg/gram) 00 every Medical vaginal night for Branch cream 2 weeks and then apply 1g vaginally at bedtime 2 times per week solifenacin 0 Yes [id number] 10mg Take 1 [facility] (VESICARE) 5-09 tablet by ity of 10 mg 00:00: mouth [place] tablet 00 daily. Medical Branch estradioL Yes [id number] Apply 1g [facility] (ESTRACE) 5-09 vaginally ity o f 0.01 % (0.1 00:00: at bedtime [place] mg/gram) 00 every Medical vaginal night for Branch cream 2 weeks and then apply 1g vaginally at bedtime 2 times per week solifenacin Yes [id number] 10mg Take 1 [facility] (VESICARE) 5-09 tablet by ity of 10 mg 00:00: mouth [place] tablet 00 daily. [place] estradioL Yes [id number] Apply 1g [facility] (ESTRACE) 5-09 vaginally ity o f 0.01 % (0.1 00:00: at bedtime [place] mg/gram) 00 every Medical vaginal night for Branch cream 2 weeks and then apply 1g vaginally at bedtime 2 times per week solifenacin 0 Yes [id number] 10mg Take 1 Univers (VESICARE) 5-09 tablet by ity of 10 mg 00:00: mouth [place] tablet 00 daily. [facility] estradioL Yes [id number] Apply 1g Univers (ESTRACE) 5-09 vaginally ity o f 0.01 % (0.1 00:00: at bedtime [place] mg/gram) 00 every Medical vaginal night for Branch cream 2 weeks and then apply 1g vaginally at bedtime 2 times per week solifenacin 0 Yes [id number] 10mg Take 1 Univers (VESICARE) 5-09 tablet by ity of 10 mg 00:00: mouth [place] tablet 00 daily. [facility] estradioL 0 Yes [id number] Apply 1g Univers (ESTRACE) 5-09 vaginally ity o f 0.01 % (0.1 00:00: at bedtime [place] mg/gram) 00 every Medical vaginal night for Branch cream 2 weeks and then apply 1g vaginally at bedtime 2 times per week solifenacin 0 Yes [id number] 10mg Take 1 Univers (VESICARE) 5-09 tablet by ity of 10 mg 00:00: mouth [place] tablet 00 daily. Medical Branch estradioL Yes [id number] Apply 1g [facility] (ESTRACE) 5-09 vaginally ity o f 0.01 % (0.1 00:00: at bedtime [place] mg/gram) 00 every Medical vaginal night for Branch cream 2 weeks and then apply 1g vaginally at bedtime 2 times per week estradioL 0 Yes [id number] Apply 1g Univers (ESTRACE) 5-09 vaginally ity o f 0.01 % (0.1 00:00: at bedtime [place] mg/gram) 00 every Medical vaginal night for Branch cream 2 weeks and then apply 1g vaginally at bedtime 2 times per week estradioL Yes [id number] Apply 1g Univers (ESTRACE) 5-09 vaginally ity o f 0.01 % (0.1 00:00: at bedtime [place] mg/gram) 00 every Medical vaginal night for Branch cream 2 weeks and then apply 1g vaginally at bedtime 2 times per week estradioL Yes [id number] Apply 1g Univers (ESTRACE) 5-09 vaginally ity o f 0.01 % (0.1 00:00: at bedtime [place] mg/gram) 00 every Medical vaginal night for Branch cream 2 weeks and then apply 1g vaginally at bedtime 2 times per week estradioL Yes [id number] Apply 1g [facility] (ESTRACE) 5-09 vaginally ity o f 0.01 % (0.1 00:00: at bedtime [place] mg/gram) 00 every Medical vaginal night for Branch cream 2 weeks and then apply 1g vaginally at bedtime 2 times per week estradioL Yes [id number] Apply 1g [facility] (ESTRACE) 5-09 vaginally ity o f 0.01 % (0.1 00:00: at bedtime [place] mg/gram) 00 every Medical vaginal night for Branch cream 2 weeks and then apply 1g vaginally at bedtime 2 times per week estradioL 0 Yes [id number] Apply 1g [facility] (ESTRACE) 5-09 vaginally ity o f 0.01 % (0.1 00:00: at bedtime [place] mg/gram) 00 every Medical vaginal night for Branch cream 2 weeks and then apply 1g vaginally at bedtime 2 times per week estradioL 2021- Yes [id number] Apply 1g [facility] (ESTRACE) 02-28 vaginally ity o f 0.01 % (0.1 00:00: at bedtime [place] mg/gram) 00 every Medical vaginal night for Branch cream 2 weeks and then apply 1g vaginally at bedtime 2 times per week estradioL 2021- Yes [id number] Apply 1g Univers (ESTRACE) 02-28 vaginally ity o f 0.01 % (0.1 00:00: at bedtime [place] mg/gram) 00 every Medical vaginal night for Branch cream 2 weeks and then apply 1g vaginally at bedtime 2 times per week estradioL 2022- No [id number] Apply 1g [facility] (ESTRACE) 02-28 vaginally ity of 0.01 % (0.1 00:00: 00:00 at bedtime [place] mg/gram) 00 :00 every Medical vaginal night for Branch cream 2 weeks and then apply 1g vaginally at bedtime 2 times per week estradioL 2022- No [id number] Apply 1g [facility] (ESTRACE) 02-28 vaginally ity of 0.01 % (0.1 00:00: 00:00 at bedtime [place] mg/gram) 00 :00 every Medical vaginal night for Branch cream 2 weeks and then apply 1g vaginally at bedtime 2 times per week estradioL 2022- No [id number] Apply 1g [facility] (ESTRACE) 02-28 vaginally ity of 0.01 % (0.1 00:00: 00:00 at bedtime [place] mg/gram) 00 :00 every Medical vaginal night for Branch cream 2 weeks and then apply 1g vaginally at bedtime 2 times per week estradioL 2022- No [id number] Apply 1g [facility] (ESTRACE) 02-28 vaginally ity of 0.01 % (0.1 00:00: 00:00 at bedtime [place] mg/gram) 00 :00 every Medical vaginal night for Branch cream 2 weeks and then apply 1g vaginally at bedtime 2 times per week solifenacin 2021- No [id number] 10mg Take 1 Univers (VESICARE) 02-28 tablet by ity of 10 mg 00:00: 00:00 mouth [place] tablet 00 :00 daily. Medical Branch solifenacin 2021-0 2021- No [id number] 10mg Take 1 Univers (VESICARE) 02-28 tablet by ity of 10 mg 00:00: 00:00 mouth [place] tablet 00 :00 daily. Medical Branch solifenacin 2021-0 2021- No [id number] 10mg Take 1 Univers (VESICARE) 02-28 tablet by ity of 10 mg 00:00: 00:00 mouth [place] tablet 00 :00 daily. Medical Branch chlorphenir 2021-0 Yes [id number] 4mg Take 1 [facility] amine 4 mg 1-05 tablet by ity of tablet 00:00: mouth [place] 00 every 6 Medical (six) Branch hours as needed for Allergies or Runny nose. calcium/mag 2021-0 Yes [id number] 1{each} Take 1 [facility] nesium/zinc 1-05 Each by ity o f (CALCIUM-MA 00:00: mouth [place] GNESUIUM-ZI 00 daily. Medica l [place]) Branch 333-133-5 mg Tab benzonatate 2021-0 Yes [id number] 100mg Take 1 [facility] 100 mg 1-05 capsule by ity of capsule 00:00: mouth 3 [place] 00 (three) Medical times Branch daily as needed for Cough. ondansetron 2021-0 Yes [id number] 4mg Take 1 [facility] 4 mg 1-05 tablet by ity of disintegrat 00:00: mouth [place] ing tablet 00 every 8 Medica l (eight) Branch hours as needed for Nausea and Vomiting (N/V). chlorphenir 2-0 Yes [id number] 4mg Take 1 [facility] amine 4 mg 1-05 tablet by ity of tablet 00:00: mouth [place] 00 every 6 Medical (six) Branch hours as needed for Allergies or Runny nose. calcium/mag 2-0 Yes [id number] 1{each} Take 1 [facility] nesium/zinc 1-05 Each by ity o f (CALCIUM-MA 00:00: mouth [place] GNESUIUM-ZI 00 daily. Medica l [place]) Branch 333-133-5 mg Tab benzonatate 2022-0 Yes [id number] 100mg Take 1 [facility] 100 mg 1-05 capsule by ity of capsule 00:00: mouth 3 [place] 00 (three) Medical times Branch daily as needed for Cough. ondansetron 2022-0 Yes [id number] 4mg Take 1 Univers 4 mg 1-05 tablet by ity of disintegrat 00:00: mouth [place] ing tablet 00 every 8 Medica l (eight) Branch hours as needed for Nausea and Vomiting (N/V). chlorphenir 2022-0 Yes [id number] 4mg Take 1 [facility] amine 4 mg 1-05 tablet by ity of tablet 00:00: mouth [place] 00 every 6 Medical (six) Branch hours as needed for Allergies or Runny nose. calcium/mag 2022-0 Yes [id number] 1{each} Take 1 [facility] nesium/zinc 1-05 Each by ity o f (CALCIUM-MA 00:00: mouth [place] GNESUIUM-ZI 00 daily. Medica l [place]) Branch 333-133-5 mg Tab benzonatate 2022-0 Yes [id number] 100mg Take 1 [facility] 100 mg 1-05 capsule by ity of capsule 00:00: mouth 3 [place] 00 (three) Medical times Branch daily as needed for Cough. ondansetron 2022-0 Yes [id number] 4mg Take 1 [facility] 4 mg 1-05 tablet by ity of disintegrat 00:00: mouth [place] ing tablet 00 every 8 Medica l (eight) Branch hours as needed for Nausea and Vomiting (N/V). chlorphenir 2022-0 Yes [id number] 4mg Take 1 [facility] amine 4 mg 1-05 tablet by ity of tablet 00:00: mouth [place] 00 every 6 Medical (six) Branch hours as needed for Allergies or Runny nose. calcium/mag 2022-0 Yes [id number] 1{each} Take 1 [facility] nesium/zinc 1-05 Each by ity o f (CALCIUM-MA 00:00: mouth [place] GNESUIUM-ZI 00 daily. Medica l [place]) Branch 333-133-5 mg Tab benzonatate 2022-0 Yes [id number] 100mg Take 1 [facility] 100 mg 1-05 capsule by ity of capsule 00:00: mouth 3 [place] 00 (three) Medical times Branch daily as needed for Cough. ondansetron 2022-0 Yes [id number] 4mg Take 1 [facility] 4 mg 1-05 tablet by ity of disintegrat 00:00: mouth [place] ing tablet 00 every 8 Medica l (eight) Branch hours as needed for Nausea and Vomiting (N/V). chlorphenir 2022-0 Yes [id number] 4mg Take 1 [facility] amine 4 mg 1-05 tablet by ity of tablet 00:00: mouth [place] 00 every 6 Medical (six) Branch hours as needed for Allergies or Runny nose. calcium/mag 2022-0 Yes [id number] 1{each} Take 1 [facility] nesium/zinc 1-05 Each by ity o f (CALCIUM-MA 00:00: mouth [place] GNESUIUM-ZI 00 daily. Medica l [place]) Branch 333-133-5 mg Tab benzonatate 2022-0 Yes [id number] 100mg Take 1 [facility] 100 mg 1-05 capsule by ity of capsule 00:00: mouth 3 [place] 00 (three) Medical times Branch daily as needed for Cough. ondansetron 2022-0 Yes [id number] 4mg Take 1 [facility] 4 mg 1-05 tablet by ity of disintegrat 00:00: mouth [place] ing tablet 00 every 8 Medica l (eight) Branch hours as needed for Nausea and Vomiting (N/V). chlorphenir 2022-0 Yes [id number] 4mg Take 1 [facility] amine 4 mg 1-05 tablet by ity of tablet 00:00: mouth [place] 00 every 6 Medical (six) Branch hours as needed for Allergies or Runny nose. calcium/mag 2022-0 Yes [id number] 1{each} Take 1 [facility] nesium/zinc 1-05 Each by ity o f (CALCIUM-MA 00:00: mouth [place] GNESUIUM-ZI 00 daily. Medica l [place]) Branch 333-133-5 mg Tab benzonatate 2022-0 Yes [id number] 100mg Take 1 [facility] 100 mg 1-05 capsule by ity of capsule 00:00: mouth 3 [place] 00 (three) Medical times Branch daily as needed for Cough. ondansetron 2022-0 Yes [id number] 4mg Take 1 [facility] 4 mg 1-05 tablet by ity of disintegrat 00:00: mouth [place] ing tablet 00 every 8 Medica l (eight) Branch hours as needed for Nausea and Vomiting (N/V). chlorphenir 2022-0 Yes [id number] 4mg Take 1 [facility] amine 4 mg 1-05 tablet by ity of tablet 00:00: mouth [place] 00 every 6 Medical (six) Branch hours as needed for Allergies or Runny nose. calcium/mag 2022-0 Yes [id number] 1{each} Take 1 [facility] nesium/zinc 1-05 Each by ity o f (CALCIUM-MA 00:00: mouth [place] GNESUIUM-ZI 00 daily. Medica l [place]) Branch 333-133-5 mg Tab benzonatate 2022-0 Yes [id number] 100mg Take 1 [facility] 100 mg 1-05 capsule by ity of capsule 00:00: mouth 3 [place] 00 (three) Medical times Branch daily as needed for Cough. ondansetron 2022-0 Yes [id number] 4mg Take 1 Univers 4 mg 1-05 tablet by ity of disintegrat 00:00: mouth [place] ing tablet 00 every 8 Medica l (eight) Branch hours as needed for Nausea and Vomiting (N/V). chlorphenir 2022-0 Yes [id number] 4mg Take 1 [facility] amine 4 mg 1-05 tablet by ity of tablet 00:00: mouth [place] 00 every 6 Medical (six) Branch hours as needed for Allergies or Runny nose. calcium/mag 2022-0 Yes [id number] 1{each} Take 1 [facility] nesium/zinc 1-05 Each by ity o f (CALCIUM-MA 00:00: mouth [place] GNESUIUM-ZI 00 daily. Medica l [place]) Branch 333-133-5 mg Tab benzonatate 2022-0 Yes [id number] 100mg Take 1 [facility] 100 mg 1-05 capsule by ity of capsule 00:00: mouth 3 [place] 00 (three) Medical times Branch daily as needed for Cough. ondansetron 2022-0 Yes [id number] 4mg Take 1 Univers 4 mg 1-05 tablet by ity of disintegrat 00:00: mouth [place] ing tablet 00 every 8 Medica l (eight) Branch hours as needed for Nausea and Vomiting (N/V). chlorphenir 2022-0 Yes [id number] 4mg Take 1 [facility] amine 4 mg 1-05 tablet by ity of tablet 00:00: mouth [place] 00 every 6 Medical (six) Branch hours as needed for Allergies or Runny nose. calcium/mag 2022-0 Yes [id number] 1{each} Take 1 [facility] nesium/zinc 1-05 Each by ity o f (CALCIUM-MA 00:00: mouth [place] GNESUIUM-ZI 00 daily. Medica l [place]) Branch 333-133-5 mg Tab benzonatate 2022-0 Yes [id number] 100mg Take 1 [facility] 100 mg 1-05 capsule by ity of capsule 00:00: mouth 3 [place] 00 (three) Medical times Branch daily as needed for Cough. ondansetron 2022-0 Yes [id number] 4mg Take 1 Univers 4 mg 1-05 tablet by ity of disintegrat 00:00: mouth [place] ing tablet 00 every 8 Medica l (eight) Branch hours as needed for Nausea and Vomiting (N/V). chlorphenir 2022-0 Yes [id number] 4mg Take 1 [facility] amine 4 mg 1-05 tablet by ity of tablet 00:00: mouth [place] 00 every 6 Medical (six) Branch hours as needed for Allergies or Runny nose. calcium/mag 2022-0 Yes [id number] 1{each} Take 1 [facility] nesium/zinc 1-05 Each by ity o f (CALCIUM-MA 00:00: mouth [place] GNESUIUM-ZI 00 daily. Medica [facility]) Branch 333-133-5 mg Tab benzonatate 2022-0 Yes [id number] 100mg Take 1 Univers 100 mg 1-05 capsule by ity of capsule 00:00: mouth 3 [place] 00 (three) Medical times Branch daily as needed for Cough. ondansetron 2022-0 Yes [id number] 4mg Take 1 Univers 4 mg 1-05 tablet by ity of disintegrat 00:00: mouth [place] ing tablet 00 every 8 Medica l (eight) Branch hours as needed for Nausea and Vomiting (N/V). chlorphenir 2022-0 Yes [id number] 4mg Take 1 [facility] amine 4 mg 1-05 tablet by ity of tablet 00:00: mouth [place] 00 every 6 Medical (six) Branch hours as needed for Allergies or Runny nose. calcium/mag 2022-0 Yes [id number] 1{each} Take 1 [facility] nesium/zinc 1-05 Each by ity o f (CALCIUM-MA 00:00: mouth [place] GNESUIUM-ZI 00 daily. Medica l [place]) Branch 333-133-5 mg Tab benzonatate 2022-0 Yes [id number] 100mg Take 1 [facility] 100 mg 1-05 capsule by ity of capsule 00:00: mouth 3 [place] 00 (three) Medical times Branch daily as needed for Cough. ondansetron 2022-0 Yes [id number] 4mg Take 1 [facility] 4 mg 1-05 tablet by ity of disintegrat 00:00: mouth [place] ing tablet 00 every 8 Medica l (eight) Branch hours as needed for Nausea and Vomiting (N/V). chlorphenir 2022-0 Yes [id number] 4mg Take 1 [facility] amine 4 mg 1-05 tablet by ity of tablet 00:00: mouth [place] 00 every 6 Medical (six) Branch hours as needed for Allergies or Runny nose. calcium/mag 2022-0 Yes [id number] 1{each} Take 1 [facility] nesium/zinc 1-05 Each by ity o f (CALCIUM-MA 00:00: mouth [place] GNESUIUM-ZI 00 daily. Medica l [place]) Branch 333-133-5 mg Tab benzonatate 2022-0 Yes [id number] 100mg Take 1 [facility] 100 mg 1-05 capsule by ity of capsule 00:00: mouth 3 [place] 00 (three) Medical times Branch daily as needed for Cough. ondansetron 2022-0 Yes [id number] 4mg Take 1 [facility] 4 mg 1-05 tablet by ity of disintegrat 00:00: mouth [place] ing tablet 00 every 8 Medica l (eight) Branch hours as needed for Nausea and Vomiting (N/V). chlorphenir 2022-0 Yes [id number] 4mg Take 1 [facility] amine 4 mg 1-05 tablet by ity of tablet 00:00: mouth [place] 00 every 6 Medical (six) Branch hours as needed for Allergies or Runny nose. calcium/mag 2022-0 Yes [id number] 1{each} Take 1 [facility] nesium/zinc 1-05 Each by ity o f (CALCIUM-MA 00:00: mouth [place] GNESUIUM-ZI 00 daily. Medica l [place]) Branch 333-133-5 mg Tab benzonatate 2022-0 Yes [id number] 100mg Take 1 [facility] 100 mg 1-05 capsule by ity of capsule 00:00: mouth 3 [place] 00 (three) Medical times Branch daily as needed for Cough. ondansetron 2022-0 Yes [id number] 4mg Take 1 [facility] 4 mg 1-05 tablet by ity of disintegrat 00:00: mouth [place] ing tablet 00 every 8 Medica l (eight) Branch hours as needed for Nausea and Vomiting (N/V). chlorphenir 2022-0 Yes [id number] 4mg Take 1 [facility] amine 4 mg 1-05 tablet by ity of tablet 00:00: mouth [place] 00 every 6 Medical (six) Branch hours as needed for Allergies or Runny nose. calcium/mag 2022-0 Yes [id number] 1{each} Take 1 [facility] nesium/zinc 1-05 Each by ity o f (CALCIUM-MA 00:00: mouth [place] GNESUIUM-ZI 00 daily. Medica l [place]) Branch 333-133-5 mg Tab benzonatate 2022-0 Yes [id number] 100mg Take 1 [facility] 100 mg 1-05 capsule by ity of capsule 00:00: mouth 3 [place] 00 (three) Medical times Branch daily as needed for Cough. ondansetron 2022-0 Yes [id number] 4mg Take 1 [facility] 4 mg 1-05 tablet by ity of disintegrat 00:00: mouth [place] ing tablet 00 every 8 Medica l (eight) Branch hours as needed for Nausea and Vomiting (N/V). chlorphenir 2022-0 Yes [id number] 4mg Take 1 [facility] amine 4 mg 1-05 tablet by ity of tablet 00:00: mouth [place] 00 every 6 Medical (six) Branch hours as needed for Allergies or Runny nose. calcium/mag 2022-0 Yes [id number] 1{each} Take 1 [facility] nesium/zinc 1-05 Each by ity o f (CALCIUM-MA 00:00: mouth [place] GNESUIUM-ZI 00 daily. Medica l [place]) Branch 333-133-5 mg Tab benzonatate 2022-0 Yes [id number] 100mg Take 1 [facility] 100 mg 1-05 capsule by ity of capsule 00:00: mouth 3 [place] 00 (three) Medical times Branch daily as needed for Cough. ondansetron 2022-0 Yes [id number] 4mg Take 1 [facility] 4 mg 1-05 tablet by ity of disintegrat 00:00: mouth [place] ing tablet 00 every 8 Medica l (eight) Branch hours as needed for Nausea and Vomiting (N/V). chlorphenir 2022-0 2023- No [id number] 4mg Take 1 [facility] amine 4 mg 111-22 tablet by ity of tablet 00:00: 00:00 mouth [place] 00 :00 every 6 Medical (six) Branch hours as needed for Allergies or Runny nose. calcium/mag 2022- No [id number] 1{each} Take 1 [facility] nesium/zinc 10-27 Each by ity of (CALCIUM-MA 00:00: 00:00 [place] GNESUIUM-ZI 00 :00 daily. Medica l [place]) Branch 333-133-5 mg Tab benzonatate 2022- No [id number] 100mg Take 1 [facility] 100 mg 10-27 capsule by ity of capsule 00:00: 00:00 mouth 3 [place] 00 :00 (three) Medical times Branch daily as needed for Cough. ondansetron 2022- No [id number] 4mg Take 1 [facility] 4 mg 10-27 tablet by ity [facility] disintegrat 00:00: 00:00 [place] tablet 00 :00 every 8 Medica l (eight) Branch hours as needed for Nausea and Vomiting (N/V). chlorphenir 2022- No [id number] 4mg Take 1 [facility] amine 4 mg 10-27 tablet by ity of tablet 00:00: 00:00 mouth [place] 00 :00 every 6 Medical (six) Branch hours as needed for Allergies or Runny nose. calcium/mag 2022- No [id number] 1{each} Take 1 [facility] nesium/zinc 10-27 Each by ity of (CALCIUM-MA 00:00: 00:00 mouth [place] GNESUIUM-ZI 00 :00 daily. Medica l [place]) Branch 333-133-5 mg Tab benzonatate 2022- No [id number] 100mg Take 1 [facility] 100 mg 10-27 capsule by ity of capsule 00:00: 00:00 mouth 3 [place] 00 :00 (three) Medical times Branch daily as needed for Cough. ondansetron 2022- No [id number] 4mg Take 1 [facility] 4 mg 10-27 tablet by ity of disintegrat 00:00: 00:00 [place] tablet 00 :00 every 8 Medica l (eight) Branch hours as needed for Nausea and Vomiting (N/V). chlorphenir 2021-0 2022- No [id number] 4mg Take 1 [facility] amine 4 mg 10-27- tablet by ity of tablet 00:00: 00:00 mouth [place] 00 :00 every 6 Medical (six) Branch hours as needed for Allergies or Runny nose. calcium/mag 2022- No [id number] 1{each} Take 1 [facility] nesium/zinc 10-2731 Each by ity of (CALCIUM-MA 00:00: 00:00 mouth [place] GNESUIUM-ZI 00 :00 daily. Medica l [place]) Branch 333-133-5 mg Tab benzonatate 2022- No [id number] 100mg Take 1 [facility] 100 mg -11-22 capsule by ity of capsule 00:00: 00:00 mouth 3 [place] 00 :00 (three) Medical times Branch daily as needed for Cough. ondansetron 2022- No [id number] 4mg Take 1 [facility] 4 mg 10-27 tablet by ity of disintegrat 00:00: 00:00 mouth [place] tablet 00 :00 every 8 Medica l (eight) Branch hours as needed for Nausea and Vomiting (N/V). chlorphenir 2021-2022- No [id number] 4mg Take 1 [facility] amine 4 mg 10-27 tablet by ity of tablet 00:00: 00:00 mouth [place] 00 :00 every 6 Medical (six) Branch hours as needed for Allergies or Runny nose. calcium/mag 2022- No [id number] 1{each} Take 1 [facility] nesium/zinc 10-2731 Each by ity of (CALCIUM-MA 00:00: 00:00 mouth [place] GNESUIUM-ZI 00 :00 daily. Medica l [place]) Branch 333-133-5 mg Tab benzonatate 2021-2022- No [id number] 100mg Take 1 [facility] 100 mg -11-22 capsule by ity of capsule 00:00: 00:00 mouth 3 [place] 00 :00 (three) Medical times Branch daily as needed for Cough. ondansetron 2021-0 2022- No [id number] 4mg Take 1 [facility] 4 mg 1-02 20-31 tablet by xochitl warren disintegrat 00:00: 00:00 mouth [place] tablet 00 :00 every 8 Medica l (eight) Branch hours as needed for Nausea and Vomiting (N/V). Immunizations Ordered Filled Date Status Comments Source Immunization Name Immunization Name Influenza Virus 2022-09-19 Completed [facility]ine [facility], 00:00:00 [place] [facility] Preserv and ABX Branch Free 6 MO-64 YRS Influenza Virus 2022-09-19 Completed [facility]it [facility] Vaccine [facility], 00:00:00 [place] [facility] Preserv and ABX Branch Free 6 MO-64 YRS Influenza Virus 2022-09-19 Completed [facility] Vaccine [facility], 00:00:00 [place] [facility] Preserv and ABX Branch Free 6 MO-64 YRS Influenza Virus 2022-09-19 Completed [facility] Vaccine [facility], 00:00:00 [place] [facility] Preserv and ABX Branch Free 6 MO-64 YRS Influenza Virus 2022-09-19 Completed [facility] Vaccine [facility], 00:00:00 [place] [facility] Preserv and ABX Branch Free 6 MO-64 YRS Influenza Virus 2022-09-19 Completed [facility] Vaccine [facility], 00:00:00 [place] [facility] Preserv and ABX Branch Free 6 MO-64 YRS Influenza Virus 2022-09-19 Completed [facility] Vaccine [facility], 00:00:00 [place] [facility] Preserv and ABX Branch Free 6 MO-64 YRS Influenza Virus 2022-09-19 Completed [facility] Vaccine [facility], 00:00:00 [place] [facility] Preserv and ABX Branch Free 6 MO-64 YRS Influenza Virus 2022-09-19 Completed [facility] Vaccine [facility], 00:00:00 [place] [facility] Preserv and ABX Branch Free 6 MO-64 YRS Influenza Virus 2022-09-19 Completed [facility] Vaccine [facility], 00:00:00 [place] [facility] Preserv and ABX Branch Free 6 MO-64 YRS Influenza Virus 2022-09-19 Completed [facility] Vaccine [facility], 00:00:00 [place] [facility] Preserv and ABX Branch Free [...] Universit y of Vaccine [facility], 00:00:00 [place] [facility] Preserv and ABX Branch Free 6 MO-64 YRS Influenza Virus 2022-09-19 Completed [facility] Vaccine [facility], 00:00:00 [place] [facility] Preserv and ABX Branch Free 6 MO-64 YRS Influenza Virus 2022-09-19 Completed [facility]it [facility] Vaccine [facility], 00:00:00 [place] [facility] Preserv and ABX Branch Free 6 MO-64 YRS Influenza Virus 2022-09-19 Completed [facility]it [facility] Vaccine [facility], 00:00:00 [place] [facility] Preserv and ABX Branch Free 6 MO-64 YRS Influenza Virus 2022-09-19 Completed [facility] Vaccine [facility], 00:00:00 [place] [facility] Preserv and ABX Branch Free 6 MO-64 YRS Influenza Virus 2022-09-19 Completed [facility]it [facility] of Vaccine [facility], 00:00:00 [place] [facility] Preserv and ABX Branch Free 6 MO-64 YRS Influenza Virus 2022-09-19 Completed [facility]it [facility] Vaccine [facility], 00:00:00 [place] [facility] Preserv and ABX Branch Free 6 MO-64 YRS Influenza Virus 2022-09-19 Completed [facility]it [facility] Vaccine [facility], 00:00:00 [place] [facility] Preserv and ABX Branch Free 6 MO-64 YRS Influenza Virus 2022-09-19 Completed [facility] Vaccine [facility], 00:00:00 [place] [facility] Preserv and ABX Branch Free 6 MO-64 YRS Influenza Virus 2022-09-19 Completed [facility]it [facility] of Vaccine [facility], 00:00:00 [place] [facility] Preserv and ABX Branch Free 6 MO-64 YRS Influenza Virus 2022-09-19 Completed [facility]it [facility] of Vaccine [facility], 00:00:00 [place] [facility] Preserv and ABX Branch Free 6 MO-64 YRS Influenza Virus 2022-09-19 Completed [facility]it [facility] of Vaccine [facility], 00:00:00 [place] [facility] Preserv and ABX Branch Free 6 MO-64 YRS Influenza Virus 2022-09-19 Completed Universit y of Vaccine [facility], 00:00:00 [place] [facility] Preserv and ABX Branch Free [...] and ABX Branch Free 6 MO-64 YRS (FLUCELVAX) Influenza Virus 2022-09-19 Completed Universit y of Vaccine [facility], 00:00:00 [place] [facility] Preserv and ABX Branch Free 6 MO-64 YRS (FLUCELVAX) Influenza Virus 2022-09-19 Completed [facility]it [facility] of Vaccine [facility], 00:00:00 [place] [facility] Preserv and ABX Branch Free 6 MO-64 YRS (FLUCELVAX) Influenza Virus 2022-09-19 Completed [facility]it [facility] of Vaccine [facility], 00:00:00 [place] [facility] Preserv and ABX Branch Free 6 MO-64 YRS (FLUCELVAX) Influenza Virus 2021-09-29 Completed Universit y of Vaccine 00:00:00 [facility] Influenza Virus 2021-09-29 Completed Universit y of Vaccine 00:00:00 [facility] Influenza Virus 2021-09-29 Completed Universit y of Vaccine 00:00:00 [facility] Branch Influenza Virus 2021-09-29 Completed Universit y of Vaccine 00:00:00 [place] [facility] Branch Influenza Virus 2021-09-29 Completed Universit y of Vaccine 00:00:00 [place] [facility] Influenza Virus 2021-09-29 Completed Universit y of Vaccine 00:00:00 [place] [facility] Branch Influenza Virus 2021-09-29 Completed Universit y of Vaccine 00:00:00 [place] [facility] Influenza Virus 2021-09-29 Completed Universit y of Vaccine 00:00:00 [place] [facility] Influenza Virus 2021-09-29 Completed Universit y of Vaccine 00:00:00 [place] [facility] Branch Influenza Virus 2021-09-29 Completed Universit y of Vaccine 00:00:00 [place] [facility] Branch Influenza Virus 2021-09-29 Completed Universit y of Vaccine 00:00:00 [place] [facility] Branch Influenza Virus 2021-09-29 Completed Universit y of Vaccine 00:00:00 [place] [facility] Branch Influenza Virus 2021-09-29 Completed Universit y of Vaccine 00:00:00 [place] [facility] Branch Influenza Virus 2021-09-29 Completed Universit y of Vaccine 00:00:00 [place] [facility] Branch Influenza Virus 2021-09-29 Completed Universit y of Vaccine 00:00:00 [place] [facility] Branch Influenza Virus 2021-09-29 Completed Universit y of Vaccine 00:00:00 [place] [facility] Branch Influenza Virus 2021-09-29 Completed Universit y of Vaccine 00:00:00 [place] [facility] Branch Influenza Virus 2021-09-29 Completed Universit y of Vaccine 00:00:00 [place] [facility] Branch Influenza Virus 2021-09-29 Completed Universit y of Vaccine 00:00:00 [place] [facility] Branch Influenza Virus 2021-09-29 Completed Universit y of Vaccine 00:00:00 [place] [facility] Branch Influenza Virus 2021-09-29 Completed Universit y of Vaccine 00:00:00 [place] [facility] Branch Influenza Virus 2021-09-29 Completed Universit y of Vaccine 00:00:00 [place] [facility] Branch Influenza Virus 2021-09-29 Completed Universit y of Vaccine 00:00:00 [place] [facility] Branch Influenza Virus 2021-09-29 Completed Universit y of Vaccine 00:00:00 [place] [facility] Branch Influenza Virus 2021-09-29 Completed Universit y of Vaccine 00:00:00 [place] [facility] Branch Influenza Virus 2021-09-29 Completed Universit y of Vaccine 00:00:00 [facility] Branch Influenza Virus 2021-09-29 Completed Universit y of Vaccine 00:00:00 [place] [facility] Branch Influenza Virus 2021-09-29 Completed Universit y of Vaccine 00:00:00 [place] [facility] Branch Influenza Virus 2021-09-29 Completed Universit y of Vaccine 00:00:00 [facility] Branch Influenza Virus 2021-09-29 Completed Universit y of Vaccine 00:00:00 [place] [facility] Branch Influenza Virus 2021-09-29 Completed Universit y of Vaccine 00:00:00 [place] [facility] Branch Influenza Virus 2021-09-29 Completed Universit y of Vaccine 00:00:00 [facility] Branch Influenza Virus 2021-09-29 Completed Universit y of Vaccine 00:00:00 [place] [facility] Branch Influenza Virus 2021-09-29 Completed Universit y of Vaccine 00:00:00 [facility] Branch Influenza Virus 2021-09-29 Completed Universit y of Vaccine 00:00:00 [facility] Branch Influenza Virus 2021-09-29 Completed Universit y of Vaccine 00:00:00 [place] [facility] Branch Influenza Virus 2021-09-29 Completed Universit y of Vaccine 00:00:00 [place] [facility] Branch Influenza Virus 2021-09-29 Completed Universit y of Vaccine 00:00:00 [place] [facility] Branch Influenza Virus 2021-09-29 Completed Universit y of Vaccine 00:00:00 [place] [facility] Branch Influenza Virus 2021-09-29 Completed Universit y of Vaccine 00:00:00 [place] [facility] Branch Influenza Virus 2021-09-29 Completed Universit y of Vaccine 00:00:00 [place] [facility] Branch Influenza Virus 2021-09-29 Completed Universit y of Vaccine 00:00:00 [place] [facility] Branch Influenza Virus 2021-09-29 Completed Universit y of Vaccine 00:00:00 [place] [facility] Branch Influenza Virus 2021-09-29 Completed Universit y of Vaccine 00:00:00 [place] [facility] Branch Influenza Virus 2021-09-29 Completed Universit y of Vaccine 00:00:00 [place] [facility] Branch Influenza Virus 2021-09-29 Completed Universit y of Vaccine 00:00:00 [place] [facility] Branch Influenza Virus 2021-09-29 Completed Universit y of Vaccine 00:00:00 [place] [facility] Branch Influenza Virus 2021-09-29 Completed Universit y of Vaccine 00:00:00 [place] [facility] Branch Influenza Virus 2021-09-29 Completed Universit y of Vaccine 00:00:00 [facility] Influenza Virus 2021-09-29 Completed Universit y of Vaccine 00:00:00 [facility] Influenza Virus 2021-09-29 Completed Universit y of Vaccine 00:00:00 [facility] Influenza Virus 2021-09-29 Completed Universit y of Vaccine 00:00:00 [facility] Influenza Virus 2021-09-29 Completed Universit y of Vaccine 00:00:00 [facility] Influenza Virus 2021-09-29 Completed Universit y of Vaccine 00:00:00 [facility] SARS-COV-2 COVID-19 2021-03-08 Completed Unive rsity of MODERNA VACCINE 00:00:00 [facility] ical Branch SARS-COV-2 COVID-19 2021-03-08 Completed Unive rsity of MODERNA VACCINE 00:00:00 [facility] ical Branch SARS-COV-2 COVID-19 2021-03-08 Completed Unive rsity of MODERNA 12+ YRS 00:00:00 [facility] ical VACCINE Branch SARS-COV-2 COVID-19 2021-03-08 Completed Unive rsity of MODERNA 12+ YRS 00:00:00 [facility] ical VACCINE Branch SARS-COV-2 COVID-19 2021-03-08 Completed Unive rsity of MODERNA 12+ YRS 00:00:00 [facility] ical VACCINE Branch SARS-COV-2 COVID-19 2021-03-08 Completed Unive rsity of MODERNA 12+ YRS 00:00:00 [facility] ical VACCINE Branch SARS-COV-2 COVID-19 2021-03-08 Completed Unive rsity of MODERNA 12+ YRS 00:00:00 [facility] ical VACCINE Branch SARS-COV-2 COVID-19 2021-03-08 Completed Unive rsity of MODERNA 12+ YRS 00:00:00 [place] [facility] ical VACCINE Branch SARS-COV-2 COVID-19 2021-03-08 Completed Unive rsity of MODERNA 12+ YRS 00:00:00 [facility] ical VACCINE Branch SARS-COV-2 COVID-19 2021-03-08 Completed Unive rsity of MODERNA 12+ YRS 00:00:00 [facility] ical VACCINE Branch SARS-COV-2 COVID-19 2021-03-08 Completed [...] [place] [facility] ical VACCINE Branch SARS-COV-2 COVID-19 Unknown Completed Unive rsity of MODERNA 12+ YRS [place] [facility] ical VACCINE Branch SARS-COV-2 COVID-19 Unknown Completed Unive rsity of MODERNA 12+ YRS [place] [facility] ical VACCINE Branch Influenza Virus Unknown Completed Universit y of Vaccine [place] [facility] Influenza Virus Unknown Completed Universit y of Vaccine [facility], [facility] dical Preserv and ABX Branch Free 6 MO-64 YRS (FLUCELVAX) SARS-COV-2 COVID-19 Unknown Completed Unive rsity of MODERNA 12+ YRS [place] [facility] ical VACCINE Branch SARS-COV-2 COVID-19 Unknown Completed Unive rsity of MODERNA 12+ YRS [place] [facility] ical VACCINE Branch Influenza Virus Unknown Completed Universit y of Vaccine [place] [facility] Influenza Virus Unknown Completed Universit y of Vaccine [facility], [facility] dical Preserv and ABX Branch Free 6 MO-64 YRS (FLUCELVAX) SARS-COV-2 COVID-19 Unknown Completed Unive rsity of MODERNA 12+ YRS [place] [facility] ical VACCINE Branch SARS-COV-2 COVID-19 Unknown Completed Unive rsity of MODERNA 12+ YRS [place] [facility] ical VACCINE Branch Influenza Virus Unknown Completed Universit y of Vaccine [place] [facility] Influenza Virus Unknown Completed Universit y of Vaccine [facility], [facility] dical Preserv and ABX Branch Free 6 MO-64 YRS (FLUCELVAX) SARS-COV-2 COVID-19 Unknown Completed Unive rsity of MODERNA 12+ YRS [place] [facility] ical VACCINE Branch SARS-COV-2 COVID-19 Unknown Completed Unive rsity of MODERNA 12+ YRS [place] [facility] ical VACCINE Branch Influenza Virus Unknown Completed Universit y of Vaccine [place] [facility] SARS-COV-2 COVID-19 Unknown Completed Unive rsity of MODERNA 12+ YRS [place] [facility] ical VACCINE Branch SARS-COV-2 COVID-19 Unknown Completed Unive rsity of MODERNA 12+ YRS [place] [facility] ical VACCINE Branch Influenza Virus Unknown Completed Universit y of Vaccine [place] [facility] SARS-COV-2 COVID-19 Unknown Completed Unive rsity of MODERNA 12+ YRS [place] [facility] ical VACCINE Branch SARS-COV-2 COVID-19 Unknown Completed Unive rsity of MODERNA 12+ YRS [place] [facility] ical VACCINE Branch SARS-COV-2 COVID-19 Unknown Completed Unive rsity of MODERNA 12+ YRS [place] [facility] ical VACCINE Branch SARS-COV-2 COVID-19 Unknown Completed Unive rsity of MODERNA 12+ YRS [facility] ical VACCINE Branch Influenza Virus Unknown Completed Universit y of Vaccine [place] [facility] Influenza Virus Unknown Completed Universit y of Vaccine [facility], [facility] dical Preserv and ABX Branch Free 6 MO-64 YRS (FLUCELVAX) SARS-COV-2 COVID-19 Unknown Completed Unive rsity of MODERNA 12+ YRS [place] [facility] ical VACCINE Branch SARS-COV-2 COVID-19 Unknown Completed Unive rsity of MODERNA 12+ YRS [facility] ical VACCINE Branch Influenza Virus Unknown Completed Universit y of Vaccine [place] [facility] Influenza Virus Unknown Completed Universit y of Vaccine [facility], [facility] dical Preserv and ABX Branch Free 6 MO-64 YRS (FLUCELVAX) SARS-COV-2 COVID-19 Unknown Completed Unive rsity of MODERNA 12+ YRS [place] [facility] ical VACCINE Branch SARS-COV-2 COVID-19 Unknown Completed Unive rsity of MODERNA 12+ YRS [facility] ical VACCINE Branch Influenza Virus Unknown Completed Universit y of Vaccine [place] [facility] Influenza Virus Unknown Completed Universit y of Vaccine [facility], [facility] dical Preserv and ABX Branch Free 6 MO-64 YRS (FLUCELVAX) SARS-COV-2 COVID-19 Unknown Completed Unive rsity of MODERNA 12+ YRS [place] [facility] ical VACCINE Branch SARS-COV-2 COVID-19 Unknown Completed Unive rsity of MODERNA 12+ YRS [facility] ical VACCINE Branch Influenza Virus Unknown Completed Universit y of Vaccine [place] [facility] Influenza Virus Unknown Completed Universit y of Vaccine [facility], [facility] dical Preserv and ABX Branch Free 6 MO-64 YRS (FLUCELVAX) SARS-COV-2 COVID-19 Unknown Completed Unive rsity of MODERNA 12+ YRS [place] [facility] ical VACCINE Branch SARS-COV-2 COVID-19 Unknown Completed Unive rsity of MODERNA 12+ YRS [place] [facility] ical VACCINE Branch Influenza Virus Unknown Completed Universit y of Vaccine [place] [facility] Influenza Virus Unknown Completed Universit y of Vaccine [facility], [place] [facility] dical Preserv and ABX Branch Free 6 MO-64 YRS (FLUCELVAX) SARS-COV-2 COVID-19 Unknown Completed Unive rsity of MODERNA 12+ YRS [place] [facility] ical VACCINE Branch SARS-COV-2 COVID-19 Unknown Completed Unive rsity of MODERNA 12+ YRS [place] [facility] ical VACCINE Branch Influenza Virus Unknown Completed Universit y of Vaccine [place] [facility] Influenza Virus Unknown Completed Universit y of Vaccine [facility], [facility] dical Preserv and ABX Branch Free 6 MO-64 YRS (FLUCELVAX) SARS-COV-2 COVID-19 Unknown Completed Unive rsity of MODERNA 12+ YRS [facility] ical VACCINE Branch SARS-COV-2 COVID-19 Unknown Completed Unive rsity of MODERNA 12+ YRS [facility] ical VACCINE Branch Influenza Virus Unknown Completed Universit y of Vaccine [place] [facility] Influenza Virus Unknown Completed Universit y of Vaccine [facility], [facility] dical Preserv and ABX Branch Free 6 MO-64 YRS (FLUCELVAX) SARS-COV-2 COVID-19 Unknown Completed Unive rsity of MODERNA 12+ YRS [place] [facility] ical VACCINE Branch SARS-COV-2 COVID-19 Unknown Completed Unive rsity of MODERNA 12+ YRS [facility] ical VACCINE Branch Influenza Virus Unknown Completed Universit y of Vaccine [place] [facility] Influenza Virus Unknown Completed Universit y of Vaccine [facility], [facility] dical Preserv and ABX Branch Free 6 MO-64 YRS (FLUCELVAX) SARS-COV-2 COVID-19 Unknown Completed Unive rsity of MODERNA 12+ YRS [place] [facility] ical VACCINE Branch SARS-COV-2 COVID-19 Unknown Completed Unive rsity of MODERNA 12+ YRS [facility] ical VACCINE Branch Influenza Virus Unknown Completed Universit y of Vaccine [place] [facility] Influenza Virus Unknown Completed Universit y of Vaccine [facility], [facility] dical Preserv and ABX Branch Free 6 MO-64 YRS (FLUCELVAX) SARS-COV-2 COVID-19 Unknown Completed Unive rsity of MODERNA 12+ YRS [facility] ica VACCINE Branch SARS-COV-2 COVID-19 Unknown Completed Unive rsity of MODERNA 12+ YRS [facility] ica VACCINE Branch Influenza Virus Unknown Completed Universit y of Vaccine [place] [facility] Influenza Virus Unknown Completed Universit y of Vaccine [facility], [facility] dical Preserv and ABX Branch Free 6 MO-64 YRS (FLUCELVAX) SARS-COV-2 COVID-19 Unknown Completed Unive rsity of MODERNA 12+ YRS [facility] ica VACCINE Branch SARS-COV-2 COVID-19 Unknown Completed Unive rsity of MODERNA 12+ YRS [facility] VACCINE Branch Influenza Virus Unknown Completed Universit y of Vaccine [place] [facility] Influenza Virus Unknown Completed Universit y of Vaccine [facility], [facility] dical Preserv and ABX Branch Free 6 MO-64 YRS (FLUCELVAX) SARS-COV-2 COVID-19 Unknown Completed Unive rsity of MODERNA 12+ YRS [facility] VACCINE Branch SARS-COV-2 COVID-19 Unknown Completed Unive rsity of MODERNA 12+ YRS [facility] VACCINE Branch Influenza Virus Unknown Completed Universit y of Vaccine [place] [facility] Influenza Virus Unknown Completed Universit y of Vaccine [facility], [facility] dical Preserv and ABX Branch Free 6 MO-64 YRS (FLUCELVAX) Influenza Virus Unknown Completed Universit y of Vaccine [facility], [facility] dical Preserv and ABX Branch Free 6 MO-64 YRS (FLUCELVAX) Pneumococcal 20 Unknown Completed Universit y of Conjugate, PCV20 [facility] dical (Prevnar 20) Branch SARS-COV-2 COVID-19 Unknown Completed Unive rsity of MODERNA 12+ YRS [facility] ica VACCINE Branch SARS-COV-2 COVID-19 Unknown Completed Unive rsity of MODERNA 12+ YRS [facility] VACCINE Branch Influenza Virus Unknown Completed Universit y of Vaccine [place] [facility] Influenza Virus Unknown Completed Universit y of Vaccine [facility], [facility] dical Preserv and ABX Branch Free 6 MO-64 YRS (FLUCELVAX) Influenza Virus Unknown Completed Universit y of Vaccine [facility], [facility] dical Preserv and ABX Branch Free 6 MO-64 YRS (FLUCELVAX) Pneumococcal 20 Unknown Completed Universit y of Conjugate, PCV20 [facility] dical (Prevnar 20) Branch SARS-COV-2 COVID-19 Unknown Completed Unive rsity of MODERNA 12+ YRS [facility] ical VACCINE Branch SARS-COV-2 COVID-19 Unknown Completed Unive rsity of MODERNA 12+ YRS [facility] ical VACCINE Branch Influenza Virus Unknown Completed [facility] of Vaccine [facility] Influenza Virus Unknown Completed Universit y of Vaccine [facility], [facility] dical Preserv and ABX Branch Free 6 MO-64 YRS (FLUCELVAX) Influenza Virus Unknown Completed Universit y of Vaccine [facility], [facility] dical Preserv and ABX Branch Free 6 MO-64 YRS (FLUCELVAX) Pneumococcal 20 Unknown Completed Universit y of Conjugate, PCV20 [facility] dical (Prevnar 20) Branch SARS-COV-2 COVID-19 Unknown Completed Unive rsity of MODERNA 12+ YRS [facility] ica VACCINE Branch SARS-COV-2 COVID-19 Unknown Completed Unive rsity of MODERNA 12+ YRS [facility] ical VACCINE Branch Influenza Virus Unknown Completed [facility]it y of Vaccine [facility] Influenza Virus Unknown Completed Universit y of Vaccine [facility], [facility] dical Preserv and ABX Branch Free 6 MO-64 YRS (FLUCELVAX) Influenza Virus Unknown Completed [facility]it y of Vaccine [facility], [facility] dical Preserv and ABX Branch Free 6 MO-64 YRS (FLUCELVAX) Pneumococcal 20 Unknown Completed Universit y of Conjugate, PCV20 [facility] dical (Prevnar 20) Branch SARS-COV-2 COVID-19 Unknown Completed Unive rsity of MODERNA 12+ YRS [facility] ical VACCINE Branch SARS-COV-2 COVID-19 Unknown Completed Unive rsity of MODERNA 12+ YRS [facility] ical VACCINE Branch Influenza Virus Unknown Completed [facility]it y of Vaccine [facility] Influenza Virus Unknown Completed [facility]it y of Vaccine [facility], [facility] dical Preserv and ABX Branch Free 6 MO-64 YRS (FLUCELVAX) SARS-COV-2 COVID-19 Unknown Completed Unive rsity of MODERNA 12+ YRS [facility] ical VACCINE Branch SARS-COV-2 COVID-19 Unknown Completed Unive rsity of MODERNA 12+ YRS [facility] ica VACCINE Branch Influenza Virus Unknown Completed [facility]it y of Vaccine [facility] Influenza Virus Unknown Completed [facility] Vaccine [facility], [place] [facility] dical Preserv and ABX Branch Free 6 MO-64 YRS (FLUCELVAX) Vital Signs Vital Name Observation Time Observation Value Comments Source Systolic blood 2023-08-21 18:09:00 135 mm[Hg] Univer sity of pressure [facility] Diastolic blood 2023-08-21 18:09:00 80 mm[Hg] Unive rsity of pressure [facility] Heart rate 2023-08-21 18:09:00 76 /min [facility]i ty of [place] [facility] Body temperature 2023-08-21 18:09:00 36.44 Alva Univ ersity of [place] [facility] Body height 2023-08-21 18:09:00 157.5 cm [facility] [place] [facility] Body weight 2023-08-21 18:09:00 83.779 kg [facility] [place] [facility] BMI 2023-08-21 18:09:00 33.78 kg/m2 [facility] [place] [facility] Oxygen saturation in 2023-08-21 18:09:00 100 /min University of Arterial blood by [place] [employer] rach Pulse oximetry Branch Systolic blood 2023-07-25 14:17:00 128 mm[Hg] Univer sity of pressure [facility] Diastolic blood 2023-07-25 14:17:00 82 mm[Hg] Unive rsity of pressure [facility] Heart rate 2023-07-25 14:17:00 76 /min [facility] [place] [facility] Body temperature 2023-07-25 14:17:00 36.5 Alva Univ ersity of [facility] Respiratory rate 2023-07-25 14:17:00 16 /min Univ ersity of [place] [facility] Body height 2023-07-25 14:17:00 157.5 cm [facility] [place] [facility] Body weight 2023-07-25 14:17:00 82.691 kg [facility] [place] [facility] BMI 2023-07-25 14:17:00 33.34 kg/m2 [facility] [place] [facility] Oxygen saturation in 2023-07-25 14:17:00 98 /min University of Arterial blood by [facility] rach Pulse oximetry Branch Systolic blood 2023-07-05 14:56:00 132 mm[Hg] Univer sity of pressure [facility] Diastolic blood 2023-07-05 14:56:00 84 mm[Hg] Unive rsity of pressure [facility] Heart rate 2023-07-05 14:56:00 59 /min [facility] Respiratory rate 2023-07-05 14:56:00 18 /min Univ ersity of [facility] Body height 2023-07-05 14:56:00 157.5 cm [facility] Body weight 2023-07-05 14:56:00 82.555 kg [facility] BMI 2023-07-05 14:56:00 33.29 kg/m2 [facility] Oxygen saturation in 2023-07-05 14:56:00 98 /min University of Arterial blood by [employer] Pulse oximetry Branch Systolic blood 2023-07-05 14:56:00 132 mm[Hg] Univer sity of pressure [facility] Diastolic blood 2023-07-05 14:56:00 84 mm[Hg] Unive rsity of pressure [facility] Heart rate 2023-07-05 14:56:00 59 /min [facility] Respiratory rate 2023-07-05 14:56:00 18 /min Univ ersity of [place] [facility] Body height 2023-07-05 14:56:00 157.5 cm [facility] Body weight 2023-07-05 14:56:00 82.555 kg [facility] [place] [facility] BMI 2023-07-05 14:56:00 33.29 kg/m2 [facility] Oxygen saturation in 2023-07-05 14:56:00 98 /min University of Arterial blood by [facility] rach Pulse oximetry Branch Systolic blood 2023-06-20 04:10:00 140 mm[Hg] Univer sity of pressure [facility] Diastolic blood 2023-06-20 04:10:00 81 mm[Hg] Unive rsity of pressure [facility] Heart rate 2023-06-20 04:10:00 60 /min [facility] Respiratory rate 2023-06-20 04:10:00 19 /min Univ ersity of [facility] Oxygen saturation in 2023-06-20 04:10:00 99 /min [facility] Arterial blood by [place] [facility] Pulse oximetry Branch Body temperature 2023-06-20 01:40:00 37.39 Alva Univ ers[facility] [place] [facility] Body height 2023-06-20 01:40:00 157.5 cm [facility] Body weight 2023-06-20 01:40:00 74.844 kg [facility] [place] [facility] BMI 2023-06-20 01:40:00 30.18 kg/m2 [facility] [place] [facility] Systolic blood 2023-06-07 19:11:00 138 mm[Hg] Univer sity of pressure [facility] Diastolic blood 2023-06-07 19:11:00 84 mm[Hg] Unive rsity of pressure [facility] Heart rate 2023-06-07 19:11:00 75 /min [facility] [place] [facility] Respiratory rate 2023-06-07 19:11:00 20 /min Univ ersity of [place] [facility] Oxygen saturation in 2023-06-07 19:11:00 100 /min University of Arterial blood by [facility] Pulse oximetry Branch Body temperature 2023-06-07 18:46:00 37.5 Alva Univ ers[facility] [place] [facility] Body height 2023-06-07 18:46:00 157.5 cm [facility] Body weight 2023-06-07 18:46:00 74.844 kg [facility] [place] [facility] BMI 2023-06-07 18:46:00 30.18 kg/m2 [facility] [place] [facility] Systolic blood 2023-05-19 14:00:00 121 mm[Hg] Univer sity of pressure [facility] Diastolic blood 2023-05-19 14:00:00 74 mm[Hg] Unive rsity of pressure [facility] Heart rate 2023-05-19 14:00:00 57 /min [facility] Body temperature 2023-05-19 14:00:00 36.11 Alva [facility] [place] [facility] Respiratory rate 2023-05-19 14:00:00 17 /min Univ ers[facility] Body height 2023-05-19 14:00:00 157.5 cm [facility] [place] [facility] Body weight 2023-05-19 14:00:00 81.222 kg [facility] [place] [facility] BMI 2023-05-19 14:00:00 32.75 kg/m2 [facility] [place] [facility] Oxygen saturation in 2023-05-19 14:00:00 99 /min University of Arterial blood by [facility] Pulse oximetry Branch Heart rate 2023-04-21 21:10:00 52 /min [facility] [place] [facility] Respiratory rate 2023-04-21 21:10:00 18 /min Univ ersity of [place] [facility] Oxygen saturation in 2023-04-21 21:10:00 98 /min [facility] of Arterial blood by [facility] Pulse oximetry Branch Systolic blood 2023-04-21 21:00:00 117 mm[Hg] Univer sity of pressure [facility] Diastolic blood 2023-04-21 21:00:00 84 mm[Hg] Unive rsity of pressure [facility] Body temperature 2023-04-21 19:11:00 36.72 Alva Univ ers[facility] [place] [facility] Body height 2023-04-21 19:11:00 157.5 cm [facility] Body weight 2023-04-21 19:11:00 79.379 kg [facility] [place] [facility] BMI 2023-04-21 19:11:00 32.01 kg/m2 [facility] Systolic blood 2023-04-02 02:00:00 123 mm[Hg] Univer sity of pressure [facility] Diastolic blood 2023-04-02 02:00:00 78 mm[Hg] Unive rsity of pressure [facility] Heart rate 2023-04-02 02:00:00 58 /min [facility] [place] [facility] Respiratory rate 2023-04-02 02:00:00 25 /min Univ ersity of [place] [facility] Oxygen saturation in 2023-04-02 02:00:00 99 /min [facility] of Arterial blood by [facility] Pulse oximetry Branch Body temperature 2023-04-01 23:46:00 36.89 Alva [facility] [place] [facility] Body height 2023-04-01 23:46:00 157.5 cm [facility] Body weight 2023-04-01 23:46:00 72.576 kg [facility] BMI 2023-04-01 23:46:00 29.26 kg/m2 [facility] Systolic blood 2023-03-28 13:01:00 106 mm[Hg] Univer sity of pressure [facility] Diastolic blood 2023-03-28 13:01:00 74 mm[Hg] Unive rsity of pressure [facility] Respiratory rate 2023-03-28 13:01:00 20 /min Univ ersity of [facility] Oxygen saturation in 2023-03-28 13:01:00 95 /min [facility] of Arterial blood by [place] [employer] rach Pulse oximetry Branch Body weight 2023-03-28 12:00:00 77.565 kg [facility] [place] [facility] BMI 2023-03-28 12:00:00 31.28 kg/m2 [facility] [place] [facility] Systolic blood 2023-03-28 13:00:00 106 mm[Hg] Univer sity of pressure [facility] Diastolic blood 2023-03-28 13:00:00 74 mm[Hg] Unive rsity of pressure [facility] Respiratory rate 2023-03-28 13:00:00 18 /min Univ ersity of [facility] Oxygen saturation in 2023-03-28 13:00:00 98 /min [facility] of Arterial blood by [place] [employer] rach Pulse oximetry Branch Body weight 2023-03-28 12:00:00 77.565 kg [facility] [place] [facility] BMI 2023-03-28 12:00:00 31.28 kg/m2 [facility] Systolic blood 2023-02-23 15:05:00 123 mm[Hg] Univer sity of pressure [facility] Diastolic blood 2023-02-23 15:05:00 72 mm[Hg] Unive rsity of pressure [facility] Heart rate 2023-02-23 15:05:00 63 /min [facility] [place] [facility] Body temperature 2023-02-23 15:05:00 36.56 Alva Univ ers[facility] [place] [facility] Body height 2023-02-23 15:05:00 157.5 cm [facility] [place] [facility] Body weight 2023-02-23 15:05:00 77.656 kg [facility] BMI 2023-02-23 15:05:00 31.31 kg/m2 [facility] Oxygen saturation in 2023-02-23 15:05:00 99 /min University of Arterial blood by [facility] rach Pulse oximetry Branch Systolic blood 2023-01-24 03:30:00 132 mm[Hg] Univer sity of pressure [facility] Diastolic blood 2023-01-24 03:30:00 95 mm[Hg] Unive rsity of pressure [facility] Heart rate 2023-01-24 03:30:00 64 /min [facility] [place] [facility] Respiratory rate 2023-01-24 03:30:00 16 /min Univ ersity of [place] [facility] Oxygen saturation in 2023-01-24 03:30:00 97 /min University of Arterial blood by [facility] rach Pulse oximetry Branch Body temperature 2023-01-24 01:06:00 37 Alva Univ [facility] Body height 2023-01-24 01:06:00 157.5 cm [facility] Body weight 2023-01-24 01:06:00 74.844 kg [facility] BMI 2023-01-24 01:06:00 30.18 kg/m2 [facility] Systolic blood 2023-01-09 14:35:00 124 mm[Hg] Univer sity of pressure [facility] Diastolic blood 2023-01-09 14:35:00 76 mm[Hg] Unive rsity of pressure [facility] Heart rate 2023-01-09 14:35:00 88 /min [facility] Respiratory rate 2023-01-09 14:35:00 20 /min Univ ersity of [facility] Body height 2023-01-09 14:35:00 157.5 cm [facility] Body weight 2023-01-09 14:35:00 75.751 kg [facility] BMI 2023-01-09 14:35:00 30.54 kg/m2 [facility] Oxygen saturation in 2023-01-09 14:35:00 95 /min [facility] of Arterial blood by [facility] Pulse oximetry Branch Systolic blood 2023-01-09 13:44:00 124 mm[Hg] Univer sity of pressure [facility] Diastolic blood 2023-01-09 13:44:00 76 mm[Hg] Unive rsity of pressure [facility] Heart rate 2023-01-09 13:44:00 88 /min [facility] Respiratory rate 2023-01-09 13:44:00 20 /min Univ ers[facility] Body height 2023-01-09 13:44:00 157.5 cm [facility] Body weight 2023-01-09 13:44:00 75.932 kg [facility] BMI 2023-01-09 13:44:00 30.62 kg/m2 [facility] Oxygen saturation in 2023-01-09 13:44:00 95 /min University of Arterial blood by [facility] rach Pulse oximetry Branch Systolic blood 2022-11-22 18:58:00 123 mm[Hg] Univer sity of pressure [facility] Diastolic blood 2022-11-22 18:58:00 78 mm[Hg] Unive rsity of pressure [facility] Heart rate 2022-11-22 18:58:00 70 /min [facility] Body height 2022-11-22 18:58:00 157.5 cm [facility] Body weight 2022-11-22 18:58:00 75.297 kg [facility] BMI 2022-11-22 18:58:00 30.36 kg/m2 [facility] Oxygen saturation in 2022-11-22 18:58:00 98 /min [facility] of Arterial blood by [facility] Pulse oximetry Branch Systolic blood 2022-09-30 20:53:00 119 mm[Hg] Univer sity of pressure [facility] Diastolic blood 2022-09-30 20:53:00 77 mm[Hg] Unive rsity of pressure [facility] Heart rate 2022-09-30 20:53:00 93 /min [facility] Body temperature 2022-09-30 20:53:00 36.72 Alva Univ [facility] Respiratory rate 2022-09-30 20:53:00 18 /min Univ ers[facility] Body height 2022-09-30 20:53:00 157.5 cm [facility] Body weight 2022-09-30 20:53:00 70.761 kg [facility] BMI 2022-09-30 20:53:00 28.53 kg/m2 [facility] Systolic blood 2022-09-09 15:18:00 110 mm[Hg] Univer sity of pressure [facility] Diastolic blood 2022-09-09 15:18:00 74 mm[Hg] Unive rsity of pressure [facility] Heart rate 2022-09-09 15:18:00 83 /min [facility] Respiratory rate 2022-09-09 15:18:00 18 /min Univ ersity of [facility] Body height 2022-09-09 15:18:00 157.5 cm Universi ty of [facility] Body weight 2022-09-09 15:18:00 71.668 kg Universi ty of [facility] BMI 2022-09-09 15:18:00 28.90 kg/m2 Universi ty of [facility] Oxygen saturation in 2022-09-09 15:18:00 98 /min [facility] Arterial blood by [place] [employer] rach Pulse oximetry Branch Systolic blood 2022-06-11 16:27:00 136 mm[Hg] Univer [facility]ity of pressure [facility] Diastolic blood 2022-06-11 16:27:00 85 mm[Hg] Unive rsity of [facility] Heart rate 2022-06-11 16:27:00 71 /min [facility] Body temperature 2022-06-11 16:27:00 36.67 [facility] 2022-06-11 16:27:00 14 /min Univ ersity of [facility] Body height 2022-06-11 16:27:00 157.5 cm [facility] Body weight 2022-06-11 16:27:00 73.483 kg [facility] BMI 2022-06-11 16:27:00 29.63 kg/m2 Universi ty of [facility] Oxygen saturation in 2022-06-11 16:27:00 99 /min [facility] Arterial blood by [place] [employer] rach Pulse oximetry Branch Procedures Procedure Date / Time Performing Clinician Source Performed FLU VACC ([id number]), 6 2023-08-21 Natalie Curry [facility] [place]-64 YRS, .5ML, IM, QUAD 18:49:09 Medica l Branch (FLUCELVAX) PNEUMOCOCCAL 20 CONJUGATE 2023-08-21 Natalie Curry [facility] (PREVNAR 20) VACCINE 18:49:09 [facility] AUTHORIZATION FOR RELEASE 2023-08-21 Doctor Unassigned, No [facility] 05:01:00 Name Medical Branch DME/SUPPLY JUSTIFICATION 2023-08-07 [facility] 05:01:00 Name Medical Branch EXTERNAL PROVIDER RECORDS 2023-08-03 Doctor Unassigned, No [facility] 05:01:00 Name Medical Branch LIPASE 2023-06-20 [facility] 02:20:00 Medical Branch TROPONIN I 2023-06-20 [facility] 02:20:00 Medical Branch COMP. METABOLIC PANEL 2023-06-20 [facility] ([id number]) 02:20:00 Medical Branch CBC WITH DIFF 2023-06-20 [facility] 02:20:00 Medical Branch URINALYSIS 2023-06-20 [facility] 02:20:00 Medical Branch NOTICE OF PRIVACY PRACTICES 2023-06-20 Doctor Unassigned, N o [facility] 01:38:02 Name Medical Branch CONSENT/REFUSAL FOR 2023-06-20 Doctor Unassigned, No [facility] DIAGNOSIS AND TREATMENT 01:36:36 Name Medical Branch ASSIGNMENT OF BENEFITS 2023-06-07 Doctor Unassigned, No [facility] 18:54:21 Name Medical Branch CONSENT/REFUSAL FOR 2023-06-07 Doctor Unassigned, No [facility] DIAGNOSIS AND TREATMENT 18:29:10 Name Medical Branch DME/SUPPLY JUSTIFICATION 2023-06-01 Doctor Unassigned, No [facility] 05:01:00 Name Medical Branch REFERRAL- REQUEST/RESPONSE 2023-05-24 Doctor Unassigned, No [facility] 05:01:00 Name Medical Branch EKG-12 LEAD 2023-04-21 Sarah Osorio [facility] 21:17:16 Medical Branch TROPONIN I 2023-04-21 Sarah Osorio [facility] 19:22:00 Medical Branch COMP. METABOLIC PANEL 2023-04-21 Sarah Osorio [facility] ([id number]) 19:22:00 Medical Branch CBC WITH DIFF 2023-04-21 Sarah Osorio [facility] 19:22:00 Medical Branch N-TERMINAL PRO-BNP 2023-04-21 Sarah Osorio [facility] 19:22:00 Medical Branch CONSENT/REFUSAL FOR 2023-04-21 Doctor Unassigned, No [facility] DIAGNOSIS AND TREATMENT 19:06:41 Name [facility] XR CHEST 1 [facility] Branch TROPONIN I 2023-04-02 Bernardrosina [facility] 00:02:00 Medical Branch COMP. METABOLIC PANEL 2023-04-[address] [facility] ([id number]) 00:02:00 Medical Branch CBC WITH DIFF 2023-04-02 [facility] Medical Branch PROTHROMBIN TIME / INR 2023-04-02 Bernardrosina [facility] 00:02:00 Medical Branch ACTIVATED PARTIAL THRMPLAS 2023-04-02 [facility] Medical Branch N-TERMINAL PRO-BNP 2023-04-02 Beverley Casey [facility] 00:02:00 Medical Branch ELECTROPHYSIOLOGY PROCEDURE 2023-03-28 [facility] 12:53:10 [facility] ELECTROPHYSIOLOGY PROCEDURE 2023-03-28 [facility] 12:53:10 [facility] EXTERNAL PROVIDER - ADC 2023-03-13 Doctor Unassigned, No [facility] CARDIOLOGY 05:01:00 Name Medical Branch LIPASE 2023-01-24 Raul Uribe [facility] [place] 01:54:00 Medical [facility] COMP. METABOLIC PANEL 2023-01-24 Rony [facility] ([id number]) 01:54:00 Medical Branch CBC WITH DIFF 2023-01-24 Raul Uribe [facility] [place] 01:54:00 Medical Branch URINALYSIS 2023-01-24 Rony [facility] [place] 01:54:00 Medical Branch CONSENT/REFUSAL FOR 2023-01-24 Doctor Unassigned, No [facility] DIAGNOSIS AND TREATMENT 01:00:[address] ANGIOGRAPHY CORONARIES 2023-01-04 Magalie GtzHKevin [facility] WITH CARDIAC CALCIUM SCORE 16:22:00 Medic al Branch HB CREATININE SERUM/BLOOD 2023-01-04 Magalie Gtz.HKevin [facility] FOR IMAGING 14:28:00 Medical Branch HB ECG ROUTINE & RHYTHM 2022-11-22 Magalie GtzHKevin [facility] STRIP 19:10:40 Medical Branch REFERRAL- REQUEST/RESPONSE 2022-11-22 Doctor Unassigned, No [facility] 06:01:00 Name Medical Branch DME/SUPPLY JUSTIFICATION 2022-11-04 Doctor Unassigned, No [facility] 06:01:00 Name Medical Branch NOTICE OF PRIVACY PRACTICES 2022-10-13 Doctor Unassigned, N o [facility] 15:12:26 Name Medical Branch CONSENT/REFUSAL FOR 2022-10-13 Doctor Unassigned, No [facility] DIAGNOSIS AND TREATMENT 15:12:07 Name Medical Branch ASSIGNMENT OF BENEFITS 2022-10-13 Doctor Unassigned, No [facility] [place] 15:11:46 Name Medical Branch MEDICAL RELEASE/CLEARANCE 2022-10-04 Doctor Unassigned, No [facility] FORMS 06:01:00 Name Medical Branch POCT URINALYSIS W/O 2022-09-30 Donaldo Joann [place] [facility] [place] SPECIFIC GRAVITY 20:50:00 Medical Branch FLU VACC (), 6 2022-09-09 [facility] [place], .5ML, IM, QUAD 15:23:21 Medica l Branch (FLUCELVAX) ASSIGNMENT OF BENEFITS 2022-09-09 Doctor Unassigned, No [facility] [place] 14:48:49 Name Medical Branch CONSENT/REFUSAL FOR 2022-06-11 Doctor Unassigned, No [facility] DIAGNOSIS AND TREATMENT 16:25:37 Name Medical Branch Encounters Start End Encounter Admission Attending Care Care Encounter Source Date/Time Date/Time Type Type Clinicians Facility Department ID 2022-10-03 Outpatient R DONALDO [facility] [id number] Univers 08:16:47 JOANN itnaveen [facility] 2021-08-23 Emergency [facility] [id number] Univers 07:20:16 ity [facility] 2021-08-23 Emergency [facility] [id number] Univers 06:43:15 ity [facility] 2024-07-05 2024-07-05 Outpatient R TRESA [facility] [id number] Univers 10:00:00 10:00:00 SENDIL naveen [facility] 2023-08-24 2023-08-24 Outpatient R JASMEET STEWART [facility] [id number] Univers 09:00:00 09:00:00 JASEMET STEWART [facility] 2023-08-23 2023-08-23 Outpatient R GEORGESNaveen NATALIE [facility] [id number] Univers 09:00:00 09:35:40 NATALIE CURRY [facility] 2023-08-23 2023-08-23 Manager Integrated Lab, Ang - [facility] [id number] Univers 09:00:00 09:35:40 [id number] [id number] Ramon as ABEL?BLEA [id number] [place] [address] MEDICAL OFFICE BUILDING 2023-08-21 2023-08-21 Outpatient R NATALIE CURRY [facility] [id number] Univers 13:00:00 13:59:30 NATALIE CURRY [facility] 2023-08-21 2023-08-21 [facility] [id number] Univers 13:00:00 13:59:30 Visit [facility] [id number] [facility] [id number] Ramon as ABEL?BLEA [id number] [address] MEDICAL OFFICE BUILDING 2023-08-21 2023-08-21 Orders Doctor SHARI [id number] Univers 00:00:00 00:00:00 Only Unassigned, LUCIE [id number] ity of [facility] [id number] Ramon as [id number] [facility] [address] 2023-08-07 2023-08-07 Orders Doctor SHARI 1.2.840.114 [id number] Univers 00:00:00 00:00:00 Only Unassigned, LUCIE 350.1.13.10 ity of [facility] 4.2.7.2.686 Ramon as [phone] [facility] [address] 2023-08-04 2023-08-04 Patient Doctor [facility] 1.2.318.848 [id number] Univers 00:00:00 00:00:00 Secure Msg Unassigned, ICAL 350.1.13.10 ity of [facility] 4.2.7.2.686 Ramon as BLDG [phone] [facility] [address] 2023-08-03 2023-08-03 Orders Doctor SHARI 1.2.840.114 [id number] Univers 00:00:00 00:00:00 Only Unassigned, LUCIE 350.1.13.10 ity of [facility] 4.2.7.2.686 [place]on as [phone] [facility] [address] 2023-07-31 2023-07-31 Outpatient R JASMEET STEWART [facility] [id number] Univers 00:00:00 23:59:00 JASMEET STEWART ity of [facility] 2023-07-31 2023-07-31 Hospital GAYATRI Stewart 1.2.840.114 10 [id number] Univers 00:00:00 23:59:00 Encounter Cee JACOBSY 350.1.13.10 ity of [facility] 4.2.7.2.686 [place] as [phone] [facility] [address] 2023-07-31 2023-07-31 Telephone Alfonso [facility] 1.2.847.458 [id number] Univers 00:00:00 00:00:00 Lucia ARREDONDO 350.1.13.10 i ty of [facility] 4.2.7.2.686 [place] [phone] Ca dical NAL [address] [facility] 2023-07-25 2023-07-25 Office Kip Harris [facility] 1.2.84 0.114 [id number] Univers 09:30:00 10:00:00 Visit Juan Grover [facility] 350.1.13. 10 ity of CL[place].7.[place] [id number] [address] 2023-07-25 2023-07-25 Outpatient R DMITRIY [facility] [id number] Univers 09:30:00 09:30:00 JUAN leung [facility] 2023-07-25 2023-07-25 Telephone KIKI Harris 1.2.840.114 10 [id number] Univers 00:00:00 00:00:00 Kip Stoney [facility] 350.1.13.10 ity of [place] [id number] [address] 2023-07-25 2023-07-25 [facility] 1.2.088.059 [id number] Univers 00:00:00 00:00:00 Magalie ARREDONDO 350.1.13.10 ity of [facility] 4.2.7.2.686 [place] [phone] Ca dicde NAL [address] [facility] 2023-07-24 2023-07-24 Outpatient R NATALIE CURRY [facility] [id number] Univers 13:00:00 13:00:00 NATALIE CURRY [facility] 2023-07-05 2023-07-05 [facility] 1.2.840.114 [id number] Univers 10:30:00 10:30:00 Visit Magalie ARREDONDO 350.1.13.10 ity of [facility] 4.2.7.2.[place] [phone] Ca dical NAL 0[address] [facility] 2023-07-05 2023-07-05 Outpatient R TRESA [facility] [id number] Univers 10:30:00 10:19:36 SENDIL ity [facility] 2023-06-29 2023-06-29 Outpatient R JASMEET STEWART [facility] [id number] Univers 11:04:04 23:59:00 JASMEET STEWART ity [facility] 2023-06-29 2023-06-29 [facility] 1.2.840.114 10 [id number] Univers 11:04:04 23:59:00 Encounter Cee MANCUSOMEAGAN 350.1.13.10 ity of [facility] 4.2.7.2.686 [facility] [id number] [address] 2023-06-29 2023-06-29 Outpatient JASMEET STEWART [facility] [id number] Univers 00:00:00 11:03:00 [facility] 2023-06-29 2023-06-29 [facility] GAYATRI Stewart 1.2.840.114 10 [id number] Univers 00:00:00 11:03:00 Encounter Cee LUCIE 350.1.13.10 ity of [facility] 4.2.7.2.686 [place] [id number] [address] 2023-06-19 2023-06-[address] [id number] Univers 20:55:00 23:48:00 [facility] 2023-06-19 2023-06-19 [facility] 1.2.371.281 [id number] Univers 20:55:00 23:48:00 Dora ARREDONDO 350.1.13.10 ity [facility] 4.2.7.2.686 [facility] [id number] [address] 2023-06-19 2023-06-19 Telephone [facility] 1.2.216.926 [id number] [id number] Univers 00:00:00 00:00:00 Lucia ARREDONDO 350.1.13.10 i ty of [place] 4.2.7.2.686 [place] [facility] [phone] [place] 637705 [facility] 2023-06-07 2023-06-07 Emergency [facility] [id number] Univers 13:47:00 14:14:00 SARAH ity of [facility] 2023-06-07 2023-06-07 Emergency [facility] 1.2.840.114 10 [id number] Univers 13:47:00 14:14:00 Sarah ARREDONDO 350.1.13.10 ity of [place] 4.2.7.2.686 [place]SE[place] [phone] [facility] [address] 2023-06-01 2023-06-01 Orders Doctor SHARI 1.2.840.114 [id number] Univers 00:00:00 00:00:00 Only Unassigned, LUCIE 350.1.13.10 ity of [facility] 4.2.7.2.686 Ramon as [phone] [facility] [address] 2023-05-30 2023-05-30 Patient Doctor SHARI 1.2.840.114 [id number] Univers 00:00:00 00:00:00 Secure Msg Unassigned, LUCIE 350.1.13.10 ity of [facility] 4.2.7.2.686 Ramon as [phone] [facility] [address] 2023-05-24 2023-05-24 Orders Doctor SHARI 1.2.840.114 [id number] Univers 00:00:00 00:00:00 Only Unassigned, LUCIE 350.1.13.10 ity of [facility] 4.2.7.2.686 Ramon as [id number] [facility] [address] 2023-05-19 2023-05-19 Outpatient R LUCIA HARMON [facility] 10 [id number] Univers 09:30:00 09:48:59 LUCIA HARMON i ty of [facility] 2023-05-19 2023-05-19 Office Alfonso [facility] 1.2.840.114 [id number] Univers 09:30:00 09:48:59 Visit Lucia ARREDONDO 350.1.13.10 i ty of [place] 4.2.7.2.[place] [phone] [facility] 085 [facility] 2023-04-21 2023-04-21 Emergency X [facility] ERT [id number] Univers 14:17:00 16:23:00 SARAH ity of [facility] 2023-04-21 2023-04-21 Emergency [facility] 1.2.840.114 10 [id number] Univers 14:17:00 16:23:00 Sarah ARREDONDO 350.1.13.10 ity of [place] 4.2.7.2.[place] CAMPUS [id number] [address] 2023-04-13 2023-04-13 Telephone [facility] 1.2.058.192 [id number] [id number] Univers 00:00:00 00:00:00 Sendtre ARREDONDO 350.1.13.10 ity of [place] 4.2.7.2.[place] [phone] [place] 160129 [facility] 2023-04-11 2023-04-11 Outpatient R JASMEET STEWART [facility] [id number] Univers 08:32:10 23:59:00 JASMEET STEWART ity [facility] 2023-04-11 2023-04-11 [facility] GAYATRI Stewart 1.2.840.114 10 [id number] Univers 08:32:10 23:59:00 Encounter Cee FAULKNER 350.1.13.10 ity of [facility] 4.2.7.2.686 [place]on as [id number] [address] 2023-04-05 2023-04-05 Telephone [facility] 1.2.269.698 [id number] Univers 00:00:00 00:00:00 Magalie ARREDONDO 350.1.13.10 ity of [place] 4.2.7.2.[place] [id number] [facility] 059 [facility] 2023-04-01 2023-04-01 Emergency X LUX [facility] ERT [id number] Univers 18:49:00 21:51:00 BEVERLEY ity of [facility] 2023-04-01 2023-04-01 Emergency [facility] 1.2.840.114 10 [id number] Univers 18:49:00 21:51:00 Beverley Haris MANCUSOTON 350.1.13.10 ity of [place] 4.2.7.2.686 [place] [facility] [phone] [facility] [address] 2023-03-28 2023-03-28 Outpatient R JASMEET STEWART [facility] [id number] Univers 06:21:00 09:15:00 JASMEET STEWART ity [facility] 2023-03-28 2023-03-28 Hospital GAYATRI Stewart 1.2.840.114 10 [id number] Univers 06:21:00 09:15:00 Encounter Cee LUCIE 350.1.13.10 ity of [facility] 4.2.7.2.686 Ramon as [id number] [facility] [address] 2023-03-28 2023-03-28 Surgery GAYATRI Stewart 1.2.840.114 [id number] Univers 07:15:00 08:00:00 Choludy LUCIE 350.1.13.10 ity of [facility] 4.2.7.2.686 Ramon as [phone] [facility] [address] 2023-03-13 2023-03-13 Orders Doctor SHARI 1.2.840.114 [id number] Univers 00:00:00 00:00:00 Only Unassigned, LUCIE 350.1.13.10 [facility] 4.2.7.2.686 Ramon as [phone] [facility] [address] 2023-02-23 2023-02-23 Outpatient R ANA PAULA [facility] [id number] Univers 10:00:00 10:58:43 RAJAN ity of [facility] 2023-02-23 2023-02-23 Office Jasmeet Stewart [facility] 1. 2.840.114 [id number] Univers 10:00:00 10:58:43 Visit Rajan Goss [place] 350.1.13.10 ity of [place] 4.2.7.2.686 [place] [id number] Ca dicde NAL 059 [facility] 2023-01-28 2023-01-28 Refill [facility] 1.2.840.114 [id number] Univers 00:00:00 00:00:00 Shiwan [place] 350.1.13.10 i ty of [facility] 4.2.7.2.686 [place] [id number] [address] 2023-01-25 2023-01-25 Telephone [facility] 1.2.192.846 [id number] Univers 00:00:00 00:00:00 Shiwan [place] 350.1.13.10 i ty of [place] 4.2.7.2.[place] [id number] [address] 2023-01-23 2023-01-23 Emergency X [facility] ERT [id number] Univers 20:09:00 22:44:00 RAUL ity of [facility] 2023-01-23 2023-01-23 Emergency [facility] 1.2.535.794 [id number] Univers 20:09:00 22:44:00 Raul [facility] 350.1.13.10 i ty of [facility] 4.2.7.2.686 [place]US [id number] [address] 2023-01-19 2023-01-19 Telephone [facility] 1.2.315.358 [id number] Univers 00:00:00 00:00:00 Shiwan [place] 350.1.13.10 i ty of [facility] 4.2.7.2.686 [place] [phone] Ca dicde NAL [address] [place] [address] 2023-01-09 2023-01-09 Office [facility] 1.2.840.114 [id number] Univers 10:00:00 10:11:13 Visit Shiwan [place] 350.1.13.10 i ty of [place] 4.2.7.2.686 [place] [phone] Ca dical NAL 085 [facility] 2023-01-09 2023-01-09 Office Tresa [facility] 1.2.840.114 [id number] Univers 09:00:00 09:30:44 Visit Sendtre ARREDONDO 350.1.13.10 ity of [place] 4.2.7.2.686 [place] [phone] Ca dical NAL 059 [facility] 2023-01-09 2023-01-09 [facility] [id number] Univers 09:00:00 09:30:44 SENDIL ity [facility] 2023-01-04 2023-01-04 [facility] [id number] Univers 09:21:10 23:59:00 SENDIL ity of [facility] 2023-01-04 2023-01-04 [facility] 1.2.840.114 [id number] Univers 09:21:10 23:59:00 Encounter Sendtre ARREDONDO 350.1.13.10 ity of [place] 4.2.7.2.686 [place] CAMPUS [id number] [address] 2022-12-28 2022-12-28 Outpatient R TRESA [facility] [id number] Univers 00:00:00 00:00:00 SENDIL ity of [facility] 2022-12-28 2022-12-28 Patient Doctor [facility] 1.2.840.114 [id number] Univers 00:00:00 00:00:00 Secure Msg Unassigned, ARNULFO 350.1.13.10 ity of [facility] 4.2.7.2.686 [place] [phone] Ca dical NAL 059 [facility] 2022-12-26 2022-12-26 Outpatient LISA Owens [id number] [facility] 12:00:00 12:00:00 Jenise Canales [facility] 2022-12-26 2022-12-26 Telephone Tresa [facility] 1.2.211.492 [id number] [id number] Univers 00:00:00 00:00:00 Sendil Artur ARREDONDO 350.1.13.10 ity of [place] 4.2.7.2.686 [place] [phone] Ca dical NAL 059 [facility] 2022-12-23 2022-12-23 Telephone [facility] 1.2.261.298 [id number] Univers 00:00:00 00:00:00 Sendil Artur ARREDONDO 350.1.13.10 ity of [place] 4.2.7.2.686 [place] [phone] Ca dic[address] 2022-12-21 2022-12-21 Outpatient [facility] [id number] Univers 12:12:50 12:12:50 SENDIL ity [facility] 2022-11-22 2022-11-22 Outpatient R TRESA [facility] [id number] Univers 13:30:00 13:44:44 SENDIL ity [facility] 2022-11-22 2022-11-22 Office [facility] 1.2.840.114 [id number] Univers 13:30:00 13:44:44 Visit Magalie ARREDONDO 350.1.13.10 ity of [place] 4.2.7.2.[place] [id number] [address] 2022-11-22 2022-11-22 Orders Doctor SHARI 1.2.840.114 [id number] Univers 00:00:00 00:00:00 Only Unassigned, LUCIE 350.1.13.10 ity of [facility] 4.2.7.2.686 Ramon as [id number] [address] 2022-11-11 2022-11-11 Travel 1.2.840.1 1.2.311.902 1837 [id number] Univers 00:00:00 00:00:00 57269.1.1 350.1.13.41 ity of 3.412.2.[place]3.263704 084.8 .8 [facility] 2022-11-11 2022-11-11 Travel 1.2.840.1 1.2.141.610 9949 [id number] Univers 00:00:00 00:00:00 38663.1.1 350.1.13.41 ity of 3.412.2.7 [place].3.698 [place] .3.299867 084.8 .8 [facility] 2022-11-04 2022-11-04 Orders Doctor SHARI 1.2.840.114 [id number] Univers 00:00:00 00:00:00 Only Unassigned, LUCIE 350.1.13.10 ity of [facility] 4.2.7.2.686 Ramon [id number] [facility] [address] 2022-10-21 2022-10-21 Outpatient [facility] [id number] Univers 11:00:00 11:00:00 JOANN ity of [facility] 2022-10-20 2022-10-20 Patient [facility] 1.2.840.114 [id number] Univers 00:00:00 00:00:00 Secure [facility] 350.1.13.10 ity of [place] 4.2.7.2.686 [facility] [phone] [facility] [address] OFFICE BUILDING 2022-10-13 2022-10-13 Outpatient R LUCIA HARMON [facility] 10 [id number] Univers 09:11:01 23:59:00 LUCIA HARMON i ty of [facility] 2022-10-13 2022-10-13 [facility] 1.2.840.114 [id number] Univers 09:11:01 23:59:00 Encounter Lucia ARREDONDO 350.1.13.10 ity of [place] 4.2.7.2.686 [facility] [phone] [facility] [address] 2022-10-07 2022-10-07 Outpatient R LUCIA HARMON [facility] 10 [id number] Univers 00:00:00 00:00:00 LUCIA HARMON i ty of [facility] 2022-10-07 2022-10-07 Telephone [facility] 1.2.840.114 [id number] Univers 00:00:00 00:00:00 Joann CHRIST 350.1.13.10 it y of [place] 4.2.7.2.686 [place] [id number] [address] OFFICE [facility] 2022-10-04 2022-10-04 Refill [facility] 1.2.840.114 [id number] Univers 00:00:00 00:00:00 Joann ARNULFO 350.1.13.10 i ty of [place] 4.2.7.2.686 [place] [phone] Ca dical NAL [address] [place] [address] 2022-10-04 2022-10-04 Telephone [facility] 1.2.718.789 [id number] [id number] Univers 00:00:00 00:00:00 Lucia ARREDONDO 350.1.13.10 i ty of [place] 4.2.7.2.[place] [phone] Ca dical NAL [address] [place] [address] 2022-10-04 2022-10-04 Orders Doctor SHARI 1.2.840.114 [id number] Univers 00:00:00 00:00:00 Only Unassigned, LUCIE 350.1.13.10 ity of [place] [facility] 4.2.7.2.686 Ramon as [id number] [address] 2022-10-03 2022-10-03 Outpatient R LUCIA HARMON [facility] 10 [id number] Univers 00:00:00 00:00:00 LUCIA HARMON i ty of [facility] 2022-09-30 2022-09-30 Outpatient R [facility] [id number] Univers 15:00:00 15:29:59 JOANN leung of [facility] 2022-09-30 2022-09-30 Office [facility] 1.2.840.114 [id number] Univers 15:00:00 15:29:59 Visit Joann ARREDONDO 350.1.13.10 i ty of [place] 4.2.7.2.[place] [id number] Ca dical NAL 098 [facility] 2022-09-30 2022-09-30 Prep For Donaldo [facility] 1.2.675.812 [id number] [id number] Univers 00:00:00 00:00:00 Surgery Joann ARREDONDO 350.1.13.10 i ty of [facility] 4.2.7.2.686 [place] [id number] Ca dicde NAL [address] [place] [address] 2022-09-16 2022-09-16 Telephone Alfonso [facility] 1.2.755.810 [id number] [id number] Univers 00:00:00 00:00:00 Shiprasanth ARREDONDO 350.1.13.10 i ty of [facility] 4.2.7.2.686 [place] [id number] Ca dicde NAL [address] [place] [address] 2022-09-12 2022-09-12 Telephone Alfonso [facility] 1.2.789.880 [id number] Univers 00:00:00 00:00:00 Lucia ARREDONDO 350.1.13.10 i ty of [facility] 4.2.7.2.686 [place] [phone] Ca dicde NAL [address] [place] [address] 2022-09-09 2022-09-09 Outpatient R LUCIA HARMON [facility] 10 [id number] Univers 09:30:00 09:57:06 LUCIA HARMON i ty of [facility] 2022-09-09 2022-09-09 Office Alfonso [facility] 1.2.840.114 [id number] Univers 09:30:00 09:57:06 Visit Lucia ARREDONDO 350.1.13.10 i ty of [facility] 4.2.7.2.686 [place] [phone] Ca dicde NAL [address] [place] [address] 2022-09-09 2022-09-09 Outpatient R LUCIA HARMON [facility] 10 [id number] Univers 09:30:00 09:30:00 LUCIA HARMON i ty of [facility] 2022-09-09 2022-09-09 Orders Doctor MCCARTHY 1.2.840.114 [id number] Univers 00:00:00 00:00:00 Only Unassigned, LUCIE 350.1.13.10 ity of [facility] 4.2.7.2.686 Ramon as [phone] [facility] [address] 2022-09-02 2022-09-02 Outpatient R DONALDO [facility] [id number] Univers 10:30:00 10:30:00 JOANN ity [facility] 2022-08-24 2022-08-24 Emergency ER [facility]LLINS, [facility] [id number] [place] 12:35:00 14:00:00 ADBILLYES -[id number] [facility] 2022-06-11 2022-06-11 Emergency X [facility] ERT [id number] Univers 11:28:00 12:09:00 ESTELLE leung [facility] 2022-06-11 2022-06-11 Emergency [facility] 1.2.355.852 [id number] Univers 11:28:00 12:09:00 Estelle ARREDONDO 350.1.13.10 i ty of [place] 4.2.7.2.[place]SE[place] [phone] [facility] [address] 2022-05-27 2022-05-27 Patient Doctor [facility] 1.2.977.872 [id number] [id number] Univers 00:00:00 00:00:00 Secure Msg Unassigned, HEALTH 350.1.13.10 ity of [place] [facility] 4.2.7.2.686 [place] [id number] [facility] [address] 2022-05-10 2022-05-10 Telephone [facility] 1.2.376.803 [id number] [id number] Univers 00:00:00 00:00:00 Magalie ARREDONDO 350.1.13.10 ity of [place] 4.2.7.2.686 [place] [facility] [phone] [facility] 0[address] [facility] 2022-05-10 2022-05-10 Telephone [facility] 1.2.374.781 [id number] [id number] Univers 00:00:00 00:00:00 Magalie ARREDONDO 350.1.13.10 ity of [place] 4[place]2.7.2.[place] [id number] Ca dical NAL 059 [facility] 2022-04-20 2022-04-20 Patient Harmon, [facility] 1.2.516.428 [id number] [id number] Univers 00:00:00 00:00:00 Secure Msg [facility] 350.1.13.10 ity of [facility] 4[place]2.7.2.[place] [id number] [facility] [address] 2022-04-19 2022-04-19 Telephone [facility] 1.2.829.491 [id number] [id number] Univers 00:00:00 00:00:00 Marlenakarolyn ARREDONDO 350.1.13.10 i ty of [place] 4.2.7.2.[place] [id number] Ca dical NAL 296 [facility] 2022-04-17 2022-04-17 Patient Doctor SHARI 1.2.840.114 [id number] Univers 00:00:00 00:00:00 Secure Msg Unassigned, LUCIE 350.1.13.10 ity of [facility] 4.2.7.2.686 [place]on as [phone] [facility] [address] 2022-04-07 2022-04-07 Manager [employer] [facility] Pulmonary Func tion [facility] 1.2.840.114 [id number] Univers 09:30:00 09:45:06 Visit Barber Yao [facility] 350.1.13. 10 ity of [place] 4[place]2.7.2.[place] [id number] [facility] [address] 2022-04-07 2022-04-07 Outpatient R MAXIMILIAN [facility] [id number] Univers 09:30:00 09:30:00 BARBER leung of [facility] 2022-04-07 2022-04-07 Orders Doctor SHARI 1.2.840.114 [id number] Univers 00:00:00 00:00:00 Only Unassigned, LUCIE 350.1.13.10 ity of [facility] 4.2.7.2.686 [place]on as [id number] [facility] [address] 2022-03-31 2022-03-31 Telephone [facility] [id number] Univers 00:00:00 00:00:00 Marlena Marty ARREDONDO 350.1.13.10 i ty [place] [phone] Ca dical NAL 296 [facility] 2022-03-10 2022-03-10 Telephone [facility] 1.2.840.114 [id number] Univers 00:00:00 00:00:00 Joann ARNULFO 350.1.13.10 i ty [place] [phone] Ca dical NAL 098 [facility] 2022-03-04 2022-03-04 Office [facility] 1.2.840.114 [id number] Univers 10:30:00 11:00:00 Visit Lucia ARREDONDO 350.1.13.10 i ty [facility] [place].2.[place] [phone] Ca dicde NAL 085 [facility] 2022-03-04 2022-03-04 Outpatient R LUCIA HARMON [facility] 10 [id number] Univers 10:30:00 10:30:00 LUCAI HARMON i ty of [facility] 2022-03-04 2022-03-04 Outpatient R LUCIA HARMON [facility] 10 [id number] Univers 10:30:00 10:30:00 LUCIA HARMON i ty of [facility] 2022-02-28 2022-02-28 Outpatient R DONALDO [facility] [id number] Univers 15:00:00 15:00:00 JOANN leung of [facility] 2022-02-28 2022-02-28 [facility] 1.2.840.114 [id number] Univers 15:00:00 15:00:00 Visit Joann ARREDONDO 350.1.13.10 i ty [place] [phone] Ca dical NAL 098 [facility] 2022-02-28 2022-02-28 [facility] [id number] Univers 15:00:00 11:26:55 JOANN leung [facility] 2022-02-02 2022-02-02 Telephone [facility] 1.2.840.114 [id number] Univers 00:00:00 00:00:00 Joann ARREDONDO 350.1.13.10 i ty of [place] [phone] [address] 2022-01-31 2022-01-31 Office [facility] 1.2.840.114 [id number] Univers 15:00:00 15:11:55 Visit Joann ARREDONDO 350.1.13.10 i ty of [place] [phone] [address] 2022-01-31 2022-01-31 Outpatient R [facility] [id number] Univers 15:00:00 15:11:55 JOANN [facility] 2022-01-31 2022-01-31 Outpatient R [facility] [id number] Univers 15:00:00 15:00:00 JOANN [facility] 2022-01-31 2022-01-31 Orders Doctor SHARI 1.2.840.114 [id number] Univers 00:00:00 00:00:00 Only Unassigned, LUCIE 350.1.13.10 ity of [facility] 4.2.7.2.686 Ramon as [phone] [address] 2021-12-16 2021-12-16 [facility] [id number] Univers 09:30:00 09:30:00 BIBIANA leung [facility] 2021-10-29 2021-10-29 Outpatient R LUCIA HARMON [facility] 10 [id number] Univers 13:30:00 13:30:00 LUCIA HARMON i ty of [facility] 2021-10-27 2021-10-27 Emergency X SINGER [facility] ERT [id number] Univers 10:06:00 10:56:00 KWAME leung [facility] 2021-10-27 2021-10-27 Emergency [facility] 1.2.930.746 [id number] Univers 10:06:00 10:56:00 Kwame ARREDONDO 350.1.13.10 i ty [place] [phone] [facility] [address] 2021-09-29 2021-09-29 Orders Doctor SHARI 1.2.840.114 [id number] Univers 00:00:00 00:00:00 Only Unassigned, LUCIE 350.1.13.10 ity of [place] [facility] 4.2.7.2.686 Ramon as [phone] [facility] [address] 2021-09-20 2021-09-20 [facility] [id number] Univers 11:30:00 11:30:00 SENDIL ity of [facility] 2021-08-06 2021-08-06 Telephone [facility] 1.2.744.039 [id number] Univers 00:00:00 00:00:00 Lucia Arredondo 350.1.13.10 i ty [place] [phone] [facility] nal 085 [facility] 2021-07-23 2021-07-23 Telephone [facility] 1.2.171.901 [id number] Univers 00:00:00 00:00:00 Sendtre Arredondo 350.1.13.10 ity of [place] [phone] Ca dicde nal 059 [facility] 2021 2021 [facility] 1.2.840.114 [id number] Univers 11:58:59 23:59:00 Encounter Magalie Arredondo 350.1.13.10 ity of [place] [phone] Ca dicde nal 846 [facility] 2021 2021 Outpatient [facility] [id number] Univers 11:00:00 11:21:58 SENDIL ity [facility] 2021 2021 Office Tresa [facility] 1.2.840.114 [id number] Univers 11:00:00 11:21:58 Visit Sendtre ARREDONDO 350.1.13.10 ity [facility] [place] [phone] [address] 2021 2021 Office Tresa [facility] 1.2.840.114 [id number] Univers 10:31:38 11:21:58 Visit Sendtre Arredondo 350.1.13.10 ity of [place] [phone] [place] 704719 [facility] 2021 2021 Outpatient R TRESA [facility] [id number] Univers 11:00:00 11:00:00 SENDIL ity [facility] 2021-07-14 2021-07-14 Patient Doctor [facility] 1.2.840.114 [id number] Univers 00:00:00 00:00:00 Secure Msg Unassigned, ARNULFO 350.1.13.10 ity of [place] [phone] [place] 160129 [facility] 2021-07-12 2021-07-12 [facility] 1.2.840.114 [id number] Univers 09:37:03 23:59:00 Encounter Sendtre Arredondo 350.1.13.10 ity of [place] [phone] [facility] 843 [facility] 2021-07-12 2021-07-12 Outpatient R TRESA [facility] [id number] Univers 10:00:00 10:00:00 SENDIL ity [facility] 2021-07-09 2021-07-09 Manager Integrated Therapist, Adc Respiratory [facility] 1.2.840.114 [id number] Univers 11:32:19 13:02:19 Visit YaoBarber patiño Arnulfo 350.1.13. 10 ity of [place] 4.2.7.2.686 [facility] [phone] [facility] [address] 2021-07-09 2021-07-09 Outpatient R YAO [facility] [id number] Univers 12:30:00 12:30:00 BARBER ity [facility] 2021-07-09 2021-07-09 Laboratory Only, Adc Test [facility] 1.2.840. 114 [id number] Univers 07:51:32 08:06:32 Only Corky Jackson 350.1.13.10 ity of [place] [address] [place] [address] [phone] [facility] [address] 2021-07-07 2021-07-07 Outpatient R MAREN SHIRLEY [facility] [id number] Univers 11:30:00 11:30:00 [facility]-07-07 2021-07-07 Manager Integrated [facility] Sleep Lab [facility] 1.2 .840.114 [id number] Univers 10:52:07 11:07:07 Visit Maren Shirley 350.1.13. 10 ity of [place] [address] [place] [address] [phone] [facility] [address] 2021-07-05 2021-07-05 Outpatient R [facility] [id number] Univers 09:15:00 09:15:00 ity [facility] 2021-07-05 2021-07-05 Laboratory Only, Adc Test [facility] 1.2.840. 114 [id number] Univers 07:42:38 07:57:38 Only Lucia Harmon 350.1.13.10 ity of [place] [address] [place] [address] [phone] [facility] [address] 2021-06-29 2021-06-29 Outpatient R TRESA [facility] [id number] Univers 10:00:00 10:00:00 SENDIL ity [facility] 2021-06-17 2021-06-17 Outpatient R CONNORJEY CHANGRACE [facility] [id number] Univers 09:00:00 09:00:00 HARLEEN MAREN ity of [facility] 2021-06-17 2021-06-17 Outpatient TRESA [facility] [id number] Univers 08:30:00 08:30:00 SENDIL ity of [facility] 2021-06-17 2021-06-17 [facility] 1.2.119.603 [id number] Univers 00:00:00 00:00:00 Sendil Artur Arredondo 350.1.13.10 ity of [place] [phone] Ca dicquan nal 059 [facility] 2021-06-14 2021-06-14 Outpatient R [facility] [id number] Univers 13:00:00 13:00:00 ity of [facility] 2021-06-14 2021-06-14 Laboratory Only, Adc Test [facility] 1.2.840. 114 [id number] Univers 12:28:22 12:43:22 Only Maren Shirley 350.1.13. 10 ity of [place] [phone] [facility] [address] 2021-06-14 2021-06-14 Orders Doctor SHARI 1.2.840.114 [id number] Univers 00:00:00 00:00:00 Only Unassigned, LUCIE 350.1.13.10 ity of [place] [facility] 4.2.7.2.686 Ramon as [phone] [facility] [address] 2021-06-11 2021-06-11 Telephone [facility] 1.2.676.663 [id number] Univers 00:00:00 00:00:00 Lucia Arredondo 350.1.13.10 i ty of [place] [phone] Ca dical nal 085 [facility] 2021-06-11 2021-06-11 Telephone Tresa [facility] 1.2.896.637 [id number] Univers 00:00:00 00:00:00 Sendil Artur Arredondo 350.1.13.10 ity of [place] [phone] Ca dicde nal 059 [facility] 2021-06-10 2021-06-10 Office Alfonso [facility] 1.2.840.114 [id number] Univers 09:37:02 10:07:02 Visit Lucia Arredondo 350.1.13.10 i ty of [place] [phone] [facility] nal 085 [facility] 2021-06-10 2021-06-10 Outpatient R LUCIA HARMON [facility] 10 [id number] Univers 10:00:00 10:00:00 LUCIA HARMON i ty of [facility] 2021-06-01 2021-06-01 Orders Doctor SHARI 1.2.840.114 [id number] Univers 00:00:00 00:00:00 Only Unassigned, LUCIE 350.1.13.10 ity of [place] [facility] 4.2.7.2.686 [place] as [phone] [facility] [address] 2021-05-17 2021-05-17 [facility] 1.2.840.114 [id number] Univers 08:17:59 23:59:00 Encounter Daisy Arredondo 350.1.13.10 ity of [place] [phone] [facility] [address] 2021-05-17 2021-05-17 [facility] [id number] Univers 00:00:00 00:00:00 DAISY leung o f [facility] 2021-05-14 2021-05-14 Telephone Tresa [facility] 1.2.444.959 [id number] Univers 00:00:00 00:00:00 Magalie Arredondo 350.1.13.10 ity of [place] [phone] Ca dical nal [address] [place] [address] 2021-05-06 2021-05-06 Outpatient R TRESA [facility] [id number] Univers 10:00:00 10:00:00 SENDIL ity [facility] 2021-05-02 2021-05-03 Emergency Raul Uribe [facility] 1.2.840. 114 [id number] Univers 14:23:00 17:30:00 Andrew Kathleen 350.1.13.10 ity of [place] 4.2.7.2.686 [facility] [phone] [place] [address] [place] 2021-04-28 2021-04-29 Emergency Roca [facility] 1.2.607.372 [id number] Univers 22:05:00 01:08:00 Kwame Arredondo 350.1.13.10 i ty of [place] 4.2.7.2.686 [facility] [phone] [address] 2021-04-22 2021-04-22 Office [facility] 1.2.840.114 [id number] Univers 08:40:15 09:46:18 Visit Sendtre MilesKevinJosueKevin Arredondo 350.1.13.10 ity of [place] 4.2.7.2.686 [facility] Professio [phone] Ca dicde nal [address] [place] [address] 2021-04-22 2021-04-22 Outpatient Julian GTZ [facility] [id number] Univers 09:00:00 09:00:00 SENDIL itnaveen [facility] 2021-04-22 2021-04-22 Orders Doctor MCCARTHY 1.2.840.114 [id number] Univers 00:00:00 00:00:00 Only Unassigned, LUCIE 350.1.13.10 ity of [place] [facility] 4.2.7.2.686 Ramon [phone] [facility] [address] 2021-04-22 2021-04-22 Orders Doctor MCCARTHY 1.2.840.114 [id number] 00:00:00 00:00:00 Only Unassigned, LUCIE 350.1.13.[address] [place] [facility] 4.2.7.2.686 [phone] 009 2021-04-09 2021-04-09 Orders Doctor MCCARTHY 1.2.840.114 [id number] Univers 00:00:00 00:00:00 Only Unassigned, LUCIE 350.1.13.10 ity of [place] [facility] 4.2.7.2.686 [place] [phone] [address] 2021-04-09 2021-04-09 Orders Doctor MCCARTHY 1.2.840.114 [id number] 00:00:00 00:00:00 Only Unassigned, LUCIE 350.1.13.10 [facility] 4.2.7.2.686 [phone] 2021-04-01 2021-04-01 Orders Doctor MCCARTHY 1.2.840.114 [id number] Univers 00:00:00 00:00:00 Only Unassigned, LUCIE 350.1.13.10 ity of [place] [facility] 4.2.7.2.686 [place] [phone] [address] 2021-04-01 2021-04-01 Orders Doctor MCCARTHY 1.2.840.114 [id number] 00:00:00 00:00:00 Only Unassigned, LUCIE 350.1.13.10 [facility] 4.2.7.2.686 [id number] 2021-03-29 2021-03-29 Orders Doctor MCCARTHY 1.2.840.114 [id number] 00:00:00 00:00:00 Only Unassigned, LUCIE 350.1.13.10 [facility] [id number] 2021-03-29 2021-03-29 Orders Doctor SHARI 1.2.840.114 [id number] Univers 00:00:00 00:00:00 Only Unassigned, LUCIE 350.1.13.10 ity of [place] [facility] 4.2.7.2.686 [place] as [phone] [address] 2021-03-22 2021-03-22 Emergency Jo [facility] 1.2.840.114 [id number] 12:21:00 15:40:00 Sarah Arredondo 350.1.13.10 [place] 4.2.7.2.686 [place] [phone] 084 2021-03-22 2021-03-22 Emergency Jo, [facility] 1.2.840.114 [id number] Univers 12:21:00 15:40:00 Sarah Arredondo 350.1.13.10 ity [facility] 4.2.7.2.686 [facility] [place] [phone] [address] 2021-03-22 2021-03-22 Emergency X [facility] ERT [id number] Univers 12:21:00 12:21:00 ity of [facility] 2021-03-22 2021-03-22 Orders Doctor MCCARTHY 1.2.840.114 [id number] 00:00:00 00:00:00 Only Unassigned, LUCIE 350.1.13.[address] [place] [facility] [phone] 009 2021-03-22 2021-03-22 Orders Doctor MCCARTHY 1.2.840.114 [id number] Univers 00:00:00 00:00:00 Only Unassigned, LUCIE 350.1.13.10 ity of [place] [facility] 4.2.7.2.686 [facility] [phone] [address] Results Test Description Test Time Test Comments Results Result Comments Source TROPONIN I 2023-06-20 03:45:45 Test Item Value Reference Range Interpretation Comme nts TROPONIN I (test code = 7426295822) 0.004 ng/mL <=0.034 PAT (test code = PAT) [...] biotin. Lab Interpretation (test code = Normal 18641-6) [facility]. METABOLIC PANEL ([id number])2023-06-20 02:48:41 Test Item Value Reference Range Interpretation Comments NA (test code = 141 mmol/L 135-145 5696491882) K (test code = 3.2 mmol/L 3.5-5.0 L 1403981441) CL (test code = 107 mmol/L 98-108 6023737062) CO2 TOTAL (test code = 28 mmol/L 23-31 1376407712) AGAP (test code = 6 2-16 2909940484) BUN (test code = 15 mg/dL 7-23 8817668287) GLUCOSE (test code = 86 mg/dL 70-110 7448028414) CREATININE (test code = 0.85 mg/dL 0.50-1.04 1123782050) TOTAL BILI (test code = 0.2 mg/dL 0.1-1.9 1570038156) CALCIUM (test code = 8.6 mg/dL 8.6-10.6 9179430270) T PROTEIN (test code = 6.4 g/dL 6.3-8.2 5591357996) ALBUMIN (test code = 3.8 g/dL 3.5-5.0 6475386437) ALK PHOS (test code = 102 U/L 34-122 5753014131) ALTv (test code = 15 U/L 5-35 1742-6) AST(SGOT) (test code = 20 U/L 13-40 6730334522) eGFR (test code = 68.9 mL/min/1.73m2 8171047896) PAT (test code = PAT) Association of [...] tests). Lab Interpretation Abnormal (test code = 81031-5) [facility]48[facility]00 Test Item Value Reference Range Interpretation Comments LIPASE (test code = 5537103581) 176 U/L 0-220 Lab Interpretation (test code = Normal 90305-1) [facility] WITH [id number] 02:36:39 Test Item Value Reference Range Interpretation Comments WBC (test code = 10.23 See_Comment [Automated message] 9490-2) The system [employer] generated this result transmitted ref erence range: 4.30 - 1 1.10 10*3/?L. The re ference range was not u sed to interpret this result as normal/abnor mal. RBC (test code = 4.29 See_Comment [Automated message] 779-8) The system [employer] generated this result transmitted ref erence range: 3.93 - 5 .25 10*6/?L. The re ference range was not u sed to interpret this result as normal/abnor mal. HGB (test code = 12.7 g/dL 11.6-15.0 718-7) HCT (test code = 39.0 % 35.7-45.2 4544-3) MCV (test code = 90.9 fL 80.6-95.5 787-2) MCH (test code = 29.6 pg 25.9-32.8 785-6) MCHC (test code = 32.6 g/dL 31.6-35.1 786-4) RDW-SD (test code 42.5 fL 39.0-49.9 = 67751-4) RDW-CV (test code 12.9 % 12.0-15.5 = 788-0) PLT (test code = 188 See_Comment [Automated message] 777-3) The system whic h generated this result transmitted ref erence range: 166 - 35 8 10*3/?L. The re ference range was not u sed to interpret this result as normal/abnor mal. MPV (test code = 10.5 fL 9.5-12.9 21793-7) NRBC/100 WBC (test 0.0 See_Comment [Automat ed message] code = 8573849141) The syste m which generated this result transmitted ref erence range: 0.0 - 10 .0 /100 WBCs. The refer ence range was not u sed to interpret this result as normal/abnor mal. NRBC x10^3 (test See_Comment [Automated message] code = 8924762767) The syste m which generated this result transmitted ref erence range: 10*3/?L. The reference range was not used to interpr et this result as normal/abnormal . GRAN MAT (NEUT) % 58.5 % (test code = 770-8) IMM GRAN % (test 0.50 % code = 1463736469) LYMPH % (test code 31.1 % = 736-9) MONO % (test code 6.4 % = 5905-5) EOS % (test code = 2.9 % 713-8) BASO % (test code 0.6 % = 706-2) GRAN MAT 5.99 10*3/uL 1.88-7.09 x10^3(ANC) (test code = 6669768210) IMM GRAN x10^3 0.05 10*3/uL 0.00-0.06 (test code = 4464289198) LYMPH x10^3 (test 3.18 10*3/uL 1.32-3.29 code = 731-0) MONO x10^3 (test 0.65 10*3/uL 0.33-0.92 code = 742-7) EOS x10^3 (test 0.30 10*3/uL 0.03-0.39 code = 711-2) BASO x10^3 (test 0.06 10*3/uL 0.01-0.07 code = 704-7) [facility] [id number] 20:09:55 Test Item Value Reference Range Interpretation Comments TROPONIN I (test code = 0.003 ng/mL <=0.034 2330123926) PAT (test code = PAT) Reference (Normal) [...] biotin. Lab Interpretation Normal (test code = 92062-2) [facility] [id number] 20:06:51 Test Item Value Reference Range Interpretation Comments NT-proBNP (test code = 147 pg/mL <=125 H 7413775591) PAT (test code = PAT) Biotin has been reported to cause a negative bias, interpret results relative to patient's use of biotin. Lab Interpretation (test Abnormal code = 14744-4) [facility] METABOLIC PANEL (22466)2023-04-21 19:59:32 Test Item Value Reference Range Interpretation Comments NA (test code = 141 mmol/L 135-145 3553783940) K (test code = 3.4 mmol/L 3.5-5.0 L 3954837617) CL (test code = 105 mmol/L 98-108 3244613131) CO2 TOTAL (test code = 27 mmol/L 23-31 7547698900) AGAP (test code = 9 2-16 7462875114) BUN (test code = 8 mg/dL 7-23 9248138031) GLUCOSE (test code = 84 mg/dL 70-110 1352832537) CREATININE (test code = 0.70 mg/dL 0.50-1.04 9878180777) TOTAL BILI (test code = 0.5 mg/dL 0.1-1.1 5834695127) CALCIUM (test code = 9.1 mg/dL 8.6-10.6 4736242576) T PROTEIN (test code = 6.6 g/dL 6.3-8.2 3541521693) ALBUMIN (test code = 3.9 g/dL 3.5-5.0 7724230349) ALK PHOS (test code = 91 U/L 34-122 2224125082) ALTv (test code = 14 U/L 5-35 1742-6) AST(SGOT) (test code = 20 U/L 13-40 7006137612) eGFR (test code = 86.2 mL/min/1.73m2 3470416473) PAT (test code = PAT) Association of [...] tests). Lab Interpretation Abnormal (test code = 64311-3) [facility] WITH [id number] 19:43:27 Test Item Value Reference Range Interpretation Comments WBC (test code = 7.17 See_Comment [Automated 6690-2) message] The sy stem [...] RDW-SD (test code = 40.5 fL 39.0-49.9 40243-2) RDW-CV (test code = 12.9 % 12.0-15.5 788-0) PLT (test code = 183 See_Comment [Automated 777-3) message] The sy stem which generated this result transmitted reference range : 166 - 358 10*3/ ?L. The reference r vinh was not used to interpret this result as normal/abnormal . MPV (test code = 10.5 fL 9.5-12.9 93788-3) NRBC/100 WBC (test 0.0 See_Comment [Automat ed code = 0163329548) message] The system which generated this result transmitted reference range : 0.0 - 10.0 /100 WBCs. The refer ence range was not u sed to interpret th is result as normal/abnormal . NRBC x10^3 (test code See_Comment [Auto mated = 8903194971) message] The s ystem which generated this result transmitted reference range : 10*3/?L. The reference range was not used to interpret this result as normal/abnormal . GRAN MAT (NEUT) % 55.8 % (test code = 770-8) IMM GRAN % (test code 0.10 % = 7562996313) LYMPH % (test code = 32.1 % 736-9) MONO % (test code = 5.0 % 5905-5) EOS % (test code = 6.0 % 713-8) BASO % (test code = 1.0 % 706-2) GRAN MAT x10^3(ANC) 4.00 10*3/uL 1.88-7.09 (test code = 2910112660) IMM GRAN x10^3 (test 0.00-0.06 code = 3048573574) LYMPH x10^3 (test code 2.30 10*3/uL 1.32-3.29 = 731-0) MONO x10^3 (test code 0.36 10*3/uL 0.33-0.92 = 742-7) EOS x10^3 (test code = 0.43 10*3/uL 0.03-0.39 H 711-2) BASO x10^3 (test code 0.07 10*3/uL 0.01-0.07 = 704-7) Lab Interpretation Abnormal (test code = 31102-1) [facility] [id number] 01:09:35 Test Item Value Reference Range Interpretation Comments TROPONIN I (test code = 0.001 ng/mL <=0.034 8370886337) PAT (test code = PAT) Reference (Normal) [...] biotin. Lab Interpretation Normal (test code = 76629-3) [facility] [id number] 01:06:35 Test Item Value Reference Range Interpretation Comments NT-proBNP (test code = 59 pg/mL <=125 4983224042) PAT (test code = PAT) Biotin has been reported to cause a negative bias, interpret results relative to patient's use of biotin. Lab Interpretation (test Normal code = 70404-9) [facility]. METABOLIC PANEL (84931)2023-04-02 00:57:37 Test Item Value Reference Range Interpretation Comments NA (test code = 140 mmol/L 135-145 7197772303) K (test code = 3.8 mmol/L 3.5-5.0 6457548853) CL (test code = 104 mmol/L 98-108 3887694247) CO2 TOTAL (test code 29 mmol/L 23-31 = 6635121770) AGAP (test code = 7 2-16 4730134586) BUN (test code = 13 mg/dL 7-23 0376549375) GLUCOSE (test code = 86 mg/dL 70-110 4190765731) CREATININE (test code 0.81 mg/dL 0.50-1.04 = 0938652494) TOTAL BILI (test code 0.5 mg/dL 0.1-1.1 = 8451455738) CALCIUM (test code = 9.2 mg/dL 8.6-10.6 4407627894) T PROTEIN (test code 6.6 g/dL 6.3-8.2 = 5346801559) ALBUMIN (test code = 3.8 g/dL 3.5-5.0 9353872709) ALK PHOS (test code = 95 U/L 34-122 2898999756) ALTv (test code = 34 U/L 5-35 1742-6) AST(SGOT) (test code 29 U/L 13-40 = 3363173549) eGFR (test code = 72.9 mL/min/1.73m2 0879001464) PAT (test code = PAT) Association of [...] or urine or abnormalities in imaging tests). [facility] THRM[facility] [id number] 00:26:54 Test Item Value Reference Range Interpretation Comments APTT Patient (test 26 See_Comment [Automat ed code = 3173-2) message] The system which generated this result transmitted reference range : 23 - 38 Seconds . The reference range was not used to interpr et this result as normal/abnormal . PAT (test code = PAT) The [facility] patient population mean normal value for aPTT is 30 seconds. Lab Interpretation Normal (test code = 29961-9) [facility] / [id number] 00:24:53 Test Item Value Reference Range Interpretation Comments PROTIME PATIENT (test 12.5 See_Comment [Auto mated message] code = 5964-2) The system [employer] ich generated this result transmitted ref erence range: 12.0 - 1 4.7 Seconds. The re ference range was not u sed to interpret this result as normal/abnor mal. INR (test code = 6301-6) 1.0 Nor mal INR <1.1; Warfarin Therap eutic range 2.0 to 3. 0 or 2.5 to 3.5, dep ending upon the indica tions. Lab Interpretation (test Normal code = 52379-6) [facility] WITH [id number] 00:16:32 Test Item Value Reference Range Interpretation [...] RDW-SD (test code = 40.7 fL 39.0-49.9 36685-6) RDW-CV (test code = 12.5 % 12.0-15.5 788-0) PLT (test code = 190 See_Comment [Automated 777-3) message] The sy stem which generated this result transmitted reference range : 166 - 358 10*3/ ?L. The reference r vinh was not used to interpret this result as normal/abnormal . MPV (test code = 9.9 fL 9.5-12.9 24158-9) NRBC/100 WBC (test 0.0 See_Comment [Automat ed code = 4413081405) message] The system which generated this result transmitted reference range : 0.0 - 10.0 /100 WBCs. The refer ence range was not u sed to interpret th is result as normal/abnormal . NRBC x10^3 (test code See_Comment [Auto mated = 9273362056) message] The s ystem which generated this result transmitted reference range : 10*3/?L. The reference range was not used to interpret this result as normal/abnormal . GRAN MAT (NEUT) % 53.4 % (test code = 770-8) IMM GRAN % (test code 0.30 % = [id number]) LYMPH % (test code = 31.9 % 736-9) MONO % (test code = 5.5 % 5905-5) EOS % (test code = 8.1 % 713-8) BASO % (test code = 0.8 % 706-2) GRAN MAT x10^3(ANC) 4.25 10*3/uL 1.88-7.09 (test code = 8872344363) IMM GRAN x10^3 (test 0.00-0.06 code = [id number]) LYMPH x10^3 (test code 2.54 10*3/uL 1.32-3.29 = 731-0) MONO x10^3 (test code 0.44 10*3/uL 0.33-0.92 = 742-7) EOS x10^3 (test code = 0.64 10*3/uL 0.03-0.39 H 711-2) BASO x10^3 (test code 0.06 10*3/uL 0.01-0.07 = 704-7) Lab Interpretation Abnormal (test code = 07841-6) [facility]. METABOLIC PANEL (15466)2023-01-24 02:47:44 Test Item Value Reference Range Interpretation Comments NA (test code = 138 mmol/L 135-145 2257648870) K (test code = 3.5 mmol/L 3.5-5.0 1627350655) CL (test code = 103 mmol/L 98-108 5770153354) CO2 TOTAL (test code 25 mmol/L 23-31 = 7834586175) AGAP (test code = 10 2-16 0580607286) BUN (test code = 11 mg/dL 7-23 5928712318) GLUCOSE (test code = 83 mg/dL 70-110 4127986181) CREATININE (test code 0.75 mg/dL 0.50-1.04 = 5103670778) TOTAL BILI (test code 0.6 mg/dL 0.1-1.1 = 3607184795) CALCIUM (test code = 9.0 mg/dL 8.6-10.6 1338438226) T PROTEIN (test code 6.9 g/dL 6.3-8.2 = 6354131796) ALBUMIN (test code = 4.2 g/dL 3.5-5.0 8733118725) ALK PHOS (test code = 82 U/L 34-122 7545976230) ALTv (test code = 17 U/L 5-35 1742-6) AST(SGOT) (test code 21 U/L 13-40 = 5362152443) eGFR (test code = 79.6 mL/min/1.73m2 6761701402) PAT (test code = PAT) Association of [...] or urine or abnormalities in imaging tests). [facility] Test Item Value Reference Range Interpretation Comments LIPASE (test code = 3794619263) 164 U/L 0-220 Lab Interpretation (test code = Normal 30084-5) [facility] WITH RCMP0621-80-11 02:33:02 Test Item Value Reference Range Interpretation Comments WBC (test code = 8.43 See_Comment [Automated 6690-2) message] The sy stem [...] RDW-SD (test code = 39.7 fL 39.0-49.9 05050-3) RDW-CV (test code = 12.3 % 12.0-15.5 788-0) PLT (test code = 199 See_Comment [Automated 777-3) message] The sy stem which generated this result transmitted reference range : 166 - 358 10*3/ ?L. The reference r vinh was not used to interpret this result as normal/abnormal . MPV (test code = 10.8 fL 9.5-12.9 71540-8) NRBC/100 WBC (test 0.0 See_Comment [Automat ed code = 9704746663) message] The system which generated this result transmitted reference range : 0.0 - 10.0 /100 WBCs. The refer ence range was not u sed to interpret th is result as normal/abnormal . NRBC x10^3 (test code See_Comment [Auto mated = 1620625275) message] The s ystem which generated this result transmitted reference range : 10*3/?L. The reference range was not used to interpret this result as normal/abnormal . GRAN MAT (NEUT) % 51.8 % (test code = 770-8) IMM GRAN % (test code 0.50 % = 0113428464) LYMPH % (test code = 34.9 % 736-9) MONO % (test code = 5.6 % 5905-5) EOS % (test code = 6.3 % 713-8) BASO % (test code = 0.9 % 706-2) GRAN MAT x10^3(ANC) 4.37 10*3/uL 1.88-7.09 (test code = 6253272256) IMM GRAN x10^3 (test 0.04 10*3/uL 0.00-0.06 code = 9774105480) LYMPH x10^3 (test code 2.94 10*3/uL 1.32-3.29 = 731-0) MONO x10^3 (test code 0.47 10*3/uL 0.33-0.92 = 742-7) EOS x10^3 (test code = 0.53 10*3/uL 0.03-0.39 H 711-2) BASO x10^3 (test code 0.08 10*3/uL 0.01-0.07 H = 704-7) Lab Interpretation Abnormal (test code = 91641-8) [facility] [id number] 15:58:42 Test Item Value Reference Range Interpretation Comments POCT Creatinine (test code = 0.8 mg/dL 0.5-1.0 9139647893) Lab Interpretation (test code = Normal 57492-4) [facility] URINALYSIS W/O SPECIFIC [id number] 20:51:00 Test Item Value Reference Range Interpretation [...] = ?37 ml. Results reported to provider. [facility]CIFIC [id number] 20:51:00 Test Item Value Reference Range Interpretation [...] = ?37 ml. Results reported to provider. [facility] Notes Date/Time Note Provider Source 2023-06-19 23:47:28 1725-11-68R34:47:28Formatting of [facility] this note might be different from the original.Pt given printed and verbal discharge instructions regarding generalized abdominal pain, LUQ abdominal pain, Acute cystitis without hematuria, encouraged hydration,3 Prescriptions sent. Discussed antibiotic therapy and to take until all completed unless adverse reaction occurs - if occurs, discontinue medication and follow up with pcp/seek medical attention Pt verbalized understanding of instructions, pt awake alert oriented, resp reg unlabored, skin w/d, color appropriate for race, moves all ext well,pt encouraged to follow up with pcp. Advised to seek medical attention for new/prolonged/worsening of symptoms,Symptoms improved. No adverse reaction to meds given in ER noted upon dischargePIV d'cd, dressing to site, catheter in tact.Awake, alert oriented, resp reg unlabored, skin w/d, pt leaving amb with steady gait, in no apparent distress, 28663-1Jgohupegm department TpjgAE5523-04-48Q99:48:18Emergency department NoteTXT1.2.840.755436.1.13.104.2.7. 2.361585|[id number] for patient ibij20599-5SqkvAJVDFCZSEX[id number] 9KPDZTELNCMHUXYRFCWBWIU7857-26-62L0 3:48:181.2.840.058675.1.72.3.15|1.2 .840.943059.1.13.104.2.7.2.727879_1 [id number] 2023-06-19 20:40:00 8517-72-13A89:40:00Formatting of Claire Ferguson [facility] this note might be different from Queenie RN the original.Patient came in with complaints of abdominal pain, n/v since 11AM. 87201-5Mjyocqtwt department Triage vsqbGC3455-80-87M21:59:24[facility] Triage noteTXT1.2.840.502195.1.13.104.2.7. 2.893067|[id number] for patient opvq23598-2Wsibtbnyg department WngnCX606717750Xqymrwfw C Heredia [id number] 1EBVNKBDQIEYHHRUUPTFLOV7261-95-86M1 0:59:241.2.840.194639.1.72.3.15|1.2 .840.944660.1.13.104.2.7.2.727879_1 [id number] 2023-06-19 16:34:31 3882-21-58K15:34:31Formatting of [facility] this note might be different from the original.Paper completed. Awaiting Dr. Harmon's signature once he returns to [facility] office. 62293-3Ascarcucu encounter NswbVY2575-73-16J30:35:14Telephone encounter NoteTXT1.2.840.374585.1.13.104.2.7. 2.825787|[id number] for patient emcd10809-0SqwvRHTHOBMUJI[id number] 6NGJAAOFKYGJGAMOWAGDOEU1023-65-91X8 6:35:141.2.840.498168.1.72.3.15|1.2 .840.693098.1.13.104.2.7.2.727879_1 [id number] 2023-06-07 14:13:36 0034-74-28H13:13:36Formatting of [facility] this note might be different from the original.Pt given printed and verbal discharge instructions regarding rash, encouraged hydration.Prescriptions provided.Pt verbalized understanding of instructions, pt awake alert oriented, resp reg unlabored, skin w/d, color appropriate for race, moves all ext well, pt encouraged to follow up with pcp.Advised to seek medical attention for new/prolonged/worsening of symptoms.Symptoms addressed.No meds given in ER noted upon discharge.Pt leaving amb with steady gait, in no apparent distress. 75985-6Sfolnstup department ZmhmQA1219-21-06U58:14:33Emergency department NoteTXT1.2.840.715282.1.13.104.2.7. 2.878662|[id number] for patient fuwg52837-5TimdQFOUQQHHOO[id number] 2NHMBBWWOWIXABYKURSWLTF8427-14-66U9 4:14:331.2.840.713814.1.72.3.15|1.2 .840.899982.1.13.104.2.7.2.727879_1 [id number] 2023-06-07 13:44:21 4036-86-80Z81:44:21Formatting of Marsha Lyons [facility] this note might be different from RN the original.CC: patient presents to the ER with complaints of a rash that itches that has been present for the past week, patient states she has been using calamine lotion without relief.PMHx: see historyAwake, alert, oriented, resp reg unlabored, skin warm and dry, color appropriate for race, moves all ext without difficulty, amb without assistance. Appears in no distress. 30658-6Wjmafaoog department Triage pljpNI2543-82-04Y08:45:57[facility] Triage noteTXT1.2.840.028710.1.13.104.2.7. 2.708913|[id number] for patient twtx51313-9Factaygvr department LbulYH554491378Qxdlfdfk M Rivera RNUT[id number] 8KWTBEVQYIIKKJBRPNNSAVF0422-45-88Y4 3:45:571.2.840.684182.1.72.3.15|1.2 .840.149856.1.13.104.2.7.2.727879_1 [id number] 2023-06-07 13:28:00 9257-35-20G71:28:00Formatting of [facility] this note is different from the original.[facility] Emergency Department NotePatient Name: Olga Lidia Michael of : 1965 57 year old femaleTreatment Room: [place] [address]Medical Record Number: [id number] Care Physician: No primary care provider on file.Patient Escorted by: Self [9]Mode of Arrival: Personal means [1]EMS Treatment Prior to ED Arrival: Travel and Exposure Screening:SymptomsDoes patient have any of these symptoms?: (not recorded)Exposure ScreeningHas patient had contact with someone with a communicable disease in the last month?: (not recorded)Diseases exposed to:: (not recorded)Is Patient ?: (not recorded)Exposure Date: (not recorded)Chief Complaint:Chief Complaint Patient presents with Rash History of Present Illness:The patient presents from home for evaluation for a rash that she has noted for the past 1 or 2 weeks. She denies any new detergents, lotions or soaps. No shortness of breath. No change in her voice. She been using calamine lotion at home with minimal help. She has not seen her PCP for this.Here for evaluation.Past Medical History/Immunizations:Past Medical History: Diagnosis Date Bipolar disorder Depression Mood disorder Allergies:Allergies Allergen Reactions Adhesive Rash Aspirin Rash Iodine Hives Latex Rash Morphine Rash Hives Oxcarbazepine Other - See comments Tachycardia, sleepiness, and patient is unable to use the restroom. Penicillin Rash Prozac [Fluoxetine] Hives Seroquel [Quetiapine] Hives Past Social History:Tobacco Use Former; Cigarettes: Quit 2020 Smokeless Tobacco: Never used smokeless tobacco. Comments: Quit a year ago. Vaping Use Never used Alcohol Use Not Currently. Drug Use Not Currently; "Crack" cocaine. Sexual Activity Not currently sexually active. Past Surgical History:Past Surgical History: Procedure Laterality Date HYSTERECTOMY Review of Systems: Review of Systems Constitutional: Negative for chills and fever. Respiratory: Negative for cough and shortness of breath. Cardiovascular: Negative for chest pain. Gastrointestinal: Negative for abdominal pain and vomiting. Genitourinary: Negative for dysuria. Musculoskeletal: Negative for neck pain and neck stiffness. Skin: Positive for rash. Neurological: Negative for dizziness. Psychiatric/Behavioral: Negative for agitation. Endocrine: Negative for goiter. Physical Exam: ED Triage Vitals [06/07/23 1346] Weight 74.8 kg (165 lb) Actual or estimated Estimated by patient/family report Height 1.575 m (5' 2") BP 129/83 Pulse 66 Resp 18 Temp 37.5 ?C (99.5 ?F) Temp source Oral SpO2 98 % Measured on Room air Physical ExamVitals and nursing note reviewed. Constitutional: Appearance: Normal appearance. She is normal weight. HENT: Head: Normocephalic and atraumatic. Mouth/Throat: Mouth: Mucous membranes are moist. Pharynx: Oropharynx is clear. No oropharyngeal exudate or posterior oropharyngeal erythema. Cardiovascular: Rate and Rhythm: Normal rate and regular rhythm. Pulses: Normal pulses. Pulmonary: Effort: Pulmonary effort is normal. No respiratory distress. Breath sounds: No stridor. No wheezing or rhonchi. Abdominal: General: There is no distension. Musculoskeletal: General: Normal range of motion. Cervical back: Normal range of motion and neck supple. Skin: General: Skin is warm and dry. Findings: Rash present. Comments: Erythematous rash noted to her arms and legs bilaterally.No urticaria. Neurological: General: No focal deficit present. Mental Status: She is alert and oriented to person, place, and time. Radiology:No orders to display Lab Results:Lab Results - No data to displayEKG:If EKG completed, see Procedure Note. Orders and Treatments:No orders of the defined types were placed in this encounter.Orders Placed This Encounter Medications predniSONE 50 mg tablet First Provider Eval:ED Events Date/Time Event User Comments 06/07/231336 Medical Screening Begins SARAH OSORIO DO -- 06/07/231336 First Provider Evaluation SARAH OSORIO DO -- No notes of EC Admission Criteria type on file.ED COURSEDiagnosis/Impression as of 06/07/23 1352 Rash Procedures: ProceduresMDM:Medical Decision MakingThe patient presents from home for evaluation for a rash to her entire body for the past 1 or 2 weeks. No new detergents, lotions or soaps. She has not been outside recently. She has been using some calamine lotion at home without much help. No shortness of breath. No change in her voice. She has not seen her PCP for this.Vital signs are stable in the ER.Her airway is patent.Her lungs are clear bilaterally.She is a faint erythematous rash to her bilateral arms and legs.We will treat with a short course of prednisone.Recommend she is heoe-erq-ifmqqwz antihistamines such as Paula, Claritin or Zyrtec during the day as well as Benadryl at night.She remained stable here in the ER and is okay for discharge home with PCP follow-up.Problems Addressed:Rash: self-limited or minor problemRiskOTC drugs.Prescription drug management. Flowsheet Documentation: Scoring Tools: No data recorded Disposition/Condition:ED Disposition ED Disposition Disch - Home Condition Stable Comment -- Discharge Medications:Patient's Medications START taking these medications PREDNISONE 50 MG TABLET Take 1 tablet by mouth in the morning for 5 days. CONTINUE taking these medications which have NOT CHANGED ALBUTEROL 90 MCG/ACTUATION INHALER Inhale 2 Puffs every 6 (six) hours as needed for Wheezing or Shortness of Breath. BUSPIRONE 30 MG TABLET Take 1 tablet by mouth in the morning and 1 tablet in the evening. CARIPRAZINE (VRAYLAR) 4.5 MG CAP Take 4.5 mg by mouth every evening. FAMOTIDINE (PEPCID) 20 MG TABLET Take 1 oral tab every 12 hrs. Start one day before procedure and last dose on morning of procedure FLUTICASONE PROPION-SALMETEROL (ADVAIR DISKUS) 250-50 MCG/DOSE INHALATION DISK Inhale 1 Puff every 12 (twelve) hours. INGREZZA 60 MG CAP OPTICHAMBER THONY LG MASK SPCR USE DIRECTED NEEDED WITH INHALER ROSUVASTATIN 10 MG TABLET 1 tablet at bedtime. TIOTROPIUM BROMIDE (SPIRIVA RESPIMAT) 2.5 MCG/ACTUATION MIST Inhale 2 Puffs in the morning. START taking Modified Medications as Prescribed No medications on file STOP taking these medications CETIRIZINE 10 MG TABLET Take 1 tablet by mouth every morning. DICYCLOMINE 20 MG TABLET Take 1 tablet by mouth 4 (four) times daily. DIPHENHYDRAMINE (BENADRYL) 25 MG CAPSULE Take 1 oral tab every 12 hrs. Start one day before procedure and last dose on morning of procedure NITROFURANTOIN&NIT. MACROCRYST (MACROBID) 100 MG CAPSULE Take 1 capsule by mouth in the morning and 1 capsule in the evening. ONDANSETRON 4 MG DISINTEGRATING TABLET Take 1 tablet by mouth every 4 (four) hours as needed for Nausea and Vomiting (N/V). PREDNISONE 20 MG TABLET Take two 20mg tabs every 6 hrs. Start one day before procedure and last dose on morning of procedure Follow-up:Electronically signed by: Sarah Osorio, 06/07/23 1352 01675-7Hiikjecwt Emergency department HqmeST3802-60-13G33:52:12Physician Emergency department NoteTXT1.2.840.601819.1.13.104.2.7. 2.357762|[id number] for patient zhnp68333-0Bqotmmcsg department [address] Bn[id number] 2IIYPCYNVTADTKVMNEGUGKX1449-16-76P9 3:52:121.2.840.180741.1.72.3.15|1.2 .840.038822.1.13.104.2.7.2.727879_1 [id number]
--- NOTE | 2023-09-12 13:42 | RAD REPORT ---
EXAM DESCRIPTION: US - UPPER EXTREMITY VENOUS UNILATE - 09/12/2023 1:22 pm CLINICAL HISTORY: Pain, swelling right arm COMPARISON: None. TECHNIQUE: Real-time sonographic evaluation of the right upper extremity deep venous system was perf ormed. FINDINGS: Normal compressibility, flow augmentation, phasic flow and spontaneous flow is identified in the right upper extremity deep venous system. No intraluminal filling defects seen. IMPRESSION: No venous thrombosis in the right upper extremity.
[2023-09-12 13:54] LABS: Hematocrit 39.7 % (36.0-45.0); MCV 86.6 fL (80-100); MPV 8.4 fL (7.6-11.3); Platelets 187 thou/uL (152-406); RBC Red Blood Cell Count 4.58 M/uL (3.86-4.86)
[2023-09-12 13:55] LABS: Protime INR 1.04
[2023-09-12 14:09] LABS: Potassium 3.6 mEq/L (3.5-5.1)
--- NOTE | 2023-09-12 14:23 | ER ---
Nurse's Notes [facility] Name: Olga Lidia Delgadillo Age: 58 yrs Sex: Female : 1965 Arrival Date: 09/12/2023 Time: 12:26 Bed 9 Private MD: Diagnosis: Right upper arm swelling Presentation: 09/12 12:37 Chief complaint: Patient states: Right arm pain for 2 days, swelling to upper arm. nj1 States hand feels numb on/off since. Coronavirus screen: Vaccine status: Patient reports receiving the 2nd dose of the covid vaccine. Ebola Screen: Patient denies travel to an Ebola-affected area in the 21 days before illness onset. Initial Sepsis Screen: Does the patient meet any 2 criteria? No. Patient's initial sepsis screen is negative. Does the patient have a suspected source of infection? No. Patient's initial sepsis screen is negative. Risk Assessment: Do you want to hurt yourself or someone else? Patient reports no desire to harm self or others. Onset of symptoms was September 11, 2023. 12:37 Method Of Arrival: Ambulatory nj1 12:37 Acuity: ROXIE 4 nj1 Historical: - Allergies: 12:42 Aspirin (Hives); nj1 12:42 Iodine; nj1 12:42 Latex; nj1 12:42 PENICILLINS; nj1 12:42 Prozac; nj1 - PMHx: 12:42 Depression; Bipolar disorder; PTSD (Bipolar disorder); Irregular heart beat (Unknown); nj1 Asthma; Mental disability; - PSHx: 12:42 hysterectomy; nj1 - Immunization history:: Client reports receiving the 2nd dose of the Covid vaccine. - Social history:: Smoking status: Patient denies any tobacco usage or history of. Screenin:40 [facility] ED Fall Risk Assessment (Adult) History of falling in the last 3 months, cp4 including since admission No falls in past 3 months (0 pts) Confusion or Disorientation No (0 pts) Intoxicated or Sedated No (0 pts) Impaired Gait No (0 pts) Mobility Assist Device Used No (0 pt) Altered Elimination No (0 pt) Score/Fall Risk Level 0 - 2 = Low Risk Oriented to surroundings, Maintained a safe environment, Educated pt \T\ family on fall prevention, incl call for assistance when getting out of bed, Hourly rounding (assess needs \T\ fall precautionary measures) done. Abuse screen: Denies threats or abuse. Nutritional screening: No deficits noted. Tuberculosis screening: No symptoms or risk factors identified. Assessment: 13:40 General: Appears in no apparent distress. Behavior is calm, cooperative, appropriate cp4 for age. Pain: Complains of pain in right arm. Vital Signs: 12:37 BP 118 / 83; Pulse 69; Resp 18; Temp 98.2(O); Pulse Ox 100% on R/A; Weight 82.55 kg; nj1 Height 5 ft. 2 in. ; Pain 8/10; 14:29 BP 119 / 86; Pulse 72; Resp 18; Pulse Ox 99% ; cp4 12:37 Body Mass Index 33.29 (82.55 kg, 157.48 cm) [facility] 12:37 Pain Scale: Adult [facility] ED Course: 12:29 Patient arrived in ED. 12:32 [facility]illo [facility] 12:32 Nigel Obrien MD is Attending Physician. [facility] 12:42 Triage completed. [facility] 12:44 Arm band placed on left wrist. [facility] 13:22 Rhiannon Waddell is Primary Nurse. cp4 13:23 UPPER EXTREMITY VENOUS UNILATE In Process Unspecified. EDMS 13:40 Bed in low position. Call light in reach. Side rails up X 1. cp4 13:40 No provider procedures requiring assistance completed. Inserted saline lock: 20 gauge cp4 in left antecubital area, using aseptic technique. Blood collected. 14:30 Provided Education on: arm pain. cp4 14:30 intact, bleeding controlled, No redness/swelling at site. Pressure dressing applied. cp4 Administered Medications: No medications were administered Medication: 13:40 VIS not applicable for this client. cp4 Outcome: 14:22 Discharge ordered by . 7 14:30 Discharged to home ambulatory, cp4 14:30 Condition: stable 14:30 Discharge instructions given to emergency department nurse, Instructed on discharge instructions, follow up and referral plans. Demonstrated understanding of instructions, follow-up care, 14:31 Patient left the ED. cp4 Signatures: Dispatcher [employer] EDID Jenise Murillo FNP FEATHERER [facility] Malissa Clemente RN RN ma1 Ilene Thurman Rhiannon Waddell cp4
--- NOTE | 2023-09-12 14:23 | EDPHYS ---
Physician Documentation [facility] Name: Olga Lidia Delgadillo Age: 58 yrs Sex: Female : 1965 Arrival Date: 09/12/2023 Time: 12:26 Bed 9 Private MD: ED Physician Nigel Obrien HPI: 09/12 12:42 This 58 yrs old Unknown Female presents to ER via Ambulatory with complaints of Arm jh7 Problem. 12:42 The patient or guardian complains of pain, that is acute, swelling. The complaints jh7 affect the right bicep and right antecubital area. Onset: The symptoms/episode began/occurred 2 day(s) ago. Treatment prior to arrival includes: no previous treatment. Modifying factors: the symptoms are aggravated by movement, bending arm. Associated signs and symptoms: The patient has no apparent associated signs or symptoms. Historical: - Allergies: 12:42 Aspirin (Hives); nj1 12:42 Iodine; nj1 12:42 Latex; nj1 12:42 PENICILLINS; nj1 12:42 Prozac; nj1 - PMHx: 12:42 Depression; Bipolar disorder; PTSD (Bipolar disorder); Irregular heart beat (Unknown); nj1 Asthma; Mental disability; - PSHx: 12:42 hysterectomy; nj1 - Immunization history:: Client reports receiving the 2nd dose of the Covid vaccine. - Social history:: Smoking status: Patient denies any tobacco usage or history of. ROS: 12:42 Constitutional: Negative for fever, chills, and weight loss, Eyes: Negative for injury, jh7 pain, redness, and discharge, Neck: Negative for injury, pain, and swelling, Cardiovascular: Negative for chest pain, palpitations, and edema, Respiratory: Negative for shortness of breath, cough, wheezing, and pleuritic chest pain, Abdomen/GI: Negative for abdominal pain, nausea, vomiting, diarrhea, and constipation, MS/Extremity: Negative for injury and deformity, Skin: Negative for injury, rash, and discoloration, Neuro: Negative for headache, weakness, numbness, tingling, and seizure, 12:42 MS/extremity: Positive for pain, swelling, tenderness, of the right antecubital area, 12:42 All other systems are negative, Exam: 12:42 Constitutional: This is a well developed, well nourished patient who is awake, alert, jh7 and in no acute distress. Head/Face: Normocephalic, atraumatic. Neck: Trachea midline, no thyromegaly or masses palpated, and no cervical lymphadenopathy. Supple, full range of motion without nuchal rigidity, or vertebral point tenderness. No Meningismus. Cardiovascular: Regular rate and rhythm with a normal S1 and S2. No gallops, murmurs, or rubs. Normal PMI, no JVD. No pulse deficits. Respiratory: Lungs have equal breath sounds bilaterally, clear to auscultation and percussion. No rales, rhonchi or wheezes noted. No increased work of breathing, no retractions or nasal flaring. Abdomen/GI: Soft, non-tender, with normal bowel sounds. No distension or tympany. No guarding or rebound. No evidence of tenderness throughout. Skin: Warm, dry with normal turgor. Normal color with no rashes, no lesions, and no evidence of cellulitis. Neuro: Awake and alert, GCS 15, oriented to person, place, time, and situation. Motor strength 5/5 in all extremities. Sensory grossly intact. Normal gait. 12:42 Musculoskeletal/extremity: Extremities: noted in the right antecubital area: pain, swelling, tenderness, ROM: intact in all extremities, Circulation is intact in all extremities. Sensation intact. DVT Exam: no appreciated bluish discoloration, no erythema, no increased warmth, pain, swelling, tenderness, Vital Signs: 12:37 BP 118 / 83; Pulse 69; Resp 18; Temp 98.2(O); Pulse Ox 100% on R/A; Weight 82.55 kg; nj1 Height 5 ft. 2 in. ; Pain 8/10; 14:29 BP 119 / 86; Pulse 72; Resp 18; Pulse Ox 99% ; cp4 12:37 Body Mass Index 33.29 (82.55 kg, 157.48 cm) [facility] 12:37 Pain Scale: Adult nj1 MDM: 12:32 Patient medically screened. [facility] 14:15 Differential diagnosis: contusion, DVT, SVT, muscle tear. Data reviewed: vital signs, [facility] nurses notes, lab test result(s), radiologic studies, ultrasound. Counseling: I had a detailed discussion with the patient and/or guardian regarding the historical points, exam findings, and any diagnostic results supporting the discharge/admit diagnosis, to return to the emergency department if symptoms worsen or persist or if there are any questions or concerns that arise at home. 09/12 12:37 Order name: CBC w/o diff; Complete Time: 14:13 [facility] 09/12 12:37 Order name: BMP; Complete Time: 14:13 [facility] 09/12 12:37 Order name: PT-INR; Complete Time: 13:58 [facility] 09/12 13:23 Order name: UPPER EXTREMITY VENOUS UNILATE; Complete Time: 13:58 EDMS Administered Medications: No medications were administered Disposition Summary: 09/12/23 14:22 Discharge Ordered Notes: Location: Home [facility] Problem: new [facility] Symptoms: are unchanged [facility] Condition: Stable [facility] Diagnosis - Right upper arm swelling [facility] Followup: [facility] - With: Private Physician - When: 2 - 3 days - Reason: Recheck today's complaints Discharge Instructions: - Discharge Summary Sheet [facility] - Deep Vein Thrombosis [facility] - Muscle Strain [facility] Forms: - Medication Reconciliation Form [facility] - Thank You Letter [facility] - Patient Portal Instructions [facility] - Leadership Thank You Letter [facility] Signatures: Dispatcher [employer] EDJenise Bautista, FLORICULTURE TEACHER FLORICULTURE TEACHER [facility] Malissa Clemente, RN RN nj1 Corrections: (The following items were deleted from the chart) 13: 12:38 Extremity Venous [employer]+US.RAD.GURMEET ordered. EDAL EDMS
[2023-09-12 14:57] VITALS: TEMP 98.2
[2023-09-12 14:59] VITALS: BP 119/86; O2SAT 99
== END 2023-09-12 14:31 | disposition home or self-care (01) ==
LOC: ER 12:26
DX: M79.89 Other specified soft tissue disorders (principal); Z88.0 Allergy status to penicillin; Z88.6 Allergy status to analgesic agent; Z88.8 Allergy status to other drugs, medicaments and biological substances; Z91.040 Latex allergy status
CPT/HCPCS: 36415; 80048; 85027; 85610; 93971; 99283

== ENCOUNTER 2024-07-08 20:45 | Emergency (ER) | payer OTHER ==
--- OUTSIDE RECORDS SUMMARY | 2024-07-08 20:48 | XMS REPORT | Clinical Summary ---
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 Name Role Phone Daisy Connors MD Unavailable [phone] Social History Tobacco Use Types Packs/Day Years Used Date Smoking Tobacco: Never Assessed Sex and Gender Information Value Date Recorded Sex Assigned at Not on file Gender Identity Not on file Sexual Orientation Not on file Job Start Date Occupation Industry Not on file Not on file Not on file Plan of Treatment Not on file Care Teams Hydraulic Jack Operator Relationship Specialty Start Date End Date Daisy Connors MD [address] [place] [address] [address] [place] [address] PCP - External Primary Care Provider Nephrology 11/11/22
[2024-07-08] MEDS ORDERED: ONDANSETRON 4 MG/2 ML VIAL ONE (21:27)
[2024-07-08] MEDS ORDERED: FAMOTIDINE 20 MG/2 ML VIAL IV ONE (21:27)
[2024-07-08] MEDS ORDERED: NA CHLORIDE 0.9% 1,000 ML ONE (21:28)
[2024-07-08 21:31] LABS: Albumin 3.3 g/dL (3.4-5.0); Albumin/Globulin Ratio 0.9 (1.1-1.8); Anion Gap 5.4 mEq/L (5.0-15.0); Bilirubin Total 0.3 mg/dL (0.2-1.0); Globulin 3.6 g/dL (2.3-3.5); Potassium 3.4 mEq/L (3.5-5.1); Protein, Total 6.9 g/dL (6.4-8.2); Troponin High Sensitivity 3.8 pg/mL (<58.9)
[2024-07-08 21:36] LABS: Urine Bacteria None Seen /HPF (<20); Urine Bilirubin NEGATIVE (Negative); Urine Blood Negative (Negative); Urine Clarity Extremely Turbid (Clear); Urine Color Yellow (Yellow); Urine Crystals Unidentified Few /HPF (None Seen); Urine Culture Reflex Order REFLEXED; Urine Glucose NEGATIVE (Negative); Urine Ketones NEGATIVE (Negative); Urine Microscopic Reflex YN ORDER UMIC; Urine Mucus 1+ /HPF (None Seen); Urine Nitrite NEGATIVE (Negative); Urine Protein TRACE (Negative); Urine Urobilinogen 1+ (Normal); Urine WBC 20-50 /HPF (<5); Urine pH 5.5 (5.0-7.0)
[2024-07-08 21:36] LABS: Absolute Basophils 0.1 K/uL (0-0.5); Absolute Eosinophils 0.9 K/uL (0-0.5); Absolute Lymphocytes (CBC) 2.2 K/uL (0.7-4.9); Absolute Monocytes 0.4 K/uL (0.1-1.3); Absolute Neutrophil 4.6 K/uL (1.8-8.0); Basophils % 0.9 % (0-1.3); Eosinophils % 10.7 % (0-4.4); Hematocrit 37.1 % (36.0-45.0); Hemoglobin 12.7 g/dL (12.0-15.0); Lymphocytes % 27.2 % (15.3-44.8); MCH 30.2 pg (27.0-35.0); MCHC 34.3 g/dL (32.0-36.0); MCV 88.1 fL (80-100); MPV 8.7 fL (7.6-11.3); Neutrophils % 56.2 % (41.7-73.7); Nucleated Red Blood Cells % 0.1 % (0-0); Platelets 166 thou/uL (152-406)
--- NOTE | 2024-07-08 22:48 | RAD REPORT ---
EXAMINATION: CT ABDOMEN AND PELVIS WITHOUT CONTRAST CLINICAL INDICATION: Female, 58 years old. [facility]UST MAIN ABD PAIN TECHNIQUE: CT abdomen and pelvis was performed, without IV contrast, as per department protocol. Axia l, sagittal and coronal reconstructions were obtained. One or more of the following dose reduction techniques were used: Automated exposure control, adjustment of the mA and kV according to the patien t size, and iterative reconstruction. Unless otherwise specified, incidental findings do not require dedicated imaging follow-up. COMPARISON: 04/27/2021 CT abdomen and pelvis FINDINGS: The lack of intravenous contrast limits the sensitivity of this exam for evaluation of solid visceral organs, vascular structures, and retroperitoneum. LOWER CHEST: The visualized lung bases are clear. LIVER: Normal in size and contour. No focal lesion. BILIARY SYSTEM: Suboptimal distention of the urinary bladder which limits evaluation. SPLEEN: Normal size. No focal lesion. PANCREAS: No mass, ductal dilation, or jordyn-pancreatic fluid. ADRENALS: Normal; no mass. KIDNEYS AND URETERS: Normal size and contour. No hydronephrosis. URINARY BLADDER: Decompressed, limiting evaluation. GASTROINTESTINAL TRACT: No evidence of bowel obstruction, significant free fluid, free air or abscess . APPENDIX: Normal appendix. LYMPH NODES: No lymphadenopathy. MUSCULOSKELETAL: No acute or suspicious osseous abnormality. ADDITIONAL FINDINGS: None. IMPRESSION: No acute or concerning abnormalities in the abdomen or pelvis, with evaluation limited by lack of IV contrast.
--- NOTE | 2024-07-08 23:04 | ER ---
Nurse's Notes [facility] Name: Olga Lidia Delgadillo Age: 58 yrs Sex: Female : 1965 Arrival Date: 07/08/2024 Time: 20:45 Bed 7 Private MD: Diagnosis: Abdominal pain, Generalized;UTI/ Urinary tract infection, site not specified Presentation: 07/08 21:03 Chief complaint: Patient states: c/o abdominal pain x1 hour and constipation. al5 Coronavirus screen: At this time, the client does not indicate any symptoms associated with coronavirus-19. Ebola Screen: No symptoms or risks identified at this time. Initial Sepsis Screen: Does the patient meet any 2 criteria? No. Patient's initial sepsis screen is negative. Does the patient have a suspected source of infection? No. Patient's initial sepsis screen is negative. Risk Assessment: Do you want to hurt yourself or someone else? Patient reports no desire to harm self or others. Onset of symptoms was July 08, 2024. 21:03 Method Of Arrival: Ambulatory al5 21:03 Acuity: ROXIE 3 al5 Triage Assessment: 21:26 General: Appears in no apparent distress. Behavior is calm, cooperative. Pain: al5 Complains of pain in umbilical area, right upper quadrant and left upper quadrant Pain currently is 9 out of 10 on a pain scale. EENT: patient hard of hearing.. Neuro: Level of Consciousness is awake, alert, obeys commands, Oriented to person, place, time, situation. Cardiovascular: Capillary refill < 3 seconds Patient's skin is warm and dry. Respiratory: Airway is patent Respiratory effort is even, unlabored, Respiratory pattern is regular, symmetrical. GI: Abdomen is round non-distended, Reports upper abdominal pain, constipation. : No signs and/or symptoms were reported regarding the genitourinary system. Derm: Skin is intact, Skin is pink, warm \T\ dry. normal. Musculoskeletal: No signs and/or symptoms reported regarding the musculoskeletal system. Historical: - Allergies: 21:05 Aspirin (Hives); al5 21:05 Iodine; al5 21:05 Latex; al5 21:05 PENICILLINS; al5 21:05 Prozac; al5 21:05 Seroquel; al5 21:05 Morphine; al5 21:05 Trazodone; al5 21:05 oxcarbazepine; al5 - Home Meds: 21:05 albuterol sulfate 90 mcg/actuation Inhl HFA Aerosol Inhaler every 6 hours as needed al5 [Active]; Auvelity 45-105 mg oral tablet,IR \T\ delayed release,biphasic 2 tab twice a day [Active]; azelastine 137 mcg (0.1 %) intranasal spray, non-aerosol 2 times per day [Active]; clonidine HCl 0.1 mg Oral tablet 2 times per day [Active]; famotidine 20 mg Oral tablet 2 times per day [Active]; fluticasone propionate 250 mcg/actuation inhalation Blister, With Inhalation Device [Active]; linaclotide 72 mcg oral capsule daily [Active]; Myrbetriq 50 mg oral Tablet, Extended Release 24 hr daily [Active]; omeprazole 40 mg Oral capsule,delayed release (e.c.) daily [Active]; rosuvastatin 10 mg oral tablet bedtime [Active]; Spiriva Respimat 2.5 mcg/actuation inhalation Mist [Active]; - PMHx: 21:05 Asthma; Bipolar disorder; Depression; irregular heart beat (Unknown); mental al5 disability; PTSD (Bipolar disorder); Migraine; Sleep apnea; Hypercholesterolemia; - PSHx: 21:05 hysterectomy; section; al5 - Immunization history:: Adult Immunizations up to date. - Infectious Disease History:: Denies. - Social history:: Smoking status: unknown. Screenin:28 [facility] ED Fall Risk Assessment (Adult) History of falling in the last 3 months, al5 including since admission No falls in past 3 months (0 pts) Confusion or Disorientation No (0 pts) Intoxicated or Sedated No (0 pts) Impaired Gait No (0 pts) Mobility Assist Device Used No (0 pt) Altered Elimination No (0 pt) Score/Fall Risk Level 0 - 2 = Low Risk Oriented to surroundings, Maintained a safe environment, Hourly rounding (assess needs \T\ fall precautionary measures) done. Abuse screen: Denies threats or abuse. Denies injuries from another. Nutritional screening: No deficits noted. Tuberculosis screening: No symptoms or risk factors identified. Assessment: 21:28 Reassessment: see triage assessment. al5 21:30 GI: Bowel sounds present X 4 quads. Abdomen is tender to palpation in umbilical area, al5 right upper quadrant and left upper quadrant. Vital Signs: 21:03 BP 108 / 69; Pulse 67; Resp 18; Temp 97.8; Pulse Ox 98% on R/A; Weight 84.82 kg; Height al5 5 ft. 2 in. ; Pain 9/10; 21:37 BP 108 / 73; Pulse 57; Resp 17; Pulse Ox 95% ; dd2 21:45 BP 113 / 80; Pulse 52; Resp 18; Pulse Ox 95% on R/A; al5 23:39 BP 116 / 69; Pulse 62; Resp 17; Pulse Ox 97% ; dd2 21:03 Body Mass Index 34.20 (84.82 kg, 157.48 cm) al5 21:03 Pain Scale: Adult al5 ED Course: 20:48 Patient arrived in ED. jj6 20:49 Alba Fulton FNP-C [facility] kb 20:49 Nj Bear MD is Attending Physician. kb 20:56 KARI CALHOUN, ADDIE is Primary Nurse. dd2 21:04 Triage completed. al5 21:08 EKG done, by ED staff, reviewed by Nj Bear MD. oh1 21:08 Initial lab(s) drawn, by tn, sent to lab. EKG done, by ED staff, reviewed by Nj Bear MD. Inserted saline lock: 20 gauge in right antecubital area, using aseptic technique. Blood collected. Flushed with 10 mL NS. 21:09 CBC with Diff Sent. dd2 21:09 CMP Sent. dd2 21:09 Lipase Sent. dd2 21:28 Arm band placed on right wrist. Patient placed in the treatment room, on a stretcher. al5 21:29 Patient has correct armband on for positive identification. Placed in gown. Bed in low al5 position. Call light in reach. Side rails up X 1. Provided Education on: processes and procedures. 21:30 No provider procedures requiring assistance completed. al5 22:12 Abdomen In Process Unspecified. EDMS 23:39 IV discontinued, intact, bleeding controlled, No redness/swelling at site. Pressure dd2 dressing applied. Administered Medications: 21:35 Drug: NS 0.9% IV 1000 ml IV at 1 bolus Per protocol; 1000 mL bolus Route: IV; Rate: 1 dd2 bolus; Site: right antecubital; 21:50 Follow up: Response: No adverse reaction dd2 22:38 Follow up: Response: No adverse reaction; IV Status: Completed infusion; IV Intake: dd2 1000ml 21:35 Drug: Famotidine IVP 20 mg IVP once; dilute with 10 mL 0.9% NaCl; give over 2 minutes dd2 Route: IVP; Site: right antecubital; 21:50 Follow up: Response: No adverse reaction dd2 21:35 Drug: Ondansetron IVP 4 mg IVP once; over 2 minutes Route: IVP; Site: right antecubital;dd2 21:50 Follow up: Response: No adverse reaction dd2 23:02 CANCELLED (pt is currently on abx for utii): [id number] mg PO once kb 23:39 Drug: Potassium Chloride PO 20 mEq PO once Route: PO; dd2 23:41 Follow up: Response: Medication administered at discharge. dd2 Medication: 21:29 VIS not applicable for this client. al5 Intake: 22:38 IV: 1000ml; Total: 1000ml. dd2 Outcome: 23:04 Discharge ordered by . kb 23:39 Discharged to home ambulatory, dd2 23:39 Condition: stable 23:39 Discharge instructions given to patient, family, Instructed on discharge instructions, follow up and referral plans. Demonstrated understanding of instructions, follow-up care, 23:41 Patient left the ED. dd2 Signatures: Dispatcher [employer] EDIL Alba Fulton FNP-C FNP-Jenise Mota jj6 Nidia Holland RN RN al5 KARI CALHOUN RN RN dd2 Ladan Ball oh1 Corrections: (The following items were deleted from the chart) 21:26 21:05 Home Meds: albuterol sulfate Inhl; al5 al5 21:26 21:05 Home Meds: albuterol sulfate 90 mcg/actuation Inhl HFA Aerosol Inhaler every 6 al5 hours; al5 21:26 21:05 PSHx: migraine; al5 al5
--- NOTE | 2024-07-08 23:04 | EDPHYS ---
Physician Documentation [facility] Name: Olga Lidia Delgadillo Age: 58 yrs Sex: Female : 1965 Arrival Date: 07/08/2024 Time: 20:45 Bed 7 Private MD: ED Physician Nj Bear HPI: 07/08 23:02 This 58 yrs old Female presents to ER via Ambulatory with complaints of Abdominal Pain. kb 23:02 Pt is a 58 year old female who presents for generalized abd pain that started one hour kb ago. Also reports constipation, but isn't sure for how long. Denies nausea, vomiting, fever. No aggravating or alleviating factors. Historical: - Allergies: 21:05 Aspirin (Hives); al5 21:05 Iodine; al5 21:05 Latex; al5 21:05 PENICILLINS; al5 21:05 Prozac; al5 21:05 Seroquel; al5 21:05 Morphine; al5 21:05 Trazodone; al5 21:05 oxcarbazepine; al5 - Home Meds: 21:05 albuterol sulfate 90 mcg/actuation Inhl HFA Aerosol Inhaler every 6 hours as needed al5 [Active]; Auvelity 45-105 mg oral tablet,IR \T\ delayed release,biphasic 2 tab twice a day [Active]; azelastine 137 mcg (0.1 %) intranasal spray, non-aerosol 2 times per day [Active]; clonidine HCl 0.1 mg Oral tablet 2 times per day [Active]; famotidine 20 mg Oral tablet 2 times per day [Active]; fluticasone propionate 250 mcg/actuation inhalation Blister, With Inhalation Device [Active]; linaclotide 72 mcg oral capsule daily [Active]; Myrbetriq 50 mg oral Tablet, Extended Release 24 hr daily [Active]; omeprazole 40 mg Oral capsule,delayed release (e.c.) daily [Active]; rosuvastatin 10 mg oral tablet bedtime [Active]; Spiriva Respimat 2.5 mcg/actuation inhalation Mist [Active]; - PMHx: 21:05 Asthma; Bipolar disorder; Depression; irregular heart beat (Unknown); mental al5 disability; PTSD (Bipolar disorder); Migraine; Sleep apnea; Hypercholesterolemia; - PSHx: 21:05 hysterectomy; section; al5 - Immunization history:: Adult Immunizations up to date. - Infectious Disease History:: Denies. - Social history:: Smoking status: unknown. ROS: 22:28 Constitutional: As per HPI kb Exam: 22:28 Constitutional: This is a well developed, well nourished patient who is awake, alert, kb and in no acute distress. Head/Face: Normocephalic, atraumatic. ENT: Moist Mucous membranes Cardiovascular: Regular rate Respiratory: Respirations even and unlabored. No increased work of breathing. Talking in full sentences Abdomen/GI: Soft, non-tender. No distention Skin: Warm, dry with normal turgor. Normal color. MS/ Extremity: Pulses equal, no cyanosis. Neurovascular intact. Full, normal range of motion. Neuro: Awake and alert, GCS 15, oriented to person, place, time, and situation. Moves all extremities. Normal gait. 22:28 ECG was reviewed by the Attending Physician. Vital Signs: 21:03 BP 108 / 69; Pulse 67; Resp 18; Temp 97.8; Pulse Ox 98% on R/A; Weight 84.82 kg; Height al5 5 ft. 2 in. ; Pain 9/10; 21:37 BP 108 / 73; Pulse 57; Resp 17; Pulse Ox 95% ; dd2 21:45 BP 113 / 80; Pulse 52; Resp 18; Pulse Ox 95% on R/A; al5 23:39 BP 116 / 69; Pulse 62; Resp 17; Pulse Ox 97% ; dd2 21:03 Body Mass Index 34.20 (84.82 kg, 157.48 cm) al5 21:03 Pain Scale: Adult al5 MDM: 20:49 Patient medically screened. kb 22:52 Differential diagnosis: gastritis, non-specific abd pain, pancreatitis, urinary tract kb infection. Data reviewed: vital signs, nurses notes. Historians other than the Patient: Daughter/Son: daughter. Counseling: I had a detailed discussion with the patient and/or guardian regarding the historical points, exam findings, and any diagnostic results supporting the discharge/admit diagnosis, lab results, radiology results, the need for outpatient follow up, a family practitioner, to return to the emergency department if symptoms worsen or persist or if there are any questions or concerns that arise at home. 07/08 20:54 Order name: CBC with Diff; Complete Time: 21:46 kb 07/08 20:54 Order name: CMP; Complete Time: 21:38 kb 07/08 20:54 Order name: Lipase; Complete Time: 21:38 kb 07/08 20:54 Order name: Urinalysis w/ reflexes; Complete Time: 21:46 kb 07/08 20:54 Order name: Troponin High Sensitivity; Complete Time: 21:38 kb 07/08 21:42 Order name: Urine Culture EDPR 07/08 22:09 Order name: Abdomen ; Complete Time: 22:51 EDMS 07/08 20:54 Order name: IV Saline Lock; Complete Time: 21:09 kb 07/08 20:54 Order name: Labs collected and sent; Complete Time: 21:09 kb 07/08 20:54 Order name: EKG - Nurse/Tech; Complete Time: 21:08 kb EC:28 Rate is 65 beats/min. Rhythm is regular. QRS [place] is Normal. ND interval is normal at kb 154 msec. QRS interval is normal at 84 msec. QT interval is normal at 457 msec. Administered Medications: 21:35 Drug: NS 0.9% IV 1000 ml IV at 1 bolus Per protocol; 1000 mL bolus Route: IV; Rate: 1 dd2 bolus; Site: right antecubital; 21:50 Follow up: Response: No adverse reaction dd2 22:38 Follow up: Response: No adverse reaction; IV Status: Completed infusion; IV Intake: dd2 1000ml 21:35 Drug: Famotidine IVP 20 mg IVP once; dilute with 10 mL 0.9% NaCl; give over 2 minutes dd2 Route: IVP; Site: right antecubital; 21:50 Follow up: Response: No adverse reaction dd2 21:35 Drug: Ondansetron IVP 4 mg IVP once; over 2 minutes Route: IVP; Site: right antecubital;dd2 21:50 Follow up: Response: No adverse reaction dd2 23:02 CANCELLED (pt is currently on abx for utii): [id number] mg PO once kb 23:39 Drug: Potassium Chloride PO 20 mEq PO once Route: PO; dd2 23:41 Follow up: Response: Medication administered at discharge. dd2 Disposition: 07/09 21:00 Co-signature as Attending Physician, Nj Bear MD I agree with the assessment sp4 and plan of care. I reviewed the patient's care provided by the Advanced Practice Provider and agree with the diagnosis and treatment plan. Disposition Summary: 07/08/24 23:04 Discharge Ordered Notes: Location: Home kb Condition: Stable kb Diagnosis - Abdominal pain, Generalized kb - UTI/ Urinary tract infection, site not specified kb Followup: kb - With: Emergency Department - When: As needed - Reason: Worsening of condition Followup: kb - With: Private Physician - When: 2 - 3 days - Reason: Recheck today's complaints, Continuance of care, Re-evaluation by your physician Discharge Instructions: - Discharge Summary Sheet kb - Urinary Tract Infection, Adult, [id number] kb - Abdominal Pain, Adult, [id number] kb Forms: - Medication Reconciliation Form kb - Antibiotic Education kb - Prescription Opioid Use kb - Patient Portal Instructions kb - Leadership Thank You Letter kb Signatures: Dispatcher [employer] EDPR Alba Fulton, AUTO PARTS PROFESSIONAL-C [employer]S PROFESSIONAL-Nj Sandy MD MD sp4 Niida Holland RN RN al5 KARI CALHOUN, RN RN dd2 Corrections: (The following items were deleted from the chart) 07/08 20:55 20:55 CBC+H.LAB.BRZ ordered. EDPR EDMS 20:55 20:55 COMPREHENSIVE METABOLIC PANEL+C.LAB.BRZ ordered. EDPR EDMS 20:55 20:55 LIPASE+C.LAB.BRZ ordered. EDPR EDMS 20:55 20:55 Urinalysis+U.LAB.BRZ ordered. EDPR EDMS 20:55 20:55 Troponin High Sensitivity+C.LAB.BRZ ordered. EDPR EDMS 20:55 20:55 Abdomen Pelvis W Con+CT.RAD.BRZ ordered. EDPR EDMS 21:26 21:05 Home Meds: albuterol sulfate Inhl; al5 al5 21:26 21:05 Home Meds: albuterol sulfate 90 mcg/actuation Inhl HFA Aerosol Inhaler every 6 al5 hours; al5 21:26 21:05 PSHx: migraine; al5 al5 23:02 23:00 Nitrofurantoin PO 50 mg PO once ordered. kb kb 23:03 23:02 Pt is a 58 year old female who presents for generalized abd pain that started one kb hour ago. Also reports constipation, but isn't sure for how long. Denies nausea, vomiting, fever. . kb
[2024-07-08] MEDS ORDERED: POTASSIUM CL SA 10 MEQ TAB PO ONE (23:31)
[2024-07-08 23:48] VITALS: TEMP 97.8
[2024-07-08 23:52] VITALS: BP 116/69; O2SAT 97
--- NOTE | 2024-07-09 16:57 | EKG ---
Test Date: 2024-07-08 Test Time: 21:04:03 Adon: MULU MEASUREMENT RESULTS: Intervals: Rate: 65 AR: 154 QRSD: 84 QT: 440 QTc: 457 Icard: P: 77 AR: 154 QRS: 18 T: 64 INTERPRETIVE STATEMENTS: Normal sinus rhythm Normal ECG Compared to ECG 07/16/2020 08:18:07 No significant changes Electronically Signed On 07-09-24 16:54:50 CDT by Julio Pedraza
== END 2024-07-08 23:41 | disposition home or self-care (01) ==
LOC: ER 20:45
DX: N39.0 Urinary tract infection, site not specified (principal); K59.00 Constipation, unspecified
CPT/HCPCS: 96361; 93005; 87088; 85025; 81001; 87086; 36415; 84484; 83690; 80053; 74176; 96375; 96374; 99284; J2405; J7030